=== PATIENT | female | born 1960 | race Caucasian/White ===

== ENCOUNTER 2016-10-24 10:17 | Emergency (ER) | payer MEDICARE, MEDICAID ==
[~2016-10-24] VITALS: Ht 167.6 cm; Wt 115.0 kg
[~2016-10-24 10:17] MED LIST: BAYE2KIT XX; BENA25TA8 PO; BUSP15TA PO; DOK100TA PO; DUONI NEB; GLIP10 PO; GLUCTAB PO; HALO5 PO; LISI-360 PO; MECL25CH PO; OMEG100037 PO; OMEP20TA39 PO; PALI1.75 IM; SERT100 PO; SYMB80AE INH; SYNT137T PO; TRIH2 PO; VENTAER INH; Z.0.OXYGENDME NC; ZOCO40TA PO; diabetic shoes; lancets; nebulizer; needles; test strips
[2016-10-24 10:27] VITALS: BP 175/75; PULSE 69; RESP 26; TEMP 98.2; O2SAT 92
[2016-10-24] MEDS ORDERED: RESP: ALBUTEROL 2.5 MG/IPRATROPIUM 0.5 MG NEB (SCH) INH ONE (10:30)
[2016-10-24] MEDS ORDERED: SODIUM CHLORIDE 0.9% FLUSH 10 ML FLUSH IVF PRN (10:30)
[2016-10-24 10:34] VITALS: RESP 22; O2SAT 95
[2016-10-24] MEDS: RESP: ALBUTEROL 2.5 MG/3 ML NEB (SCH) INH (10:34)
[2016-10-24 10:38] VITALS: O2SAT 93
[2016-10-24 11:11] LABS: AUTOMATED NEUTROPHIL # 3.9 TH/MM3 (1.8-7.7); BASOPHIL % 0.3 % (0.0-2.0); EOSINOPHIL # 0.1 TH/MM3 (0-0.4); EOSINOPHIL % 1.8 % (0.0-4.0); HEMATOCRIT 37.7 % (35.0-46.0); HEMO FLAGS DIFF FINAL; LYMPH % 18.7 % (9.0-44.0); MEAN CELL VOLUME 84.1 FL (80.0-100.0); MEAN CORPUSCULAR HEMOGLOBIN 28.1 PG (27.0-34.0); MEAN CORPUSCULAR HGB CONC 33.4 % (32.0-36.0); MONO % 4.2 % (0.0-8.0); PLATELET COUNT 137 TH/MM3 (150-450); RED BLOOD COUNT 4.49 MIL/MM3 (4.00-5.30); WHITE BLOOD COUNT 5.2 TH/MM3 (4.0-11.0)
[2016-10-24 11:18] LABS: APTT (PATIENT) 27.9 SEC (24.3-30.1); PROTHROMBIN TIME - PATIENT 10.8 SEC (9.8-11.6)
--- NOTE | 2016-10-24 11:18 | RADRPT ---
EXAM DATE/TIME: 10/24/2016 10:42 [facility] COMPARISON: CHEST SINGLE AP, January 04, 2016, 1:12. INDICATIONS : Short of breath. MEDICAL HISTORY : Chronic obstructive pulmonary disease. SURGICAL HISTORY : None. ENCOUNTER: Initial ACUITY: 1 day PAIN SCORE: 0/10 LOCATION: Bilateral chest FINDINGS: A single view of the chest demonstrates the lungs to be symmetrically aerated without evidence of mas s, infiltrate or effusion. The cardiomediastinal contours are unremarkable. Osseous structures are intact. CONCLUSION: 1. No acute cardiopulmonary findings. Marshall Henriquez MD on October 24, 2016 at 11:16 Board Certified Radiologist. This report was verified electronically.
[2016-10-24 11:25] LABS: ANION GAP 6 MEQ/L (5-15); BICARBONATE 34.2 MEQ/L (21.0-32.0); BLOOD UREA NITROGEN 5 MG/DL (7-18); CHLORIDE 101 MEQ/L (98-107); GLOMERULAR FILTRATION RATE 96 ML/MIN (>89); POTASSIUM 3.7 MEQ/L (3.5-5.1); SODIUM (NA) 141 MEQ/L (136-145)
[2016-10-24 11:30] LABS: CREATINE KINASE 34 U/L (26-192)
[2016-10-24 12:18] VITALS: BP 182/82; PULSE 71; RESP 20; O2SAT 95
[2016-10-24] MEDS ORDERED: PRED-503 PO (13:11)
[2016-10-24] MEDS ORDERED: VENTAER INH (13:11)
--- NOTE | 2016-10-24 13:11 | PD ---
HPI Chief Complaint: Respiratory Symptoms Time Seen by Provider: 10:27 Travel History International Travel<30 days: No Contact w/Intl Traveler<30days: No Traveled to known affect area: No History of Present Illness HPI 56yo F with PMH of asthma presents to the ED with c/o sob today. Pt has been sob every day for 3 weeks and usually uses her ventolin pump and gets better. However, she decided not to use any medication today because she was tired of this. Denies any fever, chest pain, n/v, abdominal pain, focal weakness or numbness. +Cig smoker. Pt given duonebsx2 and methylprednisolone 125mg IV by EV[facility]. PFSH Past Medical History Asthma: Yes Bipolar Disorder: Yes Anxiety: Yes Depression: Yes Cancer: No Cardiovascular Problems: Yes High Cholesterol: Yes Chest Pain: Yes Cerebrovascular Accident: Yes Diabetes: Yes Patient Takes Glucophage: Yes Diminished Hearing: No Endocrine: Yes Gastrointestinal Disorders: Yes (TAKES ZANTAC) GERD: Yes Hypertension: Yes Musculoskeletal: Yes (TAkes flexeril) Psychiatric: Yes Respiratory: Yes (COPD) Schizophrenia: Yes Seizures: Yes Sickle Cell Disease: No Sleep Apnea: Yes Thyroid Disease: Yes Menopausal: Yes Dilation and Curettage (D&C): Yes Tubal Ligation: Yes Past Surgical History Gynecologic Surgery: Yes (TUBAL ,D & C,CERVIX ) Tonsillectomy: Yes Social History Alcohol Use: No Tobacco Use: Yes (1 PPD) Substance Use: No Allergies-Medications (Allergen,Severity, Reaction): Coded Allergies: Penicillin (Verified Allergy, Severe, Anaphylaxis, 10/24/16) Sulfa (Verified Allergy, Severe, 10/24/16) Prolixin (Verified Allergy, Intermediate, 10/24/16) pt states she cannot walk Reported Meds & Prescriptions Reported Meds & Active Scripts Active Oxygen (O2) (Oxygendme) Device 2 L NC CONTINUOUS Oxygen Concentrator Portable Gaseous 2 L/min via Nasal Cannula Continuous For 99 months Resp: Albuterol/Ipratropium 2.5 Mg/0.5 Mg (Albuterol/Ipratropium) 1 Amp Nebu 1 Amp NEB Q6H PRN Ventolin Hfa (Albuterol Sulfate) 18 Gm Aero 2 Puff INH Q4 PRN * SHAKE WELL BEFORE USE * Lisinopril 10 mg (Lisinopril) 10 Mg Tab 10 Mg PO DAILY Zocor 40 mg (Simvastatin) 40 Mg Tab 1 Tab PO HS Hm Omeprazole (Omeprazole) 20 Mg Tab 20 Mg PO BID Glucotrol 10 Mg Tab (Glipizide) 10 Mg Tab 10 Mg PO BID Fish Oil 1000 mg ([place]-3 Fatty Acids) 1 Cap Cap 1 Cap PO TID Benadryl 25 mg tab (Diphenhydramine HCl) 25 Mg Tab 25 Mg PO HS [diabetic shoes ] Meclizine Hcl (Meclizine HCl) 25 Mg Chw 25 Mg PO TID Dok 100 mg (Docusate Sodium) 100 Mg Tab 100 Mg PO BID Synthroid 137 mcg (Levothyroxine Sodium) 137 Mcg Tab 137 Mcg PO DAILY [test strips] [lancets] [needles] to go with Jobyourlifetus solostar pen Testing once daily [nebulizer] 1 Symbicort (Budesonide/Formoterol Fumarate) 80 Mcg/4.5 Mcg Aer 2 Puff INH BID * SHAKE WELL BEFORE USE * Metformin (Metformin HCl) 500 Mg Tab 500 Mg PO BID Glucometer Encore Qa+ Sys (Miscellaneous Medication) Kit 1 Unit XX Reported Haldol (Haloperidol) 5 Mg Tab 10 Mg PO HS Haldol (Haloperidol) 5 Mg Tab 5 Mg PO DAILY Invega Trinza (Paliperidone Palmitate) 819 Mg/2.625 Ml Inj 819 Mg IM Q28 DAYS Buspar (Buspirone HCl) 15 Mg Tab 10 Mg PO TID Zoloft (Sertraline HCl) 100 Mg Tab 100 Mg PO DAILY Artane 2 Mg Tab (Trihexyphenidyl HCl) 2 Mg Tab 2 Mg PO BID Review of Systems Except as stated in HPI: all other systems reviewed are Neg Physical Exam Narrative GENERAL: 56yo F not in distress. SKIN: Focused skin assessment warm/dry. HEAD: Atraumatic. Normocephalic. EYES: Pupils equal and round. No scleral icterus. No injection or drainage. ENT: No nasal bleeding or discharge. Mucous membranes pink and moist. NECK: Trachea midline. No JVD. CARDIOVASCULAR: Regular rate and rhythm. No murmur appreciated. RESPIRATORY: No accessory muscle use. Expiratory wheezing bilaterally. GASTROINTESTINAL: Abdomen soft, non-tender, nondistended. MUSCULOSKELETAL: No obvious deformities. No clubbing. No cyanosis. No edema. NEUROLOGICAL: Awake and alert. No obvious cranial nerve deficits. Motor grossly within normal limits. Normal speech. PSYCHIATRIC: Appropriate mood and affect; insight and judgment normal. Data Data Last Documented VS Vital Signs Date Time Temp Pulse Resp B/P Pulse Ox O2 Delivery O2 Flow Rate FiO2 10/24/16 12:18 71 20 182/82 95 Nasal Cannula 3 10/24/16 10:27 98.2 Orders Complete Blood Count With Diff (10/24/16 10:27) Basic Metabolic Panel (Bmp) (10/24/16 10:27) B-Type Natriuretic Peptide (10/24/16 10:27) Act Partial Throm Time (Ptt) (10/24/16 10:27) Prothrombin Time / Inr (Pt) (10/24/16 10:27) Ckmb (Isoenzyme) Profile (10/24/16 10:27) Troponin I (10/24/16 10:27) Influenzae A/B Antigen (10/24/16 10:27) Iv Access Insert/Monitor (10/24/16 10:27) Electrocardiogram (10/24/16 10:27) Ecg Monitoring (10/24/16 10:27) Oximetry (10/24/16 10:27) Oxygen Administration (10/24/16 10:27) Chest, Single Ap (10/24/16 10:27) Sodium Chloride 0.9% Flush (Ns Flush) (10/24/16 10:30) Albuterol-Ipratropium Neb (Duoneb Neb) (10/24/16 10:30) Albuterol Neb (Albuterol Neb) (10/24/16 10:30) Labs Laboratory Tests Test 10/24/16 10:55 White Blood Count 5.2 TH/MM3 Red Blood Count 4.49 MIL/MM3 Hemoglobin 12.6 GM/DL Hematocrit 37.7 % Mean Corpuscular Volume 84.1 FL Mean Corpuscular Hemoglobin 28.1 PG Mean Corpuscular Hemoglobin 33.4 % Concent Red Cell Distribution Width 15.0 % Platelet Count 137 TH/MM3 Mean Platelet Volume 7.1 FL Neutrophils (%) (Auto) 75.0 % Lymphocytes (%) (Auto) 18.7 % Monocytes (%) (Auto) 4.2 % Eosinophils (%) (Auto) 1.8 % Basophils (%) (Auto) 0.3 % Neutrophils # (Auto) 3.9 TH/MM3 Lymphocytes # (Auto) 1.0 TH/MM3 Monocytes # (Auto) 0.2 TH/MM3 Eosinophils # (Auto) 0.1 TH/MM3 Basophils # (Auto) 0.0 TH/MM3 CBC Comment DIFF FINAL Differential Comment Prothrombin Time 10.8 SEC Prothromb Time International 1.0 RATIO Ratio Activated Partial 27.9 SEC Thromboplast Time Sodium Level 141 MEQ/L Potassium Level 3.7 MEQ/L Chloride Level 101 MEQ/L Carbon Dioxide Level 34.2 MEQ/L Anion Gap 6 MEQ/L Blood Urea Nitrogen 5 MG/DL Creatinine 0.64 MG/DL Estimat Glomerular Filtration 96 ML/MIN Rate Random Glucose 133 MG/DL Calcium Level 8.8 MG/DL Total Creatine Kinase 34 U/L Troponin I LESS THAN 0.02 NG/ML B-Type Natriuretic Peptide 38 PG/ML MDM Medical Decision Making Medical Screen Exam Complete: Yes Emergency Medical Condition: Yes Interpretation(s) EKG: NSR 68bpm. Normal axis. T wave flattening. Laboratory Tests Test 10/24/16 10:55 White Blood Count 5.2 TH/MM3 (4.0-11.0) Red Blood Count 4.49 MIL/MM3 (4.00-5.30) Hemoglobin 12.6 GM/DL (11.6-15.3) Hematocrit 37.7 % (35.0-46.0) Mean Corpuscular Volume 84.1 FL (80.0-100.0) Mean Corpuscular Hemoglobin 28.1 PG (27.0-34.0) Mean Corpuscular Hemoglobin 33.4 % Concent (32.0-36.0) Red Cell Distribution Width 15.0 % (11.6-17.2) Platelet Count 137 TH/MM3 (150-450) Mean Platelet Volume 7.1 FL (7.0-11.0) Neutrophils (%) (Auto) 75.0 % (16.0-70.0) Lymphocytes (%) (Auto) 18.7 % (9.0-44.0) Monocytes (%) (Auto) 4.2 % (0.0-8.0) Eosinophils (%) (Auto) 1.8 % (0.0-4.0) Basophils (%) (Auto) 0.3 % (0.0-2.0) Neutrophils # (Auto) 3.9 TH/MM3 (1.8-7.7) Lymphocytes # (Auto) 1.0 TH/MM3 (1.0-4.8) Monocytes # (Auto) 0.2 TH/MM3 (0-0.9) Eosinophils # (Auto) 0.1 TH/MM3 (0-0.4) Basophils # (Auto) 0.0 TH/MM3 (0-0.2) CBC Comment DIFF FINAL Differential Comment Prothrombin Time 10.8 SEC (9.8-11.6) Prothromb Time International 1.0 RATIO Ratio Activated Partial 27.9 SEC Thromboplast Time (24.3-30.1) Sodium Level 141 MEQ/L (136-145) Potassium Level 3.7 MEQ/L (3.5-5.1) Chloride Level 101 MEQ/L (98-107) Carbon Dioxide Level 34.2 MEQ/L (21.0-32.0) Anion Gap 6 MEQ/L (5-15) Blood Urea Nitrogen 5 MG/DL (7-18) Creatinine 0.64 MG/DL (0.50-1.00) Estimat Glomerular Filtration 96 ML/MIN (>89) Rate Random Glucose 133 MG/DL (74-106) Calcium Level 8.8 MG/DL (8.5-10.1) Total Creatine Kinase 34 U/L (26-192) Troponin I LESS THAN 0.02 NG/ML (0.02-0.05) B-Type Natriuretic Peptide 38 PG/ML (0-100) Last Impressions Chest X-Ray 10/24/16 1027 Signed Impressions: Service Date/Time: Monday, October 24, 2016 10:42 - CONCLUSION: 1. No acute cardiopulmonary findings. Marshall Henriquez MD Differential Diagnosis COPD exacerbation vs. Pneumonia vs. ACS Narrative Course 56yo F with sob today. Pt is speaking in complete sentences but has wheezing on exam. Gave another duoneb and albuterol nebx3. Pt uses 2L NC at home and is saturating 95% on 2L NC. Labs reviewed, no leukocytosis. Troponin negative. BNP 38. CXR showed no acute cardiopulmonary findings. Pt reevaluated at bedside and is feeling better. O2sat is 96% on 2L NC. Speaking in complete sentences. Still has mild end expiratory wheezing. Return precautions given. Diagnosis Primary Impression: Asthma exacerbation Patient Instructions: General Instructions Departure Forms: Tests/Procedures Additional Instructions: Please follow up with your PMD in 3-7 days. Return to the ED if symptoms worsen. Med/Other Pt SpecificInfo: Prescription(s) given Scripts Prednisone (Deltasone)20 Mg Tab20 Mg PO BID 5 Days Ref 0 Prov:Brittany Bird DO 10/24/16 Albuterol 18 GM Inh (Ventolin Hfa 18 GM Inh)90 Mcg/Act Aer2 Puff INH Q4H PRN ( SHORTNESS OF BREATH) #1 INHALER Ref 0 Prov:Brittany Bird DO 10/24/16 Disposition: 01 DISCHARGE HOME Condition: Stable Brittany Bird DO Oct 24, 2016 13:11
--- NOTE | 2016-10-25 10:46 | EKG ---
Date Performed: 10/24/2016 Time Performed: 10:28:46 PTAGE: 56 years EKG: Sinus rhythm NONSPECIFIC T-WAVE ABNORMALITY BORDERLINE ECG Compared to prior tracing no significant change PREVIOUS TRACING : 01/04/2016 01.00 DOCTOR: Haylee Felix Interpretating Date/Time 10/25/2016 10:38:59
== END 2016-10-24 13:40 | disposition home or self-care (01) ==
LOC: NEPE 10:17
DX: J45.901 Unspecified asthma with (acute) exacerbation (principal); R94.31 Abnormal electrocardiogram [ECG] [EKG]; E11.9 Type 2 diabetes mellitus without complications; I10 Essential (primary) hypertension; F17.210 Nicotine dependence, cigarettes, uncomplicated
CPT/HCPCS: 71010; 80048; 82550; 83880; 84484; 85025; 85610; 85730; 87804; 93005; 94640; 94664; 99285; J7613

== ENCOUNTER 2016-11-09 07:46 | Inpatient (IN) | payer MEDICARE, MEDICAID ==
[2016-11-09] VITALS (13 sets, daily range): BP systolic 143–161; BP diastolic 64–79; PULSE 73–95; RESP 14–22; TEMP 97.5–99; O2SAT 83–98
[~2016-11-09] VITALS: Ht 167.6 cm; Wt 110.9 kg
[~2016-11-09 07:46] MED LIST changes: -diabetic shoes; -lancets; -nebulizer; -needles; -test strips
[2016-11-09] MEDS ORDERED: RESP: ALBUTEROL 2.5 MG/IPRATROPIUM 0.5 MG NEB (SCH) INH ONE (08:00)
[2016-11-09] MEDS ORDERED: SODIUM CHLORIDE 0.9% FLUSH 10 ML FLUSH IVF PRN (08:00)
--- NOTE | 2016-11-09 08:03 | PD ---
HPI Chief Complaint: Respiratory Symptoms Time Seen by Provider: 07:55 Travel History International Travel<30 days: No Contact w/Intl Traveler<30days: No History of Present Illness HPI 56yo F with PMH of asthma presents to the ED with c/o sob for 1 day. States she was arguing with her children and started feeling sob. Tactile fever. + Productive cough. Denies any chest pain, n/v, abdominal pain, focal weakness or numbness. Pt has been here multiple times for asthma exacerbation and uses 2L NC oxygen at home. Pt denies history of endotracheal intubation. Last ED visit was early this month. Pt was given methylprednisolone 125mg and duonebs x2. PFSH Past Medical History Asthma: Yes Bipolar Disorder: Yes Anxiety: Yes Depression: Yes Cancer: No Cardiovascular Problems: Yes High Cholesterol: Yes Chest Pain: Yes Cerebrovascular Accident: Yes Diabetes: Yes Diminished Hearing: No Endocrine: Yes Gastrointestinal Disorders: Yes (TAKES ZANTAC) GERD: Yes Hypertension: Yes Musculoskeletal: Yes (TAkes flexeril) Psychiatric: Yes Respiratory: Yes (COPD) Schizophrenia: Yes Seizures: Yes Sickle Cell Disease: No Sleep Apnea: Yes Thyroid Disease: Yes Menopausal: Yes Dilation and Curettage (D&C): Yes Tubal Ligation: Yes Past Surgical History Gynecologic Surgery: Yes (TUBAL ,D & C,CERVIX ) Tonsillectomy: Yes Social History Alcohol Use: No Tobacco Use: Yes (1 PPD) Substance Use: No Allergies-Medications (Allergen,Severity, Reaction): Coded Allergies: Penicillin (Verified Allergy, Severe, Anaphylaxis, 11/09/16) Sulfa (Verified Allergy, Severe, 11/09/16) Prolixin (Verified Allergy, Intermediate, 11/09/16) pt states she cannot walk Reported Meds & Prescriptions Reported Meds & Active Scripts Active Reported Ventolin Hfa 18 GM Inh (Albuterol Sulfate) 90 Mcg/Act Aer 2 Puff INH Q6H PRN Zocor (Simvastatin) 40 Mg Tab 40 Mg PO DAILY Glipizide 10 Mg Tab 10 Mg PO BID Take 30 minutes before a meal Omeprazole 20 Mg Tab 20 Mg PO BID Fish Oil 1000 mg ([place]-3 Fatty Acids) 1 Cap Cap 1,000 Mg PO TID Lisinopril 10 Mg Tab 10 Mg PO DAILY Synthroid (Levothyroxine Sodium) 137 Mcg Tab 137 Mcg PO DAILY Metformin (Metformin HCl) 500 Mg Tab 500 Mg PO BID With meals Zoloft (Sertraline HCl) 100 Mg Tab 200 Mg PO DAILY Colace (Docusate Sodium) 100 Mg Cap 100 Mg PO BID Buspirone (Buspirone HCl) 10 Mg Tab 10 Mg PO TID Review of Systems Except as stated in HPI: all other systems reviewed are Neg Physical Exam Narrative GENERAL: 56yo F not in distress. SKIN: Focused skin assessment warm/dry. HEAD: Atraumatic. Normocephalic. EYES: Pupils equal and round. No scleral icterus. No injection or drainage. ENT: No nasal bleeding or discharge. Mucous membranes pink and moist. NECK: Trachea midline. No JVD. CARDIOVASCULAR: Regular rate and rhythm. No murmur appreciated. RESPIRATORY: + accessory muscle use. Wheezing bilaterally. GASTROINTESTINAL: Abdomen soft, non-tender, nondistended. MUSCULOSKELETAL: No obvious deformities. No clubbing. No cyanosis. No edema. NEUROLOGICAL: Awake and alert. No obvious cranial nerve deficits. Motor grossly within normal limits. Normal speech. PSYCHIATRIC: Appropriate mood and affect; insight and judgment normal. Data Data Last Documented VS Vital Signs Date Time Temp Pulse Resp B/P Pulse Ox O2 Delivery O2 Flow Rate FiO2 11/09/16 09:19 97 35 11/09/16 08:00 99.0 95 22 145/67 Nasal Cannula 4 Orders Complete Blood Count With Diff (11/09/16 07:55) Basic Metabolic Panel (Bmp) (11/09/16 07:55) B-Type Natriuretic Peptide (11/09/16 07:55) Act Partial Throm Time (Ptt) (11/09/16 07:55) Prothrombin Time / Inr (Pt) (11/09/16 07:55) Magnesium (Mg) (11/09/16 07:55) Ckmb (Isoenzyme) Profile (11/09/16 07:55) Troponin I (11/09/16 07:55) Arterial Blood Gas (Abg) (11/09/16 07:55) Influenzae A/B Antigen (11/09/16 07:55) Blood Culture (11/09/16 07:55) Iv Access Insert/Monitor (11/09/16 07:55) Electrocardiogram (11/09/16 07:55) Ecg Monitoring (11/09/16 07:55) Oximetry (11/09/16 07:55) Oxygen Administration (11/09/16 07:55) Chest, Single Ap (11/09/16 07:55) Sodium Chloride 0.9% Flush (Ns Flush) (11/09/16 08:00) Albuterol-Ipratropium Neb (Duoneb Neb) (11/09/16 08:00) Albuterol Neb (Albuterol Neb) (11/09/16 08:00) Lactic Acid Sepsis Protocol (11/09/16 07:55) Ct Pulmonary Angiogram (11/09/16 ) Resp Bipap / Cpap Non Invas Vt (11/09/16 08:20) Potassium Chloride (Kcl) (11/09/16 09:00) Levofloxacin 750 Mg Premix Inj (Levaquin (11/09/16 09:30) Sodium Chlor 0.9% 1000 Ml Inj (Ns 1000 M (11/09/16 09:45) Admit Order (Ed Use Only) (11/09/16 09:40) Labs Laboratory Tests Test 11/09/16 11/09/16 11/09/16 11/09/16 08:00 08:05 08:10 09:00 White Blood Count 8.3 TH/MM3 Red Blood Count 4.49 MIL/MM3 Hemoglobin 12.6 GM/DL Hematocrit 37.5 % Mean Corpuscular Volume 83.4 FL Mean Corpuscular Hemoglobin 28.0 PG Mean Corpuscular Hemoglobin 33.5 % Concent Red Cell Distribution Width 15.4 % Platelet Count 125 TH/MM3 Mean Platelet Volume 7.5 FL Neutrophils (%) (Auto) 82.2 % Lymphocytes (%) (Auto) 9.3 % Monocytes (%) (Auto) 8.0 % Eosinophils (%) (Auto) 0.3 % Basophils (%) (Auto) 0.2 % Neutrophils # (Auto) 6.8 TH/MM3 Lymphocytes # (Auto) 0.8 TH/MM3 Monocytes # (Auto) 0.7 TH/MM3 Eosinophils # (Auto) 0.0 TH/MM3 Basophils # (Auto) 0.0 TH/MM3 CBC Comment DIFF FINAL Differential Comment Prothrombin Time 11.3 SEC Prothromb Time International 1.0 RATIO Ratio Activated Partial 28.7 SEC Thromboplast Time B-Type Natriuretic Peptide 29 PG/ML Blood Gas Puncture Site LT RADIAL Blood Gas Patient Temperature 98.6 Blood Gas HCO3 33 mmol/L Blood Gas Base Excess 8.7 mmol/L Blood Gas Oxygen Saturation 83 % Arterial Blood pH 7.46 Arterial Blood Partial 47 mmHg Pressure CO2 Arterial Blood Partial 55 mmHG Pressure O2 Arterial Blood Oxygen Content 14.4 Vol % Arterial Blood 6.5 % Carboxyhemoglobin Arterial Blood Methemoglobin 0.7 % Blood Gas Hemoglobin 12.2 G/DL Oxygen Delivery Device NASAL CANNULA Blood Gas Liter Flow 4 L/M Sodium Level 135 MEQ/L Potassium Level 3.1 MEQ/L Chloride Level 94 MEQ/L Carbon Dioxide Level 34.5 MEQ/L Anion Gap 7 MEQ/L Blood Urea Nitrogen 3 MG/DL Creatinine 0.61 MG/DL Estimat Glomerular Filtration 101 ML/MIN Rate Random Glucose 169 MG/DL Calcium Level 9.1 MG/DL Magnesium Level 2.1 MG/DL Total Creatine Kinase 94 U/L Troponin I LESS THAN 0.02 NG/ML Lactic Acid Level 0.9 mmol/L MDM Medical Decision Making Medical Screen Exam Complete: Yes Emergency Medical Condition: Yes Interpretation(s) Laboratory Tests Test 11/09/16 11/09/16 11/09/16 08:00 08:05 08:10 White Blood Count 8.3 TH/MM3 (4.0-11.0) Red Blood Count 4.49 MIL/MM3 (4.00-5.30) Hemoglobin 12.6 GM/DL (11.6-15.3) Hematocrit 37.5 % (35.0-46.0) Mean Corpuscular Volume 83.4 FL (80.0-100.0) Mean Corpuscular Hemoglobin 28.0 PG (27.0-34.0) Mean Corpuscular Hemoglobin 33.5 % Concent (32.0-36.0) Red Cell Distribution Width 15.4 % (11.6-17.2) Platelet Count 125 TH/MM3 (150-450) Mean Platelet Volume 7.5 FL (7.0-11.0) Neutrophils (%) (Auto) 82.2 % (16.0-70.0) Lymphocytes (%) (Auto) 9.3 % (9.0-44.0) Monocytes (%) (Auto) 8.0 % (0.0-8.0) Eosinophils (%) (Auto) 0.3 % (0.0-4.0) Basophils (%) (Auto) 0.2 % (0.0-2.0) Neutrophils # (Auto) 6.8 TH/MM3 (1.8-7.7) Lymphocytes # (Auto) 0.8 TH/MM3 (1.0-4.8) Monocytes # (Auto) 0.7 TH/MM3 (0-0.9) Eosinophils # (Auto) 0.0 TH/MM3 (0-0.4) Basophils # (Auto) 0.0 TH/MM3 (0-0.2) CBC Comment DIFF FINAL Differential Comment Prothrombin Time 11.3 SEC (9.8-11.6) Prothromb Time International 1.0 RATIO Ratio Activated Partial 28.7 SEC Thromboplast Time (24.3-30.1) B-Type Natriuretic Peptide 29 PG/ML (0-100) Blood Gas Puncture Site LT RADIAL Blood Gas Patient Temperature 98.6 Blood Gas HCO3 33 mmol/L (22-26) Blood Gas Base Excess 8.7 mmol/L (-2-2) Blood Gas Oxygen Saturation 83 % (90-100) Arterial Blood pH 7.46 (7.380-7.420) Arterial Blood Partial 47 mmHg (38-42) Pressure CO2 Arterial Blood Partial 55 mmHG Pressure O2 (61-120) Arterial Blood Oxygen Content 14.4 Vol % (12.0-20.0) Arterial Blood 6.5 % (0-4) Carboxyhemoglobin Arterial Blood Methemoglobin 0.7 % (0-2) Blood Gas Hemoglobin 12.2 G/DL (12.0-16.0) Oxygen Delivery Device NASAL CANNULA Blood Gas Liter Flow 4 L/M Sodium Level 135 MEQ/L (136-145) Potassium Level 3.1 MEQ/L (3.5-5.1) Chloride Level 94 MEQ/L (98-107) Carbon Dioxide Level 34.5 MEQ/L (21.0-32.0) Anion Gap 7 MEQ/L (5-15) Blood Urea Nitrogen 3 MG/DL (7-18) Creatinine 0.61 MG/DL (0.50-1.00) Estimat Glomerular Filtration 101 ML/MIN Rate (>89) Random Glucose 169 MG/DL (74-106) Calcium Level 9.1 MG/DL (8.5-10.1) Magnesium Level 2.1 MG/DL (1.5-2.5) Total Creatine Kinase 94 U/L (26-192) Troponin I LESS THAN 0.02 NG/ML (0.02-0.05) Last Impressions Chest X-Ray 11/09/16 0755 Signed Impressions: Service Date/Time: Wednesday, November 09, 2016 08:35 - CONCLUSION: Bilateral patchy lower lung infiltrates. Gerson Parks MD Differential Diagnosis Asthma exacerbation vs. pneumonia vs. ACS Narrative Course 56yo F with sob, cough and tactile fever. Pt has history of asthma and had mild wheezing on exam. Pt given duonebs x2 and methylprednisolone by EVAC. Pt given another duoneb and albuterol neb x3 in the ED. Feels slightly better. Pt is tachypneic and hypoxic saturating at mid 80s even on 4 liter nasal cannula. Pt placed on BIPAP and saturating at 92% and feels better. RR around 28-30. Labs reviewed, no leukocytosis. Neutrophil 82.2%. K: 3.1, replaced orally with 40mEq KCl. Troponin negative. BNP 29. ABG showed mild respiratory alkalosis with pH 7.46 and pCO2 of 47. Pt is hypoxic with O2 sat 83 % and pO2 of 55. Carboxyhemoglobin is 6.5 but pt is a cig smoker. CXR showed bilateral patchy lower lung infiltrates and pt give levafloxacin 750mg IV. Pt is allergic to penicillin. Denies any hospitalization in last [address]. Lactic acid 0.9. CT angio negative for PE. NS IVF x1 ordered. Pt reevaluated at bedside and is much more comfortable on the BIPAP. Saturating at 92% and RR is now in the mid 20s. Discussed with Dr. Chicas and accepted to his service to the ICU for bilateral pneumonia. Critical Care Narrative Aggregate critical care time was 60 minutes. Time to perform other separately billable procedures was not included in the critical care time. My time did not include minutes spent treating any other patients simultaneously or on activities that did not directly contribute to the patient's treatment. The services I provided to this patient were to treat and/or prevent clinically significant deterioration that could result in: cardiovascular collapse or . I provided critical care services requiring my management, as noted below: Chart data review, documentation time, medication orders and management, vital sign assessments/reviewing monitor data, ordering and reviewing lab tests, ordering and interpreting/reviewing x-rays and diagnostic studies, care of the patient and discussion of the patient with the admitting physicians. Diagnosis Primary Impression: Bilateral pneumonia Qualified Code: J18.9 - Pneumonia of both lower lobes due to infectious organism Admitting Information Admitting Physician Requests: Brittany Santiago DO Nov 09, 2016 08:03 Diagnosis Primary Impression: Bilateral pneumonia Qualified Code: J18.9 - Pneumonia of both lower lobes due to infectious organism Admitting Information Admitting Physician Requests: Brittany Santiago DO Nov 09, 2016 08:03
[2016-11-09 08:14] LABS: BLOOD GAS BASE EXCESS 8.7 mmol/L (-2-2); BLOOD GAS CARBOXYHEMOGLOBIN 6.5 % (0-4); BLOOD GAS HCO3 33 mmol/L (22-26); BLOOD GAS METHEMOGLOBIN 0.7 % (0-2); BLOOD GAS O2 HGB SATURATION 83 % (90-100); BLOOD GAS OXYGEN CONTENT 14.4 Vol % (12.0-20.0); BLOOD GAS PCO2 47 mmHg (38-42); BLOOD GAS PO2 55 mmHG (61-120); BLOOD GAS TOTAL HGB 12.2 G/DL (12.0-16.0); TEMP CORR TO 98.6
[2016-11-09 08:15] LABS: CRITICAL VALUE YES; DRAW SITE LT RADIAL; LITER FLOW 4 L/M; NUMBER OF ARTERIAL PUNCTURES 1; OXYGEN DEVICE NASAL CANNULA; STAT YES
[2016-11-09] MEDS: RESP: ALBUTEROL 2.5 MG/3 ML NEB (SCH) INH ×2 (08:22→08:41)
[2016-11-09 08:31] LABS: APTT (PATIENT) 28.7 SEC (24.3-30.1); PROTHROMBIN TIME - PATIENT 11.3 SEC (9.8-11.6)
[2016-11-09 08:32] LABS: AUTOMATED NEUTROPHIL # 6.8 TH/MM3 (1.8-7.7); BASOPHIL % 0.2 % (0.0-2.0); EOSINOPHIL % 0.3 % (0.0-4.0); HEMATOCRIT 37.5 % (35.0-46.0); HEMO FLAGS DIFF FINAL; LYMPH % 9.3 % (9.0-44.0); LYMPHOCYTE # 0.8 TH/MM3 (1.0-4.8); MEAN CELL VOLUME 83.4 FL (80.0-100.0); MEAN CORPUSCULAR HGB CONC 33.5 % (32.0-36.0); NEUT % 82.2 % (16.0-70.0); PLATELET COUNT 125 TH/MM3 (150-450); RED BLOOD COUNT 4.49 MIL/MM3 (4.00-5.30); RED CELL DISTRIBUTION WIDTH 15.4 % (11.6-17.2); WHITE BLOOD COUNT 8.3 TH/MM3 (4.0-11.0)
[2016-11-09 08:45] LABS: ANION GAP 7 MEQ/L (5-15); BICARBONATE 34.5 MEQ/L (21.0-32.0); BLOOD UREA NITROGEN 3 MG/DL (7-18); CHLORIDE 94 MEQ/L (98-107); GLOMERULAR FILTRATION RATE 101 ML/MIN (>89); MAGNESIUM 2.1 MG/DL (1.5-2.5); POTASSIUM 3.1 MEQ/L (3.5-5.1); SODIUM (NA) 135 MEQ/L (136-145)
[2016-11-09 08:50] LABS: CREATINE KINASE 94 U/L (26-192)
[2016-11-09] MEDS ORDERED: POTASSIUM CHLORIDE 20 MEQ CONTROLLED RELEASE TAB PO ONE (09:00)
--- NOTE | 2016-11-09 09:14 | RADRPT ---
EXAM DATE/TIME: 11/09/2016 08:35 [facility] COMPARISON: CHEST SINGLE AP, October 24, 2016, 10:42. INDICATIONS : Shortness of breath. MEDICAL HISTORY : Chronic obstructive pulmonary disease. SURGICAL HISTORY : None. ENCOUNTER: Initial ACUITY: 3 days PAIN SCORE: 0/10 LOCATION: Bilateral chest FINDINGS: The lungs are symmetrically aerated. There is some patchy infiltrates in the infrahilar region bilat erally with some mild air bronchogram discernible. The heart is normal size. Both hemidiaphragms ar e well delineated. CONCLUSION: Bilateral patchy lower lung infiltrates. Gerson Parks MD on November 09, 2016 at 9:11 Board Certified Radiologist. This report was verified electronically.
[2016-11-09] MEDS ORDERED: LEVOFLOXACIN 750 MG PREMIX INJ 150 ML IV ONE (09:30)
[2016-11-09] MEDS ORDERED: SODIUM CHLOR 0.9% 1000 ML INJ 1,000 ML IV ONE (09:45)
[2016-11-09] MEDS ORDERED: ONDANSETRON HCL 4 MG/2 ML VIAL IVP PRN (09:45)
[2016-11-09] MEDS ORDERED: NALOXONE HCL 0.4 MG/ML AMP IV PRN (09:45)
[2016-11-09] MEDS ORDERED: SODIUM CHLORIDE 0.9% FLUSH 10 ML FLUSH IV FLUSH PRN (09:45)
[2016-11-09] MEDS ORDERED: PALIPERIDONE PALMITATE 819 MG IM SCH (10:00)
[2016-11-09] MEDS ORDERED: IOHEXOL 350 MG/ML 10 ML VIAL (for RAD DIAG) IV ONE (10:15)
--- NOTE | 2016-11-09 10:29 | RADRPT ---
EXAM DATE/TIME: 11/09/2016 10:00 [facility] COMPARISON: No previous studies available for comparison. INDICATIONS : Dyspnea IV CONTRAST: 75 cc Omnipaque 350 (iohexol) IV RADIATION DOSE: 23.24 CTDIvol (mGy) MEDICAL HISTORY : Hypertension. Cerebrovascular disease. Diabetes mellitus type 1. SURGICAL HISTORY : None. ENCOUNTER: Initial ACUITY: 1 day PAIN SCALE: 0/10 LOCATION: chest TECHNIQUE: Volumetric scanning of the chest was performed using a pulmonary embolism protocol MIP images were re constructed. Using automated exposure control and adjustment of the mA and/or kV according to patien t size, radiation dose was kept as low as reasonably achievable to obtain optimal diagnostic quality images. FINDINGS: PULMONARY ARTERIES: Timing of contrast is mixed with similar intensity of contrast in the pulmonary arteries, aorta, and pulmonary veins. No filling defects are seen in the pulmonary arteries through the segmental level. LUNGS: Scattered areas of partially consolidative infiltrate is seen at the periphery of both lungs involvin g the lower lobes. PLEURAE: There is no pleural thickening or pleural effusion. MEDIASTINUM: There is good visualization of the great vessels of the middle mediastinum. No evidence of mediastin al or hilar adenopathy/mass. CONCLUSION: 1. The study is negative for pulmonary embolism. 2. Patchy small areas of infiltrate at the periphery of both lower lobes. No evidence of pleural eff usion. Gerson Parks MD on November 09, 2016 at 10:22 Board Certified Radiologist. This report was verified electronically.
[2016-11-09] MEDS ORDERED: BUSP10TA PO (10:47)
[2016-11-09] MEDS ORDERED: OMEP20TA PO (10:47)
[2016-11-09] MEDS ORDERED: LEVO-86 PO (10:47)
[2016-11-09] MEDS ORDERED: ZOCO40TA PO (10:47)
[2016-11-09] MEDS ORDERED: GLIP10TA6 PO (10:47)
[2016-11-09] MEDS ORDERED: LISI10TA3 PO (10:47)
[2016-11-09] MEDS ORDERED: ZOLO100T PO (10:47)
[2016-11-09] MEDS ORDERED: FISH100020 PO (10:47)
[2016-11-09] MEDS ORDERED: VENTAER INH (10:47)
[2016-11-09] MEDS ORDERED: METF500T PO (10:47)
[2016-11-09] MEDS ORDERED: COLA100C3 PO (10:47)
[2016-11-09] MEDS ORDERED: RESP: ALBUTEROL 2.5 MG/IPRATROPIUM 0.5 MG NEB (PRN) NEB (11:00)
[2016-11-09] MEDS ORDERED: ALBUTEROL SULFATE 90 MCG/ACT HFA 18 GM INHALER INH PRN (11:45)
[2016-11-09] MEDS: DOCUSATE SODIUM 100 MG CAP PO SCH ×2 (12:17→22:13)
[2016-11-09] MEDS: HEPARIN SODIUM - SQ 10,000 UNITS/ML VIAL SQ SCH ×2 (12:18→22:13)
[2016-11-09] MEDS ORDERED: NON-FORMULARY DRUG (Omega-3 Fatty Acids (Fish Oil 1000 mg) 1 CAP) PO SCH (13:00)
[2016-11-09] MEDS: MECLIZINE HCL 25 MG TAB PO SCH ×2 (13:44→17:26)
[2016-11-09] MEDS: busPIRone HCL 10 MG TAB PO SCH ×2 (13:54→17:26)
--- NOTE | 2016-11-09 14:05 | MH ---
cc: VALENTÍN GARDNER MD DATE OF ADMISSION: 11/09/2016 DATE OF : 1960 CHIEF COMPLAINT Respiratory symptoms of cough and shortness of breath with productive sputum. No travel in the last 30 days. HISTORY OF PRESENT ILLNESS This is a morbidly obese 56-year-old white female who notes increased creamy sputum production and shortness of breath x3 days. She uses home O2 at 2 liters and states that she noticed that someone had turned her machine up to 5 liters. She does not know who and denies doing it herself. The patient progressively got worse over the past day and according to the record started arguing with her children and became upset and even more short of breath. According to the record the patient has multiple admissions for COPD, was seen in the emergency room earlier this month. She states that she does continue with shortness of breath and sputum production a good bit of the time including cough a good bit of the time. PAST MEDICAL HISTORY Medical history includes: 1. Asthma. 2. COPD. 3. Bipolar disorder. 4. According to the old records schizophrenia, anxiety, depression. 5. Cardiovascular disease. 6. Hyperlipidemia. 7. Chest pain. 8. CVA. 9. Diabetes mellitus. 10. GERD. 11. Arthritis. 12. Seizures. 13. Obstructive sleep apnea. 14. Thyroid disease. 15. According to the record IV drug user in 2011. 16. Dizzness. 17. Fatigue. 18. Chronic back pain. 19. Skin lesions. 20. Cholelithiasis. 21. Colon polyps. PAST SURGICAL HISTORY 1. Tubal D&C. 2. Tonsillectomy. ALLERGIES PENICILLIN, PROLIXIN, SULFA DRUGS. MEDICATIONS Active medications: 1. Home 02. 2. Ventolin inhalers. 3. Albuterol inhalers. 4. Lisinopril. 5. Zocor. 6. Omeprazole. 7. Glucotrol. 8. Fish oil. 9. Benadryl. 10. Meclizine. 11. Surfak. 12. Synthroid. 13. Simicort. 14. Glucophage. 15. Haldol. 16. Invega. 17. Buspar. 18. Zoloft. 19. Artane. SOCIAL HISTORY The patient denies any alcohol. Does admit to at least a pack a day of smoking for many years. Denies any substance abuse now but as noted in the record she was a previous IV drug user in 2011. She has a roommate who is a male friend who lives with her. REVIEW OF SYSTEMS A 12 point review was obtained, positives are noted in the HPI which include productive sputum, shortness of breath, anxiety, cough. Mild fever. Constipation. The patient states no BM in 3-4 days. Other systems negative or unremarkable. VITAL SIGNS: Temperature 99, pulse 95, respirations 22, blood pressure initially 145/67, now 143/64. O2 sat initially in the ER 83, now 93. The patient has gone from 4 liters nasal cannula to a BiPAP machine at 50%. PHYSICAL EXAMINATION GENERAL: A morbidly obese white female, looks older than her stated age, resting on a stretcher. Her general hygiene is unkempt. SKIN: [place], pink, warm and dry. HEENT: Atraumatic, normocephalic. PERRLA at 2. Mucous membranes are dry. No scleral icterus. NECK: Neck is thick and supple. Trachea appears midline. CARDIOVASCULAR: S1-S2, regular rate and rhythm. Heart sounds are distant but no murmurs, rubs or gallops audible. PULMONARY: Low volumes. Short choppy respirations counted around 28 a minute while on BiPAP. She has expiratory wheezes and rhonchi in her upper quiñones and decreased breath sounds bilateral in her lower quiñones. ABDOMEN: Abdomen is obese, round, soft, nontender, nondistended. MUSCULOSKELETAL: She moves her extremities with purpose. She has no pedal edema. He pulses are intact. Lower extremities are warm. NEUROLOGIC: She is awake, is attempting to answer questions appropriately, but limited communication secondary to BiPAP machine being on. There is no family members present. Neurologically responds, speech appears clear. PSYCHIATRIC: Mood and affect are appropriate, responds appropriately to verbal stimuli and simple questions. She appears to be a good historian. DIAGNOSTIC DATA PT/INR is 1, hemoglobin 12.6, hematocrit 37.5. WBC count 8.3, platelet count 125, neutrophil percentage 82.2, lymphocytes 0.8. All other parameters are within normal range. Chemistry sodium 135, potassium 3.1, chloride 94, carbon dioxide 34.5, amnion gap 7, BUN 3, creatinine 0.61, GFR 101, random glucose 169, lactic acid 0.9, calcium 9.1, magnesium 2.1, total creatinine kinase 94. Troponin less than 0.02. BNP 29. IMAGING STUDIES Shows chest x-ray to have bilateral patchy lower lung infiltrates. CT angiography shows no evidence of PE, patchy small areas of infiltrate in the periphery in both lower lungs, no evidence of pleural effusion. ASSESSMENT AND PLAN 1. Bilateral pneumonia. 2. COPD exacerbation. 3. Hypokalemia. 4. Diabetes mellitus, uncontrolled. 5. Thrombocytopenia, mild. 6. Chronic pain. 7. History of schizophrenia and bipolar disorder. 8. Tobacco abuse. Our plan is to admit to inpatient status, monitor her vital signs q. 4 and more often as needed. Patient is currently requiring BiPAP for her respiratory assistance. We will continue to monitor and transition back to a O2 nasal cannula when the patient's 02 sat stays 92 or greater. The patient can be out of bed with assistance, cardiac monitoring, diabetic diet, Accu-Cheks a.c. and at bedtime with blood sugar checks. Reconcile her medications. Consult pulmonary for their expert opinion. The patient has multiple admissions to the emergency room and may need assistance with her pulmonary medical management. DVT prophylaxis with heparin, PPI with Protonix, DuoNebs. The patient received supplemental potassium and has been placed on IV Levaquin. The patient is full code, full aggressive care. The patient was also educated on her tobacco use. We will follow and monitor. Dictated by: Jennifer Ken, Nurse Practitioner MD IAN Lemus/ELDA /12:21 PM /12:56 PM
[2016-11-09] MEDS: MAGNESIUM HYDROXIDE SUSP 30 ML CUP PO SCH ×2 (17:26→22:14)
--- NOTE | 2016-11-09 18:39 | HP.UPD ---
H&P Update Note This is a 56-year-old female who is an active smoker who was brought into the emergency department at [facility] today with respiratory distress. She was found to have pneumonia. Her potassium was 3. She was started on antibiotics. Her potassium was replaced. She was admitted to intensive care unit as she was found in respiratory failure and needed BiPAP. Her utility sales and service manager is consulted. She is advised to discontinue smoking and to lose weight. She was started on intravenous steroids and DuoNeb both scheduled and as needed. The case was discussed with emergency physician. The patient was seen and examined at the emergency department by the undersigned today Gisele Chicas MD Nov 09, 2016 18:37
[2016-11-09] MEDS ORDERED: DEXTROSE 50% IN WATER 50 ML VIAL(D50) IV PUSH PRN (19:00)
[2016-11-09] MEDS ORDERED: GLUCAGON 1 MG/ML VIAL OTHER PRN (19:00)
[2016-11-09] MEDS ORDERED: CHLORHEXIDINE GLUCONATE 2 % 1 PACK (2 CLOTHS)(extra cloths) TOPICAL PRN (19:15)
[2016-11-09] MEDS: INSULIN ASPART SUPPLEMENTAL SCALE SQ SCH (21:00)
[2016-11-09] MEDS ORDERED: DOCUSATE SODIUM 100 MG PO SCH (21:00)
[2016-11-09] MEDS: RESP: ALBUTEROL 2.5 MG/IPRATROPIUM 0.5 MG NEB (SCH) NEB (21:27)
--- NOTE | 2016-11-09 22:03 | EKG ---
Date Performed: 11/09/2016 Time Performed: 08:13:20 PTAGE: 56 years EKG: Sinus rhythm ST DEVIATION AND MODERATE T-WAVE ABNORMALITY, CONSIDER LATERAL ISCHEMIA ST DEVIATION AND MODERATE T- WAVE ABNORMALITY, CONSIDER INFERIOR ISCHEMIA ABNORMAL ECG PREVIOUS TRACING : 10/24/2016 10.28 Compared to the previous tracing, ST/T wave changes are now more prominent DOCTOR: Ziggy Hood Interpretating Date/Time 11/09/2016 22:03:18
[2016-11-09] MEDS: diphenhydrAMINE HCL 25 MG CAP PO SCH (22:13)
[2016-11-09] MEDS: PRAVASTATIN SOD 80 MG TAB PO SCH (22:13)
[2016-11-09] MEDS: PANTOPRAZOLE SOD 20 MG DELAYED RELEASE TAB PO SCH (22:14)
[2016-11-09] MEDS: SODIUM CHLORIDE 0.9% FLUSH 10 ML FLUSH IV FLUSH SCH (22:14)
[2016-11-09] MEDS: OSELTAMIVIR PHOSPHATE 75 MG CAP PO SCH (23:02)
[2016-11-09] MEDS: TRIHEXYPHENIDYL HCL 2 MG TAB PO SCH (23:02)
[2016-11-09] MEDS: HALOPERIDOL 5 MG TAB PO SCH (23:03)
[2016-11-09] MEDS: BUDESONIDE-FORMOTEROL 80/4.5 MCG INHALER INH SCH (23:03)
[2016-11-10] VITALS (15 sets, daily range): BP systolic 140–155; BP diastolic 63–81; PULSE 70–87; RESP 14–27; TEMP 97.9–98.6; O2SAT 93–98
[2016-11-10] MEDS: CHLORHEXIDINE GLUCONATE 2 % 1 PACK (2 CLOTHS)(taper/protocol) TOPICAL SCH (04:00)
--- NOTE | 2016-11-10 05:25 | MB ---
cc: TUAN OJEDA DATE OF CONSULTATION 11/09/[address] Chicas REASON FOR CONSULTATION COPD. Pulmonary management. HISTORY OF PRESENT ILLNESS Ms. Cochran is a 56-year-old female with a history of bipolar disorder, COPD, nicotine use and she continues to smoke one to two packs of cigarettes a day. The patient came to the hospital with 2-3 days' history of worsening of shortness of breath. She had low-grade fever, has cough and congestion, has wheezing, did not have any chest pain. Because of worsening of her symptoms, she came to the hospital. She had a workup done. Her MRSA screen is negative. Flu antigen A is positive. Her blood gas shows pH 7.46, pCO2 57, pO2 55, bicarb 33. Her WBC count is 8.3, hemoglobin 12.6, hematocrit 37.5, platelet count 125. Sodium 135, potassium 3.1, chloride 94, CO2 34, BUN 3, creatinine 0.6. She has a CTA of the chest done which shows no pulmonary embolism. It shows small patchy areas of infiltrates at the periphery of both lungs. PAST MEDICAL HISTORY 1. History of COPD. 2. Asthma. 3. Schizophrenia. 4. Anxiety depression. 5. CVA. 6. Diabetes mellitus. 7. Seizure disorder. 8. Obstructive sleep apnea. She does not use any C-PAP machine. MEDICATIONS She is currently using - 1. Haldol 5 mg daily. 2. Lisinopril 10 mg per day. 3. Zoloft 200 mg daily. 4. Synthroid 137 mcg a day. 5. Symbicort 80/4.5 two puffs twice a day. 6. Artane 2 mg twice a day. 7. Protonix 40 mg a day. 8. Pravastatin 80 mg a day. 9. Albuterol/Atrovent nebulizer treatment. 10. Heparin 5000 q.12 hours. ALLERGIES PENICILLIN. PROLIXIN. SULFA. SOCIAL HISTORY She has a long history of smoking and continues to smoke. No alcohol or drug use. She has used drugs a long time ago. She lives with a male friend. She has been twice and she says she has 12 to 14 children. REVIEW OF SYSTEMS She walks only short distance, uses oxygen, continuous to smoke. No seizure, stroke or epilepsy. PHYSICAL EXAMINATION GENERAL: A well-built, well-nourished female, mildly short of breath. Not in any acute distress. VITAL SIGNS: Blood pressure 161/70, heart rate 80, respirations 16. Temperature 97.5. HEENT EXAMINATION: Pupils are equal and react to light. Oral mucosa, nasal mucosa normal. NECK: Supple. JVP not raised. CHEST: She has expiratory rhonchi. CV: S1 and S2 normal. ABDOMEN: Benign. EXTREMITIES: No edema. IMPRESSION 1. COPD exacerbation. 2. Flu. 3. Pneumonia. 4. Schizophrenia/bipolar disorder. 5. Hypertension. PLAN I discussed with the patient. 1. Will use CPAP at night, supplemental oxygen. We will keep the saturation greater than 92%. 2. Continue antibiotics. 3. I will also start her on Tamiflu 75 mg twice per day. Further treatment will depend on her course in the hospital. Thank you Dr. Chicas for this consult. MD NICCI Marsh/NINOSKA /7:56 PM /5:05 AM
[2016-11-10] MEDS: LEVOTHYROXINE SODIUM 25 MCG TAB PO SCH (06:02)
[2016-11-10] MEDS: LEVOTHYROXINE SODIUM 112 MCG TAB PO SCH (06:02)
[2016-11-10] MEDS: INSULIN ASPART SUPPLEMENTAL SCALE SQ SCH ×4 (06:02→22:27)
[2016-11-10 06:19] LABS: AUTOMATED NEUTROPHIL # 4.2 TH/MM3 (1.8-7.7); BASOPHIL % 0.1 % (0.0-2.0); EOSINOPHIL % 0.4 % (0.0-4.0); HEMATOCRIT 34.4 % (35.0-46.0); HEMO FLAGS DIFF FINAL; LYMPH % 19.5 % (9.0-44.0); LYMPHOCYTE # 1.1 TH/MM3 (1.0-4.8); MEAN CELL VOLUME 84.5 FL (80.0-100.0); MEAN CORPUSCULAR HEMOGLOBIN 28.2 PG (27.0-34.0); MEAN CORPUSCULAR HGB CONC 33.3 % (32.0-36.0); MONO % 6.4 % (0.0-8.0); NEUT % 73.6 % (16.0-70.0); PLATELET COUNT 130 TH/MM3 (150-450); RED BLOOD COUNT 4.07 MIL/MM3 (4.00-5.30); RED CELL DISTRIBUTION WIDTH 15.5 % (11.6-17.2); WHITE BLOOD COUNT 5.8 TH/MM3 (4.0-11.0)
[2016-11-10 06:24] LABS: BICARBONATE 37.9 MEQ/L (21.0-32.0); POTASSIUM 3.4 MEQ/L (3.5-5.1)
[2016-11-10] MEDS: RESP: ALBUTEROL 2.5 MG/IPRATROPIUM 0.5 MG NEB (SCH) NEB ×4 (08:15→19:57)
--- NOTE | 2016-11-10 08:33 | HHI.PR ---
Subjective Subjective Remarks no cough no cp no sob refusing BIPAP, doesn't like it using oxygen at 3L/NC sats 98% no fever no acute changes overnight Review of Systems Constitutional Constitutional Remarks 12 point ROS completed, negative except as noted above Vitals/Results Intake & Output 11/09/16 11/09/16 11/10/16 15:00 23:00 07:00 Intake Total 480 ml 480 ml Output Total 650 ml 500 ml Balance -170 ml -20 ml Intake Oral 480 ml 480 ml IV Total 0 ml 0 ml Output Urine Total 650 ml 500 ml # Bowel Movements 2 0 Vital Signs Vital Signs Date Time Temp Pulse Resp B/P Pulse Ox O2 Delivery O2 Flow Rate FiO2 11/10/16 08:15 96 Nasal Cannula 3.00 11/10/16 06:00 72 11/10/16 04:00 98.6 72 16 155/81 98 11/10/16 04:00 72 11/10/16 02:00 73 11/10/16 00:00 98.1 73 14 151/72 95 11/10/16 00:00 73 11/09/16 22:33 96 35 11/09/16 22:00 73 11/09/16 20:00 98.6 83 18 159/70 95 11/09/16 20:00 83 11/09/16 18:00 82 11/09/16 17:00 97.5 80 14 161/79 98 11/09/16 15:42 96 35 11/09/16 15:00 89 22 143/69 96 BiPAP 6 35 11/09/16 13:30 94 Nasal Cannula 6.00 11/09/16 12:20 92 11/09/16 10:00 86 20 143/64 93 BiPAP 6 50 11/09/16 09:19 97 35 CBC/BMP: 11/10/16 0541 11/10/16 0541 Lab Results Laboratory Tests Test 11/09/16 11/09/16 11/10/16 09:00 16:00 05:41 Lactic Acid Level 0.9 mmol/L Nasal Screen MRSA (PCR) NEGATIVE White Blood Count 5.8 TH/MM3 Red Blood Count 4.07 MIL/MM3 Hemoglobin 11.5 GM/DL Hematocrit 34.4 % Mean Corpuscular Volume 84.5 FL Mean Corpuscular Hemoglobin 28.2 PG Mean Corpuscular Hemoglobin 33.3 % Concent Red Cell Distribution Width 15.5 % Platelet Count 130 TH/MM3 Mean Platelet Volume 7.2 FL Neutrophils (%) (Auto) 73.6 % Lymphocytes (%) (Auto) 19.5 % Monocytes (%) (Auto) 6.4 % Eosinophils (%) (Auto) 0.4 % Basophils (%) (Auto) 0.1 % Neutrophils # (Auto) 4.2 TH/MM3 Lymphocytes # (Auto) 1.1 TH/MM3 Monocytes # (Auto) 0.4 TH/MM3 Eosinophils # (Auto) 0.0 TH/MM3 Basophils # (Auto) 0.0 TH/MM3 CBC Comment DIFF FINAL Differential Comment Sodium Level 142 MEQ/L Potassium Level 3.4 MEQ/L Chloride Level 101 MEQ/L Carbon Dioxide Level 37.9 MEQ/L Anion Gap 3 MEQ/L Blood Urea Nitrogen 5 MG/DL Creatinine 0.52 MG/DL Estimat Glomerular Filtration 122 ML/MIN Rate Random Glucose 122 MG/DL Calcium Level 8.6 MG/DL Microbiology Microbiology 11/09/16 Aerobic Blood Culture, Received Pending 11/09/16 Anaerobic Blood Culture, Received Pending 11/09/16 Influenza Types A,B Antigen (YOSELYN) - Final, Complete Positive For Flu A Antigen 11/09/16 Aerobic Blood Culture, Received Pending 11/09/16 Anaerobic Blood Culture, Received Pending Physical Exam General General Appearance: Well Developed, Comfortable, Obese Eyes Eye Exam: Pupils Equal, Pupils Reactive Ears & Nose Ears & Nose Exam: Nasal Mucosa [place] Throat Throat Exam: Oral Mucosa [place] & Moist Neck Neck Exam: Neck Supple, Trachea Midline Pulmonary Resp Exam: Rhonchi Resp Remarks exp. wheezing Cardiology CV Exam: Regular, Good Perfusion Gastrointestinal/Abdomen GI Exam: Soft, Non-Tender, Bowel Sounds Present, Non-Distended Musculoskeletal MS Exam: Joints Intact Integumentary Skin Exam: Warm, Dry Neurologic Neuro Exam: Alert, Awake, Oriented, Speech Clear, Moving All Extremities, No Focal Deficits Psychiatric Psych Exam: Appropriate Responses VTE Prophylaxis VTE Prophylaxis Device: SCDs VTE Prophylaxis Meds: Heparin PUD Prophylasis PUD Prophylaxis: Protonix Assessment/Plan Problem List: (1) Bilateral pneumonia (2) Asthma exacerbation (3) Diabetes mellitus (4) Hypothyroidism (5) Hypertension (6) GERD (gastroesophageal reflux disease) (7) Hyperlipidemia (8) Schizophrenia (9) Anxiety and depression Assessment/Plan follow cultures + influenza A continue Tamiflu continue Levaquin start Prednisone 30 mg po daily Duonebs refusing bipap, doing well on NC at 3L/NC continue oxygen to keep sats > 90% appreciate pulmonary input Accuchecks AC/HS with ISS continue psych meds heparin for DVT prophylaxis PPI for GI prophylaxis Replace K Labs in am ok to transfer out of ICU D/W RN D/W Dr. Chicas D/W pt. This patient was seen by myself and Dr. Chicas, this note is written on her behalf. Problem Qualifiers (1) Bilateral pneumonia: Qualified Code: J18.9 - Pneumonia of both lower lobes due to infectious organism (2) Hypertension: Qualified Code: I10 - Essential hypertension (3) GERD (gastroesophageal reflux disease): Qualified Code: K21.9 - Gastroesophageal reflux disease, esophagitis presence not specified (4) Hyperlipidemia: Qualified Code: E78.5 - Hyperlipidemia, unspecified hyperlipidemia type (5) Schizophrenia: Qualified Code: F20.9 - Schizophrenia, unspecified type Fadia Nash Nov 10, 2016 08:33
[2016-11-10] MEDS ORDERED: ICU - POTASSIUM PHOSPHATE 30 MMOL/NS 250 ML IV PRN ×2 (08:45)
[2016-11-10] MEDS ORDERED: ICU - POTASSIUM CHLORIDE/AQUEOUS SOLN 20 MEQ/100 ML IVPB IV PRN (08:45)
[2016-11-10] MEDS ORDERED: ICU - POTASSIUM CHLORIDE/AQUEOUS SOLN 40 MEQ/100 ML IVPB IV PRN (08:45)
[2016-11-10] MEDS ORDERED: ICU - SODIUM PHOSPHATE 30 MMOL/NS 250 ML IV PRN ×2 (08:45)
[2016-11-10] MEDS ORDERED: ICU - MAGNESIUM OXIDE 400 MG TAB PO PRN (08:45)
[2016-11-10] MEDS ORDERED: ICU - MAGNESIUM SULFATE 4 GM/NS 100 ML IV PRN ×2 (08:45)
[2016-11-10] MEDS ORDERED: ICU - D/C ICU ELECTROLYTE ORDERS PRN (08:45)
[2016-11-10] MEDS ORDERED: ICU - POTASSIUM PHOSPHATE MONOBASIC 500 MG TAB PO PRN (08:45)
[2016-11-10] MEDS ORDERED: ICU - CALL ORDERING PHYSICIAN PRN (08:45)
[2016-11-10] MEDS ORDERED: POTASSIUM CHLORIDE 25 MEQ EFFERVESCENT TAB PO PRN (08:45)
[2016-11-10] MEDS ORDERED: POTASSIUM CHLORIDE 25 MEQ EFFERVESCENT TAB PO ONE (08:45)
[2016-11-10] MEDS ORDERED: ICU - MAGNESIUM SULFATE 2 GM/NS 100 ML IV PRN ×2 (08:45)
[2016-11-10] MEDS: BUDESONIDE-FORMOTEROL 80/4.5 MCG INHALER INH SCH ×2 (08:46→22:32)
[2016-11-10] MEDS: OSELTAMIVIR PHOSPHATE 75 MG CAP PO SCH ×2 (08:47→22:29)
[2016-11-10] MEDS: MAGNESIUM HYDROXIDE SUSP 30 ML CUP PO SCH ×2 (08:48→22:26)
[2016-11-10] MEDS: MECLIZINE HCL 25 MG TAB PO SCH ×3 (08:48→17:25)
[2016-11-10] MEDS: SERTRALINE HCL 100 MG TAB PO SCH (08:48)
[2016-11-10] MEDS: PANTOPRAZOLE SOD 20 MG DELAYED RELEASE TAB PO SCH ×2 (08:49→22:25)
[2016-11-10] MEDS: busPIRone HCL 10 MG TAB PO SCH ×3 (08:49→17:25)
[2016-11-10] MEDS: LISINOPRIL 10 MG TAB PO SCH (08:49)
[2016-11-10] MEDS: HALOPERIDOL 5 MG TAB PO SCH ×2 (08:50→22:52)
[2016-11-10] MEDS: TRIHEXYPHENIDYL HCL 2 MG TAB PO SCH ×2 (08:50→22:30)
[2016-11-10] MEDS: SODIUM CHLORIDE 0.9% FLUSH 10 ML FLUSH IV FLUSH SCH ×2 (08:50→21:00)
[2016-11-10] MEDS: DOCUSATE SODIUM 100 MG CAP PO SCH ×2 (08:50→22:25)
[2016-11-10] MEDS: HEPARIN SODIUM - SQ 10,000 UNITS/ML VIAL SQ SCH ×2 (10:44→22:26)
[2016-11-10] MEDS: predniSONE 10 MG TAB PO SCH (10:44)
[2016-11-10] MEDS: LEVOFLOXACIN 500 MG PREMIX INJ 100 ML IV SCH (10:44)
[2016-11-10] MEDS ORDERED: Vancomycin Consult Pharmacy 1 EA OTHER SCH (12:45)
[2016-11-10] MEDS ORDERED: VANCOMYCIN INJ 1,000 MG in SODIUM CHLOR 0.9% 250 ML INJ 250 ML IV SCH (13:00)
[2016-11-10] MEDS: VANCOMYCIN INJ 1,500 MG in SODIUM CHLORID 0.9% 500 ML INJ 500 ML IV SCH (15:53)
--- NOTE | 2016-11-10 20:07 | HHI.PR ---
Subjective Remarks 56 YOWF with COPD,ANTHONY,DM Does't want to use CPAP On NC Breathing better no fever Objective Vital Signs Vital Signs Date Time Temp Pulse Resp B/P Pulse Ox O2 Delivery O2 Flow Rate FiO2 11/10/16 19:58 93 Nasal Cannula 3.00 11/10/16 18:31 83 11/10/16 18:00 97.9 76 18 148/66 95 11/10/16 16:29 96 Nasal Cannula 2.00 11/10/16 16:00 79 11/10/16 16:00 98.0 79 27 142/65 96 11/10/16 14:00 75 11/10/16 12:00 98.0 79 24 150/72 94 11/10/16 12:00 79 11/10/16 10:00 87 11/10/16 08:15 96 Nasal Cannula 3.00 11/10/16 08:00 70 11/10/16 08:00 98.0 70 23 140/70 94 11/10/16 06:00 72 11/10/16 04:00 98.6 72 16 155/81 98 11/10/16 04:00 72 11/10/16 02:00 73 11/10/16 00:00 98.1 73 14 151/72 95 11/10/16 00:00 73 11/09/16 22:33 96 35 11/09/16 22:00 73 I/O 11/09/16 11/09/16 11/09/16 11/10/16 11/10/16 11/10/16 07:00 15:00 23:00 07:00 15:00 23:00 Intake Total 480 ml 480 ml 690 ml Output Total 650 ml 500 ml 250 ml Balance -170 ml -20 ml 440 ml Intake Oral 480 ml 480 ml 600 ml IV Total 0 ml 0 ml 90 ml Output Urine Total 650 ml 500 ml 250 ml # Voids 2 # Bowel Movements 2 0 1 Result Diagram: 11/10/16 0541 11/10/16 0541 Objective Remarks GENERAL: WBWN WF,NAD SKIN: Warm and dry. HEAD: Normocephalic. EYES: No scleral icterus. No injection or drainage. NECK: Supple, trachea midline. No JVD or lymphadenopathy. CARDIOVASCULAR: Regular rate and rhythm without murmurs, gallops, or rubs. RESPIRATORY: Breath sounds equal bilaterally. No accessory muscle use. Exp rhonchi GASTROINTESTINAL: Abdomen soft, non-tender, nondistended. MUSCULOSKELETAL: No cyanosis, or edema. BACK: Nontender without obvious deformity. No CVA tenderness. A/P Assessment and Plan Hypercapnoic RF improved COPD ANTHONY DM Nicotine use Schezophrenia PLAN: PO Steroids aerosol nebs monitor BS Supplement 02 Pt refuses to use CPAP Geremias Tapia MD Nov 10, 2016 20:07
[2016-11-10] MEDS: POTASSIUM CHLORIDE 10 MEQ CONTROLLED RELEASE TAB PO SCH (22:25)
[2016-11-10] MEDS: PRAVASTATIN SOD 80 MG TAB PO SCH (22:25)
[2016-11-10] MEDS: diphenhydrAMINE HCL 25 MG CAP PO SCH (22:26)
[2016-11-11] VITALS (9 sets, daily range): BP systolic 121–163; BP diastolic 57–85; PULSE 67–85; RESP 20–24; TEMP 97.2–98.4; O2SAT 93–98
[2016-11-11] MEDS: CHLORHEXIDINE GLUCONATE 2 % 1 PACK (2 CLOTHS)(taper/protocol) TOPICAL SCH (04:00)
[2016-11-11] MEDS: VANCOMYCIN INJ 1,500 MG in SODIUM CHLORID 0.9% 500 ML INJ 500 ML IV SCH ×2 (04:12→14:10)
[2016-11-11] MEDS: RESP: ALBUTEROL 2.5 MG/IPRATROPIUM 0.5 MG NEB (PRN) NEB (04:47)
[2016-11-11] MEDS: INSULIN ASPART SUPPLEMENTAL SCALE SQ SCH ×4 (05:24→21:00)
[2016-11-11] MEDS: LEVOTHYROXINE SODIUM 112 MCG TAB PO SCH (05:24)
[2016-11-11] MEDS: LEVOTHYROXINE SODIUM 25 MCG TAB PO SCH (05:24)
[2016-11-11 07:48] LABS: BICARBONATE 37.2 MEQ/L (21.0-32.0); MAGNESIUM 2.8 MG/DL (1.5-2.5); POTASSIUM 4.3 MEQ/L (3.5-5.1)
[2016-11-11] MEDS: RESP: ALBUTEROL 2.5 MG/IPRATROPIUM 0.5 MG NEB (SCH) NEB ×4 (09:28→19:44)
[2016-11-11] MEDS: MECLIZINE HCL 25 MG TAB PO SCH ×3 (09:58→18:19)
[2016-11-11] MEDS: predniSONE 10 MG TAB PO SCH (09:58)
[2016-11-11] MEDS: OSELTAMIVIR PHOSPHATE 75 MG CAP PO SCH ×2 (09:58→21:00)
[2016-11-11] MEDS: SERTRALINE HCL 100 MG TAB PO SCH (09:59)
[2016-11-11] MEDS: busPIRone HCL 10 MG TAB PO SCH ×3 (09:59→18:19)
[2016-11-11] MEDS: DOCUSATE SODIUM 100 MG CAP PO SCH ×2 (09:59→21:00)
[2016-11-11] MEDS: LISINOPRIL 10 MG TAB PO SCH (09:59)
[2016-11-11] MEDS: LEVOFLOXACIN 500 MG PREMIX INJ 100 ML IV SCH (10:00)
[2016-11-11] MEDS: HALOPERIDOL 5 MG TAB PO SCH ×2 (10:00→21:00)
[2016-11-11] MEDS: PANTOPRAZOLE SOD 20 MG DELAYED RELEASE TAB PO SCH ×2 (10:00→21:00)
[2016-11-11] MEDS: MAGNESIUM HYDROXIDE SUSP 30 ML CUP PO SCH ×2 (10:00→20:59)
[2016-11-11] MEDS: TRIHEXYPHENIDYL HCL 2 MG TAB PO SCH ×2 (10:00→20:59)
[2016-11-11] MEDS: BUDESONIDE-FORMOTEROL 80/4.5 MCG INHALER INH SCH ×2 (10:01→21:00)
[2016-11-11] MEDS: POTASSIUM CHLORIDE 10 MEQ CONTROLLED RELEASE TAB PO SCH ×2 (10:01→20:59)
[2016-11-11] MEDS: HEPARIN SODIUM - SQ 10,000 UNITS/ML VIAL SQ SCH ×2 (11:00→22:53)
--- NOTE | 2016-11-11 11:18 | HHI.PR ---
Subjective Subjective Remarks sob with activity, inc. wheezing no cp no fever no abd. pain loose stools sats 94% on 2L/NC Review of Systems Constitutional Constitutional Remarks 12 point ROS completed, negative except as noted above, unreliable Vitals/Results Intake & Output 11/10/16 11/10/16 11/11/16 15:00 23:00 07:00 Intake Total 690 ml 360 ml 894 ml Output Total 250 ml Balance 440 ml 360 ml 894 ml Intake Oral 600 ml 360 ml 720 ml IV Total 90 ml 174 ml Output Urine Total 250 ml # Voids 2 2 2 # Bowel Movements 1 1 Vital Signs Vital Signs Date Time Temp Pulse Resp B/P Pulse Ox O2 Delivery O2 Flow Rate FiO2 11/11/16 09:31 94 Nasal Cannula 3.00 11/11/16 08:00 97.4 83 22 163/85 94 11/11/16 04:00 98.2 70 20 121/57 97 11/11/16 00:00 98.2 67 24 134/61 98 11/10/16 20:00 97.9 74 24 140/63 95 11/10/16 20:00 82 11/10/16 19:58 93 Nasal Cannula 3.00 11/10/16 18:31 83 11/10/16 18:00 97.9 76 18 148/66 95 11/10/16 16:29 96 Nasal Cannula 2.00 11/10/16 16:00 79 11/10/16 16:00 98.0 79 27 142/65 96 11/10/16 14:00 75 11/10/16 12:00 98.0 79 24 150/72 94 11/10/16 12:00 79 CBC/BMP: 11/10/16 0541 11/11/16 0630 Lab Results Laboratory Tests Test 11/11/16 06:30 Sodium Level 141 MEQ/L Potassium Level 4.3 MEQ/L Chloride Level 103 MEQ/L Carbon Dioxide Level 37.2 MEQ/L Anion Gap 1 MEQ/L Blood Urea Nitrogen 8 MG/DL Creatinine 0.49 MG/DL Estimat Glomerular Filtration 130 ML/MIN Rate Random Glucose 117 MG/DL Calcium Level 8.5 MG/DL Phosphorus Level 2.2 MG/DL Magnesium Level 2.8 MG/DL Physical Exam General General Appearance: Well Developed, Comfortable, Obese Eyes Eye Exam: Pupils Equal, Pupils Reactive Ears & Nose Ears & Nose Exam: Nasal Mucosa [place] Throat Throat Exam: Oral Mucosa [place] & Moist Neck Neck Exam: Neck Supple, Trachea Midline Pulmonary Resp Exam: Crackles, Rhonchi Resp Remarks exp. wheezing Cardiology CV Exam: Regular, Good Perfusion Gastrointestinal/Abdomen GI Exam: Soft, Non-Tender, Bowel Sounds Present, Non-Distended Musculoskeletal MS Exam: Joints Intact Integumentary Skin Exam: Warm, Dry Neurologic Neuro Exam: Alert, Awake, Oriented, Speech Clear, Moving All Extremities, No Focal Deficits Psychiatric Psych Exam: Appropriate Responses VTE Prophylaxis VTE Prophylaxis Device: SCDs VTE Prophylaxis Meds: Heparin PUD Prophylasis PUD Prophylaxis: Protonix Assessment/Plan Problem List: (1) Bilateral pneumonia (2) Asthma exacerbation (3) Diabetes mellitus (4) Hypothyroidism (5) Hypertension (6) GERD (gastroesophageal reflux disease) (7) Hyperlipidemia (8) Schizophrenia (9) Anxiety and depression Assessment/Plan follow cultures-staph coag. ? contaminant + influenza A continue Tamiflu continue Levaquin continue Prednisone 30 mg po daily Duonebs refusing bipap, doing well on NC at 3L/NC continue oxygen to keep sats > 90% appreciate pulmonary input Accuchecks AC/HS with ISS continue psych meds heparin for DVT prophylaxis PPI for GI prophylaxis not ready for dc, remains with wheezing and SOB with minimal activity. D/W RN D/W Dr. Chicas D/W pt. This patient was seen by myself and Dr. Chicas, this note is written on her behalf. Problem Qualifiers (1) Bilateral pneumonia: Qualified Code: J18.9 - Pneumonia of both lower lobes due to infectious organism (2) Hypertension: Qualified Code: I10 - Essential hypertension (3) GERD (gastroesophageal reflux disease): Qualified Code: K21.9 - Gastroesophageal reflux disease, esophagitis presence not specified (4) Hyperlipidemia: Qualified Code: E78.5 - Hyperlipidemia, unspecified hyperlipidemia type (5) Schizophrenia: Qualified Code: F20.9 - Schizophrenia, unspecified type Fadia Nash Nov 11, 2016 11:18
--- NOTE | 2016-11-11 18:57 | HHI.PR ---
Subjective Remarks 56 YOWF with COPD,ANTHONY,DM Does't want to use CPAP On NC Breathing better no fever no new complaint Objective Vital Signs Vital Signs Date Time Temp Pulse Resp B/P Pulse Ox O2 Delivery O2 Flow Rate FiO2 11/11/16 12:00 97.2 80 24 144/70 94 11/11/16 09:31 94 Nasal Cannula 3.00 11/11/16 08:00 85 11/11/16 08:00 97.4 83 22 163/85 94 11/11/16 04:00 98.2 70 20 121/57 97 11/11/16 00:00 98.2 67 24 134/61 98 11/10/16 20:00 97.9 74 24 140/63 95 11/10/16 20:00 82 11/10/16 19:58 93 Nasal Cannula 3.00 I/O 11/10/16 11/10/16 11/10/16 11/11/16 11/11/16 11/11/16 07:00 15:00 23:00 07:00 15:00 23:00 Intake Total 480 ml 690 ml 360 ml 894 ml Output Total 500 ml 250 ml Balance -20 ml 440 ml 360 ml 894 ml Intake Oral 480 ml 600 ml 360 ml 720 ml IV Total 0 ml 90 ml 174 ml Output Urine Total 500 ml 250 ml # Voids 2 2 2 # Bowel Movements 0 1 1 Result Diagram: 11/10/16 0541 11/11/16 0630 Objective Remarks GENERAL: WBWN WF,NAD SKIN: Warm and dry. HEAD: Normocephalic. EYES: No scleral icterus. No injection or drainage. NECK: Supple, trachea midline. No JVD or lymphadenopathy. CARDIOVASCULAR: Regular rate and rhythm without murmurs, gallops, or rubs. RESPIRATORY: Breath sounds equal bilaterally. No accessory muscle use. Exp rhonchi GASTROINTESTINAL: Abdomen soft, non-tender, nondistended. MUSCULOSKELETAL: No cyanosis, or edema. BACK: Nontender without obvious deformity. No CVA tenderness. A/P Assessment and Plan Hypercapnoic RF improved COPD ANTHONY DM Nicotine use Schezophrenia PLAN: PO Steroids aerosol nebs monitor BS Supplement 02 Pt refuses to use CPAP Stable from pulm standpoint Available prn Geremias Tapia MD Nov 11, 2016 18:57
[2016-11-11] MEDS: PRAVASTATIN SOD 80 MG TAB PO SCH (20:59)
[2016-11-11] MEDS: diphenhydrAMINE HCL 25 MG CAP PO SCH (20:59)
[2016-11-11] MEDS: SODIUM CHLORIDE 0.9% FLUSH 10 ML FLUSH IV FLUSH SCH (20:59)
[2016-11-12] VITALS (10 sets, daily range): BP systolic 137–186; BP diastolic 72–93; PULSE 65–83; RESP 18–22; TEMP 97.2–98.1; O2SAT 93–97
[2016-11-12] MEDS ORDERED: PHARMACY ORDERED LAB ONE (02:45)
[2016-11-12] MEDS: VANCOMYCIN INJ 1,500 MG in SODIUM CHLORID 0.9% 500 ML INJ 500 ML IV SCH (03:24)
[2016-11-12] MEDS: CHLORHEXIDINE GLUCONATE 2 % 1 PACK (2 CLOTHS)(taper/protocol) TOPICAL SCH (04:00)
[2016-11-12] MEDS: INSULIN ASPART SUPPLEMENTAL SCALE SQ SCH ×4 (06:13→20:34)
[2016-11-12] MEDS: LEVOTHYROXINE SODIUM 25 MCG TAB PO SCH (06:15)
[2016-11-12] MEDS: LEVOTHYROXINE SODIUM 112 MCG TAB PO SCH (06:15)
[2016-11-12] MEDS: RESP: ALBUTEROL 2.5 MG/IPRATROPIUM 0.5 MG NEB (SCH) NEB ×4 (07:55→20:53)
[2016-11-12] MEDS: SODIUM CHLORIDE 0.9% FLUSH 10 ML FLUSH IV FLUSH SCH ×2 (08:34→20:37)
[2016-11-12] MEDS: HALOPERIDOL 5 MG TAB PO SCH ×2 (08:37→20:33)
[2016-11-12] MEDS: SERTRALINE HCL 100 MG TAB PO SCH (08:37)
[2016-11-12] MEDS: predniSONE 10 MG TAB PO SCH (08:37)
[2016-11-12] MEDS: POTASSIUM CHLORIDE 10 MEQ CONTROLLED RELEASE TAB PO SCH ×2 (08:38→20:32)
[2016-11-12] MEDS: PANTOPRAZOLE SOD 20 MG DELAYED RELEASE TAB PO SCH ×2 (08:38→20:33)
[2016-11-12] MEDS: LISINOPRIL 10 MG TAB PO SCH (08:38)
[2016-11-12] MEDS: DOCUSATE SODIUM 100 MG CAP PO SCH ×2 (08:39→20:33)
[2016-11-12] MEDS: OSELTAMIVIR PHOSPHATE 75 MG CAP PO SCH ×2 (08:39→20:33)
[2016-11-12] MEDS: TRIHEXYPHENIDYL HCL 2 MG TAB PO SCH ×2 (08:39→20:33)
[2016-11-12] MEDS: MECLIZINE HCL 25 MG TAB PO SCH ×3 (08:40→17:26)
[2016-11-12] MEDS: MAGNESIUM HYDROXIDE SUSP 30 ML CUP PO SCH ×2 (08:40→20:33)
[2016-11-12] MEDS: busPIRone HCL 10 MG TAB PO SCH ×3 (08:47→17:26)
[2016-11-12] MEDS: BUDESONIDE-FORMOTEROL 80/4.5 MCG INHALER INH SCH ×2 (08:52→20:32)
[2016-11-12] MEDS ORDERED: ENALAPRILAT 1.25 MG/ML VIAL IV PUSH PRN (09:00)
[2016-11-12] MEDS: LEVOFLOXACIN 500 MG PREMIX INJ 100 ML IV SCH (09:25)
--- NOTE | 2016-11-12 09:25 | HHI.PR ---
Subjective Subjective Remarks Resting in bed Low volumes and dyspnea at rest Grunting respirations when awake Aydin complexion Awake answers questions appropriately (Jennifer Ken) Review of Systems Constitutional Constitutional: Fatigue, Weakness (generalized) Constitutional Remarks 10 point ROS done positives noted are grunting respirations with dyspnea especially when awake, low volumes, BP 186/88 last a.m. normal trends today. Other systems unremarkable (Jennifer Ken) Pulmonary Respiratory: Coughing, Shortness of Breath, Wheezing (expiratory) (Jennifer Ken) Musculoskeletal MS: Weakness (generalized), Swelling (lower extremity improved trace to none now) (Jennifer Ken) Psychiatric Psychiatric: Normal Mood, Anxiety (at times) (Jennifer Ken) Vitals/Results Intake & Output 11/11/16 11/11/16 11/12/16 15:00 23:00 07:00 Intake Total 240 ml 120 ml Balance 240 ml 120 ml Intake Oral 240 ml 120 ml # Voids 3 2 3 # Bowel Movements 1 Vital Signs Vital Signs Date Time Temp Pulse Resp B/P Pulse Ox O2 Delivery O2 Flow Rate FiO2 11/12/16 08:00 97.7 78 20 169/78 95 11/12/16 07:56 94 Nasal Cannula 3.00 11/12/16 05:45 97.6 83 22 137/93 94 11/12/16 04:00 98.0 79 20 179/77 93 11/12/16 00:00 97.6 70 20 186/88 97 11/11/16 20:20 78 11/11/16 20:00 98.1 71 20 161/74 98 11/11/16 19:47 95 Nasal Cannula 3.00 11/11/16 16:00 98.4 78 22 157/75 93 11/11/16 12:00 97.2 80 24 144/70 94 11/11/16 09:31 94 Nasal Cannula 3.00 (Jennifer Ken) CBC/BMP: 11/10/16 0541 11/12/16 0614 Lab Results Laboratory Tests Test 11/12/16 11/12/16 03:10 06:14 Vancomycin Level Trough 9.7 MCG/ML Creatinine 0.50 MG/DL Estimat Glomerular Filtration 127 ML/MIN Rate Imaging Remarks Last Impressions Chest X-Ray 11/09/16 0755 Signed Impressions: Service Date/Time: Wednesday, November 09, 2016 08:35 - CONCLUSION: Bilateral patchy lower lung infiltrates. Gerson Parks MD CT Angiography 11/09/16 0000 Signed Impressions: Service Date/Time: Wednesday, November 09, 2016 10:00 - CONCLUSION: 1. The study is negative for pulmonary embolism. 2. Patchy small areas of infiltrate at the periphery of both lower lobes. No evidence of pleural effusion. Gerson Parks MD Current Medications Current Medications Sodium Chloride (NS Flush) 2 ml UNSCH PRN IVF FLUSH AFTER USING IV ACCESS; Start 11/09/16 at 08:00; Stop 11/09/16 at 14:14; Status DC Albuterol/ Ipratropium (Duoneb Neb) 1 ampule ONCE ONCE INH Last administered on 11/09/16 08:18; Start 11/09/16 at 08:00; Stop 11/09/16 at 08:01; Status DC Albuterol Sulfate (Albuterol Neb) 2.5 mg Q15M INH Last administered on 08:41; Start 11/09/16 at 08:00; Stop 11/09/16 at 08:31; Status DC Potassium Chloride 40 meq 40 meq ONCE ONCE PO Last administered on 11/09/16 10:40; Start 11/09/16 at 09:00; Stop 11/09/16 at 09:01; Status DC Levofloxacin/ Dextrose 150 ml @ 100 mls/hr ONCE ONCE IV Last administered on 11/09/16 10:41; Start 11/09/16 at 09:30; Stop 11/09/16 at 10:59; Status DC Sodium Chloride (NS 1000 ml Inj) 1,000 ml @ 999 mls/hr BOLUS ONCE IV Last administered on 11/09/16 10:41; Start 11/09/16 at 09:45; Stop 11/09/16 at 10:45 ; Status DC Sodium Chloride (NS Flush) 2 ml UNSCH PRN IV FLUSH FLUSH AFTER USING IV ACCESS ; Start 11/09/16 at 09:45 Sodium Chloride (NS Flush) 2 ml BID IV FLUSH Last administered on 11/12/16 08: 34; Start 11/09/16 at 21:00 Ondansetron HCl (Zofran Inj) 4 mg Q6H PRN IVP NAUSEA OR VOMITING; Start at 09:45 Docusate Sodium (Colace) 100 mg Q12HR PO Last administered on 11/12/16 08:39; Start 11/09/16 at 11:00 Heparin Sodium (Porcine) (Heparin Inj) 5,000 units Q12H SQ Last administered on 11/11/16 22:53; Start 11/09/16 at 11:00 Naloxone HCl (Narcan Inj) 0.4 mg UNSCH PRN IV SEE LABEL COMMENTS; Start at 09:45 Albuterol/ Ipratropium (Duoneb Neb) 1 ampule Q6HR NEB PRN NEB WHEEZING; Start 11/09/16 at 11:00 Budesonide/ Formoterol Fumarate (Symbicort 80-4.5 Mcg Inh) 2 puff BID INH Last administered on 11/12/16 08:52; Start 11/09/16 at 21:00 Diphenhydramine HCl (Benadryl) 25 mg HS PO Last administered on 11/11/16 20:59 ; Start 11/09/16 at 21:00 Haloperidol (Haldol) 5 mg DAILY PO Last administered on 11/12/16 08:37; Start 11/10/16 at 09:00 Haloperidol (Haldol) 10 mg HS PO Last administered on 11/11/16 21:00; Start at 21:00 Lisinopril (Prinivil) 10 mg DAILY PO Last administered on 11/12/16 08:38; Start 11/10/16 at 09:00 Sertraline HCl (Zoloft) 100 mg DAILY PO Last administered on 11/12/16 08:37; Start 11/10/16 at 09:00 Trihexyphenidyl HCl (Artane) 2 mg BID PO Last administered on 11/12/16 08:39; Start 11/09/16 at 21:00 Albuterol Sulfate (Ventolin Hfa Inh) 2 puff Q4H PRN INH SOB/WHEEZING; Start at 11:45 Buspirone HCl (Buspar) 10 mg TID PO Last administered on 11/12/16 08:47; Start 11/09/16 at 13:00 Non-Formulary Medication 100 mg BID PO ; Start 11/09/16 at 21:00; Status UNV Meclizine HCl (Antivert) 25 mg TID PO Last administered on 11/12/16 08:40; Start 11/09/16 at 13:00 Non-Formulary Medication 1 cap TID PO ; Start 11/09/16 at 13:00; Status UNV Pantoprazole Sodium (Protonix) 20 mg BID PO Last administered on 11/12/16 08: 38; Start 11/09/16 at 21:00 Non-Formulary Medication 819 mg Q28 days IM ; Start 11/09/16 at 10:00; Status UNV Pravastatin Sodium (Pravachol) 80 mg HS PO Last administered on 11/11/16 20:59 ; Start 11/09/16 at 21:00 Levothyroxine Sodium (Synthroid) 112 mcg DAILY@0600 PO Last administered on 06:15; Start 11/10/16 at 06:00 Iohexol (Omnipaque 350 Inj) 75 ml STK-MED ONCE IV Last administered on 10:15; Start 11/09/16 at 10:15; Stop 11/09/16 at 10:16; Status DC Levothyroxine Sodium (Synthroid) 25 mcg DAILY@0600 PO Last administered on 11/12 06:15; Start 11/10/16 at 06:00 Magnesium Hydroxide (Milk Of Magnesia Liq) 30 ml BID PO Last administered on 08:40; Start 11/09/16 at 16:00 Dextrose (D50w (Vial) Inj) 25 ml UNSCH PRN IV PUSH HYPOGLYCEMIA-SEE COMMENTS; Start 11/09/16 at 19:00 Glucagon (Glucagon Inj) 1 mg UNSCH PRN OTHER HYPOGLYCEMIA-SEE COMMENTS; Start 11/09/16 at 19:00 Insulin Aspart (NovoLOG SUPPLEMENTAL SCALE) 1 ACHS SLIDING SCALE SQ Last administered on 11/10/16 22:27; Start 11/09/16 at 21:00 Albuterol/ Ipratropium (Duoneb Neb) 1 ampule QID NEB NEB Last administered on 11/12/16 07:55; Start 11/09/16 at 20:00 Albuterol/ Ipratropium (Duoneb Neb) 1 ampule Q4HR NEB PRN NEB dyspnea Last administered on 11/11/16 04:47; Start 11/09/16 at 19:00 Miscellaneous Information Patient in critical care unit? Ass... Q361D .XX ; Start 11/09/16 at 19:00 Chlorhexidine Gluconate (Chlorhexidine 2% Cloth) 3 pack DAILY@04 TOPICAL Last administered on 11/12/16 04:00; Start 11/10/16 at 04:00; Stop 11/14/16 at 04:01 Chlorhexidine Gluconate (Chlorhexidine 2% Cloth) 3 pack UNSCH PRN TOPICAL HYGIENIC CARE; Start 11/09/16 at 19:15; Stop 11/14/16 at 19:00 Oseltamivir Phosphate (Tamiflu) 75 mg BID PO Last administered on 11/12/16 08: 39; Start 11/09/16 at 21:00 Miscellaneous Information D/C ICU ELECTROLYTE ORDERS... UNSCH PRN .XX SEE DOSE INSTRUCTIONS; Start 11/10/16 at 08:45; Stop 11/10/16 at 15:59; Status DC Miscellaneous Information ICU - CALL ORDERING PHYSIC... UNSCH PRN .XX SEE DOSE INSTRUCTIONS; Start 11/10/16 at 08:45; Stop 11/10/16 at 15:59; Status DC Potassium Chloride (KCl 40 Meq Premix Inj) 100 ml @ 25 mls/hr UNSCH PRN IV ELECTROLYTE REPLACEMENT; Start 11/10/16 at 08:45; Stop 11/10/16 at 15:59; Status DC Potassium Bicarb/ Potassium Chloride 50 meq 50 meq UNSCH PRN PO ELECTROLYTE REPLACEMENT Last administered on 11/10/16 08:51; Start 11/10/16 at 08:45; Stop 11/10/16 at 15:59; Status DC Potassium Chloride 100 ml @ 50 mls/hr UNSCH PRN IV ELECTROLYTE REPLACEMENT; Start 11/10/16 at 08:45; Stop 11/10/16 at 15:59; Status DC Magnesium Sulfate 4 gm/Sodium Chloride 108 ml @ 54 mls/hr UNSCH PRN IV ELECTROLYTE REPLACEMENT; Start 11/10/16 at 08:45; Stop 11/10/16 at 15:59; Status DC Magnesium Sulfate/ Sodium Chloride (Magnesium Sulfate Inj/NS Inj) 104 ml @ 52 mls/hr UNSCH PRN IV ELECTROLYTE REPLACEMENT; Start 11/10/16 at 08:45; Stop at 15:59; Status DC Magnesium Oxide 800 mg 800 mg UNSCH PRN PO ELECTROLYTE REPLACEMENT; Start 11/10 at 08:45; Stop 11/10/16 at 15:59; Status DC Sodium Phosphate/ Sodium Chloride (Sodium Phosphate Inj/NS 250 ml Inj) 260 ml @ 43.333 mls/ hr UNSCH PRN IV ELECTROLYTE REPLACEMENT; Start 11/10/16 at 08:45 ; Stop 11/10/16 at 15:59; Status DC Potassium Phosphate 2000 mg 2,000 mg UNSCH PRN PO ELECTROLYTE REPLACEMENT; Start 11/10/16 at 08:45; Stop 11/10/16 at 15:59; Status DC Potassium Phosphate/Sodium Chloride (Potassium Phosphate Inj/NS 250 ml Inj) 260 ml @ 43.333 mls/ hr UNSCH PRN IV ELECTROLYTE REPLACEMENT; Start 11/10/16 at 08 :45; Stop 11/10/16 at 15:59; Status DC Potassium Bicarb/ Potassium Chloride 25 meq 25 meq ONCE ONCE PO ; Start at 08:45; Stop 11/10/16 at 08:46; Status DC Levofloxacin/ Dextrose (Levaquin 500 Mg Premix Inj) 100 ml @ 100 mls/hr Q24H IV Last administered on 11/11/16 10:00; Start 11/10/16 at 10:00 Prednisone (Deltasone) 30 mg DAILY PO Last administered on 11/12/16 08:37; Start 11/10/16 at 09:30 Potassium Chloride 30 meq 30 meq Q12HR PO Last administered on 11/12/16 08:38 ; Start 11/10/16 at 21:00 Vancomycin HCl 1000 mg/Sodium Chloride 250 ml @ 250 mls/hr Q24H IV ; Start at 13:00; Status Cancel Pharmacy Profile Note 0 ml @ 0 mls/hr UNSCH OTHER ; Start 11/10/16 at 12:45 Vancomycin HCl/ Sodium Chloride (Vancomycin Inj/ NS 500 ml Inj) 515 ml @ 250 mls/hr Q12H IV Last administered on 11/12/16t 03:24; Start 11/10/16 at 15:00; Stop 11/12/16 at 08:47; Status DC Miscellaneous Information SPECIFIC LAB TO BE DRAWN:VANCOMYCIN TROUGH DATE TO... ONCE ONCE .XX ; Start 11/12/16 at 02:45; Stop 11/12/16 at 02:46; Status DC Enalaprilat 1.25 mg 1.25 mg Q8H PRN IV PUSH SBP> OR = 180, DBP> OR = 100; Start 11/12/16 at 09:00 Vancomycin HCl/ Sodium Chloride (Vancomycin Inj/ NS 500 ml Inj) 517.5 ml @ 250 mls/hr Q12H IV ; Start 11/12/16 at 15:00 Miscellaneous Information SPECIFIC LAB TO BE ETMO... ONCE ONCE .XX ; Start 11/14 at 02:45; Stop 11/14/16 at 02:46 (Jennifer Ken) Physical Exam General General Appearance: Well Developed, Comfortable (at rest, grunting respirations ), Obese (Jennifer KenP) Eyes Eye Exam: Pupils Equal, Pupils Reactive (Jennifer KenP) Ears & Nose Ears & Nose Exam: Nasal Mucosa [place] (Jennifer Ken CERTIFIED WELLNESS PROGRAM COORDINATOR) Throat Throat Exam: Oral Mucosa [place] & Moist (Jennifer Ken CERTIFIED WELLNESS PROGRAM COORDINATOR) Neck Neck Exam: Neck Supple, Trachea Midline (Jennifer KenP) Pulmonary Resp Exam: Crackles, Rhonchi, Decreased Bases, Diminished Breath Sounds, Poor Inspiratory Effort (Jennifer KenP) Cardiology CV Exam: Regular, Good Perfusion (Jennifer KenP) Gastrointestinal/Abdomen GI Exam: Soft, Non-Tender, Bowel Sounds Present, Non-Distended (Jennifer KenP) Musculoskeletal MS Exam: Joints Intact (Jennifer KenP) Integumentary Skin Exam: Warm, Dry (Jennifer KenP) Neurologic Neuro Exam: Alert, Awake, Oriented, Speech Clear, Moving All Extremities, No Focal Deficits (Jennifer KenP) Psychiatric Psych Exam: Appropriate Responses (Jennifer Ken) VTE Prophylaxis VTE Prophylaxis Device: SCDs VTE Prophylaxis Meds: Heparin (Jennifer Ken) PUD Prophylasis PUD Prophylaxis: Protonix (Jennifer Ken) Assessment/Plan Problem List: (1) Bilateral pneumonia (2) Asthma exacerbation (3) Diabetes mellitus (4) Hypothyroidism (5) Hypertension (6) GERD (gastroesophageal reflux disease) (7) Hyperlipidemia (8) Schizophrenia (9) Anxiety and depression Assessment/Plan follow cultures-jose c coag. + influenza A continue Tamiflu continue Levaquin continue Prednisone 30 mg po daily Duonebs refusing bipap, doing well on NC at 3L/NC continue oxygen to keep sats > 90% appreciate pulmonary input, on 421, stable from his standpoint Accuchecks AC/HS with ISS heparin for DVT prophylaxis PPI for GI prophylaxis not ready for dc, remains with wheezing and SOB with minimal activity., Noted grunting respirations this morning, low volumes Repeated chest x-ray today Hypertension, BP appears labile 186/88 last a.m., this a.m. 137/93. Vasotec IV ordered when necessary with parameters if needed Vital signs reviewed Labs reviewed D/W RN D/W Dr. Chicas, seen on his behalf D/W pt. (Jennifer Ken) Assessment/Plan seen, examined by myself, Dr Chicas, today Discussed with patient Breathing is better at rest Very severe difficulty breathing on minimal exertion Bilateral mild wheezes Rate for further plans from pulmonology Discussed with nurse Discussed with mid level provider The exam, history, and the medical decision-making described in the above note were completed with the assistance of the mid-level provider. I reviewed the findings presented. I attest that I had a [id number] encounter with the patient on the same day, and personally performed and documented my assessment and findings in the medical record. (Gisele Chicas MD) Problem Qualifiers (1) Bilateral pneumonia: Qualified Code: J18.9 - Pneumonia of both lower lobes due to infectious organism (2) Hypertension: Qualified Code: I10 - Essential hypertension (3) GERD (gastroesophageal reflux disease): Qualified Code: K21.9 - Gastroesophageal reflux disease, esophagitis presence not specified (4) Hyperlipidemia: Qualified Code: E78.5 - Hyperlipidemia, unspecified hyperlipidemia type (5) Schizophrenia: Qualified Code: F20.9 - Schizophrenia, unspecified type Jennifer Ken Nov 12, 2016 09:25 Gisele Chicas MD Nov 12, 2016 17:12
[2016-11-12] MEDS: HEPARIN SODIUM - SQ 10,000 UNITS/ML VIAL SQ SCH ×2 (11:31→22:38)
--- NOTE | 2016-11-12 12:07 | RADRPT ---
EXAM DATE/TIME: 11/12/2016 10:46 [facility] COMPARISON: CT PULMONARY ANGIOGRAM, November 09, 2016, 10:00. INDICATIONS : Cough, shortness of breath for 1 week MEDICAL HISTORY : Chronic obstructive pulmonary disease. SURGICAL HISTORY : ENCOUNTER: Initial ACUITY: 1 week PAIN SCORE: 0/10 LOCATION: Bilateral chest FINDINGS: The heart size is normal. There is mild increased density at the right medial base. There is some d iffuse prominence of the interstitial markings. There is some focal density in the upper chest regio ns bilaterally. These could be related to the 1st ribs. A significant effusion is not seen. CONCLUSION: 1. Right medial base increased density likely related to some right middle lobe atelectasis or conso lidation. 2. Prominence of the interstitial diffusely likely representing diffuse underlying interstitial proc ess. Rubin Ortiz MD on November 12, 2016 at 11:53 Board Certified Radiologist. This report was verified electronically.
[2016-11-12] MEDS: VANCOMYCIN INJ 1,750 MG in SODIUM CHLORID 0.9% 500 ML INJ 500 ML IV SCH (14:57)
[2016-11-12] MEDS: PRAVASTATIN SOD 80 MG TAB PO SCH (20:33)
[2016-11-12] MEDS: diphenhydrAMINE HCL 25 MG CAP PO SCH (20:33)
[2016-11-13] VITALS (9 sets, daily range): BP systolic 119–172; BP diastolic 68–83; PULSE 66–110; RESP 18–20; TEMP 97.2–98.1; O2SAT 92–100
[2016-11-13] MEDS: VANCOMYCIN INJ 1,750 MG in SODIUM CHLORID 0.9% 500 ML INJ 500 ML IV SCH (03:44)
[2016-11-13] MEDS: CHLORHEXIDINE GLUCONATE 2 % 1 PACK (2 CLOTHS)(taper/protocol) TOPICAL SCH (03:45)
[2016-11-13] MEDS: LEVOTHYROXINE SODIUM 25 MCG TAB PO SCH (05:28)
[2016-11-13] MEDS: LEVOTHYROXINE SODIUM 112 MCG TAB PO SCH (05:28)
[2016-11-13] MEDS: INSULIN ASPART SUPPLEMENTAL SCALE SQ SCH ×4 (06:01→20:22)
[2016-11-13] MEDS: RESP: ALBUTEROL 2.5 MG/IPRATROPIUM 0.5 MG NEB (SCH) NEB ×3 (07:29→15:38)
[2016-11-13] MEDS: MAGNESIUM HYDROXIDE SUSP 30 ML CUP PO SCH ×2 (09:00→20:21)
[2016-11-13] MEDS: DOCUSATE SODIUM 100 MG CAP PO SCH ×2 (09:00→20:22)
[2016-11-13] MEDS: BUDESONIDE-FORMOTEROL 80/4.5 MCG INHALER INH SCH ×2 (09:12→20:24)
[2016-11-13] MEDS: PANTOPRAZOLE SOD 20 MG DELAYED RELEASE TAB PO SCH ×2 (09:13→20:22)
[2016-11-13] MEDS: predniSONE 10 MG TAB PO SCH (09:13)
[2016-11-13] MEDS: TRIHEXYPHENIDYL HCL 2 MG TAB PO SCH ×2 (09:13→20:21)
[2016-11-13] MEDS: LEVOFLOXACIN 500 MG PREMIX INJ 100 ML IV SCH (09:13)
[2016-11-13] MEDS: busPIRone HCL 10 MG TAB PO SCH ×3 (09:13→17:20)
[2016-11-13] MEDS: OSELTAMIVIR PHOSPHATE 75 MG CAP PO SCH ×2 (09:14→20:22)
[2016-11-13] MEDS: SERTRALINE HCL 100 MG TAB PO SCH (09:14)
[2016-11-13] MEDS: LISINOPRIL 10 MG TAB PO SCH (09:14)
[2016-11-13] MEDS: SODIUM CHLORIDE 0.9% FLUSH 10 ML FLUSH IV FLUSH SCH ×3 (09:14→20:28)
[2016-11-13] MEDS: HALOPERIDOL 5 MG TAB PO SCH ×2 (09:14→20:22)
[2016-11-13] MEDS: POTASSIUM CHLORIDE 10 MEQ CONTROLLED RELEASE TAB PO SCH ×2 (09:14→20:22)
[2016-11-13] MEDS: MECLIZINE HCL 25 MG TAB PO SCH ×3 (09:14→17:20)
--- NOTE | 2016-11-13 09:44 | HHI.PR ---
Subjective Subjective Remarks Resting in bed No SOB at rest up in rm and bathrm, and chair Aydin complexion Awake answers questions appropriately Review of Systems Constitutional Constitutional: Fatigue, Weakness (generalized) Constitutional Remarks 10 point ROS done positives noted , low volumes, BP normal trends today. Other systems unremarkable Pulmonary Respiratory: Coughing, Shortness of Breath, Wheezing (expiratory) Musculoskeletal MS: Weakness (generalized), Swelling (lower extremity improved trace to none now) Psychiatric Psychiatric: Normal Mood, Anxiety (at times) Vitals/Results Intake & Output 11/12/16 11/12/16 11/13/16 15:00 23:00 07:00 Intake Total 240 ml 728 ml Balance 240 ml 728 ml Intake Oral 240 ml 320 ml IV Total 408 ml # Voids 2 Vital Signs Vital Signs Date Time Temp Pulse Resp B/P Pulse Ox O2 Delivery O2 Flow Rate FiO2 11/13/16 08:00 98.1 73 20 162/76 100 11/13/16 07:29 95 Nasal Cannula 2.00 11/13/16 04:00 97.6 73 20 142/76 95 11/13/16 00:00 97.8 68 20 162/72 94 11/12/16 20:56 93 Nasal Cannula 3.00 11/12/16 20:08 65 11/12/16 20:00 97.7 76 20 146/72 94 11/12/16 16:00 98.1 69 18 157/79 93 11/12/16 12:00 97.2 83 19 166/74 94 CBC/BMP: 11/10/16 0541 11/12/16 0614 Imaging Remarks Last Impressions Chest X-Ray 11/12/16 0000 Signed Impressions: Service Date/Time: Saturday, November 12, 2016 10:46 - CONCLUSION: 1. Right medial base increased density likely related to some right middle lobe atelectasis or consolidation. 2. Prominence of the interstitial diffusely likely representing diffuse underlying interstitial process. Rubin Ortiz MD CT Angiography 11/09/16 0000 Signed Impressions: Service Date/Time: Wednesday, November 09, 2016 10:00 - CONCLUSION: 1. The study is negative for pulmonary embolism. 2. Patchy small areas of infiltrate at the periphery of both lower lobes. No evidence of pleural effusion. Gerson Parks MD Current Medications Administered Medications Medications (Trade) Dose Ordered Sig/Agustin Route PRN Reason Start Time Stop Time Status Last Admin Dose Admin Sodium Chloride (NS Flush) 2 ml BID IV FLUSH 11/09/16 21:00 11/13/16 09:14 Docusate Sodium (Colace) 100 mg Q12HR PO 11/09/16 11:00 11/12/16 20:33 Heparin Sodium (Porcine) (Heparin Inj) 5,000 units Q12H SQ 11/09/16 11:00 11/12/16 22:38 Budesonide/ Formoterol Fumarate (Symbicort 80-4.5 Mcg Inh) 2 puff BID INH 11/09/16 21:00 11/13/16 09:12 Diphenhydramine HCl (Benadryl) 25 mg HS PO 11/09/16 21:00 11/12/16 20:33 Haloperidol (Haldol) 5 mg DAILY PO 11/10/16 09:00 11/13/16 09:14 Haloperidol (Haldol) 10 mg HS PO 11/09/16 21:00 11/12/16 20:33 Lisinopril (Prinivil) 10 mg DAILY PO 11/10/16 09:00 11/13/16 09:14 Sertraline HCl (Zoloft) 100 mg DAILY PO 11/10/16 09:00 11/13/16 09:14 Trihexyphenidyl HCl (Artane) 2 mg BID PO 11/09/16 21:00 11/13/16 09:13 Buspirone HCl (Buspar) 10 mg TID PO 11/09/16 13:00 11/13/16 09:13 Meclizine HCl (Antivert) 25 mg TID PO 11/09/16 13:00 11/13/16 09:14 Pantoprazole Sodium (Protonix) 20 mg BID PO 11/09/16 21:00 11/13/16 09:13 Pravastatin Sodium (Pravachol) 80 mg HS PO 11/09/16 21:00 11/12/16 20:33 Levothyroxine Sodium (Synthroid) 112 mcg DAILY@0600 PO 11/10/16 06:00 11/13/16 05:28 Levothyroxine Sodium (Synthroid) 25 mcg DAILY@0600 PO 11/10/16 06:00 11/13/16 05:28 Magnesium Hydroxide (Milk Of Yojana Young) 30 ml BID PO 11/09/16 16:00 11/12/16 20:33 Chlorhexidine Gluconate (Chlorhexidine 2% Cloth) 3 pack DAILY@04 TOPICAL 11/10/16 04:00 11/14/16 04:01 11/13/16 03:45 Oseltamivir Phosphate 75 mg 75 mg BID PO 11/09/16 21:00 11/13/16 09:14 Levofloxacin/ Dextrose (Levaquin 500 Mg Premix Inj) 100 ml @ 100 mls/hr Q24H IV 11/10/16 10:00 11/13/16 09:13 Prednisone (Deltasone) 30 mg DAILY PO 11/10/16 09:30 11/13/16 09:13 Potassium Chloride 30 meq 30 meq Q12HR PO 11/10/16 21:00 11/13/16 09:14 Vancomycin HCl/ Sodium Chloride (Vancomycin Inj/ NS 500 ml Inj) 517.5 ml @ 250 mls/hr Q12H IV 11/12/16 15:00 11/13/16 03:44 Physical Exam General General Appearance: Well Developed, Comfortable (at rest, grunting respirations ), Obese Eyes Eye Exam: Pupils Equal, Pupils Reactive Ears & Nose Ears & Nose Exam: Nasal Mucosa [place] Throat Throat Exam: Oral Mucosa [place] & Moist Neck Neck Exam: Neck Supple, Trachea Midline Pulmonary Resp Exam: Crackles, Rhonchi, Decreased Bases, Diminished Breath Sounds, Poor Inspiratory Effort Cardiology CV Exam: Regular, Good Perfusion Gastrointestinal/Abdomen GI Exam: Soft, Non-Tender, Bowel Sounds Present, Non-Distended Musculoskeletal MS Exam: Joints Intact Integumentary Skin Exam: Warm, Dry Neurologic Neuro Exam: Alert, Awake, Oriented, Speech Clear, Moving All Extremities, No Focal Deficits Psychiatric Psych Exam: Appropriate Responses VTE Prophylaxis VTE Prophylaxis Device: SCDs VTE Prophylaxis Meds: Heparin PUD Prophylasis PUD Prophylaxis: Protonix Assessment/Plan Problem List: (1) Bilateral pneumonia (2) Asthma exacerbation (3) Diabetes mellitus (4) Hypothyroidism (5) Hypertension (6) GERD (gastroesophageal reflux disease) (7) Hyperlipidemia (8) Schizophrenia (9) Anxiety and depression Plan: follow cultures-staph coag. + influenza A Duonebs O2 NC and prn, no SOB noted at rest, better today while awake CXR , bibasilar quiñones improved, RML + appreciate pulmonary input, on 421, stable from his standpoint increased activity, up in chair and ambulates around in rm. Accuchecks AC/HS with ISS heparin for DVT prophylaxis PPI for GI prophylaxis Hypertension, BP appears labile 186/88 last a.m., this a.m. 137/93. Vasotec IV ordered when necessary with parameters if needed Vital signs reviewed Labs reviewed DC planning, poss today or am. probable home with HH D/W RN D/W Dr. Chicas, seen on his behalf D/W pt. Problem Qualifiers (1) Bilateral pneumonia: Qualified Code: J18.9 - Pneumonia of both lower lobes due to infectious organism (2) Hypertension: Qualified Code: I10 - Essential hypertension (3) GERD (gastroesophageal reflux disease): Qualified Code: K21.9 - Gastroesophageal reflux disease, esophagitis presence not specified (4) Hyperlipidemia: Qualified Code: E78.5 - Hyperlipidemia, unspecified hyperlipidemia type (5) Schizophrenia: Qualified Code: F20.9 - Schizophrenia, unspecified type Jennifer Ken Nov 13, 2016 09:44
--- NOTE | 2016-11-13 09:49 | HHI.FF ---
Face to Face Verification Diagnosis: (1) Bronchitis (2) Asthma (3) Peptic ulcer disease Physical Therapy Order: Evaluate and Treat, Strength and gait training Occupational Therapy Order: Improve ADL Home Health Nursing Order: Nursing assessment with vital signs Demographic Analyst Order: To Evaluate: Living conditions/environment I have seen patient Lisa Cochran on 11/13/16. My clinical findings support the need for the requested home health care services because: Patient has SOB Deconditioned w/ increased weakness I certify that my clinical findings support that this patient is homebound because: Need for psychosocial assistance Jennifer Ken Nov 13, 2016 09:49
[2016-11-13] MEDS: HEPARIN SODIUM - SQ 10,000 UNITS/ML VIAL SQ SCH ×2 (11:18→23:12)
[2016-11-13] MEDS: RESP: ALBUTEROL 2.5 MG/IPRATROPIUM 0.5 MG NEB (PRN) NEB (20:10)
[2016-11-13] MEDS: diphenhydrAMINE HCL 25 MG CAP PO SCH (20:22)
[2016-11-13] MEDS: PRAVASTATIN SOD 80 MG TAB PO SCH (20:22)
[2016-11-14] VITALS: BP 113/56; PULSE 72; RESP 18; TEMP 97.4; O2SAT 97
[2016-11-14] MEDS ORDERED: PHARMACY ORDERED LAB ONE (02:45)
[2016-11-14 04:00] VITALS: BP 119/59; PULSE 74; RESP 18; TEMP 97.8; O2SAT 94
[2016-11-14] MEDS: CHLORHEXIDINE GLUCONATE 2 % 1 PACK (2 CLOTHS)(taper/protocol) TOPICAL SCH (04:00)
[2016-11-14] MEDS: LEVOTHYROXINE SODIUM 25 MCG TAB PO SCH (06:19)
[2016-11-14] MEDS: LEVOTHYROXINE SODIUM 112 MCG TAB PO SCH (06:19)
[2016-11-14] MEDS: INSULIN ASPART SUPPLEMENTAL SCALE SQ SCH (06:20)
[2016-11-14] MEDS: MAGNESIUM HYDROXIDE SUSP 30 ML CUP PO SCH (09:00)
[2016-11-14] MEDS: SODIUM CHLORIDE 0.9% FLUSH 10 ML FLUSH IV FLUSH SCH (09:00)
[2016-11-14] MEDS ORDERED: LEVOFLOXACIN 500 MG TAB PO SCH (09:00)
[2016-11-14] MEDS ORDERED: OSEL75 PO (09:32)
[2016-11-14] MEDS ORDERED: PRED10 PO (09:32)
[2016-11-14] MEDS ORDERED: LEVA500T PO (09:32)
[2016-11-14] MEDS: MECLIZINE HCL 25 MG TAB PO SCH (09:38)
--- NOTE | 2016-11-14 09:38 | HHI.PR ---
Subjective Subjective Remarks up walking around in rm. family in. No SOB up in rm and bathrm, and chair Awake answers questions appropriately (Tiffanie Ken) Review of Systems Constitutional Constitutional: Fatigue, Weakness (generalized) Constitutional Remarks 10 point ROS done positives noted , low volumes, BP normal trends today. Other systems unremarkable (Tiffanie Ken) Pulmonary Respiratory: Coughing, Shortness of Breath, Wheezing (expiratory) (Tiffanie Ken) Musculoskeletal MS: Weakness (generalized), Swelling (lower extremity improved trace to none now) (Tiffanie Ken) Psychiatric Psychiatric: Normal Mood, Anxiety (at times) (Tiffanie Ken) Vitals/Results Intake & Output 11/13/16 11/13/16 11/14/16 15:00 23:00 07:00 Intake Total 1298 ml 480 ml 460 ml Balance 1298 ml 480 ml 460 ml Intake Oral 1200 ml 480 ml 460 ml IV Total 98 ml # Voids 3 3 0 # Bowel Movements 2 0 0 Vital Signs Vital Signs Date Time Temp Pulse Resp B/P Pulse Ox O2 Delivery O2 Flow Rate FiO2 11/14/16 04:00 97.8 74 18 119/59 94 11/14/16 00:00 97.4 72 18 113/56 97 11/13/16 20:24 Nasal Cannula 3.00 11/13/16 20:11 92 Nasal Cannula 2.00 11/13/16 20:00 73 11/13/16 20:00 97.2 66 18 119/73 95 11/13/16 16:00 97.7 85 20 172/83 93 11/13/16 12:00 97.6 82 20 139/68 93 (Tiffanie Ken) CBC/BMP: 11/10/16 0541 11/14/16 0756 Lab Results Laboratory Tests Test 11/14/16 07:56 Creatinine 0.67 MG/DL Estimat Glomerular Filtration 91 ML/MIN Rate Current Medications Administered Medications Medications (Trade) Dose Ordered Sig/Agustin Route PRN Reason Start Time Stop Time Status Last Admin Dose Admin Sodium Chloride (NS Flush) 2 ml BID IV FLUSH 11/09/16 21:00 11/13/16 09:14 Docusate Sodium (Colace) 100 mg Q12HR PO 11/09/16 11:00 11/13/16 20:22 Heparin Sodium (Porcine) (Heparin Inj) 5,000 units Q12H SQ 11/09/16 11:00 11/13/16 23:12 Budesonide/ Formoterol Fumarate (Symbicort 80-4.5 Mcg Inh) 2 puff BID INH 11/09/16 21:00 11/13/16 20:24 Diphenhydramine HCl (Benadryl) 25 mg HS PO 11/09/16 21:00 11/13/16 20:22 Haloperidol (Haldol) 5 mg DAILY PO 11/10/16 09:00 11/13/16 09:14 Haloperidol (Haldol) 10 mg HS PO 11/09/16 21:00 11/13/16 20:22 Lisinopril (Prinivil) 10 mg DAILY PO 11/10/16 09:00 11/13/16 09:14 Sertraline HCl (Zoloft) 100 mg DAILY PO 11/10/16 09:00 11/13/16 09:14 Trihexyphenidyl HCl (Artane) 2 mg BID PO 11/09/16 21:00 11/13/16 20:21 Buspirone HCl (Buspar) 10 mg TID PO 11/09/16 13:00 11/13/16 17:20 Meclizine HCl (Antivert) 25 mg TID PO 11/09/16 13:00 11/13/16 17:20 Pantoprazole Sodium (Protonix) 20 mg BID PO 11/09/16 21:00 11/13/16 20:22 Pravastatin Sodium (Pravachol) 80 mg HS PO 11/09/16 21:00 11/13/16 20:22 Levothyroxine Sodium (Synthroid) 112 mcg DAILY@0600 PO 11/10/16 06:00 11/14/16 06:19 Levothyroxine Sodium (Synthroid) 25 mcg DAILY@0600 PO 11/10/16 06:00 11/14/16 06:19 Magnesium Hydroxide (Milk Of Magnesia Liq) 30 ml BID PO 11/09/16 16:00 11/13/16 20:21 Oseltamivir Phosphate (Tamiflu) 75 mg BID PO 11/09/16 21:00 11/13/16 20:22 Prednisone (Deltasone) 30 mg DAILY PO 11/10/16 09:30 11/13/16 09:13 Potassium Chloride (KCl) 30 meq Q12HR PO 11/10/16 21:00 11/13/16 20:22 (Tiffanie KenP) Physical Exam General General Appearance: Well Developed, Comfortable (at rest, grunting respirations ), Obese (Tiffanie Ken GERIATRIC NURSING ASSISTANT) Eyes Eye Exam: Pupils Equal, Pupils Reactive (Tiffanie Ken GERIATRIC NURSING ASSISTANT) Ears & Nose Ears & Nose Exam: Nasal Mucosa [place] (Tiffanie Ken GERIATRIC NURSING ASSISTANT) Throat Throat Exam: Oral Mucosa [place] & Moist (Tiffanie Ken GERIATRIC NURSING ASSISTANT) Neck Neck Exam: Neck Supple, Trachea Midline (Tiffanie Ken GERIATRIC NURSING ASSISTANT) Pulmonary Resp Exam: Crackles, Rhonchi, Decreased Bases, Diminished Breath Sounds, Poor Inspiratory Effort (Tiffanie Ken GERIATRIC NURSING ASSISTANT) Cardiology CV Exam: Regular, Good Perfusion (Tiffanie KenP) Gastrointestinal/Abdomen GI Exam: Soft, Non-Tender, Bowel Sounds Present, Non-Distended (Tiffanie KenP) Musculoskeletal MS Exam: Joints Intact (Tiffanie KenP) Integumentary Skin Exam: Warm, Dry (Tiffanie Ken. GERIATRIC NURSING ASSISTANT) Neurologic Neuro Exam: Alert, Awake, Oriented, Speech Clear, Moving All Extremities, No Focal Deficits (Tiffanie Ken GERIATRIC NURSING ASSISTANT) Psychiatric Psych Exam: Appropriate Responses (Tiffanie KenP) VTE Prophylaxis VTE Prophylaxis Device: SCDs VTE Prophylaxis Meds: Heparin (Tiffanie KenP) PUD Prophylasis PUD Prophylaxis: Protonix (SuellenTiffanie. GERIATRIC NURSING ASSISTANT) Assessment/Plan Problem List: (1) Bilateral pneumonia (2) Asthma exacerbation (3) Diabetes mellitus (4) Hypothyroidism (5) Hypertension (6) GERD (gastroesophageal reflux disease) (7) Hyperlipidemia (8) Schizophrenia (9) Anxiety and depression Assessment/Plan Plan: follow cultures-staph coag. + influenza A Duonebs O2 NC and prn, no SOB noted at rest, better today while awake CXR , bibasilar quiñones improved, RML + appreciate pulmonary input, on 421, stable from his standpoint increased activity, up in chair and ambulates around in rm. No SOB facial color pink, feels better Accuchecks AC/HS with ISS heparin for DVT prophylaxis PPI for GI prophylaxis Medical comobidities stable with medical management Hypertension, Vasotec IV ordered when necessary with parameters if needed Vital signs reviewed Labs reviewed DC planning, probable today (Tiffanie Ken) Assessment/Plan pt is seen & examined chart reviewed d/w PT & sig other at bedside d/w tiffanie clinically stable eager to go home po abx tapering dose steroids Home O2 aerosol tx counselled pt against smoking d/c home see MRS see Orders f/u pcp f/u CXR in 4 to 6 wks by pcp to document resolution . (Bethanie Toth MD) Problem Qualifiers (1) Bilateral pneumonia: Qualified Code: J18.9 - Pneumonia of both lower lobes due to infectious organism (2) Hypertension: Qualified Code: I10 - Essential hypertension (3) GERD (gastroesophageal reflux disease): Qualified Code: K21.9 - Gastroesophageal reflux disease, esophagitis presence not specified (4) Hyperlipidemia: Qualified Code: E78.5 - Hyperlipidemia, unspecified hyperlipidemia type (5) Schizophrenia: Qualified Code: F20.9 - Schizophrenia, unspecified type Tiffanie Ken Nov 14, 2016 09:38 Bethanie Toth MD Nov 14, 2016 09:54
[2016-11-14] MEDS: HALOPERIDOL 5 MG TAB PO SCH (09:39)
[2016-11-14] MEDS: predniSONE 10 MG TAB PO SCH (09:39)
[2016-11-14] MEDS: busPIRone HCL 10 MG TAB PO SCH (09:39)
[2016-11-14] MEDS: DOCUSATE SODIUM 100 MG CAP PO SCH (09:39)
[2016-11-14] MEDS: TRIHEXYPHENIDYL HCL 2 MG TAB PO SCH (09:39)
[2016-11-14] MEDS: OSELTAMIVIR PHOSPHATE 75 MG CAP PO SCH (09:40)
[2016-11-14] MEDS: PANTOPRAZOLE SOD 20 MG DELAYED RELEASE TAB PO SCH (09:40)
[2016-11-14] MEDS: HEPARIN SODIUM - SQ 10,000 UNITS/ML VIAL SQ SCH (09:40)
[2016-11-14] MEDS: SERTRALINE HCL 100 MG TAB PO SCH (09:40)
[2016-11-14] MEDS: LISINOPRIL 10 MG TAB PO SCH (09:40)
[2016-11-14] MEDS: POTASSIUM CHLORIDE 10 MEQ CONTROLLED RELEASE TAB PO SCH (09:40)
[2016-11-14] MEDS: BUDESONIDE-FORMOTEROL 80/4.5 MCG INHALER INH SCH (09:44)
--- NOTE | 2016-12-04 14:51 | HHI.DS ---
Discharge Summary Admission Date Nov 09, 2016 at 09:42 Discharge Date: Nov 14, 2016 Admitting Diagnosis Bilateral pneumonia on BIPAP (1) COPD exacerbation (2) Tobacco dependence, continuous (3) Bilateral pneumonia (4) Asthma (5) Diabetes mellitus (6) Hypothyroidism (7) Schizophrenia (8) Anxiety and depression Imaging Last Impressions Chest X-Ray 11/12/16 0000 Signed Impressions: Service Date/Time: Saturday, November 12, 2016 10:46 - CONCLUSION: 1. Right medial base increased density likely related to some right middle lobe atelectasis or consolidation. 2. Prominence of the interstitial diffusely likely representing diffuse underlying interstitial process. Rubin Ortiz MD CT Angiography 11/09/16 0000 Signed Impressions: Service Date/Time: Wednesday, November 09, 2016 10:00 - CONCLUSION: 1. The study is negative for pulmonary embolism. 2. Patchy small areas of infiltrate at the periphery of both lower lobes. No evidence of pleural effusion. Gerson Parks MD Hospital Course This is a 56-year-old female who is an active smoker who was brought into the emergency department at [facility] today with respiratory distress. She was found to have pneumonia. Her potassium was 3. She was started on antibiotics. Her potassium was replaced. She was admitted to intensive care unit as she was found in respiratory failure and needed BiPAP. Her wash house worker is consulted. She was advised to discontinue smoking and to lose weight. She was started on intravenous steroids and DuoNeb both scheduled and as needed. The case was discussed with emergency physician. The patient was seen and examined in the emergency department and admitted for: (1) Bilateral pneumonia (2) Asthma exacerbation (3) Diabetes mellitus (4) Hypothyroidism (5) Hypertension (6) GERD (gastroesophageal reflux disease) (7) Hyperlipidemia (8) Schizophrenia (9) Anxiety and depression During the course of the hospitalization, the following took place: Patient continued antibiotics, cultures positive for staph coagulase, possibly contaminant Tested positive for influenza A Started on Tamiflu Duonebs and oral steroids initiated O2 NC and prn, no SOB noted at rest, improved CXR , bibasilar quiñones improved, RML + appreciated pulmonary input Slowly increased activity, up in chair and ambulated around in rm. No SOB facial color pink, felte better Accuchecks AC/HS with ISS ordered and monitored heparin for DVT prophylaxis PPI for GI prophylaxis Medical comorbidities stable with medical management Hypertension, Vasotec IV ordered when necessary with parameters if needed Walk test done, determined to need oxygen CM consulted for HHC and to arrange oxygen Patient taper off steroids, put on by mouth antibiotics Cleared for discharge by wash house worker counselled pt against smoking Discharge home in stable condition Instructed to: f/u pcp f/u CXR in 4 to 6 wks by pcp to document resolution Pt Condition on Discharge: Stable Discharge Disposition: Discharge Home Discharge Instructions DIET: Follow Instructions for: Heart Healthy Diet, Diabetic Diet Additional Diet Instructions: no smoking Fluid Restrictions: none Activities you can perform: Regular-No Restrictions Follow up Referrals: PCP Follow-up - 1 Week New Medications: Levofloxacin (Levaquin) 500 Mg Tab 500 MG PO DAILY pneumonia #5 TAB Oseltamivir (Tamiflu) 75 Mg Cap 75 MG PO BID flu #4 CAP Prednisone (Prednisone) 10 Mg Tab 30 MG PO DAILY copd Days 7 TAB Continued Medications: Albuterol 18 GM Inh (Ventolin Hfa 18 GM Inh) 90 Mcg/Act Aer 2 PUFF INH Q6H PRN SHORTNESS OF BREATH #1 Ref 0 INHALER Buspirone (Buspirone) 10 Mg Tab 10 MG PO TID Anxiety Ref 0 TAB Docusate Sodium (Colace) 100 Mg Cap 100 MG PO BID Constipation #60 Ref 0 CAP Glipizide (Glipizide) 10 Mg Tab 10 MG PO BID Take 30 minutes before a meal Blood Sugar Management #60 Ref 0 TAB Levothyroxine (Synthroid) 137 Mcg Tab 137 MCG PO DAILY Thyroid #30 Ref 0 TAB Lisinopril (Lisinopril) 10 Mg Tab 10 MG PO DAILY #30 Ref 0 TAB Metformin (Metformin) 500 Mg Tab 500 MG PO BID With meals Blood Sugar Management #60 Ref 0 TAB [place]-3 Fatty Acids (Fish Oil 1000 mg) 1 Cap Cap 1000 MG PO TID Omeprazole (Omeprazole) 20 Mg Tab 20 MG PO BID #30 Ref 0 TAB Sertraline (Zoloft) 100 Mg Tab 200 MG PO DAILY #30 Ref 0 TAB Simvastatin (Zocor) 40 Mg Tab 40 MG PO DAILY Cholesterol Management #30 Ref 0 TAB Fadia Nash December 04, 2016 14:51 Metformin (Metformin) 500 Mg Tab 500 MG PO BID With meals Blood Sugar Management #60 Ref 0 TAB [place]-3 Fatty Acids (Fish Oil 1000 mg) 1 Cap Cap 1000 MG PO TID Omeprazole (Omeprazole) 20 Mg Tab 20 MG PO BID #30 Ref 0 TAB Sertraline (Zoloft) 100 Mg Tab 200 MG PO DAILY #30 Ref 0 TAB Simvastatin (Zocor) 40 Mg Tab 40 MG PO DAILY Cholesterol Management #30 Ref 0 TAB Fadia Nash December 04, 2016 14:51
== END 2016-11-14 12:50 | disposition home or self-care (01) | DRG 194 ==
LOC: NEPE 07:46 → NEDA 09:42 → HIMN 16:00 → N04A 11-10 17:40
PROVIDERS: ADMIT Specialist; ATTEND Specialist
PROC: 5A09357 Assistance with Respiratory Ventilation, Less than 24 Consecutive Hours, Continuous Positive Airway Pressure (ICD-10-PCS; principal; 2016-11-09)
DX: J10.00 Influenza due to other identified influenza virus with unspecified type of pneumonia (principal); J44.1 Chronic obstructive pulmonary disease with (acute) exacerbation; J44.0 Chronic obstructive pulmonary disease with (acute) lower respiratory infection; J45.901 Unspecified asthma with (acute) exacerbation; E11.65 Type 2 diabetes mellitus with hyperglycemia; Z99.81 Dependence on supplemental oxygen; Z68.41 Body mass index [BMI] 40.0-44.9, adult; E66.01 Morbid (severe) obesity due to excess calories; I10 Essential (primary) hypertension; F31.9 Bipolar disorder, unspecified; F17.200 Nicotine dependence, unspecified, uncomplicated; E03.9 Hypothyroidism, unspecified; E78.5 Hyperlipidemia, unspecified; F20.9 Schizophrenia, unspecified; F41.9 Anxiety disorder, unspecified; J10.1 Influenza due to other identified influenza virus with other respiratory manifestations; E87.6 Hypokalemia; E78.00 Pure hypercholesterolemia, unspecified; Z86.73 Personal history of transient ischemic attack (TIA), and cerebral infarction without residual deficits; K21.0 Gastro-esophageal reflux disease with esophagitis
CPT/HCPCS: 36600; 71010; 71020; 71275; 76937; 80048; 80202; 82550; 82565; 82805; 82948; 83605; 83735; 83880; 84100; 84484; 85025; 85610; 85730; 86403; 87040; 87077; 87186; 87205; 87641; 87804; 93005; 94002; 94640; 94664; J1644; J1815; J1956; J3370; J7030; J7040; J7512; J7613; Q9967

== ENCOUNTER 2018-02-19 17:11 | Inpatient (IN) ==
[2018-02-19 20:47] LABS: Baso % (Auto) 0.3 % (0.0-2.0); Eos # (Auto) 0.1 th/mm3 (0.0-0.4); Eos % (Auto) 0.8 % (0.0-4.0); Hematocrit 42.3 % (35.0-46.0); Hemoglobin 14.5 gm/dL (11.6-15.3); Lymph # (Auto) 1.7 th/mm3 (1.0-4.8); Lymph % (Auto) 17.4 % (9.0-44.0); Mean Corpuscular HGB Conc 34.2 % (32.0-36.0); Mean Platelet Volume 8.2 fL (7.0-11.0); Mono # (Auto) 0.5 th/mm3 (0.0-0.9); Mono % (Auto) 5.1 % (0.0-8.0); Neut # (Auto) 7.3 th/mm3 (1.8-7.7); Neut % (Auto) 76.4 % (16.0-70.0); Platelet Count 203 th/mm3 (150-450); Red Blood Count 5.16 mil/mm3 (4.00-5.30); Red Cell Distribution Width 15.9 % (11.6-17.2); White Blood Count 9.5 th/mm3 (4.0-11.0)
--- NOTE | 2018-02-19 21:33 | ED ---
HPI General Chief Complaint: Psychiatric Symptoms Stated Complaint: Psych eval / VCSO Time Seen by Provider: 02/20/18 15:15 Source: patient Mode of arrival: ambulatory Limitations: no limitations History of Present Illness HPI Narrative: 57-year-old white female presents emergency department under a ex partake [place] act. Patient has a history of paranoid schizophrenia. According to the ex partake she is followed by the FACT team. They feel that she has been noncompliant her medications and have been increasingly paranoid and delusional. They felt it was in her best interest to be seen under her ex partake by the psychiatrist to get back on her medicine. Patient here states that she does not believe that the medicines she is being given is working for her. She states that she feels she needs Klonopin. She does take her BuSpar. The patient does admit to having visual hallucinations. She denies any auditory hallucinations. She denies any suicidal homicidal ideation. She denies any acute medical complaints. She denies any fever chills. No chest pain or shortness of breath. No nausea vomiting. No abdominal pain or diarrhea. No dysuria frequency. She does note having a couple sores on her right buttocks now for the last several days to weeks. Related Data Home Medications Medication Instructions Recorded Confirmed buspirone 10 mg PO BID 02/20/18 02/20/18 fluticasone-vilanterol [Breo 1 inh INHALATION DAILY 02/20/18 02/20/18 Ellipta] glipizide 5 mg PO QDRHS 02/20/18 02/20/18 levothyroxine 137 mcg PO DAILY 02/20/18 02/20/18 lisinopril 10 mg PO DAILY 02/20/18 02/20/18 loxapine succinate 5 mg PO QDRHS 02/20/18 02/20/18 loxapine succinate PO HS 02/20/18 metformin 500 mg PO BID 02/20/18 02/20/18 omeprazole 20 mg PO BID 02/20/18 02/20/18 paliperidone palmitate [Invega 234 mg IM QMONTH 02/20/18 02/20/18 Sustenna] sennosides-docusate sodium [Senna 1 tab PO BID 02/20/18 02/20/18 Plus] sertraline 200 mg PO DAILY 02/20/18 02/20/18 simvastatin 40 mg PO QPM 02/20/18 02/20/18 Allergies Allergy/AdvReac Type Severity Reaction Status Date / Time penicillin G Allergy Severe Anaphylaxis Unverified 03/07/17 19:57 Sulfa (Sulfonamide Allergy Severe Unverified 03/07/17 19:57 Antibiotics) fluphenazine Allergy Intermediate Unverified 03/07/17 19:57 Review of Systems ROS Unobtainable All other systems reviewed negative except as stated in [facility] Medical History Medical History Hx of hysterectomy (Acute) Medical history unknown (Acute) Social History Social History Second Hand Smoke Exposure: No Smoking Status: Refused to answer Tobacco Type: Cigarettes How Often Do You Have a Drink Containing Alcohol: Unable to Obtain Recent Travel in [facility] within the Last 8 Weeks: No Recent Out of Country Travel within the Last 8 Weeks: No Immunization History Tetanus Immunization: Unable to Assess Hx Influenza Vaccine This Season: No Exam Narrative Exam Narrative: GENERAL: Well-nourished, well-developed patient. SKIN: Warm and dry. HEAD: Normocephalic and atraumatic. EYES: No scleral icterus. No injection or drainage. ENT: No nasal drainage noted. Mucous membranes pink. Airway patent. NECK: Supple, trachea midline. Moves head freely without obvious discomfort. CARDIOVASCULAR: Regular rate and rhythm without murmurs, gallops, or rubs. RESPIRATORY: Breath sounds equal bilaterally. No accessory muscle use. GASTROINTESTINAL: Abdomen soft, non-tender, nondistended. EXTREMITIES: No cyanosis or edema. BACK: Nontender without obvious deformity. No CVA tenderness. NEURO: Patient is alert and oriented. no sensorimotor deficits. Nonfocal. Normal speech. PSYCH: Patient is having some mild delusions as well as visual hallucinations of people watching her. No auditory hallucinations. Skin: Patient has open healing superficial follicular superficial abscesses to the right buttocks. The patient is seen in the presence of the psych nurse. Course Initial Documented Vital Signs Temperature 99.6 F 02/19/18 17:48 Pulse Rate 86 02/19/18 17:48 Blood Pressure 150/84 H 02/19/18 17:48 Pulse Oximetry 94 L 02/19/18 17:48 Last Documented Vital Signs Temperature 97.3 F L 02/20/18 17:35 Pulse Rate 67 02/20/18 17:35 Respiratory Rate 20 02/20/18 17:35 Blood Pressure 180/82 H 02/20/18 17:35 Pulse Oximetry 95 02/20/18 17:35 Medical Decision Making MDM Narrative Medical decision making narrative: We will obtain laboratory testing for medical clearance. Patient is not acutely suicidal homicidal. She will be given Ativan 2 mg p.o. Differential Diagnosis Differential Diagnosis: MDM: High Differential diagnoses: Schizophrenia, schizoaffective disorder, bipolar, anxiety, depression, adjustment reaction, mood disorder NOS, ODD, depressive disorder NOS, dementia, dementia with agitation, psychosis NOS, substance induced mood disorder, DMDD, Asperger syndrome, infection,electrolyte abnormality, malingering. Mental health screening discussed with the patient. Psychiatric screen ordered. Lab Data Result diagrams: 02/19/18 18:07 02/20/18 10:06 Lab Results 02/19/18 02/19/18 02/19/18 Range/Units 18:07 18:07 18:07 WBC 9.5 (4.0-11.0) th/mm3 RBC 5.16 (4.00-5.30) mil/mm3 Hgb 14.5 (11.6-15.3) gm/dL Hct 42.3 (35.0-46.0) % MCV 82.0 (80.0-100.0) fL MCH 28.0 (27.0-34.0) pg MCHC 34.2 (32.0-36.0) % RDW 15.9 (11.6-17.2) % Plt Count 203 (150-450) th/mm3 MPV 8.2 (7.0-11.0) fL Neut % (Auto) 76.4 H (16.0-70.0) % Lymph % (Auto) 17.4 (9.0-44.0) % [place] % (Auto) 5.1 (0.0-8.0) % Eos % (Auto) 0.8 (0.0-4.0) % Baso % (Auto) 0.3 (0.0-2.0) % Neut # (Auto) 7.3 (1.8-7.7) th/mm3 Lymph # (Auto) 1.7 (1.0-4.8) th/mm3 [place] # (Auto) 0.5 (0.0-0.9) th/mm3 Eos # (Auto) 0.1 (0.0-0.4) th/mm3 Baso # (Auto) 0.0 (0.0-0.2) th/mm3 WBC Differential . Differential Comment Auto diff final Sodium 136 (136-145) meq/L Potassium 2.7 L* (3.5-5.1) meq/L Chloride 100 (98-107) meq/L Carbon Dioxide 28.3 (21.0-32.0) meq/L Anion Gap 8 (5-15) meq/L BUN 5 L (7-18) mg/dL Creatinine 0.73 (0.50-1.00) mg/dL Estimated GFR 82 L (>89) mL/min POC Glucose (68-110) mg/dl Random Glucose 123 H (74-106) mg/dL Calcium 9.2 (8.5-10.1) mg/dL Magnesium 2.2 (1.5-2.5) mg/dL Total Bilirubin 0.4 (0.2-1.0) mg/dL AST 29 (15-37) U/L ALT 41 (10-53) U/L Alkaline Phosphatase 89 (45-117) U/L Total Protein 7.8 (6.4-8.2) g/dL Albumin 4.2 (3.4-5.0) g/dL TSH 2.610 (0.358-3.740) uIU/mL Urine Color (Yellw/Straw) Urine Clarity (Clear) Urine pH (5.0-8.5) Ur Specific [place] (1.002-1.035) Urine Protein (Neg-Trace) mg/dL Urine Glucose (UA) (Negative) mg/dL Urine Ketones (Negative) mg/dL Urine Occult Blood (Negative) Urine Nitrate (Negative) Urine Bilirubin (Negative) Urine Urobilinogen (Less than 2) mg/dL Ur Leukocyte Esterase (Negative) Micro UA Comment Urine Culture Comments Urine Opiates Screen (Neg) Ur Barbiturates Screen (Neg) Ur Amphetamines Screen (Neg) U Benzodiazepines Scrn (Neg) Urine Cocaine Screen (Neg) U Cannabinoids Screen (Neg) Serum Alcohol Less than 3 (0-5) mg/dL 02/19/18 02/19/18 02/20/18 Range/Units 20:20 20:20 08:44 WBC (4.0-11.0) th/mm3 RBC (4.00-5.30) mil/mm3 Hgb (11.6-15.3) gm/dL Hct (35.0-46.0) % MCV (80.0-100.0) fL MCH (27.0-34.0) pg MCHC (32.0-36.0) % RDW (11.6-17.2) % Plt Count (150-450) th/mm3 MPV (7.0-11.0) fL Neut % (Auto) (16.0-70.0) % Lymph % (Auto) (9.0-44.0) % [place] % (Auto) (0.0-8.0) % Eos % (Auto) (0.0-4.0) % Baso % (Auto) (0.0-2.0) % Neut # (Auto) (1.8-7.7) th/mm3 Lymph # (Auto) (1.0-4.8) th/mm3 [place] # (Auto) (0.0-0.9) th/mm3 Eos # (Auto) (0.0-0.4) th/mm3 Baso # (Auto) (0.0-0.2) th/mm3 WBC Differential Differential Comment Sodium (136-145) meq/L Potassium (3.5-5.1) meq/L Chloride (98-107) meq/L Carbon Dioxide (21.0-32.0) meq/L Anion Gap (5-15) meq/L BUN (7-18) mg/dL Creatinine (0.50-1.00) mg/dL Estimated GFR (>89) mL/min POC Glucose 130 H (68-110) mg/dl Random Glucose (74-106) mg/dL Calcium (8.5-10.1) mg/dL Magnesium (1.5-2.5) mg/dL Total Bilirubin (0.2-1.0) mg/dL AST (15-37) U/L ALT (10-53) U/L Alkaline Phosphatase (45-117) U/L Total Protein (6.4-8.2) g/dL Albumin (3.4-5.0) g/dL TSH (0.358-3.740) uIU/mL Urine Color Straw (Yellw/Straw) Urine Clarity Clear (Clear) Urine pH 6.0 (5.0-8.5) Ur Specific [place] 1.001 L (1.002-1.035) Urine Protein Negative (Neg-Trace) mg/dL Urine Glucose (UA) Negative (Negative) mg/dL Urine Ketones Negative (Negative) mg/dL Urine Occult Blood Negative (Negative) Urine Nitrate Negative (Negative) Urine Bilirubin Negative (Negative) Urine Urobilinogen Less than 2 (Less than 2) mg/dL Ur Leukocyte Esterase Trace H (Negative) Micro UA Comment Culture not ind Urine Culture Comments Culture not ind Urine Opiates Screen Neg (Neg) Ur Barbiturates Screen Neg (Neg) Ur Amphetamines Screen Neg (Neg) U Benzodiazepines Scrn Neg (Neg) Urine Cocaine Screen Neg (Neg) U Cannabinoids Screen Neg (Neg) Serum Alcohol (0-5) mg/dL 02/20/18 Range/Units 10:06 WBC (4.0-11.0) th/mm3 RBC (4.00-5.30) mil/mm3 Hgb (11.6-15.3) gm/dL Hct (35.0-46.0) % MCV (80.0-100.0) fL MCH (27.0-34.0) pg MCHC (32.0-36.0) % RDW (11.6-17.2) % Plt Count (150-450) th/mm3 MPV (7.0-11.0) fL Neut % (Auto) (16.0-70.0) % Lymph % (Auto) (9.0-44.0) % [place] % (Auto) (0.0-8.0) % Eos % (Auto) (0.0-4.0) % Baso % (Auto) (0.0-2.0) % Neut # (Auto) (1.8-7.7) th/mm3 Lymph # (Auto) (1.0-4.8) th/mm3 [place] # (Auto) (0.0-0.9) th/mm3 Eos # (Auto) (0.0-0.4) th/mm3 Baso # (Auto) (0.0-0.2) th/mm3 WBC Differential Differential Comment Sodium (136-145) meq/L Potassium 3.7 D (3.5-5.1) meq/L Chloride (98-107) meq/L Carbon Dioxide (21.0-32.0) meq/L Anion Gap (5-15) meq/L BUN (7-18) mg/dL Creatinine (0.50-1.00) mg/dL Estimated GFR (>89) mL/min POC Glucose (68-110) mg/dl Random Glucose (74-106) mg/dL Calcium (8.5-10.1) mg/dL Magnesium (1.5-2.5) mg/dL Total Bilirubin (0.2-1.0) mg/dL AST (15-37) U/L ALT (10-53) U/L Alkaline Phosphatase (45-117) U/L Total Protein (6.4-8.2) g/dL Albumin (3.4-5.0) g/dL TSH (0.358-3.740) uIU/mL Urine Color (Yellw/Straw) Urine Clarity (Clear) Urine pH (5.0-8.5) Ur Specific [place] (1.002-1.035) Urine Protein (Neg-Trace) mg/dL Urine Glucose (UA) (Negative) mg/dL Urine Ketones (Negative) mg/dL Urine Occult Blood (Negative) Urine Nitrate (Negative) Urine Bilirubin (Negative) Urine Urobilinogen (Less than 2) mg/dL Ur Leukocyte Esterase (Negative) Micro UA Comment Urine Culture Comments Urine Opiates Screen (Neg) Ur Barbiturates Screen (Neg) Ur Amphetamines Screen (Neg) U Benzodiazepines Scrn (Neg) Urine Cocaine Screen (Neg) U Cannabinoids Screen (Neg) Serum Alcohol (0-5) mg/dL Discharge Plan Discharge Disposition Patient Disposition: 01 Discharge Home Discharge Condition Condition: Stable Discharge Order Discharge Orders: Discharge Order (Routine); Ordered 02/20/18 Ordered By: Raymundo Mancini Discharge Details Anticipated Discharge Date: 02/20/18 Diagnosis: Bipolar affective disorder Physicians Team ED Provider: Wicho Moreno ED Midlevel Provider: Raymundo Mancini Primary Care Provider: William Silverman Attending Provider: Torrey Nova Discharge Interventions Interventions: ED Discharge Assessment Last Done: 02/20/18 17:27 Vital Signs Last Done: 02/20/18 06:42 Status ED Status: Left Department Discharge Information Discharge Date/Time: 02/20/18 17:29
[2018-02-19 21:39] LABS: Alanine Aminotransferase 41 U/L (10-53); Albumin 4.2 g/dL (3.4-5.0); Alkaline Phosphatase 89 U/L (45-117); Anion Gap 8 meq/L (5-15); Aspartate Aminotransferase 29 U/L (15-37); Blood Urea Nitrogen 5 mg/dL (7-18); Calcium 9.2 mg/dL (8.5-10.1); Carbon Dioxide 28.3 meq/L (21.0-32.0); Chloride 100 meq/L (98-107); Glomerular Filtration Rate 82 mL/min (>89); Glucose,Random 123 mg/dL (74-106); Sodium 136 meq/L (136-145); Total Protein 7.8 g/dL (6.4-8.2)
[2018-02-19 21:51] LABS: Potassium 2.7 meq/L (3.5-5.1)
[2018-02-19 22:13] LABS: Bilirubin,Urine Negative (Negative); Clarity,Urine Clear (Clear); Color,Urine Straw (Yellw/Straw); Glucose,Urine (UA) Negative (Negative); Leukocyte Esterase,Urine Trace (Negative); Nitrite,Urine Negative (Negative); Specific Gravity,Urine 1.001 (1.002-1.035)
[2018-02-19 22:16] LABS: Amphetamine Screen,Urine Neg (Neg); Barbiturate Screen,Urine Neg (Neg); Cannabinoid Screen,Urine Neg (Neg); Cocaine Screen,Urine Neg (Neg); Opiate Screen,Urine Neg (Neg)
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
[2018-02-20] MEDS ORDERED: LORazepam 1 MG Tablet PO PRN (16:26)
[2018-02-20] MEDS ORDERED: Aluminum/Magnesium/Simethacone Susp 30 ML UDC PO PRN (16:26)
[2018-02-20] MEDS ORDERED: GLIPIZIDE 5 MG PO SCH (16:45)
[2018-02-20] MEDS: Lisinopril 10 MG Tablet PO SCH (18:53)
[2018-02-20] MEDS: Pantoprazole Sodium 20 MG DR Tablet PO SCH (21:32)
[2018-02-21] MEDS: Levothyroxine 112 MCG Tablet PO SCH (05:58)
[2018-02-21 08:29] LABS: Anion Gap 4 meq/L (5-15); Blood Urea Nitrogen 7 mg/dL (7-18); Calcium 8.9 mg/dL (8.5-10.1); Carbon Dioxide 33.8 meq/L (21.0-32.0); Chloride 102 meq/L (98-107); Cholesterol 179 mg/dL (120-200); Glomerular Filtration Rate Greater Than 89 mL/min (>89); Glucose,Random 144 mg/dL (74-106); Sodium 140 meq/L (136-145)
[2018-02-21 08:31] LABS: Chol/HDL Ratio 4.48 Ratio; HDL Cholesterol 39.9 mg/dL (40.0-60.0); LDL Cholesterol,Calculated 98 mg/dL (0-99); Triglycerides 208 mg/dL (42-150)
[2018-02-21] MEDS: Pantoprazole Sodium 20 MG DR Tablet PO SCH ×2 (09:16→20:42)
[2018-02-21] MEDS: Lisinopril 10 MG Tablet PO SCH (09:16)
[2018-02-21] MEDS: glipiZIDE 5 MG Tablet PO SCH ×2 (09:18→17:06)
--- NOTE | 2018-02-21 10:12 | P.CON ---
History of Present Illness Service: Hospitalist Consult date: 02/21/18 Requesting Physician: Rubin Kilgore Reason for Consult: Medical Managment Primary Care Provider: William Silverman DO Family Provider: William Silverman DO Chief Complaint: I need my inhailer History of Present Illness: Patient is a 57-year-old female who admits to the emergency department 02/20 under an expert marvin Dubon act. She has a mental health history of paranoid schizophrenia -she is followed by the FACT team who noted that she has been noncompliant with medications and has become increasingly paranoid and delusional. Prior medical history includes asthma, COPD, hyperlipidemia, CVA, DM, GERD, seizures, ANTHONY, hypothyroidism and chronic pain. She denies smoking but tells me that she has smoked for many years. Denies substance abuse but does have a record of previous IV drug use in 2012 per hospital record. Hospitalist service has been consulted for medical management. She is complaining today that she is short of breath and needs her rescue inhaler with her. Review of hospital records indicates several emergency room visits and did admissions for asthma exacerbation as well as pneumonia 11/07. She is also concerned about an itchy rash on the left knee. Her ability to provide a accurate history is questionable as she tells me the rash was caused by "sitting on a leather chair that was made out of her nephews". Review of Systems All other systems reviewed negative except as stated in HPI PMFSH - History History Provided By: Patient, Medical Record - Medical History Medical History: Medical History (Last Reviewed 02/21/18 @ 11:14 by STUART Meyers) Hx of hysterectomy (Acute) Asthma COPD (chronic obstructive pulmonary disease) GERD (gastroesophageal reflux disease) HLD (hyperlipidemia) HTN (hypertension) Hypothyroid Medical history unknown Obstructive sleep apnea Paranoid schizophrenia - Surgical History Surgical History: Surgical History (Last Reviewed 02/21/18 @ 11:14 by STUART Meyers) Hx of tonsillectomy - Family History Family History: Family History (Last Reviewed 02/21/18 @ 11:14 by STUART Meyers) Other Family history unobtainable due to patient's condition - Tobacco History Second Hand Smoke Exposure: No Tobacco Use In Past 30 Days: No Smoking Status: Refused to answer Tobacco Type: Cigarettes - Alcohol History How Often Do You Have a Drink Containing Alcohol: Unable to Obtain - Travel History Recent Travel in the [place] Within the Last 8 Weeks: No Recent Travel Out of the Country Within the Last 8 Weeks: No - Immunization History Tetanus Immunization: Unable to Assess Hx Influenza Vaccine This Season: No Medications and Allergies Active Medications: Active Medications Al Hydrox/Mg Hydrox/Simethicone (Mag-Al Plus Susp Liq) 30 ml PO Q6H PRN PRN Reason: DYSPEPSIA Fluticasone/Vilanterol (Breo Ellipta 100/25 Mcg Inh) 1 puff INH DAILY [facility] Last Admin: 02/21/18 09:16 Dose: 1 puff Glipizide (Glucotrol) 2.5 mg PO BIDAC [facility] Last Admin: 02/21/18 09:18 Dose: 2.5 mg Levothyroxine Sodium (Synthroid) 25 mcg PO DAILY@0600 [facility] Last Admin: 02/21/18 05:57 Dose: 25 mcg Levothyroxine Sodium (Synthroid) 112 mcg PO DAILY@0600 [facility] Last Admin: 02/21/18 05:58 Dose: 112 mcg Lisinopril (Prinivil) 10 mg PO DAILY [facility] Last Admin: 02/21/18 09:16 Dose: 10 mg Lorazepam (Ativan) 1 mg PO Q6H PRN PRN Reason: MODERATE TO SEVERE ANXIETY Metformin HCl (Glucophage) 500 mg PO BID [facility] Last Admin: 02/21/18 09:15 Dose: 500 mg Pantoprazole Sodium (Protonix) 20 mg PO BID [facility] Last Admin: 02/21/18 09:16 Dose: 20 mg Potassium Chloride (K-Dur) 20 meq PO BID [facility] Last Admin: 02/21/18 09:21 Dose: Not Given Pravastatin Sodium (Pravachol) 80 mg PO QPM [facility] Last Admin: 02/20/18 18:54 Dose: 80 mg Ziprasidone (Geodon Inj) 10 mg IM Q12H PRN PRN Reason: SEVERE AGITATION Allergies Allergy/AdvReac Type Severity Reaction Status Date / Time penicillin G Allergy Severe Anaphylaxis Unverified 03/07/17 19:57 Sulfa (Sulfonamide Allergy Severe Unverified 03/07/17 19:57 Antibiotics) fluphenazine Allergy Intermediate Unverified 03/07/17 19:57 Home Medications Medication Instructions Recorded Confirmed Type buspirone 10 mg PO BID 02/20/18 02/20/18 History fluticasone-vilanterol [Breo 1 inh INHALATION DAILY 02/20/18 02/20/18 History Ellipta] glipizide 5 mg PO QDRHS 02/20/18 02/20/18 History levothyroxine 137 mcg PO DAILY 02/20/18 02/20/18 History lisinopril 10 mg PO DAILY 02/20/18 02/20/18 History loxapine succinate 5 mg PO QDRHS 02/20/18 02/20/18 History loxapine succinate PO HS 02/20/18 History metformin 500 mg PO BID 02/20/18 02/20/18 History omeprazole 20 mg PO BID 02/20/18 02/20/18 History paliperidone palmitate [Invega 234 mg IM QMONTH 02/20/18 02/20/18 History Sustenna] sennosides-docusate sodium [Senna 1 tab PO BID 02/20/18 02/20/18 History Plus] sertraline 200 mg PO DAILY 02/20/18 02/20/18 History simvastatin 40 mg PO QPM 02/20/18 02/20/18 History Physical Exam Vital signs: Vital Signs 02/20/18 17:35 02/21/18 05:33 02/21/18 06:00 Temperature 97.3 F L 97.5 F L Pulse Rate 67 100 H 79 Respiratory Rate 20 18 Blood Pressure 180/82 H 218/91 H 176/87 H Pulse Oximetry 95 94 L Intake & Output 02/20/18 02/21/18 02/21/18 18:59 06:59 18:59 Weight 106.9 kg Other: Weight On Admission 106.9 kg Narrative: GENERAL: Obese, well-developed adult female in no obvious distress. SKIN: Warm and dry. Left lateral knee has area of scattered shallow lesions with erythemic borders. No significant swelling or drainage. Evidence of mechanical trauma. HEAD: Atraumatic. Normocephalic. CARDIOVASCULAR: Regular rate and rhythm. Murmur. RESPIRATORY: No accessory muscle use. Clear to auscultation. Breath sounds equal bilaterally. GASTROINTESTINAL: Abdomen soft, non-tender, non-distended. Positive bowel sounds. MUSCULOSKELETAL: Extremities without clubbing, cyanosis, or edema. No obvious deformities. NEUROLOGICAL: Awake and alert. No obvious cranial nerve deficits. Motor grossly within normal limits. Normal speech. Assessment and Plan - Plan Patient is a 57-year-old female who admits to the emergency department 02/20 under an expert marvin Dubon act. She has a mental health history of paranoid schizophrenia -she is followed by the FACT team who noted that she has been noncompliant with medications and has become increasingly paranoid and delusional. Prior medical history per records includes asthma, COPD, hypertension, hyperlipidemia, CVA, DM, GERD, seizures, ANTHONY, hypothyroidism and chronic pain. Hospitalist service has been consulted for medical management. Paranoid schizophrenia Asthma/COPD -Add Ventolin inhaler and nebs as needed. Rash/lesions left knee -Bacitracin ointment daily; keep clean and dry. No dressing indicated; however may wrap lightly with gauze if patient is picking. Hypertension -Chronic. Continue lisinopril-review of hospital records indicates previously well controlled on 10 mg. Diabetes mellitus -Continue home glipizide and metformin. If blood glucose is not well controlled change to sliding scale while inpatient. GERD -Continue omeprazole Hypothyroid -Continue levothyroxine
[2018-02-21] MEDS ORDERED: Aluminum/Magnesium/Simethacone Susp 30 ML UDC PO PRN (10:43)
[2018-02-21] MEDS ORDERED: Bisacodyl 10 MG Supp RECTAL PRN ×2 (10:43→11:17)
[2018-02-21] MEDS ORDERED: Paliperidone Inj 234 MG/1.5 ML Syringe IM SCH (11:00)
--- NOTE | 2018-02-21 11:09 | P.HPPSY ---
Provisional Diagnosis Admission Date: February 20, 2018 16:24 [place].: Schizophrenia chronic paranoid type F 20.0 Competence Certification of Person's Competence To Provide Express and Informed Consent I have personally examined Lisa Cochran, a person being served at [facility] on, February 21, 2018 1105. Express and informed consent means consent voluntarily given in writing, by a competent person, after sufficient explanation and disclosure of the subject matter involved to enable the person to make a knowing and willful decision without any element of force, fraud, deceit, duress, or other form of constraint or coercion. This person is 18 years of age or older, is not now known to be incompetent to consent to treatment with a guardian advocate, and does not have a health care surrogate or proxy currently making medical treatment decisions. I have found this person to be one of the following: [] Competent to provide express and informed consent, as defined above, for voluntary admission to this facility and is competent to provide express and informed consent for treatment. He/she has the consistent capacity to make well reasoned, willful, and knowing decisions concerning his or her medical or mental health treatment. The person fully and consistently understands the purpose of the admission for examination/placement and is fully capable of personally exercising all rights assured under [place] Incompetent to provide express and informed consent to voluntary admission, and this is incompetent to provide express and informed consent to treatment. The person must be transferred to involuntary status and a petition for a guardian advocate filed with the Circuit Court. [] Refusing to provide express and informed consent to voluntary admission but is competent to provide express and informed consent for treatment. The person must be discharged or transferred to involuntary status. Form shall be completed within 24 hours of a person's arrival at the receiving facility and filed in the clinical record of each person: 1. Admitted on a voluntary basis 2. Permitted to provide express and informed consent to his/her own treatment 3. Allowed to transfer from involuntary to voluntary status 4. Prior to permitting a person to consent to his or her own treatment after having been previously found incompetent to consent to treatment. History of Present Illness Capacity: Lacks capacity History of Present Illness: Patient is a 57-year-old white female comes here under an ex parte signed by a skilled nursing case manager through [facility] act fact team. He gives a history of patient showing increased noncompliance with medications the past 1-2 months. That the fact team psychiatrist and has attempted various other medications all of which have been refused by the patient. This includes a follow-up with her in [place] sustain a injection. Patient is shown increasingly poor hygiene and decreased with her ADLs. She become increasingly delusional with a paranoid nature and somewhat sexual overtones nature. Patient seen screen in the ED urine toxicology negative blood alcohol level negative. Patient seen in her room with Counselor Deja. Patient is alert fairly well oriented stockily built white female disheveled in appearance sitting calmly on her bed. She is in no acute distress. She acknowledges increased auditory hallucinations of a command demanding threatening nature. She denies suicidality. She denies any alcohol or drug use with this. She lives with a male roommate she admits to sexual overtones towards his behavior. She is quite vague minimizes any past psychiatric history. Though there is a long history of mental illness with this lady. I also talked with patient's skilled nursing case manager Cecilia Joaquin's at [phone]. She confirms the noncompliance medication with increased delusions paranoia and auditory hallucinations with the sexual overtones. In that the fact psychiatrist is tried various alternatives for treatment and she has refused all of them. Less at the stomach feel patient does meet criteria for involuntary inpatient psychiatric treatment under the [place] act I also feel she does not have capacity to make decisions concerning her care thus I will ask for second opinion healthcare surrogate and guardian advocate. It appears there is no family member person that can assume the responsibility of healthcare surrogate. Thus we will offer medication on a ETO basis only at this time. She is on various medical medications that we will the hospitalist for assessment treat it appears to may need to delay mental health treatment until we can get a healthcare surrogate and guardian advocate appointed by the court - Inpatient Certification I certify that the inpatient services were ordered in accordance with Medicare regulations governing the order. This includes certification that hospital inpatient services are reasonable and necessary and in the case of services not specified as inpatient-only under 42 CFR 419.22(n), that they are appropriately provided as inpatient services in accordance to with the 2-midnight benchmark under 43 CFR 412.3(e) I certify that inpatient psychiatric hospital services are medically necessary. Evaluation and treatment and/or diagnostic testing are expected to improve the patient's condition. The patient needs on a daily basis, active treatment furnished directly by or requiring the supervision of inpatient psychiatric facility personnel. Estimated Total Length of Stay (Days): 8 Plans for Post Hospital Care: Home Review of Systems unobtainable due to mental condition PMFSH - History History Provided By: Patient - Medical History Medical History: Medical History (Last Reviewed 02/19/18 @ 21:34 by JULISSA Carlos) Hx of hysterectomy (Acute) Medical history unknown (Acute) - Tobacco History Second Hand Smoke Exposure: No Tobacco Use In Past 30 Days: No Smoking Status: Refused to answer Tobacco Type: Cigarettes - Alcohol History How Often Do You Have a Drink Containing Alcohol: Unable to Obtain - Travel History Recent Travel in the [place] Within the Last 8 Weeks: No Recent Travel Out of the Country Within the Last 8 Weeks: No - Immunization History Tetanus Immunization: Unable to Assess Hx Influenza Vaccine This Season: No Quality Measures - Psychiatric History Psychological trauma history: Unknown at this time due to patient's psychosis Violence risk to others in the last 6 months: Difficult to ascertain due to patient's psychosis Violence risk to self in the last 6 months: Patient denies - Substance Abuse History Drug or alcohol use in the past 12 months: Patient denies - Patient Strengths Patient's strengths (minimum of 2): Patient verbal has support group and the fact team Medications and Allergies Active Medications: Active Medications Acetaminophen (Tylenol) 650 mg PO Q4H PRN PRN Reason: Pain 1-5 or Temp >101F Al Hydrox/Mg Hydrox/Simethicone (Mag-Al Plus Susp Liq) 30 ml PO Q6H PRN PRN Reason: DYSPEPSIA Al Hydroxide/Mg Hydroxide (Milk Of Magnesia Liq) 30 ml PO Q12H PRN PRN Reason: Mild Constipation Bisacodyl (Dulcolax Supp) 10 mg RECTAL DAILY PRN PRN Reason: SEVERE CONSITIPATION Buspirone HCl (Buspar) 10 mg PO BID NABIL Diphenhydramine HCl (Benadryl) 50 mg PO HS PRN PRN Reason: INSOMNIA Fluticasone/Vilanterol (Breo Ellipta 100/25 Mcg Inh) 1 puff INH DAILY [facility] Last Admin: 02/21/18 09:16 Dose: 1 puff Glipizide (Glucotrol) 2.5 mg PO BIDAC [facility] Last Admin: 02/21/18 09:18 Dose: 2.5 mg Hydroxyzine HCl (Atarax) 50 mg PO Q6H PRN PRN Reason: ANXIETY Lactulose (Lactulose Liq) 30 ml PO DAILY PRN PRN Reason: SEVERE CONSITIPATION Levothyroxine Sodium (Synthroid) 25 mcg PO DAILY@0600 [facility] Last Admin: 02/21/18 05:57 Dose: 25 mcg Levothyroxine Sodium (Synthroid) 112 mcg PO DAILY@0600 [facility] Last Admin: 02/21/18 05:58 Dose: 112 mcg Lisinopril (Prinivil) 10 mg PO DAILY [facility] Last Admin: 02/21/18 09:16 Dose: 10 mg Metformin HCl (Glucophage) 500 mg PO BID [facility] Last Admin: 02/21/18 09:15 Dose: 500 mg Paliperidone Palmitate (Invega Sustenna Inj) 234 mg IM .MONTHLY [facility] Pantoprazole Sodium (Protonix) 20 mg PO BID [facility] Last Admin: 02/21/18 09:16 Dose: 20 mg Potassium Chloride (K-Dur) 20 meq PO BID [facility] Last Admin: 02/21/18 09:21 Dose: Not Given Pravastatin Sodium (Pravachol) 80 mg PO QPM [facility] Last Admin: 02/20/18 18:54 Dose: 80 mg Senna/Docusate Sodium (Kate-Colace) 1 tab PO BID [facility] Sennosides (Senokot) 17.2 mg PO Q12H PRN PRN Reason: Moderate Constipation Sertraline HCl (Zoloft) 200 mg PO DAILY [facility] Allergies Allergy/AdvReac Type Severity Reaction Status Date / Time penicillin G Allergy Severe Anaphylaxis Unverified 03/07/17 19:57 Sulfa (Sulfonamide Allergy Severe Unverified 03/07/17 19:57 Antibiotics) fluphenazine Allergy Intermediate Unverified 03/07/17 19:57 Home Medications Medication Instructions Recorded Confirmed Type buspirone 10 mg PO BID 02/20/18 02/20/18 History fluticasone-vilanterol [Breo 1 inh INHALATION DAILY 02/20/18 02/20/18 History Ellipta] glipizide 5 mg PO QDRHS 02/20/18 02/20/18 History levothyroxine 137 mcg PO DAILY 02/20/18 02/20/18 History lisinopril 10 mg PO DAILY 02/20/18 02/20/18 History loxapine succinate 5 mg PO QDRHS 02/20/18 02/20/18 History loxapine succinate PO HS 02/20/18 History metformin 500 mg PO BID 02/20/18 02/20/18 History omeprazole 20 mg PO BID 02/20/18 02/20/18 History paliperidone palmitate [Invega 234 mg IM QMONTH 02/20/18 02/20/18 History Sustenna] sennosides-docusate sodium [Senna 1 tab PO BID 02/20/18 02/20/18 History Plus] sertraline 200 mg PO DAILY 02/20/18 02/20/18 History simvastatin 40 mg PO QPM 02/20/18 02/20/18 History Results - Labs CBC & Chem 7: 02/19/18 18:07 02/21/18 07:49 Labs: Laboratory Results - last 24 hr 02/21/18 07:49 Sodium 140 Potassium 4.0 Chloride 102 Carbon Dioxide 33.8 H Anion Gap 4 L BUN 7 Creatinine 0.63 Estimated GFR Greater than 89 Random Glucose 144 H Calcium 8.9 Triglycerides 208 H Cholesterol 179 LDL Cholesterol, Calc 98 HDL Cholesterol 39.9 L Cholesterol/HDL Ratio 4.48 Exam Vital signs: Vital Signs 02/20/18 17:35 02/21/18 05:33 02/21/18 06:00 Temperature 97.3 F L 97.5 F L Pulse Rate 67 100 H 79 Respiratory Rate 20 18 Blood Pressure 180/82 H 218/91 H 176/87 H Pulse Oximetry 95 94 L 02/21/18 09:00 02/21/18 10:21 Temperature 97.6 F Pulse Rate 76 64 Respiratory Rate 17 17 Blood Pressure 170/78 H 148/70 H Pulse Oximetry 96 96 Intake & Output 02/20/18 02/21/18 02/21/18 18:59 06:59 18:59 Weight 106.9 kg Other: Weight On Admission 106.9 kg Mental Status Examination Appearance: Disheveled Consciousness: Alert Orientation: Person, Place, Situation Motor Activity: Normal gait Speech: Rapid (at times) Language: Adequate Fund of Knowledge: Adequate Attention and Concentration: Inadequate Memory: Unremarkable (not formally tested) Mood: Angry Affect: Blunt Thought Process & Associations: Disorganized Thought Content: Delusional Hallucination Type: Auditory Delusion Type: Paranoid Suicidal Ideation: No Suicidal Plan: No Suicidal Intention: No Homicidal Ideation: No Homicidal Plan: No Assessment and Plan - Assessment (1) Schizophrenia Code(s): F20.9 - Schizophrenia, unspecified Status: Acute - Plan Plan: Estimated LOS: [] 7-8 days At this time patient meets criteria for involuntary hospitalization under the [place] act I will do first opinion request second opinion, I feel she does not have capacity we will ask for health care surrogate and guardian advocate. We will also have hospitalist consult will us in the patient's medical issues. If no healthcare surrogate can be found we will need to treat the patient on the ETO basis until a healthcare surrogate/guardian advocate can be appointed Justification for Continued Inpatient Stay: At this time patient would decompensate a place to a lower level of care Discharge Planning: To be determined
[2018-02-21 16:57] LABS: Hemoglobin A1c 5.6 % (4.3-6.0)
[2018-02-21] MEDS: Acetaminophen 325 MG Tablet PO PRN (17:05)
[2018-02-21] MEDS: Senna/Docusate Sodium 8.6/50 MG Tablet PO SCH (20:45)
[2018-02-21] MEDS ORDERED: Senna/Docusate Sodium 8.6/50 MG Tablet PO SCH (21:00)
[2018-02-22] MEDS: Levothyroxine 112 MCG Tablet PO SCH (06:44)
[2018-02-22] MEDS: Lisinopril 10 MG Tablet PO SCH ×2 (06:44→09:22)
[2018-02-22] MEDS ORDERED: Sertraline 100 MG Tablet PO SCH (09:00)
[2018-02-22] MEDS: glipiZIDE 5 MG Tablet PO SCH ×2 (09:20→16:54)
[2018-02-22] MEDS: Pantoprazole Sodium 20 MG DR Tablet PO SCH ×2 (09:21→20:54)
[2018-02-22] MEDS: Senna/Docusate Sodium 8.6/50 MG Tablet PO SCH ×2 (09:22→20:53)
[2018-02-22 09:56] LABS: Anion Gap 6 meq/L (5-15); Blood Urea Nitrogen 8 mg/dL (7-18); Calcium 9.5 mg/dL (8.5-10.1); Carbon Dioxide 30.8 meq/L (21.0-32.0); Chloride 102 meq/L (98-107); Glomerular Filtration Rate Greater Than 89 mL/min (>89); Glucose,Random 128 mg/dL (74-106); Potassium 4.4 meq/L (3.5-5.1); Sodium 139 meq/L (136-145)
[2018-02-22 09:58] LABS: Cholesterol 172 mg/dL (120-200); Triglycerides 210 mg/dL (42-150)
[2018-02-22 10:02] LABS: Chol/HDL Ratio 4.83 Ratio; HDL Cholesterol 35.6 mg/dL (40.0-60.0); LDL Cholesterol,Calculated 94 mg/dL (0-99)
--- NOTE | 2018-02-22 11:17 | P.PN ---
Subjective Interval history: Patient is seen lying quietly in bed. She is extremely confused and told me she just had a baby 2 weeks ago. Denies any pain or concerns. Nurse reports no adverse events overnight. Physical Exam Vital signs: Vital Signs 02/21/18 17:46 02/22/18 06:08 02/22/18 06:10 Temperature 97.5 F L 97.9 F 97.9 F Pulse Rate 69 61 61 Respiratory Rate 18 16 16 Blood Pressure 171/77 H 174/79 H 174/79 H Pulse Oximetry 97 95 95 02/22/18 06:11 02/22/18 09:00 02/22/18 10:53 Temperature 97.9 F Pulse Rate 61 77 66 Respiratory Rate 16 Blood Pressure 174/79 H 178/79 H 166/76 H Pulse Oximetry 95 Intake & Output 02/21/18 02/22/18 02/22/18 18:59 06:59 18:59 Intake Total 480 / 480 Balance 480 / 480 Weight 81.9 kg Intake: Oral 480 / 480 Narrative: GENERAL: Obese, well-developed adult female in no obvious distress. SKIN: Warm and dry. Left lateral knee has area of scattered shallow lesions with erythemic borders. No significant swelling or drainage. Evidence of mechanical trauma. HEAD: Atraumatic. Normocephalic. CARDIOVASCULAR: Regular rate and rhythm. Murmur. RESPIRATORY: No accessory muscle use. Clear to auscultation. Breath sounds equal bilaterally. GASTROINTESTINAL: Abdomen soft, non-tender, non-distended. Positive bowel sounds. MUSCULOSKELETAL: Extremities without clubbing, cyanosis, or edema. No obvious deformities. NEUROLOGICAL: Resting but wakes easily. No obvious cranial nerve deficits. Motor grossly within normal limits. Normal speech. Results - Labs CBC & Chem 7: 02/19/18 18:07 02/22/18 08:51 Laboratory Results - last 24 hr 02/21/18 02/22/18 07:49 08:51 Sodium 139 Potassium 4.4 Chloride 102 Carbon Dioxide 30.8 Anion Gap 6 BUN 8 Creatinine 0.65 Estimated GFR Greater than 89 Random Glucose 128 H Hemoglobin A1c 5.6 Calcium 9.5 Triglycerides 210 H Cholesterol 172 LDL Cholesterol, Calc 94 HDL Cholesterol 35.6 L Cholesterol/HDL Ratio 4.83 Assessment and Plan - Plan Patient is a 57-year-old female who admits to the emergency department 7/31 under an expert marvin [place] act. She has a mental health history of paranoid schizophrenia -she is followed by the FACT team who noted that she has been noncompliant with medications and has become increasingly paranoid and delusional. Prior medical history per records includes asthma, COPD, hypertension, hyperlipidemia, CVA, DM, GERD, seizures, ANTHONY, hypothyroidism and chronic pain. Hospitalist service has been consulted for medical management. Paranoid schizophrenia Asthma/COPD -Add Ventolin inhaler and nebs as needed. Rash/lesions left knee -Bacitracin ointment daily; keep clean and dry. No dressing indicated; however may wrap lightly with gauze if patient is picking. Hypertension -Chronic. Started lisinopril 10mg 02/21 based on prior med list (pt can not confirm dose). BP poorly controlled. Increase lisinopril to 20 mg and add Norvasc 5 mg on 02/22. Continue to monitor BP. Diabetes mellitus -Continue home glipizide and metformin. If blood glucose is not well controlled change to sliding scale while inpatient. GERD -Continue omeprazole Hypothyroid -Continue levothyroxine DVT prophylaxis: Patient is ambulatory Discussed with: Patient and nurse.
[2018-02-22] MEDS: amLODIPine 5 MG Tablet PO SCH (14:26)
--- NOTE | 2018-02-22 16:24 | P.PNPSY ---
Subjective Remarks: Patient seen in her room with nurse Joana, patient laying in bed on her side glaring at me with a marked angry look. Patient stated she was going to gagan me. Chart reviewed. Patient compliant medication. Patient is mad at me for not giving her a genesis counter so that she can get the radiation out of her leg that various people put in there she also is manic be because she states she had a baby 2 weeks ago and she said "it is yours close "and that she had a friend who took pictures of us proving it. For now we will add invega 9 mg p.o. to regimen Review of Systems All other systems reviewed negative except as stated in HPI Mental Status Examination Appearance: Disheveled Consciousness: Alert Orientation: Person, Place, Situation Motor Activity: Normal gait Speech: Pressured, Rapid (at times) Language: Adequate Fund of Knowledge: Adequate Attention and Concentration: Inadequate Memory: Unremarkable (not formally tested) Mood: Angry Affect: Other (Decreased range and increased intensity) Thought Process & Associations: Disorganized Thought Content: Delusional Hallucination Type: Auditory Delusion Type: Bizarre, Paranoid Suicidal Ideation: No Suicidal Plan: No Suicidal Intention: No Homicidal Ideation: No Homicidal Plan: No Insight: Poor Judgment: Poor Assessment and Plan - Assessment (1) Schizophrenia Code(s): F20.9 - Schizophrenia, unspecified Status: Acute - Plan Plan: Patient continues quite psychotic paranoid and delusional. With no insight. She medication adjustment above Justification for Continued Inpatient Stay: At this time patient would decompensate if placed in a lower level of care Discharge Planning: To be determined (1) Schizophrenia Qualifiers: Schizophrenia type: paranoid schizophrenia Qualified Code(s): F20.0 - Paranoid schizophrenia
[2018-02-22 16:59] LABS: Hemoglobin A1c 5.6 % (4.3-6.0)
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
[2018-02-23] MEDS: Levothyroxine 112 MCG Tablet PO SCH (06:19)
[2018-02-23] MEDS ORDERED: Lisinopril 20 MG Tablet PO SCH (09:00)
[2018-02-23] MEDS: glipiZIDE 5 MG Tablet PO SCH ×2 (09:07→17:08)
[2018-02-23] MEDS: Senna/Docusate Sodium 8.6/50 MG Tablet PO SCH ×2 (09:07→21:37)
[2018-02-23] MEDS: amLODIPine 5 MG Tablet PO SCH (09:08)
[2018-02-23] MEDS: Pantoprazole Sodium 20 MG DR Tablet PO SCH ×2 (09:08→21:40)
--- NOTE | 2018-02-23 11:15 | P.PN ---
Subjective Interval history: Patient is seen lying in bed. Today she tells me that she is worried about the bone grafts in her back growing too big. Denies any pain. Denies any shortness of breath. Denies nausea or vomiting or diarrhea. She tells me she is eating well. Nurse reports no adverse events overnight Physical Exam Vital signs: Vital Signs 02/22/18 17:56 02/22/18 18:18 02/23/18 06:13 Temperature 97.2 F L 98.7 F Pulse Rate 62 62 60 Respiratory Rate 18 16 Blood Pressure 180/80 H 141/65 H Pulse Oximetry 99 91 L Intake & Output 02/22/18 02/23/18 02/23/18 18:59 06:59 18:59 Intake Total 240 / 240 Balance 240 / 240 Intake: Oral 240 / 240 Narrative: GENERAL: Obese, well-developed adult female in no obvious distress. SKIN: Warm and dry. Left lateral knee has area of scattered shallow lesions with erythemic borders. No significant swelling or drainage. Evidence of mechanical trauma. HEAD: Atraumatic. Normocephalic. CARDIOVASCULAR: Regular rate and rhythm. Murmur. RESPIRATORY: No accessory muscle use. Clear to auscultation. Breath sounds equal bilaterally. GASTROINTESTINAL: Abdomen soft, non-tender, non-distended. Positive bowel sounds. MUSCULOSKELETAL: Extremities without clubbing, cyanosis, or edema. No obvious deformities. NEUROLOGICAL: Resting but wakes easily. No obvious cranial nerve deficits. Motor grossly within normal limits. Normal speech. Results - Labs CBC & Chem 7: 02/19/18 18:07 02/22/18 08:51 Laboratory Results - last 24 hr 02/22/18 08:51 Hemoglobin A1c 5.6 Assessment and Plan - Plan Patient is a 57-year-old female who admits to the emergency department 02/[address] [employer] act. She has a mental health history of paranoid schizophrenia -she is followed by the FACT team who noted that she has been noncompliant with medications and has become increasingly paranoid and delusional. Prior medical history per records includes asthma, COPD, hypertension, hyperlipidemia, CVA, DM, GERD, seizures, ANTHONY, hypothyroidism and chronic pain. Hospitalist service has been consulted for medical management. Paranoid schizophrenia Asthma/COPD -Add Ventolin inhaler and nebs as needed. Rash/lesions left knee -Bacitracin ointment daily; keep clean and dry. No dressing indicated; however may wrap lightly with gauze if patient is picking. Hypertension -Chronic. Started lisinopril 10mg 02/21 based on prior med list (pt can not confirm dose). BP poorly controlled. Increase lisinopril to 20 mg and add Norvasc 5 mg on 02/22. BP improved with increase 02/23; continue to monitor BP. Diabetes mellitus -Continue home glipizide and metformin. If blood glucose is not well controlled change to sliding scale while inpatient. GERD -Continue omeprazole Hypothyroid -Continue levothyroxine DVT prophylaxis: Patient is ambulatory Discussed with: Patient and nurse.
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
[2018-02-24] MEDS: Levothyroxine 112 MCG Tablet PO SCH (06:35)
[2018-02-24] MEDS ORDERED: Lisinopril 20 MG Tablet PO ONE (07:25)
[2018-02-24] MEDS: Senna/Docusate Sodium 8.6/50 MG Tablet PO SCH ×2 (08:49→21:12)
[2018-02-24] MEDS: Pantoprazole Sodium 20 MG DR Tablet PO SCH ×2 (08:49→21:12)
[2018-02-24] MEDS: amLODIPine 5 MG Tablet PO SCH (08:49)
[2018-02-24] MEDS: glipiZIDE 5 MG Tablet PO SCH ×2 (08:49→17:24)
--- NOTE | 2018-02-24 15:59 | P.PN ---
Subjective Interval history: Patient is seen in room. She continues to be a poor historian and today she tells me that "she was rolling around in the grass and got covered with agent orange". Nursing reports no adverse events or concern. Physical Exam Vital signs: Vital Signs 02/23/18 17:24 02/24/18 06:30 Temperature 98.5 F 97.9 F Pulse Rate 67 92 H Respiratory Rate 16 16 Blood Pressure 141/60 H 149/72 H Pulse Oximetry 95 92 L Intake & Output 02/23/18 02/24/18 02/24/18 18:59 06:59 18:59 Intake Total 720 / 720 Balance 720 / 720 Intake: Oral 720 / 720 Narrative: GENERAL: Obese, well-developed adult female in no obvious distress. SKIN: Warm and dry. Left lateral knee has area of scattered shallow lesions with erythemic borders. No significant swelling or drainage. Evidence of mechanical trauma. HEAD: Atraumatic. Normocephalic. CARDIOVASCULAR: Regular rate and rhythm. Murmur. RESPIRATORY: No accessory muscle use. Clear to auscultation. Breath sounds equal bilaterally. GASTROINTESTINAL: Abdomen soft, non-tender, non-distended. Positive bowel sounds. MUSCULOSKELETAL: Extremities without clubbing, cyanosis, or edema. No obvious deformities. NEUROLOGICAL: Resting but wakes easily. No obvious cranial nerve deficits. Motor grossly within normal limits. Normal speech. Results - Labs CBC & Chem 7: 02/19/18 18:07 02/22/18 08:51 Laboratory Results - last 24 hr 02/23/18 02/24/18 23:37 06:55 POC Glucose 112 H 126 H Assessment and Plan - Plan Patient is a 57-year-old female who admits to the emergency department 02/20 under an expert [employer] act. She has a mental health history of paranoid schizophrenia -she is followed by the FACT team who noted that she has been noncompliant with medications and has become increasingly paranoid and delusional. Prior medical history per records includes asthma, COPD, hypertension, hyperlipidemia, CVA, DM, GERD, seizures, ANTHONY, hypothyroidism and chronic pain. Hospitalist service has been consulted for medical management. Paranoid schizophrenia Asthma/COPD -Add Ventolin inhaler and nebs as needed. Rash/lesions left knee -Bacitracin ointment daily; keep clean and dry. No dressing indicated; however may wrap lightly with gauze if patient is picking. Hypertension -Chronic. Started lisinopril 10mg 02/21 based on prior med list (pt can not confirm dose). BP poorly controlled. Increase lisinopril to 20 mg and add Norvasc 5 mg on 02/22. BP improved but still high with increase 02/23; increase lisinopril to 40mg on 02/24, continue to monitor BP. Diabetes mellitus -Continue home glipizide and metformin. If blood glucose is not well controlled change to sliding scale while inpatient. GERD -Continue omeprazole Hypothyroid -Continue levothyroxine DVT prophylaxis: Patient is ambulatory Discussed with: Patient and nurse.
--- NOTE | 2018-02-24 19:47 | P.PNPSY ---
Subjective Remarks: Reviewed electronic medical records and discussed case with staff. Follow-up was conducted in patient's room with nurse present. Patient found lying in the bed awake and alert. She reports that she has been having difficulty falling asleep but that her appetite's been good. Her nurse reports that she has been med compliant. She is been very pleasant. However, they also reported that she believes she is a spider and she has a Bluetooth installed in her neck and a nuclear weapon in her leg. Patient exhibits delusional material during our conversation about Dr. Kilgore. She reports she does not know why she is here. Mental Status Examination Appearance: Disheveled Consciousness: Alert Orientation: Person, Place, Situation Motor Activity: Normal gait Speech: Pressured, Rapid (at times) Language: Adequate Fund of Knowledge: Adequate Attention and Concentration: Inadequate Memory: Unremarkable (not formally tested) Mood: Other ("Better") Affect: Blunt Thought Process & Associations: Loose associations, Disorganized Thought Content: Delusional Hallucination Type: Auditory Delusion Type: Bizarre, Paranoid Suicidal Ideation: No Suicidal Plan: No Suicidal Intention: No Homicidal Ideation: No Homicidal Plan: No Insight: Poor Judgment: Poor Assessment and Plan - Assessment (1) Schizophrenia Code(s): F20.9 - Schizophrenia, unspecified Status: Acute - Plan Plan: Patient will be reevaluated Monday by the attending psychiatrist. Continue with current treatment plan. Justification for Continued Inpatient Stay: Moving this patient to a less restrictive environment would likely result in decompensation. (1) Schizophrenia Qualifiers: Schizophrenia type: paranoid schizophrenia Qualified Code(s): F20.0 - Paranoid schizophrenia
[2018-02-25] MEDS: Levothyroxine 112 MCG Tablet PO SCH (06:24)
[2018-02-25] MEDS: amLODIPine 5 MG Tablet PO SCH (09:32)
[2018-02-25] MEDS: Senna/Docusate Sodium 8.6/50 MG Tablet PO SCH ×2 (09:32→21:28)
[2018-02-25] MEDS: Lisinopril 20 MG Tablet PO SCH ×2 (09:32→09:40)
[2018-02-25] MEDS: Pantoprazole Sodium 20 MG DR Tablet PO SCH ×2 (09:33→21:28)
[2018-02-25] MEDS: glipiZIDE 5 MG Tablet PO SCH ×2 (09:34→18:04)
--- NOTE | 2018-02-25 13:40 | P.PNPSY ---
Subjective Remarks: Reviewed electronic medical records and discussed case with staff. Follow-up was conducted in the milieu. Patient reports that she does not sleep well when asked if she had trouble falling asleep or staying asleep she replied "the spirits kept me awake". She reports that she has a good appetite. She asks this provider if I have ever "soul traveled". She remains quite delusional and bizarre. Mental Status Examination Appearance: Disheveled Consciousness: Alert Orientation: Person, Place, Situation Motor Activity: Normal gait Speech: Pressured, Rapid (at times) Language: Adequate Fund of Knowledge: Adequate Attention and Concentration: Inadequate Memory: Unremarkable (not formally tested) Mood: Other ("Better") Affect: Blunt Thought Process & Associations: Loose associations, Disorganized Thought Content: Delusional Hallucination Type: Auditory Delusion Type: Bizarre, Paranoid Suicidal Ideation: No Suicidal Plan: No Suicidal Intention: No Homicidal Ideation: No Homicidal Plan: No Insight: Poor Judgment: Poor Assessment and Plan - Assessment (1) Schizophrenia Code(s): F20.9 - Schizophrenia, unspecified Status: Acute - Plan Plan: Patient will be reevaluated tomorrow by the attending psychiatrist. Continue with current treatment plan. Justification for Continued Inpatient Stay: Moving this patient to a less restrictive environment would likely result in decompensation. (1) Schizophrenia Qualifiers: Schizophrenia type: paranoid schizophrenia Qualified Code(s): F20.0 - Paranoid schizophrenia
--- NOTE | 2018-02-25 14:03 | P.PN ---
Subjective Interval history: Patient is seen sitting in day room. She seems slightly more aware of her surroundings and somewhat more oriented however she continues to give nonsensical answers to questions. Denies any pain or discomfort. Nursing reports no adverse events. Physical Exam Vital signs: Vital Signs 02/24/18 17:47 02/25/18 05:20 Temperature 98.5 F 98.1 F Pulse Rate 63 70 Respiratory Rate 16 16 Blood Pressure 121/55 L 140/68 Pulse Oximetry 94 L 98 Intake & Output 02/24/18 02/25/18 02/25/18 18:59 06:59 18:59 Intake Total 360 / 360 Balance 360 / 360 Intake: Oral 360 / 360 Narrative: GENERAL: Obese, well-developed adult female in no obvious distress. SKIN: Warm and dry. Left lateral knee has area of scattered shallow lesions with erythemic borders. No significant swelling or drainage. Evidence of mechanical trauma. CARDIOVASCULAR: Regular rate and rhythm. Murmur. RESPIRATORY: No accessory muscle use. Clear to auscultation. Breath sounds equal bilaterally. GASTROINTESTINAL: Abdomen soft, non-tender, non-distended. Positive bowel sounds. MUSCULOSKELETAL: Extremities without clubbing, cyanosis, or edema. No obvious deformities. NEUROLOGICAL: Resting but wakes easily. No obvious cranial nerve deficits. Motor grossly within normal limits. Normal speech. Results - Labs CBC & Chem 7: 02/19/18 18:07 02/22/18 08:51 Assessment and Plan - Plan Patient is a 57-year-old female who admits to the emergency department 02/20 under an expert [employer] act. She has a mental health history of paranoid schizophrenia -she is followed by the FACT team who noted that she has been noncompliant with medications and has become increasingly paranoid and delusional. Prior medical history per records includes asthma, COPD, hypertension, hyperlipidemia, CVA, DM, GERD, seizures, ANTHONY, hypothyroidism and chronic pain. Hospitalist service has been consulted for medical management. Paranoid schizophrenia Asthma/COPD -Add Ventolin inhaler and nebs as needed. Rash/lesions left knee -Bacitracin ointment daily; keep clean and dry. No dressing indicated; however may wrap lightly with gauze if patient is picking. Hypertension -Chronic. Started lisinopril 10mg 02/21 based on prior med list (pt can not confirm dose). BP poorly controlled. Increase lisinopril to 20 mg and add Norvasc 5 mg on 02/22. BP improved but still high with increase 02/23; increase lisinopril to 40mg on 02/24, continue to monitor BP. Diabetes mellitus -Continue home glipizide and metformin. If blood glucose is not well controlled change to sliding scale while inpatient. GERD -Continue omeprazole Hypothyroid -Continue levothyroxine DVT prophylaxis: Patient is ambulatory Discussed with: Patient and nurse. Patient appears to be medically stable. Hospitalist service will sign off at this time. Please reconsult if needed.
[2018-02-26] MEDS: Levothyroxine 112 MCG Tablet PO SCH (06:36)
[2018-02-26] MEDS: glipiZIDE 5 MG Tablet PO SCH ×2 (07:18→17:59)
[2018-02-26] MEDS: Pantoprazole Sodium 20 MG DR Tablet PO SCH ×2 (08:53→21:32)
[2018-02-26] MEDS: Senna/Docusate Sodium 8.6/50 MG Tablet PO SCH ×2 (08:53→21:32)
[2018-02-26] MEDS: Lisinopril 20 MG Tablet PO SCH (08:53)
[2018-02-26] MEDS: amLODIPine 5 MG Tablet PO SCH (08:53)
--- NOTE | 2018-02-26 16:05 | P.PNPSY ---
Subjective Remarks: Reviewed electronic medical records and discussed case with staff. Follow-up was conducted in patient's room. She is found lying in her bed. When I advised her that per Dr. Kilgore he will start her on psychotropics tomorrow if she is amenable she states "I want to go to court". She complains that she is not sleeping well and does not like the food. She complains that Dr. Kilgore is going to be her doctor stating, "he is Syriac I hate Indonesians ". When asked why she hates Indonesians she responds, "my first was Syriac and I hated him; I bought the [place]2 billion and told all the Indonesians I hate them". Mental Status Examination Appearance: Disheveled Consciousness: Alert Orientation: Person, Place, Situation Motor Activity: Normal gait Speech: Pressured, Rapid (at times) Language: Adequate Fund of Knowledge: Adequate Attention and Concentration: Inadequate Memory: Unremarkable (not formally tested) Mood: Other ("Better") Affect: Blunt Thought Process & Associations: Loose associations, Disorganized Thought Content: Delusional Hallucination Type: Auditory Delusion Type: Bizarre, Paranoid Suicidal Ideation: No Suicidal Plan: No Suicidal Intention: No Homicidal Ideation: No Homicidal Plan: No Insight: Poor Judgment: Poor Assessment and Plan - Assessment (1) Schizophrenia Code(s): F20.9 - Schizophrenia, unspecified Status: Acute - Plan Plan: Patient will be reevaluated tomorrow by the attending psychiatrist. Continue with current treatment plan. Patient continues with her delusions. She remains unmedicated due to the need for healthcare surrogate. She had reported to the nurse that she would like to begin taking psychotropics. Dr. Kilgore will reassess tomorrow to see if that is feasible. Justification for Continued Inpatient Stay: Moving this patient to a less restrictive environment would likely result in decompensation. (1) Schizophrenia Qualifiers: Schizophrenia type: paranoid schizophrenia Qualified Code(s): F20.0 - Paranoid schizophrenia
[2018-02-27] MEDS: Levothyroxine 112 MCG Tablet PO SCH (06:25)
[2018-02-27] MEDS: glipiZIDE 5 MG Tablet PO SCH ×2 (08:38→17:52)
[2018-02-27] MEDS: Senna/Docusate Sodium 8.6/50 MG Tablet PO SCH ×2 (08:39→20:32)
[2018-02-27] MEDS: Lisinopril 20 MG Tablet PO SCH (08:39)
[2018-02-27] MEDS: amLODIPine 5 MG Tablet PO SCH (08:39)
[2018-02-27] MEDS: Pantoprazole Sodium 20 MG DR Tablet PO SCH ×2 (08:39→20:32)
--- NOTE | 2018-02-27 14:16 | P.PNPSY ---
Subjective Remarks: Patient seen today in her room with nurse Vickers, chart reviewed, patient complaint medications. Patient continues with little socialization. Continues to isolate the no significant behavioral problems. Today she denies voices or visions denies suicidality. States she just hears "information" out of the TV. We will now schedule the in Roverto sustain a injection at 234 mg Review of Systems All other systems reviewed negative except as stated in HPI Mental Status Examination Appearance: Disheveled Consciousness: Alert Orientation: Person, Place, Situation Motor Activity: Normal gait Speech: Pressured, Rapid (at times) Language: Adequate Fund of Knowledge: Adequate Attention and Concentration: Inadequate Memory: Unremarkable (not formally tested) Mood: Other ("Better") Affect: Blunt Thought Process & Associations: Loose associations, Disorganized Thought Content: Delusional Hallucination Type: Auditory Delusion Type: Bizarre, Paranoid Suicidal Ideation: No Suicidal Plan: No Suicidal Intention: No Homicidal Ideation: No Homicidal Plan: No Insight: Poor Judgment: Poor Assessment and Plan - Assessment (1) Schizophrenia Code(s): F20.9 - Schizophrenia, unspecified Status: Acute - Plan Plan: Patient remained psychotic and delusional with some paranoia. She medication adjustment above Justification for Continued Inpatient Stay: At this time patient would decompensate a place to a lower level of care Discharge Planning: Return home (1) Schizophrenia Qualifiers: Schizophrenia type: paranoid schizophrenia Qualified Code(s): F20.0 - Paranoid schizophrenia
[2018-02-28] MEDS: Levothyroxine 112 MCG Tablet PO SCH (05:15)
[2018-02-28] MEDS: Lisinopril 20 MG Tablet PO SCH (09:11)
[2018-02-28] MEDS: glipiZIDE 5 MG Tablet PO SCH ×2 (09:12→18:11)
[2018-02-28] MEDS: Pantoprazole Sodium 20 MG DR Tablet PO SCH ×2 (09:12→21:00)
[2018-02-28] MEDS: Senna/Docusate Sodium 8.6/50 MG Tablet PO SCH ×2 (09:13→21:00)
[2018-02-28] MEDS: amLODIPine 5 MG Tablet PO SCH (09:13)
--- NOTE | 2018-02-28 12:08 | P.PNPSY ---
Subjective Remarks: Patient seen in her room with RN. Chart reviewed. Patient showing mixed compliance with medication. Patient continues markedly paranoid and delusional now stating she is awaiting for a court order so she can get a documents to return to [facility]. Patient is scheduled for [employer] tomorrow. Patient became more angry with me during the interview and then just and walked out of her room Review of Systems All other systems reviewed negative except as stated in HPI Mental Status Examination Appearance: Disheveled Consciousness: Alert Orientation: Person, Place, Situation Motor Activity: Normal gait Speech: Pressured, Rapid (at times) Language: Adequate Fund of Knowledge: Adequate Attention and Concentration: Inadequate Memory: Unremarkable (not formally tested) Mood: Angry, Irritable Affect: Other (Somewhat increased range and intensity) Thought Process & Associations: Loose associations, Disorganized Thought Content: Bizarre thinking, Delusional Hallucination Type: Auditory Delusion Type: Bizarre, Paranoid Suicidal Ideation: No Suicidal Plan: No Suicidal Intention: No Homicidal Ideation: No Homicidal Plan: No Insight: Poor Judgment: Poor Assessment and Plan - Assessment (1) Schizophrenia Code(s): F20.9 - Schizophrenia, unspecified Status: Acute - Plan Plan: Patient remains quite psychotic delusional paranoid. Patient scheduled for [employer] tomorrow Justification for Continued Inpatient Stay: At this time patient would decompensate a place to a lower level of care Discharge Planning: To be determined (1) Schizophrenia Qualifiers: Schizophrenia type: paranoid schizophrenia Qualified Code(s): F20.0 - Paranoid schizophrenia
[2018-03-01] MEDS: glipiZIDE 5 MG Tablet PO SCH ×2 (09:46→17:28)
[2018-03-01] MEDS: Lisinopril 20 MG Tablet PO SCH (09:46)
[2018-03-01] MEDS: Senna/Docusate Sodium 8.6/50 MG Tablet PO SCH ×2 (09:47→21:27)
[2018-03-01] MEDS: amLODIPine 5 MG Tablet PO SCH (09:47)
[2018-03-01] MEDS: Pantoprazole Sodium 20 MG DR Tablet PO SCH ×2 (09:52→21:27)
--- NOTE | 2018-03-01 13:30 | P.PNPSY ---
Subjective Remarks: Patient seen in [place] with her fact team shelter case manager. Patient was retained by [facility] aquatics instructor with [facility] [place] guardian advocate. Patient records showed marked paranoia anger or irritability lability along with delusional ideation continued to claim that she had a behavior that I was the father. At this time I will reorder the in Layne oral and 9 mg daily with permission of the guardian advocate in anticipation of perhaps the use of in Layne sustain a in a few days patient's shelter case manager agrees with the above Review of Systems All other systems reviewed negative except as stated in HPI Mental Status Examination Appearance: Disheveled Consciousness: Alert Orientation: Person, Place, Situation Motor Activity: Normal gait Speech: Pressured, Rapid (at times) Language: Adequate Fund of Knowledge: Adequate Attention and Concentration: Inadequate Memory: Unremarkable (not formally tested) Mood: Angry, Irritable Affect: Other (Somewhat increased range and intensity) Thought Process & Associations: Loose associations, Disorganized Thought Content: Bizarre thinking, Delusional Hallucination Type: Auditory Delusion Type: Bizarre, Paranoid Suicidal Ideation: No Suicidal Plan: No Suicidal Intention: No Homicidal Ideation: No Homicidal Plan: No Insight: Poor Judgment: Poor Assessment and Plan - Assessment (1) Schizophrenia Code(s): F20.9 - Schizophrenia, unspecified Status: Acute - Plan Plan: Patient remained psychotic and delusional, has been retained by [facility] to be guardian advocate will be awaiting permission by guardian advocate to start in Layne orally Justification for Continued Inpatient Stay: At this time patient would decompensate a place to a lower level of care Discharge Planning: Possible return to her own home with follow-up through the fact seen Request Healthcare Surrogate/Guardian Advocate?: Yes (1) Schizophrenia Qualifiers: Schizophrenia type: paranoid schizophrenia Qualified Code(s): F20.0 - Paranoid schizophrenia
[2018-03-02] MEDS: Levothyroxine 112 MCG Tablet PO SCH ×2 (06:00→06:02)
[2018-03-02] MEDS: glipiZIDE 5 MG Tablet PO SCH ×3 (06:02→17:42)
[2018-03-02] MEDS: Pantoprazole Sodium 20 MG DR Tablet PO SCH ×2 (08:41→21:07)
[2018-03-02] MEDS: amLODIPine 5 MG Tablet PO SCH (08:41)
[2018-03-02] MEDS: Senna/Docusate Sodium 8.6/50 MG Tablet PO SCH ×2 (08:41→20:58)
[2018-03-02] MEDS: Lisinopril 20 MG Tablet PO SCH (08:41)
--- NOTE | 2018-03-02 13:41 | P.PNPSY ---
Subjective Remarks: Patient seen and activities room with nurse Kristi, chart reviewed, patient compliant medications. Though we have not yet received consent for the in Layne sustain. Patient did not respond to my questioning stared at me with an angry look and walked away with her arms folded over her chest and attempted a second time to speak with her with the same response. For now I will continue treatment Review of Systems All other systems reviewed negative except as stated in HPI Mental Status Examination Appearance: Disheveled Consciousness: Alert Orientation: Person, Place, Situation Motor Activity: Normal gait Speech: Pressured, Rapid (at times) Language: Adequate Fund of Knowledge: Adequate Attention and Concentration: Inadequate Memory: Unremarkable (not formally tested) Mood: Angry, Irritable Affect: Other (Somewhat increased range and intensity) Thought Process & Associations: Loose associations, Disorganized Thought Content: Bizarre thinking, Delusional Hallucination Type: Auditory Delusion Type: Bizarre, Paranoid Suicidal Ideation: No Suicidal Plan: No Suicidal Intention: No Homicidal Ideation: No Homicidal Plan: No Insight: Poor Judgment: Poor Assessment and Plan - Assessment (1) Schizophrenia Code(s): F20.9 - Schizophrenia, unspecified Status: Acute - Plan Plan: Patient continues psychotic delusional and paranoid today refuse to speak with me Justification for Continued Inpatient Stay: At this time patient would decompensate a place to the lower level of care Discharge Planning: To be determined Request Healthcare Surrogate/Guardian Advocate?: Yes (1) Schizophrenia Qualifiers: Schizophrenia type: paranoid schizophrenia Qualified Code(s): F20.0 - Paranoid schizophrenia
[2018-03-03] MEDS: Levothyroxine 112 MCG Tablet PO SCH (05:16)
[2018-03-03] MEDS: Lisinopril 20 MG Tablet PO SCH (09:30)
[2018-03-03] MEDS: amLODIPine 5 MG Tablet PO SCH (09:31)
[2018-03-03] MEDS: Senna/Docusate Sodium 8.6/50 MG Tablet PO SCH ×2 (09:31→20:51)
[2018-03-03] MEDS: Pantoprazole Sodium 20 MG DR Tablet PO SCH ×2 (09:31→20:51)
[2018-03-03] MEDS: glipiZIDE 5 MG Tablet PO SCH ×2 (09:31→16:53)
--- NOTE | 2018-03-03 13:54 | P.PNPSY ---
Subjective Remarks: Patient was seen and case discussed with nursing. Patient remains floridly psychotic. She makes all sorts of accusations about her treating psychiatrist from last week. She later has grandiose delusions that she was the teacher are various psychiatrists and they all failed because they failed last year medical school. Responding to internal stimuli throughout the day, no outbursts. Mental Status Examination Appearance: Disheveled Consciousness: Alert Orientation: Person, Place, Situation Motor Activity: Normal gait Speech: Pressured, Rapid (at times) Language: Adequate Fund of Knowledge: Adequate Attention and Concentration: Inadequate Memory: Unremarkable (not formally tested) Mood: Angry, Irritable Affect: Other (Somewhat increased range and intensity) Thought Process & Associations: Loose associations, Disorganized Thought Content: Bizarre thinking, Delusional Hallucination Type: Auditory Delusion Type: Bizarre, Paranoid Suicidal Ideation: No Suicidal Plan: No Suicidal Intention: No Homicidal Ideation: No Homicidal Plan: No Insight: Poor Judgment: Poor Assessment and Plan - Assessment (1) Schizophrenia Code(s): F20.9 - Schizophrenia, unspecified Status: Acute - Plan Plan: Continue current treatment plan Justification for Continued Inpatient Stay: Patient would decompensate in a less restrictive setting Request Healthcare Surrogate/Guardian Advocate?: Yes (1) Schizophrenia Qualifiers: Schizophrenia type: paranoid schizophrenia Qualified Code(s): F20.0 - Paranoid schizophrenia
[2018-03-04] MEDS: Levothyroxine 112 MCG Tablet PO SCH (05:27)
[2018-03-04] MEDS: Pantoprazole Sodium 20 MG DR Tablet PO SCH ×2 (08:50→20:08)
[2018-03-04] MEDS: Senna/Docusate Sodium 8.6/50 MG Tablet PO SCH ×2 (08:50→20:08)
[2018-03-04] MEDS: amLODIPine 5 MG Tablet PO SCH (08:51)
[2018-03-04] MEDS: Lisinopril 20 MG Tablet PO SCH (08:51)
[2018-03-04] MEDS: glipiZIDE 5 MG Tablet PO SCH ×2 (08:51→16:46)
--- NOTE | 2018-03-04 13:32 | P.PNPSY ---
Subjective Remarks: Patient was seen and case discussed with nursing. Patient remains floridly psychotic. She is disorganized and irritable. She is angry at all the staff here. She has poor insight into her admission and her health. Continues not to be on psychotropic medications given the lack of authorization Mental Status Examination Appearance: Disheveled Consciousness: Alert Orientation: Person, Place, Situation Motor Activity: Normal gait Speech: Pressured, Rapid (at times) Language: Adequate Fund of Knowledge: Adequate Attention and Concentration: Inadequate Memory: Unremarkable (not formally tested) Mood: Angry, Irritable Affect: Other (Somewhat increased range and intensity) Thought Process & Associations: Loose associations, Disorganized Thought Content: Bizarre thinking, Delusional Hallucination Type: Auditory Delusion Type: Bizarre, Paranoid Suicidal Ideation: No Suicidal Plan: No Suicidal Intention: No Homicidal Ideation: No Homicidal Plan: No Insight: Poor Judgment: Poor Assessment and Plan - Assessment (1) Schizophrenia Code(s): F20.9 - Schizophrenia, unspecified Status: Acute - Plan Plan: Continue current treatment plan Justification for Continued Inpatient Stay: Patient would decompensate in a less restrictive setting Request Healthcare Surrogate/Guardian Advocate?: Yes (1) Schizophrenia Qualifiers: Schizophrenia type: paranoid schizophrenia Qualified Code(s): F20.0 - Paranoid schizophrenia
[2018-03-05] MEDS: Levothyroxine 112 MCG Tablet PO SCH (05:35)
[2018-03-05] MEDS: glipiZIDE 5 MG Tablet PO SCH ×2 (09:08→17:27)
[2018-03-05] MEDS: Senna/Docusate Sodium 8.6/50 MG Tablet PO SCH ×2 (09:08→21:28)
[2018-03-05] MEDS: Lisinopril 20 MG Tablet PO SCH (09:09)
[2018-03-05] MEDS: Pantoprazole Sodium 20 MG DR Tablet PO SCH ×2 (09:09→21:25)
[2018-03-05] MEDS: amLODIPine 5 MG Tablet PO SCH (09:09)
--- NOTE | 2018-03-05 20:28 | P.PNPSY ---
Subjective Remarks: Patient seen for follow, chart reviewed. Discussion nursing staff reported the patient continues to be selectively compliant with certain medications. Patient was found lying hospital bed noted B guarded. Patient states that she had a way for her medications, reports having attended groups of the weekend reports having difficulty with sleep and that her mood has been "shitty". Patient denies any perceptional service but reports feeling upset and not wanting to talk about anything other than her plan of discharge. Review of Systems All other systems reviewed negative except as stated in HPI Mental Status Examination Appearance: Appropriate Consciousness: Alert Orientation: Person, Place, Situation Motor Activity: Normal gait Speech: Pressured Language: Adequate Fund of Knowledge: Adequate Attention and Concentration: Inadequate Memory: Unremarkable (Not formally tested) Mood: Irritable, Other ("shitty") Affect: Blunt Thought Process & Associations: Loose associations, Disorganized Thought Content: Bizarre thinking, Delusional Hallucination Type: Auditory Delusion Type: Bizarre, Paranoid Suicidal Ideation: No Suicidal Plan: No Suicidal Intention: No Homicidal Ideation: No Homicidal Plan: No Insight: Poor Judgment: Poor Assessment and Plan - Assessment (1) Schizophrenia Code(s): F20.9 - Schizophrenia, unspecified Status: Acute - Plan Plan: Patient continues with irritability, internal preoccupation, and disorganization. Patient's healthcare surrogate and guardian advocate to be established to commence patient on antipsychotic treatment. We will continue to seek to establish consent for treatment. We will continue to monitor mood and behavior. Discharge planning a progress. Justification for Continued Inpatient Stay: At risk for further decompensation if at lower level of care. Request Healthcare Surrogate/Guardian Advocate?: Yes (1) Schizophrenia Qualifiers: Schizophrenia type: paranoid schizophrenia Qualified Code(s): F20.0 - Paranoid schizophrenia
[2018-03-06] MEDS: Levothyroxine 112 MCG Tablet PO SCH (06:09)
[2018-03-06] MEDS: Lisinopril 20 MG Tablet PO SCH (08:30)
[2018-03-06] MEDS: Senna/Docusate Sodium 8.6/50 MG Tablet PO SCH ×2 (08:30→21:17)
[2018-03-06] MEDS: glipiZIDE 5 MG Tablet PO SCH ×2 (08:30→17:40)
[2018-03-06] MEDS: Pantoprazole Sodium 20 MG DR Tablet PO SCH ×2 (08:31→21:37)
[2018-03-06] MEDS: amLODIPine 5 MG Tablet PO SCH (08:31)
--- NOTE | 2018-03-06 12:28 | P.PNPSY ---
Subjective Remarks: Patient seen in her room with nurse Shae, chart reviewed, patient continues angry irritable and labile. Today stating that she wants to be on a muscle relaxer mixed with they have vein. And that she told the fact psychiatrist but he did not do that. We have not yet been able to contact patient's guardian advocate was appointed by the [place]. He still me permission to start psychotropic medication however I did talk with a logistics service representative from the fact team today which verifies patient's long history of noncompliance medication and also her history of long[facility]. We will start the [facility] referral on this patient today Review of Systems All other systems reviewed negative except as stated in HPI Mental Status Examination Appearance: Appropriate Consciousness: Alert Orientation: Person, Place, Situation Motor Activity: Normal gait Speech: Pressured, Rapid Language: Adequate Fund of Knowledge: Adequate Attention and Concentration: Inadequate Memory: Unremarkable (Not formally tested) Mood: Angry, Irritable, Other ("shitty") Affect: Other (Decreased range and intensity) Thought Process & Associations: Loose associations, Disorganized Thought Content: Bizarre thinking, Delusional Hallucination Type: Auditory Delusion Type: Bizarre, Paranoid Suicidal Ideation: No Suicidal Plan: No Suicidal Intention: No Homicidal Ideation: No Homicidal Plan: No Insight: Poor Judgment: Poor Assessment and Plan - Assessment (1) Schizophrenia Code(s): F20.9 - Schizophrenia, unspecified Status: Acute - Plan Plan: Patient remains delusional psychotic and paranoid, continue to await communication with court appointed guardian advocate to start medication Justification for Continued Inpatient Stay: At this time patient would decompensate a place to a lower level of care Request Healthcare Surrogate/Guardian Advocate?: Yes (1) Schizophrenia Qualifiers: Schizophrenia type: paranoid schizophrenia Qualified Code(s): F20.0 - Paranoid schizophrenia
[2018-03-07] MEDS: Levothyroxine 112 MCG Tablet PO SCH (06:34)
[2018-03-07] MEDS: glipiZIDE 5 MG Tablet PO SCH ×2 (07:04→16:29)
[2018-03-07] MEDS: Lisinopril 20 MG Tablet PO SCH ×2 (08:36→08:44)
[2018-03-07] MEDS: Senna/Docusate Sodium 8.6/50 MG Tablet PO SCH ×3 (08:36→21:27)
[2018-03-07] MEDS: Pantoprazole Sodium 20 MG DR Tablet PO SCH ×3 (08:36→21:29)
[2018-03-07] MEDS: amLODIPine 5 MG Tablet PO SCH ×2 (08:37→08:43)
--- NOTE | 2018-03-07 13:34 | P.PNPSY ---
Subjective Remarks: Patient seen in day room with RN, patient came up threatening angry loud irritable demanding to go to [place] tomorrow because she signed that he views corpus. I explained that she was not the court document, that the endodontist had probably denied her he abuse corpus. But that we did he have a guardian advocate appointed name is Jessica Villanueva at [phone] I have attempted to call her to get permission to start her on in Layne ER with anticipation of in Layne sustain a in 2-3 days. Also to continue with her Zoloft, BuSpar, Atarax and Benadryl as necessary along with Ativan as necessary. We will also ask permission to Geodon if the patient starts to refuse the oral and Layne patient is showing no insight into her disease remains quite psychotic paranoid delusional and angry Review of Systems All other systems reviewed negative except as stated in HPI Mental Status Examination Appearance: Appropriate Consciousness: Alert Orientation: Person, Place, Situation Motor Activity: Normal gait Speech: Pressured, Rapid Language: Adequate Fund of Knowledge: Adequate Attention and Concentration: Inadequate Memory: Unremarkable (Not formally tested) Mood: Angry, Oppositional, Irritable, Other ('shitty') Affect: Other (Decreased range and intensity) Thought Process & Associations: Loose associations, Disorganized Thought Content: Bizarre thinking, Delusional Hallucination Type: Auditory Delusion Type: Bizarre, Paranoid Suicidal Ideation: No Suicidal Plan: No Suicidal Intention: No Homicidal Ideation: No Homicidal Plan: No Insight: Poor Judgment: Poor Assessment and Plan - Assessment (1) Schizophrenia Code(s): F20.9 - Schizophrenia, unspecified Status: Acute - Plan Plan: Patient remains quite psychotic delusional and paranoid angry and irritable. We are calling the court appointed guardian advocate to get permission to initiate Layne orally in anticipation of in Layne sustain up. And if she refuses that we will get the permission to initiate Geodon to be offered orally and perhaps IM if refusing oral Justification for Continued Inpatient Stay: At this time patient would decompensate a place to the lower level of care Discharge Planning: To be determined Request Healthcare Surrogate/Guardian Advocate?: Yes (1) Schizophrenia Qualifiers: Schizophrenia type: paranoid schizophrenia Qualified Code(s): F20.0 - Paranoid schizophrenia
[2018-03-07] MEDS: Sertraline 100 MG Tablet PO SCH (16:29)
[2018-03-08] MEDS: Levothyroxine 112 MCG Tablet PO SCH (05:20)
[2018-03-08] MEDS: glipiZIDE 5 MG Tablet PO SCH ×2 (08:40→17:52)
[2018-03-08] MEDS: Lisinopril 20 MG Tablet PO SCH (08:44)
[2018-03-08] MEDS: Sertraline 100 MG Tablet PO SCH (08:44)
[2018-03-08] MEDS: Senna/Docusate Sodium 8.6/50 MG Tablet PO SCH ×2 (08:44→21:21)
[2018-03-08] MEDS: amLODIPine 5 MG Tablet PO SCH (08:45)
[2018-03-08] MEDS: Pantoprazole Sodium 20 MG DR Tablet PO SCH ×3 (08:47→21:21)
--- NOTE | 2018-03-08 10:48 | P.PNPSY ---
Subjective Remarks: Patient is seen today in day room with nurse Katherine, chart reviewed, patient compliant medications. Patient remains angry irritable vigilance and somewhat paranoid. Continues to question all our interventions with her, her medications , and her treatment. She is quite negative and manipulative in her responses. There is a denial of mental illness. However she is taking medication. She is only had 2 doses of the and Layne. If she continues with that tomorrow without any side effects will offer the Invega sustained at tomorrow Review of Systems All other systems reviewed negative except as stated in HPI Mental Status Examination Appearance: Appropriate Consciousness: Alert Orientation: Person, Place, Situation Motor Activity: Normal gait Speech: Pressured, Rapid Language: Adequate Fund of Knowledge: Adequate Attention and Concentration: Inadequate Memory: Unremarkable (Not formally tested) Mood: Angry, Oppositional, Irritable, Other ('shitty') Affect: Other (Decreased range and intensity) Thought Process & Associations: Loose associations, Disorganized Thought Content: Bizarre thinking, Delusional Hallucination Type: Auditory Delusion Type: Bizarre, Paranoid Suicidal Ideation: No Suicidal Plan: No Suicidal Intention: No Homicidal Ideation: No Homicidal Plan: No Insight: Poor Judgment: Poor Assessment and Plan - Assessment (1) Schizophrenia Code(s): F20.9 - Schizophrenia, unspecified Status: Acute - Plan Plan: Patient remains quite psychotic delusional paranoid intrusive loud and demanding however is short and compliance with medication Justification for Continued Inpatient Stay: At this time patient would decompensate a place to a lower level of care Discharge Planning: To be determined Request Healthcare Surrogate/Guardian Advocate?: Yes (1) Schizophrenia Qualifiers: Schizophrenia type: paranoid schizophrenia Qualified Code(s): F20.0 - Paranoid schizophrenia
[2018-03-09] MEDS: Levothyroxine 112 MCG Tablet PO SCH (05:23)
[2018-03-09] MEDS: Sertraline 100 MG Tablet PO SCH (08:39)
[2018-03-09] MEDS: Lisinopril 20 MG Tablet PO SCH (08:39)
[2018-03-09] MEDS: amLODIPine 5 MG Tablet PO SCH (08:40)
[2018-03-09] MEDS: glipiZIDE 5 MG Tablet PO SCH ×2 (08:40→16:21)
[2018-03-09] MEDS: Senna/Docusate Sodium 8.6/50 MG Tablet PO SCH ×2 (08:42→21:55)
[2018-03-09] MEDS: Pantoprazole Sodium 20 MG DR Tablet PO SCH ×2 (08:42→21:55)
--- NOTE | 2018-03-09 14:55 | P.PNPSY ---
Subjective Remarks: Patient seen today in the nails with nurse Bobbi and counselor Cecy, patient continues angry irritable paranoid and vigilant. I shared with her my thanks for being compliant with the oral and Layne. And also that we have been given permission by the guardian advocate to offer her the in Layne sustain up. Patient became angry with that. However feel that his imperative in her recovery receive the long-acting injection. Thus she will be receiving the in Layne sustain a to 34 mg IM today Review of Systems All other systems reviewed negative except as stated in HPI Mental Status Examination Appearance: Appropriate Consciousness: Alert Orientation: Person, Place, Situation Motor Activity: Normal gait Speech: Pressured, Rapid Language: Adequate Fund of Knowledge: Adequate Attention and Concentration: Inadequate Memory: Unremarkable (Not formally tested) Mood: Angry, Oppositional, Irritable, Other ('shitty') Affect: Other (Decreased range and intensity) Thought Process & Associations: Loose associations, Disorganized Thought Content: Bizarre thinking, Delusional Hallucination Type: Auditory Delusion Type: Bizarre, Paranoid Suicidal Ideation: No Suicidal Plan: No Suicidal Intention: No Homicidal Ideation: No Homicidal Plan: No Insight: Poor Judgment: Poor Assessment and Plan - Assessment (1) Schizophrenia Code(s): F20.9 - Schizophrenia, unspecified Status: Acute - Plan Plan: Patient continues psychotic delusional paranoid see medication adjustment above Justification for Continued Inpatient Stay: At this time patient would decompensate a place to the lower level of care Discharge Planning: To be determined Request Healthcare Surrogate/Guardian Advocate?: Yes (1) Schizophrenia Qualifiers: Schizophrenia type: paranoid schizophrenia Qualified Code(s): F20.0 - Paranoid schizophrenia
[2018-03-09] MEDS: Acetaminophen 325 MG Tablet PO PRN (16:20)
[2018-03-10] MEDS: Levothyroxine 112 MCG Tablet PO SCH (06:01)
[2018-03-10] MEDS: Acetaminophen 325 MG Tablet PO PRN ×2 (08:43→16:24)
[2018-03-10] MEDS: Sertraline 100 MG Tablet PO SCH (08:49)
[2018-03-10] MEDS: glipiZIDE 5 MG Tablet PO SCH ×2 (08:51→16:27)
[2018-03-10] MEDS: Senna/Docusate Sodium 8.6/50 MG Tablet PO SCH ×2 (08:52→20:07)
[2018-03-10] MEDS: Pantoprazole Sodium 20 MG DR Tablet PO SCH ×2 (08:52→20:07)
[2018-03-10] MEDS: amLODIPine 5 MG Tablet PO SCH (08:52)
[2018-03-10] MEDS: Lisinopril 20 MG Tablet PO SCH (08:53)
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
[2018-03-10] MEDS: Aluminum/Magnesium/Simethacone Susp 30 ML UDC PO PRN (16:24)
[2018-03-10] MEDS ORDERED: Ibuprofen 600 MG Tablet PO PRN (16:28)
[2018-03-10] MEDS: Ibuprofen 600 MG Tablet PO PRN (20:06)
[2018-03-11] MEDS: Levothyroxine 112 MCG Tablet PO SCH (05:49)
[2018-03-11] MEDS: Ibuprofen 600 MG Tablet PO PRN ×2 (06:59→20:14)
[2018-03-11] MEDS: Lisinopril 20 MG Tablet PO SCH (08:33)
[2018-03-11] MEDS: amLODIPine 5 MG Tablet PO SCH (08:34)
[2018-03-11] MEDS: Senna/Docusate Sodium 8.6/50 MG Tablet PO SCH ×2 (08:34→20:15)
[2018-03-11] MEDS: glipiZIDE 5 MG Tablet PO SCH ×2 (08:34→17:51)
[2018-03-11] MEDS: Sertraline 100 MG Tablet PO SCH (08:35)
[2018-03-11] MEDS: Pantoprazole Sodium 20 MG DR Tablet PO SCH ×2 (08:38→20:15)
--- NOTE | 2018-03-11 13:45 | P.PNPSY ---
Subjective Remarks: Pt seen and discussed with staff. She remains paranoid and suspicious about medications. She is easily agitated and irritable. No aggression today. No SI/HI Mental Status Examination Appearance: Appropriate Consciousness: Alert Orientation: Person, Place, Situation Motor Activity: Normal gait Speech: Pressured, Rapid Language: Adequate Fund of Knowledge: Adequate Attention and Concentration: Inadequate Memory: Unremarkable (Not formally tested) Mood: Irritable Affect: Irritable Thought Process & Associations: Loose associations, Disorganized Thought Content: Bizarre thinking, Delusional Hallucination Type: Auditory Delusion Type: Bizarre, Paranoid Suicidal Ideation: No Suicidal Plan: No Suicidal Intention: No Homicidal Ideation: No Homicidal Plan: No Insight: Poor Judgment: Poor Assessment and Plan - Assessment (1) Schizophrenia Code(s): F20.9 - Schizophrenia, unspecified Status: Acute - Plan Plan: Continue current tx plan Justification for Continued Inpatient Stay: impairments in reality testing Request Healthcare Surrogate/Guardian Advocate?: Yes (1) Schizophrenia Qualifiers: Schizophrenia type: paranoid schizophrenia Qualified Code(s): F20.0 - Paranoid schizophrenia
[2018-03-12] MEDS: Levothyroxine 112 MCG Tablet PO SCH (05:32)
--- NOTE | 2018-03-12 10:02 | P.PNPSY ---
Subjective Remarks: Patient seen and nails with floor staff, chart reviewed, patient showing mixed compliance with medication. Patient remains quite paranoid vigilant irritable and intrusive. Showing no insight into her disease R issues. She does deny voices or visions. But she appears to be responding to internal stimuli. For now continue treatment Review of Systems All other systems reviewed negative except as stated in HPI Mental Status Examination Appearance: Appropriate Consciousness: Alert Orientation: Person, Place, Situation Motor Activity: Normal gait Speech: Pressured, Rapid Language: Adequate Fund of Knowledge: Adequate Attention and Concentration: Inadequate Memory: Unremarkable (Not formally tested) Mood: Angry, Oppositional, Irritable Affect: Other (Increased range and intensity) Thought Process & Associations: Loose associations, Disorganized Thought Content: Bizarre thinking, Delusional Hallucination Type: Auditory Delusion Type: Bizarre, Paranoid Suicidal Ideation: No Suicidal Plan: No Suicidal Intention: No Homicidal Ideation: No Homicidal Plan: No Insight: Poor Judgment: Poor Assessment and Plan - Assessment (1) Schizophrenia Code(s): F20.9 - Schizophrenia, unspecified Status: Acute - Plan Plan: Patient remained psychotic paranoid and delusional. Justification for Continued Inpatient Stay: At this time patient would decompensate a place to a lower level of care Discharge Planning: To be determined Request Healthcare Surrogate/Guardian Advocate?: Yes (1) Schizophrenia Qualifiers: Schizophrenia type: paranoid schizophrenia Qualified Code(s): F20.0 - Paranoid schizophrenia
[2018-03-12] MEDS: Pantoprazole Sodium 20 MG DR Tablet PO SCH ×2 (10:16→23:45)
[2018-03-12] MEDS: Sertraline 100 MG Tablet PO SCH (10:16)
[2018-03-12] MEDS: amLODIPine 5 MG Tablet PO SCH (10:16)
[2018-03-12] MEDS: Senna/Docusate Sodium 8.6/50 MG Tablet PO SCH ×2 (10:16→23:45)
[2018-03-12] MEDS: glipiZIDE 5 MG Tablet PO SCH ×2 (10:16→17:18)
[2018-03-12] MEDS: Lisinopril 20 MG Tablet PO SCH (10:16)
[2018-03-13] MEDS: Levothyroxine 112 MCG Tablet PO SCH (05:33)
[2018-03-13] MEDS: glipiZIDE 5 MG Tablet PO SCH ×2 (07:25→17:19)
[2018-03-13] MEDS: Paliperidone Inj 234 MG/1.5 ML Syringe IM SCH (08:59)
--- NOTE | 2018-03-13 09:24 | P.PNPSY ---
Subjective Remarks: Patient seen and nails with nurse Joana, chart reviewed, patient trying mixed compliance with medication. Patient angry showing no insight into the fact of her needing to receive the invega sustena booster injection. She continues grandiose angry and quite hostile with me. However she did accept the injection today though she is showing resistance to the oral medications Review of Systems All other systems reviewed negative except as stated in HPI Mental Status Examination Appearance: Appropriate Consciousness: Alert Orientation: Person, Place, Situation Motor Activity: Normal gait Speech: Pressured, Rapid Language: Adequate Fund of Knowledge: Adequate Attention and Concentration: Inadequate Memory: Unremarkable (Not formally tested) Mood: Angry, Oppositional, Irritable Affect: Other (Increased range and intensity) Thought Process & Associations: Loose associations, Disorganized Thought Content: Bizarre thinking, Delusional Hallucination Type: Auditory Delusion Type: Bizarre, Paranoid Suicidal Ideation: No Suicidal Plan: No Suicidal Intention: No Homicidal Ideation: No Homicidal Plan: No Insight: Poor Judgment: Poor Assessment and Plan - Assessment (1) Schizophrenia Code(s): F20.9 - Schizophrenia, unspecified Status: Acute - Plan Plan: Patient remains quite psychotic delusional paranoid, showing mixed compliance with medication which she did receive the invega sustena 156 mg today Justification for Continued Inpatient Stay: At this time patient would decompensate a place to the lower level of care Discharge Planning: To be determined Request Healthcare Surrogate/Guardian Advocate?: Yes (1) Schizophrenia Qualifiers: Schizophrenia type: paranoid schizophrenia Qualified Code(s): F20.0 - Paranoid schizophrenia
[2018-03-13] MEDS: Sertraline 100 MG Tablet PO SCH (10:26)
[2018-03-13] MEDS: amLODIPine 5 MG Tablet PO SCH (10:26)
[2018-03-13] MEDS: Acetaminophen 325 MG Tablet PO PRN (10:26)
[2018-03-13] MEDS: Pantoprazole Sodium 20 MG DR Tablet PO SCH ×2 (10:27→22:27)
[2018-03-13] MEDS: Senna/Docusate Sodium 8.6/50 MG Tablet PO SCH ×2 (10:27→22:26)
[2018-03-13] MEDS: Lisinopril 20 MG Tablet PO SCH (10:28)
[2018-03-14] MEDS: Levothyroxine 112 MCG Tablet PO SCH (06:37)
[2018-03-14] MEDS: Senna/Docusate Sodium 8.6/50 MG Tablet PO SCH ×2 (08:48→20:19)
[2018-03-14] MEDS: glipiZIDE 5 MG Tablet PO SCH ×2 (08:48→17:07)
[2018-03-14] MEDS: Sertraline 100 MG Tablet PO SCH (08:48)
[2018-03-14] MEDS: amLODIPine 5 MG Tablet PO SCH (08:49)
[2018-03-14] MEDS: Lisinopril 20 MG Tablet PO SCH (08:49)
[2018-03-14] MEDS: Pantoprazole Sodium 20 MG DR Tablet PO SCH ×2 (08:52→20:18)
[2018-03-14] MEDS: Ibuprofen 600 MG Tablet PO PRN (09:23)
--- NOTE | 2018-03-14 12:12 | P.PNPSY ---
Subjective Remarks: Patient seen pacing the nails with floor staff, chart reviewed, patient continues mixed compliance with medication. She did take the in [place]ne sustain a injection yesterday. Today she said that a male whose name I did not understand this picking her up at 4:00 today. She remains quite angry and hostile towards me. Otherwise is low aggressive behavior problems noted at this time Review of Systems All other systems reviewed negative except as stated in HPI Mental Status Examination Appearance: Appropriate Consciousness: Alert Orientation: Person, Place, Situation Motor Activity: Normal gait Speech: Pressured, Rapid Language: Adequate Fund of Knowledge: Adequate Attention and Concentration: Inadequate Memory: Unremarkable (Not formally tested) Mood: Angry, Oppositional, Irritable Affect: Other (Increased range and intensity) Thought Process & Associations: Loose associations, Disorganized Thought Content: Bizarre thinking, Delusional Hallucination Type: Auditory Delusion Type: Bizarre, Paranoid Suicidal Ideation: No Suicidal Plan: No Suicidal Intention: No Homicidal Ideation: No Homicidal Plan: No Insight: Poor Judgment: Poor Assessment and Plan - Assessment (1) Schizophrenia Code(s): F20.9 - Schizophrenia, unspecified Status: Acute - Plan Plan: Patient remains quite psychotic and delusional Justification for Continued Inpatient Stay: At this time patient would decompensate a place to a lower level of care Discharge Planning: To be determined Request Healthcare Surrogate/Guardian Advocate?: Yes (1) Schizophrenia Qualifiers: Schizophrenia type: paranoid schizophrenia Qualified Code(s): F20.0 - Paranoid schizophrenia
[2018-03-15] MEDS: Levothyroxine 112 MCG Tablet PO SCH (05:06)
[2018-03-15] MEDS: Ibuprofen 600 MG Tablet PO PRN (08:18)
[2018-03-15] MEDS: glipiZIDE 5 MG Tablet PO SCH ×3 (08:19→17:09)
[2018-03-15] MEDS: Senna/Docusate Sodium 8.6/50 MG Tablet PO SCH ×2 (08:19→21:35)
[2018-03-15] MEDS: Sertraline 100 MG Tablet PO SCH (08:19)
[2018-03-15] MEDS: Lisinopril 20 MG Tablet PO SCH (08:20)
[2018-03-15] MEDS: amLODIPine 5 MG Tablet PO SCH (08:20)
[2018-03-15] MEDS: Pantoprazole Sodium 20 MG DR Tablet PO SCH ×2 (08:23→21:35)
--- NOTE | 2018-03-15 15:03 | P.PNPSY ---
Subjective Remarks: Patient seen today in the nails with floor staff. She continues quite angry paranoid and intrusive towards me continues stating that someone will come and pick her up tonight. Patient continues to show no insight into her disease. Remains paranoid delusional and hostile. Patient's fact team psychiatrist Dr. Guzman did visit today also he reinforced the fact that this patient is quite drug resistant. He was tried on multiple antipsychotics in the past with little significant long-term success she was successful appropriate of time until she decided to stop her medications and since then has been a downward spiral. He agrees that we should start referral to the [facility] packet Review of Systems All other systems reviewed negative except as stated in HPI Mental Status Examination Appearance: Appropriate Consciousness: Alert Orientation: Person, Place, Situation Motor Activity: Normal gait Speech: Pressured, Rapid Language: Adequate Fund of Knowledge: Adequate Attention and Concentration: Inadequate Memory: Unremarkable (Not formally tested) Mood: Angry, Oppositional, Irritable Affect: Other (Increased range and intensity) Thought Process & Associations: Loose associations, Disorganized Thought Content: Bizarre thinking, Delusional Hallucination Type: Auditory Delusion Type: Bizarre, Paranoid Suicidal Ideation: No Suicidal Plan: No Suicidal Intention: No Homicidal Ideation: No Homicidal Plan: No Insight: Poor Judgment: Poor Assessment and Plan - Assessment (1) Schizophrenia Code(s): F20.9 - Schizophrenia, unspecified Status: Acute - Plan Plan: Patient remains quite psychotic delusional paranoid we will be doing this state referral packet Justification for Continued Inpatient Stay: Patient will decompensate if placed in a lower level of care Discharge Planning: Refer to [facility] Request Healthcare Surrogate/Guardian Advocate?: Yes (1) Schizophrenia Qualifiers: Schizophrenia type: paranoid schizophrenia Qualified Code(s): F20.0 - Paranoid schizophrenia
[2018-03-16] MEDS: Levothyroxine 112 MCG Tablet PO SCH (05:11)
[2018-03-16] MEDS: glipiZIDE 5 MG Tablet PO SCH ×2 (09:17→18:25)
[2018-03-16] MEDS: Sertraline 100 MG Tablet PO SCH (09:17)
[2018-03-16] MEDS: Ibuprofen 600 MG Tablet PO PRN (09:18)
[2018-03-16] MEDS: Senna/Docusate Sodium 8.6/50 MG Tablet PO SCH ×2 (09:19→21:18)
[2018-03-16] MEDS: Pantoprazole Sodium 20 MG DR Tablet PO SCH ×2 (09:19→21:20)
[2018-03-16] MEDS: amLODIPine 5 MG Tablet PO SCH (09:22)
[2018-03-16] MEDS: Lisinopril 20 MG Tablet PO SCH (09:22)
--- NOTE | 2018-03-16 13:08 | P.PNPSY ---
Subjective Remarks: Patient seen in day room with floor staff, patient continues angry with me denying mental illness denying need for medication stating all she wants to lose be discharged to go home with her boyfriend. Patient remains quite paranoid vigilant and intrusive. For now continue treatment Review of Systems All other systems reviewed negative except as stated in HPI Mental Status Examination Appearance: Appropriate Consciousness: Alert Orientation: Person, Place, Situation Motor Activity: Normal gait Speech: Pressured, Rapid Language: Adequate Fund of Knowledge: Adequate Attention and Concentration: Inadequate Memory: Unremarkable (Not formally tested) Mood: Angry, Oppositional, Irritable Affect: Other (Increased range and intensity) Thought Process & Associations: Loose associations, Disorganized Thought Content: Bizarre thinking, Delusional Hallucination Type: Auditory Delusion Type: Bizarre, Paranoid Suicidal Ideation: No Suicidal Plan: No Suicidal Intention: No Homicidal Ideation: No Homicidal Plan: No Insight: Poor Judgment: Poor Assessment and Plan - Assessment (1) Schizophrenia Code(s): F20.9 - Schizophrenia, unspecified Status: Acute - Plan Plan: Patient remains quite psychotic paranoid and delusional, still with no insight into her issues. Somewhat reluctantly compliant with medication Justification for Continued Inpatient Stay: At this time patient would decompensate a place to a lower level of care Discharge Planning: To be determined perhaps state referral Request Healthcare Surrogate/Guardian Advocate?: Yes (1) Schizophrenia Qualifiers: Schizophrenia type: paranoid schizophrenia Qualified Code(s): F20.0 - Paranoid schizophrenia
[2018-03-17] MEDS: Levothyroxine 112 MCG Tablet PO SCH (06:15)
[2018-03-17] MEDS: glipiZIDE 5 MG Tablet PO SCH ×3 (09:03→17:53)
[2018-03-17] MEDS: Senna/Docusate Sodium 8.6/50 MG Tablet PO SCH ×2 (09:04→21:16)
[2018-03-17] MEDS: Lisinopril 20 MG Tablet PO SCH ×2 (09:04→13:41)
[2018-03-17] MEDS: Sertraline 100 MG Tablet PO SCH ×2 (09:04→13:41)
[2018-03-17] MEDS: amLODIPine 5 MG Tablet PO SCH ×2 (09:04→13:40)
[2018-03-17] MEDS: Pantoprazole Sodium 20 MG DR Tablet PO SCH ×2 (09:04→21:15)
--- NOTE | 2018-03-17 13:11 | P.PNPSY ---
Subjective Remarks: Patient was seen and case discussed with nursing. Patient remains delusional, irritable, and oppositional. She refused her morning medications believing that the nurse was a hit man. For me, she agreed to take her medications and 20 minutes as long as we "did not lie to her." Nursing notes of bradycardia and patient refused an EKG this morning. Patient is agreeable to an EKG if we do an x-ray first Mental Status Examination Appearance: Appropriate Consciousness: Alert Orientation: Person, Place, Situation Motor Activity: Normal gait Speech: Pressured, Rapid Language: Adequate Fund of Knowledge: Adequate Attention and Concentration: Inadequate Memory: Unremarkable (Not formally tested) Mood: Angry, Oppositional, Irritable Affect: Blunt Thought Process & Associations: Loose associations, Disorganized Thought Content: Bizarre thinking, Delusional Hallucination Type: Auditory Delusion Type: Bizarre, Paranoid Suicidal Ideation: No Suicidal Plan: No Suicidal Intention: No Homicidal Ideation: No Homicidal Plan: No Insight: Poor Judgment: Poor Assessment and Plan - Assessment (1) Schizophrenia Code(s): F20.9 - Schizophrenia, unspecified Status: Acute - Plan Plan: Chest x-ray, EKG, encouraged to take medication Justification for Continued Inpatient Stay: Patient would decompensate in a less restrictive setting Request Healthcare Surrogate/Guardian Advocate?: Yes (1) Schizophrenia Qualifiers: Schizophrenia type: paranoid schizophrenia Qualified Code(s): F20.0 - Paranoid schizophrenia
[2018-03-18] MEDS: Levothyroxine 112 MCG Tablet PO SCH (05:15)
[2018-03-18] MEDS: Sertraline 100 MG Tablet PO SCH (08:48)
[2018-03-18] MEDS: Pantoprazole Sodium 20 MG DR Tablet PO SCH ×2 (08:50→20:36)
[2018-03-18] MEDS: Senna/Docusate Sodium 8.6/50 MG Tablet PO SCH ×2 (08:50→20:36)
[2018-03-18] MEDS: glipiZIDE 5 MG Tablet PO SCH ×2 (08:51→18:30)
[2018-03-18] MEDS: amLODIPine 5 MG Tablet PO SCH (08:55)
[2018-03-18] MEDS: Lisinopril 20 MG Tablet PO SCH (09:02)
[2018-03-18] MEDS: Ibuprofen 600 MG Tablet PO PRN (09:26)
--- NOTE | 2018-03-18 14:53 | P.PNPSY ---
Subjective Remarks: Patient was seen and case discussed with nursing. Patient remains floridly psychotic. 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 She says she wanted an x-ray of her universe. Remains irritable and oppositional with her care Mental Status Examination Appearance: Appropriate Consciousness: Alert Orientation: Person, Place, Situation Motor Activity: Normal gait Speech: Pressured, Rapid Language: Adequate Fund of Knowledge: Adequate Attention and Concentration: Inadequate Memory: Unremarkable (Not formally tested) Mood: Angry, Oppositional, Irritable Affect: Blunt Thought Process & Associations: Loose associations, Disorganized Thought Content: Bizarre thinking, Delusional Hallucination Type: Auditory Delusion Type: Bizarre, Paranoid Suicidal Ideation: No Suicidal Plan: No Suicidal Intention: No Homicidal Ideation: No Homicidal Plan: No Insight: Poor Judgment: Poor Assessment and Plan - Assessment (1) Schizophrenia Code(s): F20.9 - Schizophrenia, unspecified Status: Acute - Plan Plan: Chest x-ray, EKG, encouraged to take medication Justification for Continued Inpatient Stay: Patient would decompensate in a less restrictive setting Request Healthcare Surrogate/Guardian Advocate?: Yes (1) Schizophrenia Qualifiers: Schizophrenia type: paranoid schizophrenia Qualified Code(s): F20.0 - Paranoid schizophrenia
[2018-03-19] MEDS: Levothyroxine 112 MCG Tablet PO SCH (06:35)
[2018-03-19] MEDS: Sertraline 100 MG Tablet PO SCH (08:48)
[2018-03-19] MEDS: Senna/Docusate Sodium 8.6/50 MG Tablet PO SCH ×2 (08:48→22:37)
--- NOTE | 2018-03-19 09:32 | P.TTN ---
- Patient Problems Problems: 1. Discharge planning 2. Medication compliance 3. Knowledge deficit 4. Lack of coping skills - Progress Toward Goals Provider Present: Dr. Pily Kilgore, Dr. Darion Reveles Provider Input: needs further stabilization, still psychotic, FACT team hopes she can return home- if not state referral is suggested/ order is placed but packet not sent yet Psychiatric Counselors Present: Cecy Jenkins LCSW (remains psychotic and very pre-occupied, delusional but in behavioral control) Group Spec/RT/OT/WRIGHT Present: ADRIANA Lora (attends most groups and engages limited ) - Documentation Teaching Recipient: Patient
[2018-03-19] MEDS: glipiZIDE 5 MG Tablet PO SCH ×2 (10:43→18:38)
[2018-03-19] MEDS: amLODIPine 5 MG Tablet PO SCH (10:44)
[2018-03-19] MEDS: Lisinopril 20 MG Tablet PO SCH (10:44)
[2018-03-19] MEDS: Pantoprazole Sodium 20 MG DR Tablet PO SCH ×2 (10:45→22:37)
[2018-03-19] MEDS: Ibuprofen 600 MG Tablet PO PRN (10:45)
--- NOTE | 2018-03-19 16:50 | P.PNPSY ---
Subjective Remarks: Patient seen for follow-up, chart reviewed. Discussion with nursing staff reported that the patient continues with bizarre delusions. Patient was found lying on hospital bed, calm and cooperative, noted to be irritable toward end of interview. Patient states that she has been feeling "ok", reports attending some groups but that she was asked to leave psychotherapy group but did not elaborate. She became irritable when addressing the therapist in the room stating, "I don't need no Dionetics therapy". Review of Systems All other systems reviewed negative except as stated in HPI Mental Status Examination Appearance: Appropriate Consciousness: Alert Orientation: Person, Place, Situation Motor Activity: Normal gait Speech: Pressured, Rapid Language: Adequate Fund of Knowledge: Adequate Attention and Concentration: Inadequate Memory: Unremarkable (Not formally tested) Mood: Oppositional, Irritable Affect: Blunt Thought Process & Associations: Loose associations, Disorganized Thought Content: Bizarre thinking, Delusional Hallucination Type: Auditory Delusion Type: Bizarre, Paranoid Suicidal Ideation: No Suicidal Plan: No Suicidal Intention: No Homicidal Ideation: No Homicidal Plan: No Insight: Poor Judgment: Poor Assessment and Plan - Assessment (1) Schizophrenia Code(s): F20.9 - Schizophrenia, unspecified Status: Acute - Plan Plan: Patient continues with bizarre delusions, irritable, selective with medications. Continue current treatment, continue to encourage to adhere to medication regimen. Monitor mood and behavior. Discharge planning in progress. Justification for Continued Inpatient Stay: At risk for further decompensation at lower level of care. Request Healthcare Surrogate/Guardian Advocate?: Yes (1) Schizophrenia Qualifiers: Schizophrenia type: paranoid schizophrenia Qualified Code(s): F20.0 - Paranoid schizophrenia
[2018-03-20] MEDS: Aluminum/Magnesium/Simethacone Susp 30 ML UDC PO PRN (00:48)
[2018-03-20] MEDS: Levothyroxine 112 MCG Tablet PO SCH (06:12)
[2018-03-20] MEDS: Lisinopril 20 MG Tablet PO SCH (09:01)
[2018-03-20] MEDS: amLODIPine 5 MG Tablet PO SCH (09:01)
[2018-03-20] MEDS: Sertraline 100 MG Tablet PO SCH (09:01)
[2018-03-20] MEDS: Senna/Docusate Sodium 8.6/50 MG Tablet PO SCH ×2 (09:02→20:43)
[2018-03-20] MEDS: Pantoprazole Sodium 20 MG DR Tablet PO SCH ×2 (09:05→20:42)
[2018-03-20] MEDS: glipiZIDE 5 MG Tablet PO SCH ×2 (09:05→17:22)
--- NOTE | 2018-03-20 11:57 | P.PNPSY ---
Subjective Remarks: Patient seen in her [place] with nurse Terri, chart reviewed, patient with mixed compliance over today patient is calm and talking to me in a more appropriate goal oriented manner. Her paranoia and mild delusions seem to be persisting. She is talking about having a discussion in the past with doctors related to hormone therapy. She feels she is having some postmenopausal symptoms. Though she is vague as to the details. We will have [facility] consult with us. Review of Systems All other systems reviewed negative except as stated in HPI Mental Status Examination Appearance: Appropriate Consciousness: Alert Orientation: Person, Place, Situation Motor Activity: Normal gait Speech: Pressured (Diminishing), Rapid (Slower) Language: Adequate Fund of Knowledge: Adequate Attention and Concentration: Inadequate Memory: Unremarkable (Not formally tested) Mood: Oppositional (Improving), Irritable (Improving) Affect: Other (Decreased range and intensity) Thought Process & Associations: Loose associations (Somewhat more focused), Disorganized Thought Content: Bizarre thinking, Delusional Hallucination Type: Auditory (Vaguely denies today) Delusion Type: Bizarre (Somewhat improved), Paranoid Suicidal Ideation: No Suicidal Plan: No Suicidal Intention: No Homicidal Ideation: No Homicidal Plan: No Insight: Poor Judgment: Poor Assessment and Plan - Assessment (1) Schizophrenia Code(s): F20.9 - Schizophrenia, unspecified Status: Acute - Plan Plan: Patient remained psychotic though her affect shows improvement in the range and intensity she is calmer somewhat more goal oriented with me. She is complaining of issues that may be postmenopausal related without [employer] [employer] consult will us Justification for Continued Inpatient Stay: At this time patient would decompensate a place to a lower level of care Discharge Planning: To be determined Request Healthcare Surrogate/Guardian Advocate?: Yes (1) Schizophrenia Qualifiers: Schizophrenia type: paranoid schizophrenia Qualified Code(s): F20.0 - Paranoid schizophrenia
--- NOTE | 2018-03-20 15:22 | P.CONOB ---
Review of Systems Constitutional: Denies body ache(s), Denies chills Eyes: Denies blurry vision, Denies change in vision Ears, Nose, Mouth, and Throat: Denies abnormal hearing, Denies dry mouth Cardiovascular: Denies chest pain, Denies fast heart rate Respiratory: Denies change in phlegm color, Denies cough Gastrointestinal: Reports change in bowel habits, Reports constipation, Reports loose stools, Denies vomiting Genitourinary: Reports absent period, Reports hot flashes, Reports vaginal dryness, Denies abnormal vaginal bleeding, Denies blood in urine, Denies difficulty starting urination, Denies difficulty urinating, Denies dribbling after urination, Denies frequent nighttime urination, Denies heavy periods, Denies vaginal discharge Musculoskeletal: Denies back pain, Denies body aches, Denies stiffness, Denies tingling Skin/Breast: Denies nail changes, Denies new lesions Neurologic: Denies abnormal hearing, Denies abnormal speech, Denies frequent falls Psychiatric: Reports anxiety, Reports difficulty concentrating Endocrine: Reports excessive sweating, Reports flushing, Reports heat intolerance Hematologic/Lymphatic: Denies easy bleeding, Denies easy bruising PMFSH - History History Provided By: Patient - Medical History Medical History: Medical History (Last Reviewed 02/21/18 @ 11:14 by STUART Meyers) Hx of hysterectomy (Acute) Asthma COPD (chronic obstructive pulmonary disease) GERD (gastroesophageal reflux disease) HLD (hyperlipidemia) HTN (hypertension) Hypothyroid Medical history unknown Obstructive sleep apnea Paranoid schizophrenia - Surgical History Surgical History: Surgical History (Last Reviewed 02/21/18 @ 11:14 by STUART Meyers) Hx of tonsillectomy - Family History Family History: Family History (Last Reviewed 02/21/18 @ 11:14 by STUART Meyers) Other Family history unobtainable due to patient's condition - Tobacco History Second Hand Smoke Exposure: No Tobacco Use In Past 30 Days: No Smoking Status: Refused to answer Tobacco Type: Cigarettes - Alcohol History How Often Do You Have a Drink Containing Alcohol: Unable to Obtain - Substance Use History Substance History: No History of Abuse - Travel History Recent Travel in the [place] Within the Last 8 Weeks: No Recent Travel Out of the Country Within the Last 8 Weeks: No - Immunization History Tetanus Immunization: Unable to Assess Hx Influenza Vaccine This Season: No Medications and Allergies Allergies Allergy/AdvReac Type Severity Reaction Status Date / Time penicillin G Allergy Severe Anaphylaxis Verified 02/26/18 17:34 Sulfa (Sulfonamide Allergy Severe Anaphylaxis Verified 02/26/18 17:34 Antibiotics) fluphenazine Allergy Intermediate Anaphylaxis Verified 02/26/18 17:34 Home Medications Medication Instructions Recorded Confirmed Type buspirone 10 mg PO BID 02/20/18 02/20/18 History fluticasone-vilanterol [Breo 1 inh INHALATION DAILY 02/20/18 02/20/18 History Ellipta] glipizide 5 mg PO QDRHS 02/20/18 02/20/18 History levothyroxine 137 mcg PO DAILY 02/20/18 02/20/18 History lisinopril 10 mg PO DAILY 02/20/18 02/20/18 History loxapine succinate 5 mg PO QDRHS 02/20/18 02/20/18 History metformin 500 mg PO BID 02/20/18 02/20/18 History omeprazole 20 mg PO BID 02/20/18 02/20/18 History paliperidone palmitate [Invega 234 mg IM QMONTH 02/20/18 02/20/18 History Sustenna] sennosides-docusate sodium [Senna 1 tab PO BID 02/20/18 02/20/18 History Plus] sertraline 200 mg PO DAILY 02/20/18 02/20/18 History simvastatin 40 mg PO QPM 02/20/18 02/20/18 History Active Medications: Active Medications Acetaminophen (Tylenol) 650 mg PO Q4H PRN PRN Reason: Temp >101F Last Admin: 03/13/18 10:26 Dose: 650 mg Al Hydrox/Mg Hydrox/Simethicone (Mag-Al Plus Susp Liq) 30 ml PO Q6H PRN PRN Reason: DYSPEPSIA Last Admin: 03/20/18 00:48 Dose: 30 ml Al Hydroxide/Mg Hydroxide (Milk Of Magnesia Liq) 30 ml PO Q12H PRN PRN Reason: Mild Constipation Albuterol (Ventolin Hfa Inh) 2 puff INH Q4H PRN PRN Reason: BRONCOSPASM Last Admin: 03/18/18 20:37 Dose: 2 puff Albuterol (Duoneb Neb (Prn)) 1 ampul NEB Q8HR NEB PRN PRN Reason: SHORTNESS OF BREATH/WHEEZING Amlodipine Besylate (Norvasc) 5 mg PO DAILY [facility] Last Admin: 03/20/18 09:01 Dose: 5 mg Bacitracin (Baciguent Oint) 1 applicatio TOPICAL BID [facility] Last Admin: 03/20/18 09:05 Dose: Not Given Bisacodyl (Dulcolax Supp) 10 mg RECTAL DAILY PRN PRN Reason: SEVERE CONSITIPATION Buspirone HCl (Buspar) 10 mg PO BID [facility] Last Admin: 03/20/18 09:01 Dose: 10 mg Clonidine HCl (Catapres) 0.1 mg PO Q6H PRN PRN Reason: SBP> OR = 180, DBP> OR = 100 Last Admin: 02/22/18 17:00 Dose: 0.1 mg Diphenhydramine HCl (Benadryl) 50 mg PO HS PRN PRN Reason: INSOMNIA Last Admin: 03/15/18 21:35 Dose: 50 mg Fluticasone/Vilanterol (Breo Ellipta 100/25 Mcg Inh) 1 puff INH DAILY [facility] Last Admin: 03/20/18 09:04 Dose: Not Given Glipizide (Glucotrol) 2.5 mg PO BIDAC [facility] Last Admin: 03/20/18 09:05 Dose: Not Given Hydroxyzine HCl (Atarax) 50 mg PO Q6H PRN PRN Reason: ANXIETY Last Admin: 03/14/18 04:07 Dose: 50 mg Ibuprofen (Motrin) 600 mg PO Q6H PRN PRN Reason: PAIN 1-10 Last Admin: 03/19/18 10:45 Dose: 600 mg Lactulose (Lactulose Liq) 30 ml PO DAILY PRN PRN Reason: SEVERE CONSITIPATION Last Admin: 03/01/18 09:52 Dose: 30 ml Levothyroxine Sodium (Synthroid) 25 mcg PO DAILY@0600 [facility] Last Admin: 03/20/18 06:12 Dose: 25 mcg Levothyroxine Sodium (Synthroid) 112 mcg PO DAILY@0600 [facility] Last Admin: 03/20/18 06:12 Dose: 112 mcg Lisinopril (Prinivil) 40 mg PO DAILY [facility] Last Admin: 03/20/18 09:01 Dose: 40 mg Metformin HCl (Glucophage) 500 mg PO BID [facility] Last Admin: 03/20/18 09:02 Dose: 500 mg Paliperidone Palmitate (Invega Er) 9 mg PO DAILY [facility] Last Admin: 03/20/18 09:04 Dose: Not Given Paliperidone Palmitate (Invega Sustenna Inj) 234 mg IM Q30D [facility] Last Admin: 03/13/18 08:59 Dose: 234 mg Pantoprazole Sodium (Protonix) 20 mg PO BID [facility] Last Admin: 03/20/18 09:05 Dose: Not Given Pravastatin Sodium (Pravachol) 80 mg PO QPM [facility] Last Admin: 03/18/18 18:30 Dose: 80 mg Senna/Docusate Sodium (Kate-Colace) 1 tab PO BID [facility] Last Admin: 03/20/18 09:02 Dose: 1 tab Sennosides (Senokot) 17.2 mg PO Q12H PRN PRN Reason: Moderate Constipation Sertraline HCl (Zoloft) 200 mg PO DAILY [facility] Last Admin: 03/20/18 09:01 Dose: 200 mg Exam Vital signs: Vital Signs 03/19/18 16:58 03/20/18 05:43 Temperature 98.0 F 98.6 F Pulse Rate 60 83 Respiratory Rate 20 18 Blood Pressure 144/63 H 118/58 L Pulse Oximetry 100 Intake & Output 03/19/18 03/20/18 03/20/18 18:59 06:59 18:59 Intake Total 840 / 840 Balance 840 / 840 Intake: Oral 840 / 840 Other: Date of Last Bowel Movement 03/19/18 03/19/18 Narrative: Speculum examination performed by Dr. Arambula with nurse in room GENERAL: Well-nourished, well-developed patient. SKIN: Warm and dry. HEAD: Normocephalic and atraumatic. EYES: No scleral icterus. No injection or drainage. ENT: No nasal drainage noted. Mucous membranes pink. Airway patent. NECK: Supple, trachea midline. No JVD. CARDIOVASCULAR: Regular rate and rhythm without murmurs, gallops, or rubs. RESPIRATORY: Breath sounds equal bilaterally. No accessory muscle use. BREASTS: Bilateral exam showed no masses , no retractions, no nipple discharge. ABDOMEN/GI: Abdomen soft, non-tender, bowel sounds present, no rebound, no guarding GENITOURINARY: External Genitalia: intact and normal in appearance Speculum examination demonstrates atrophic vaginal mucosa Rectal exam: declined BACK: Nontender without obvious deformity. No CVA tenderness. NEUROLOGICAL: Awake and alert. Motor and sensory grossly within normal limits. Five out of 5 muscle strength in all muscle groups. Normal speech. Results - Labs CBC & Chem 7: 02/19/18 18:07 02/22/18 08:51 Assessment and Plan - Diagnosis (1) Menopausal state Code(s): N95.1 - Menopausal and female climacteric states Status: Acute - Plan Patient with menopausal symptoms for 10 years. Amenorrhea for 20 years after reported ovary removal. Currently being managed in the inpatient psychiatric unit. -Will not start hormone replacement at this time for long-term and menopausal symptoms. Will need follow-up after starting any type of hormone replacement therapy, which would be most safely done outpatient. -Follow-up outpatient DIRECTOR OF SOCIAL WORK for further evaluation and possible hormone replacement SDW Dr. Arambula - Attending Attestation The patient was seen and examined by me and I participated in all morales decision making. I performed the pelvic examination with the nurse present. No acute issue at this time, recommend follow up with outpatient assistant finance manager for management of menopausal symptoms. SMS
[2018-03-21] MEDS: Levothyroxine 112 MCG Tablet PO SCH (06:20)
[2018-03-21] MEDS: amLODIPine 5 MG Tablet PO SCH ×2 (08:54→08:57)
[2018-03-21] MEDS: Senna/Docusate Sodium 8.6/50 MG Tablet PO SCH (08:54)
[2018-03-21] MEDS: Sertraline 100 MG Tablet PO SCH (08:55)
[2018-03-21] MEDS: Lisinopril 20 MG Tablet PO SCH (08:55)
[2018-03-21] MEDS: Pantoprazole Sodium 20 MG DR Tablet PO SCH ×2 (08:55→21:13)
[2018-03-21] MEDS: glipiZIDE 5 MG Tablet PO SCH ×2 (08:56→17:10)
--- NOTE | 2018-03-21 13:33 | P.PNPSY ---
Subjective Remarks: APPEALS REVIEWER VETERAN consult note reviewed and agreed with and appreciated. Patient seen in day room with nurse Ap, chart reviewed, patient continues to be selected with medications. However with her excepting the booster dose of sustain a I will discontinue the oral and Layne. I have also discontinued some various as needed bowel medications that if gone not necessary now to simplify her regimen. While patient continues irritable she appears able to show some mild improvement and processing. For now continue treatment Review of Systems All other systems reviewed negative except as stated in HPI Mental Status Examination Appearance: Appropriate Consciousness: Alert Orientation: Person, Place, Situation Motor Activity: Normal gait Speech: Pressured (Diminishing), Rapid (Slower) Language: Adequate Fund of Knowledge: Adequate Attention and Concentration: Inadequate Memory: Unremarkable (Not formally tested) Mood: Oppositional (Improving), Irritable (Improving) Affect: Other (Decreased range and intensity) Thought Process & Associations: Loose associations (Somewhat more focused), Disorganized Thought Content: Bizarre thinking, Delusional Hallucination Type: Auditory (Vaguely denies today) Delusion Type: Bizarre (Somewhat improved), Paranoid Suicidal Ideation: No Suicidal Plan: No Suicidal Intention: No Homicidal Ideation: No Homicidal Plan: No Insight: Poor Judgment: Poor Assessment and Plan - Assessment (1) Schizophrenia Code(s): F20.9 - Schizophrenia, unspecified Status: Acute - Plan Plan: Patient continues angry irritable and psychotic though the psychosis is softening she medication adjustments above Justification for Continued Inpatient Stay: At this time patient would decompensate a place to a lower level of care Discharge Planning: To be determined probable return home to her apartment if not referred to the [facility] Request Healthcare Surrogate/Guardian Advocate?: Yes (1) Schizophrenia Qualifiers: Schizophrenia type: paranoid schizophrenia Qualified Code(s): F20.0 - Paranoid schizophrenia
[2018-03-22] MEDS: Levothyroxine 112 MCG Tablet PO SCH (06:29)
[2018-03-22] MEDS: glipiZIDE 5 MG Tablet PO SCH ×2 (08:49→17:47)
[2018-03-22] MEDS: Lisinopril 20 MG Tablet PO SCH (08:50)
[2018-03-22] MEDS: amLODIPine 5 MG Tablet PO SCH (08:50)
[2018-03-22] MEDS: Pantoprazole Sodium 20 MG DR Tablet PO SCH ×2 (08:50→21:33)
[2018-03-22] MEDS: Sertraline 100 MG Tablet PO SCH (13:11)
--- NOTE | 2018-03-22 15:50 | P.PNPSY ---
Subjective Remarks: Patient seen in her room with floor staff, chart reviewed, patient continues mixed compliance medication. Patient today glared at me stating "I do not want dianetics, you are all calling me criminal crazy insane" when I attempted to discuss the mental health issues with this she yelled at me" get out of my room " Review of Systems All other systems reviewed negative except as stated in HPI Mental Status Examination Appearance: Appropriate Consciousness: Alert Orientation: Person, Place, Situation Motor Activity: Normal gait Speech: Pressured (Diminishing), Rapid (Slower) Language: Adequate Fund of Knowledge: Adequate Attention and Concentration: Inadequate Memory: Unremarkable (Not formally tested) Mood: Oppositional (Improving), Irritable (Improving) Affect: Other (Decreased range and intensity) Thought Process & Associations: Loose associations (Somewhat more focused), Disorganized Thought Content: Bizarre thinking, Delusional Hallucination Type: Auditory (Vaguely denies today) Delusion Type: Bizarre (Somewhat improved), Paranoid Suicidal Ideation: No Suicidal Plan: No Suicidal Intention: No Homicidal Ideation: No Homicidal Plan: No Insight: Poor Judgment: Poor Assessment and Plan - Assessment (1) Schizophrenia Code(s): F20.9 - Schizophrenia, unspecified Status: Acute - Plan Plan: Patient remains quite psychotic paranoid and delusional increase anger and lability today Justification for Continued Inpatient Stay: At this time patient would decompensate a place to the lower level of care Discharge Planning: To be determined Request Healthcare Surrogate/Guardian Advocate?: Yes (1) Schizophrenia Qualifiers: Schizophrenia type: paranoid schizophrenia Qualified Code(s): F20.0 - Paranoid schizophrenia
[2018-03-23] MEDS: Levothyroxine 112 MCG Tablet PO SCH (06:15)
[2018-03-23] MEDS: glipiZIDE 5 MG Tablet PO SCH ×2 (09:31→17:19)
[2018-03-23] MEDS: Lisinopril 20 MG Tablet PO SCH (09:32)
[2018-03-23] MEDS: amLODIPine 5 MG Tablet PO SCH (09:32)
[2018-03-23] MEDS: Sertraline 100 MG Tablet PO SCH (09:35)
[2018-03-23] MEDS: Pantoprazole Sodium 20 MG DR Tablet PO SCH ×2 (09:36→21:37)
[2018-03-23] MEDS: Ibuprofen 600 MG Tablet PO PRN (13:15)
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
[2018-03-24] MEDS: Levothyroxine 112 MCG Tablet PO SCH (06:00)
[2018-03-24] MEDS: glipiZIDE 5 MG Tablet PO SCH ×2 (08:56→17:00)
[2018-03-24] MEDS: amLODIPine 5 MG Tablet PO SCH (09:00)
[2018-03-24] MEDS: Lisinopril 20 MG Tablet PO SCH (09:00)
[2018-03-24] MEDS: Pantoprazole Sodium 20 MG DR Tablet PO SCH ×2 (09:01→21:58)
[2018-03-24] MEDS: Sertraline 100 MG Tablet PO SCH (09:02)
[2018-03-24] MEDS: Ibuprofen 600 MG Tablet PO PRN ×2 (13:11→22:15)
--- NOTE | 2018-03-24 15:06 | P.PNPSY ---
Subjective Remarks: Patient was seen and case discussed with nursing. Patient did reluctantly take her medications today. She had a nice visit with her family. She remains paranoid and angry. She has not had any outbursts today. Internally preoccupied Mental Status Examination Appearance: Appropriate Consciousness: Alert Orientation: Person, Place, Situation Motor Activity: Normal gait Speech: Pressured (Diminishing), Rapid (Slower) Language: Adequate Fund of Knowledge: Adequate Attention and Concentration: Inadequate Memory: Unremarkable (Not formally tested) Mood: Angry, Oppositional (Improving), Irritable (Improving) Affect: Other (Decreased range and intensity) Thought Process & Associations: Loose associations (Somewhat more focused), Disorganized Thought Content: Bizarre thinking, Delusional Hallucination Type: Auditory (Vaguely denies today) Delusion Type: Bizarre (Somewhat improved), Paranoid Suicidal Ideation: No Suicidal Plan: No Suicidal Intention: No Homicidal Ideation: No Homicidal Plan: No Insight: Poor Judgment: Poor Assessment and Plan - Assessment (1) Schizophrenia Code(s): F20.9 - Schizophrenia, unspecified Status: Acute - Plan Plan: Continue current treatment plan Justification for Continued Inpatient Stay: Patient would decompensate in a less restrictive setting Request Healthcare Surrogate/Guardian Advocate?: Yes (1) Schizophrenia Qualifiers: Schizophrenia type: paranoid schizophrenia Qualified Code(s): F20.0 - Paranoid schizophrenia
[2018-03-25] MEDS: Levothyroxine 112 MCG Tablet PO SCH (06:41)
[2018-03-25] MEDS: glipiZIDE 5 MG Tablet PO SCH ×2 (08:00→17:00)
[2018-03-25] MEDS: Sertraline 100 MG Tablet PO SCH (09:00)
[2018-03-25] MEDS: Lisinopril 20 MG Tablet PO SCH (09:00)
[2018-03-25] MEDS: Pantoprazole Sodium 20 MG DR Tablet PO SCH ×2 (09:17→21:39)
--- NOTE | 2018-03-25 11:29 | P.PNPSY ---
Subjective Remarks: Patient was seen and case discussed with nursing. Patient remains oppositional and delusional. She begins the interview with a tirade that she is missing her ovaries in her prostate and that she is demanding hormone therapy. After some psychoeducation she becomes angry and walks away refusing the rest of the interview. She refused sertraline this morning because she is convinced that has the word "silvestre" and she does not want saline because she has "a lot of fluids.". Mental Status Examination Appearance: Appropriate Consciousness: Alert Orientation: Person, Place, Situation Motor Activity: Normal gait Speech: Pressured (Diminishing), Rapid (Slower) Language: Adequate Fund of Knowledge: Adequate Attention and Concentration: Inadequate Memory: Unremarkable (Not formally tested) Mood: Angry, Oppositional (Improving), Irritable (Improving) Affect: Other (Decreased range and intensity) Thought Process & Associations: Loose associations (Somewhat more focused), Disorganized Thought Content: Bizarre thinking, Delusional Hallucination Type: Auditory (Vaguely denies today) Delusion Type: Bizarre (Somewhat improved), Paranoid Suicidal Ideation: No Suicidal Plan: No Suicidal Intention: No Homicidal Ideation: No Homicidal Plan: No Insight: Poor Judgment: Poor Assessment and Plan - Assessment (1) Schizophrenia Code(s): F20.9 - Schizophrenia, unspecified Status: Acute - Plan Plan: Continue current treatment plan Justification for Continued Inpatient Stay: Patient would decompensate in a less restrictive setting Request Healthcare Surrogate/Guardian Advocate?: Yes (1) Schizophrenia Qualifiers: Schizophrenia type: paranoid schizophrenia Qualified Code(s): F20.0 - Paranoid schizophrenia
[2018-03-25] MEDS: amLODIPine 5 MG Tablet PO SCH (13:55)
[2018-03-25] MEDS: Ibuprofen 600 MG Tablet PO PRN (18:38)
[2018-03-26] MEDS: Levothyroxine 112 MCG Tablet PO SCH (06:14)
[2018-03-26] MEDS: glipiZIDE 5 MG Tablet PO SCH ×2 (10:51→18:30)
[2018-03-26] MEDS: amLODIPine 5 MG Tablet PO SCH (10:52)
[2018-03-26] MEDS: Sertraline 100 MG Tablet PO SCH (10:53)
[2018-03-26] MEDS: Pantoprazole Sodium 20 MG DR Tablet PO SCH ×2 (10:53→20:29)
[2018-03-26] MEDS: Lisinopril 20 MG Tablet PO SCH (10:53)
--- NOTE | 2018-03-26 14:48 | P.PNPSY ---
Subjective Remarks: Patient seen walking the halls. Continues angry irritable with me, chart reviewed, patient discussed with nurse. Patient continues states she wishes to go home to the med she has lived with for the past 18 years. However she wants to make sure that this female does not go near him because patient feels this female wants to have sex with her boyfriend. Patient continues angry with me denying oral medications. Review of Systems All other systems reviewed negative except as stated in HPI Mental Status Examination Appearance: Appropriate Consciousness: Alert Orientation: Person, Place, Situation Motor Activity: Normal gait Speech: Pressured (Diminishing), Rapid (Slower) Language: Adequate Fund of Knowledge: Adequate Attention and Concentration: Inadequate Memory: Unremarkable (Not formally tested) Mood: Angry, Oppositional (Improving), Irritable (Improving) Affect: Other (Decreased range and intensity) Thought Process & Associations: Loose associations (Somewhat more focused), Disorganized Thought Content: Bizarre thinking, Delusional Hallucination Type: Auditory (Vaguely denies today) Delusion Type: Bizarre (Somewhat improved), Paranoid Suicidal Ideation: No Suicidal Plan: No Suicidal Intention: No Homicidal Ideation: No Homicidal Plan: No Insight: Poor Judgment: Poor Assessment and Plan - Assessment (1) Schizophrenia Code(s): F20.9 - Schizophrenia, unspecified Status: Acute - Plan Plan: Patient remains quite psychotic delusional paranoid angry irritable and demanding Justification for Continued Inpatient Stay: At this time patient would decompensate a place a lower level of care Discharge Planning: Continue to await word [facility] referral Request Healthcare Surrogate/Guardian Advocate?: Yes (1) Schizophrenia Qualifiers: Schizophrenia type: paranoid schizophrenia Qualified Code(s): F20.0 - Paranoid schizophrenia
[2018-03-26] MEDS: Ibuprofen 600 MG Tablet PO PRN ×2 (19:28→20:30)
[2018-03-27] MEDS: Levothyroxine 112 MCG Tablet PO SCH (05:27)
[2018-03-27] MEDS: glipiZIDE 5 MG Tablet PO SCH ×2 (09:22→17:45)
[2018-03-27] MEDS: amLODIPine 5 MG Tablet PO SCH (09:23)
[2018-03-27] MEDS: Pantoprazole Sodium 20 MG DR Tablet PO SCH ×2 (09:23→21:38)
[2018-03-27] MEDS: Lisinopril 20 MG Tablet PO SCH (09:23)
[2018-03-27] MEDS: Sertraline 100 MG Tablet PO SCH (09:24)
[2018-03-27] MEDS: Ibuprofen 600 MG Tablet PO PRN (10:48)
--- NOTE | 2018-03-27 14:11 | P.PNPSY ---
Subjective Remarks: Patient seen in her room with nurse Rancho patient laying on her bed patient continues irritable and angry demanding entitled and paranoid. Showing no insight into her disease. Though she is somewhat compliant medication. For now continue treatment. Awaiting word [facility] Review of Systems All other systems reviewed negative except as stated in HPI Mental Status Examination Appearance: Appropriate Consciousness: Alert Orientation: Person, Place, Situation Motor Activity: Normal gait Speech: Pressured (Diminishing), Rapid (Slower) Language: Adequate Fund of Knowledge: Adequate Attention and Concentration: Inadequate Memory: Unremarkable (Not formally tested) Mood: Angry, Oppositional (Improving), Irritable (Improving) Affect: Other (Decreased range and intensity) Thought Process & Associations: Loose associations (Somewhat more focused), Disorganized Thought Content: Bizarre thinking, Delusional Hallucination Type: Auditory (Vaguely denies today) Delusion Type: Bizarre (Somewhat improved), Paranoid Suicidal Ideation: No Suicidal Plan: No Suicidal Intention: No Homicidal Ideation: No Homicidal Plan: No Insight: Poor Judgment: Poor Assessment and Plan - Assessment (1) Schizophrenia Code(s): F20.9 - Schizophrenia, unspecified Status: Acute - Plan Plan: Patient remains paranoid delusional psychotic irritable demanding and entitled for now continue treatment we are awaiting word from state placement Justification for Continued Inpatient Stay: Continue to await word from state placement Discharge Planning: Continue to await word from state placement Request Healthcare Surrogate/Guardian Advocate?: Yes (1) Schizophrenia Qualifiers: Schizophrenia type: paranoid schizophrenia Qualified Code(s): F20.0 - Paranoid schizophrenia
--- NOTE | 2018-03-27 14:53 | P.TTN ---
- Patient Problems Problems: 1. Discharge planning 2. Medication compliance 3. Knowledge deficit 4. Lack of coping skills - Progress Toward Goals Provider Present: Dr. Pily Kilgore, Dr. Darion Reveles Provider Input: needs further stabilization, still psychotic, FACT team hopes she can return home- if not state referral is suggested/ order is placed but packet not sent yet. March 27, 2018, no changes with patient, patient does not appear to be making progress toward treatment goals, patient requires further stabilization. Psychiatric Counselors Present: Cecy Jenkins LCSW (remains psychotic and very pre-occupied, delusional but in behavioral control), Marky Taylor Jr., RCSWI ( Patient presents with disorganized thoughts, irritable mood, and remains on the [facility] wait list at this time.) Group Spec/RT/OT/WRIGHT Present: ADRIANA Lora (attends most groups and engages limited ), ADRIANA Damon (Patient attends select groups.) - Documentation Teaching Recipient: Patient
[2018-03-27] MEDS: Aluminum/Magnesium/Simethacone Susp 30 ML UDC PO PRN (19:31)
[2018-03-28] MEDS: Levothyroxine 112 MCG Tablet PO SCH (05:27)
[2018-03-28] MEDS: Ibuprofen 600 MG Tablet PO PRN (07:22)
[2018-03-28] MEDS: glipiZIDE 5 MG Tablet PO SCH ×2 (08:32→16:17)
[2018-03-28] MEDS: Lisinopril 20 MG Tablet PO SCH (08:33)
[2018-03-28] MEDS: Pantoprazole Sodium 20 MG DR Tablet PO SCH ×2 (08:33→22:28)
[2018-03-28] MEDS: Sertraline 100 MG Tablet PO SCH (08:33)
[2018-03-28] MEDS: amLODIPine 5 MG Tablet PO SCH (08:33)
--- NOTE | 2018-03-28 15:01 | P.PNPSY ---
Subjective Remarks: Patient seen in her room with floor staff, chart reviewed, patient continues mixed compliance with medication, she is to isolate is angry paranoid with me showing no insight into her disease. Continue to await word from community health hospital referral Review of Systems All other systems reviewed negative except as stated in HPI Mental Status Examination Appearance: Appropriate Consciousness: Alert Orientation: Person, Place, Situation Motor Activity: Normal gait Speech: Pressured (Diminishing), Rapid (Slower) Language: Adequate Fund of Knowledge: Adequate Attention and Concentration: Inadequate Memory: Unremarkable (Not formally tested) Mood: Angry, Oppositional (Improving), Irritable (Improving) Affect: Other (Decreased range and intensity) Thought Process & Associations: Loose associations (Somewhat more focused), Disorganized Thought Content: Bizarre thinking, Delusional Hallucination Type: Auditory (Vaguely denies today) Delusion Type: Bizarre (Somewhat improved), Paranoid Suicidal Ideation: No Suicidal Plan: No Suicidal Intention: No Homicidal Ideation: No Homicidal Plan: No Insight: Poor Judgment: Poor Assessment and Plan - Assessment (1) Schizophrenia Code(s): F20.9 - Schizophrenia, unspecified Status: Acute - Plan Plan: Patient continues quite psychotic paranoid and delusional continue to await word from community health hospital Justification for Continued Inpatient Stay: At this point patient would decompensate a place to the lower level of care Discharge Planning: Await word from community health hospital referral Request Healthcare Surrogate/Guardian Advocate?: Yes (1) Schizophrenia Qualifiers: Schizophrenia type: paranoid schizophrenia Qualified Code(s): F20.0 - Paranoid schizophrenia
[2018-03-29] MEDS: Levothyroxine 112 MCG Tablet PO SCH (05:12)
[2018-03-29] MEDS: glipiZIDE 5 MG Tablet PO SCH ×2 (08:37→16:35)
[2018-03-29] MEDS: Lisinopril 20 MG Tablet PO SCH (08:38)
[2018-03-29] MEDS: Sertraline 100 MG Tablet PO SCH (08:38)
[2018-03-29] MEDS: Pantoprazole Sodium 20 MG DR Tablet PO SCH (08:38)
[2018-03-29] MEDS: amLODIPine 5 MG Tablet PO SCH (08:38)
[2018-03-29] MEDS: Ibuprofen 600 MG Tablet PO PRN ×2 (10:39→21:46)
--- NOTE | 2018-03-29 13:51 | P.PNPSY ---
Subjective Remarks: Patient seen in day room with floor staff, chart reviewed, patient trying mixed compliance medication. Patient's delusions process remains paranoid hospital angry with me saying she does not prolong her Suboxone with her boyfriend Review of Systems All other systems reviewed negative except as stated in HPI Mental Status Examination Appearance: Appropriate Consciousness: Alert Orientation: Person, Place, Situation Motor Activity: Normal gait Speech: Pressured (Diminishing), Rapid (Slower) Language: Adequate Fund of Knowledge: Adequate Attention and Concentration: Inadequate Memory: Unremarkable (Not formally tested) Mood: Angry, Oppositional (Improving), Irritable (Improving) Affect: Other (Decreased range and intensity) Thought Process & Associations: Loose associations (Somewhat more focused), Disorganized Thought Content: Bizarre thinking, Delusional Hallucination Type: Auditory (Vaguely denies today) Delusion Type: Bizarre (Somewhat improved), Paranoid Suicidal Ideation: No Suicidal Plan: No Suicidal Intention: No Homicidal Ideation: No Homicidal Plan: No Insight: Poor Judgment: Poor Assessment and Plan - Assessment (1) Schizophrenia Code(s): F20.9 - Schizophrenia, unspecified Status: Acute - Plan Plan: Patient remained psychotic irritable and paranoid. Patient mixed compliance medication. Continue to await word from state hospital placement Justification for Continued Inpatient Stay: At this time patient would decompensate if placed in a lower level of care Discharge Planning: Continue to await word from state hospital referral Request Healthcare Surrogate/Guardian Advocate?: Yes (1) Schizophrenia Qualifiers: Schizophrenia type: paranoid schizophrenia Qualified Code(s): F20.0 - Paranoid schizophrenia
[2018-03-30] MEDS: Pantoprazole Sodium 20 MG DR Tablet PO SCH ×3 (02:26→20:38)
[2018-03-30] MEDS: Levothyroxine 112 MCG Tablet PO SCH (06:26)
[2018-03-30] MEDS: Ibuprofen 600 MG Tablet PO PRN ×2 (06:58→17:16)
[2018-03-30] MEDS: glipiZIDE 5 MG Tablet PO SCH ×2 (09:21→17:16)
[2018-03-30] MEDS: amLODIPine 5 MG Tablet PO SCH (09:23)
[2018-03-30] MEDS: Lisinopril 20 MG Tablet PO SCH (09:23)
[2018-03-30] MEDS: Sertraline 100 MG Tablet PO SCH (09:24)
--- NOTE | 2018-03-30 14:13 | P.PNPSY ---
Subjective Remarks: Patient seen and nails with floor staff, patient continues to pace the halls with an angry expression on her face. Talking to her brings out more anger and irritation towards me saying she is wants to be discharge she does not know why she is here. She is compliant with some of her medications though it is selective. We continue to await word from state hospital placement Review of Systems All other systems reviewed negative except as stated in HPI Mental Status Examination Appearance: Appropriate Consciousness: Alert Orientation: Person, Place, Situation Motor Activity: Normal gait Speech: Pressured (Diminishing), Rapid (Slower) Language: Adequate Fund of Knowledge: Adequate Attention and Concentration: Inadequate Memory: Unremarkable (Not formally tested) Mood: Angry, Oppositional (Improving), Irritable (Improving) Affect: Other (Decreased range and intensity) Thought Process & Associations: Loose associations (Somewhat more focused), Disorganized Thought Content: Bizarre thinking, Delusional Hallucination Type: Auditory (Vaguely denies today) Delusion Type: Bizarre (Somewhat improved), Paranoid Suicidal Ideation: No Suicidal Plan: No Suicidal Intention: No Homicidal Ideation: No Homicidal Plan: No Insight: Poor Judgment: Poor Assessment and Plan - Assessment (1) Schizophrenia Code(s): F20.9 - Schizophrenia, unspecified Status: Acute - Plan Plan: Patient remained psychotic and delusional and paranoid. Mixed compliant medications. Justification for Continued Inpatient Stay: At this time patient would decompensate a place a lower level of care continue to await word from state hospital placement Discharge Planning: [facility] hospital referral Request Healthcare Surrogate/Guardian Advocate?: Yes (1) Schizophrenia Qualifiers: Schizophrenia type: paranoid schizophrenia Qualified Code(s): F20.0 - Paranoid schizophrenia
[2018-03-31] MEDS: Levothyroxine 112 MCG Tablet PO SCH (06:14)
[2018-03-31] MEDS: Lisinopril 20 MG Tablet PO SCH (09:38)
[2018-03-31] MEDS: Pantoprazole Sodium 20 MG DR Tablet PO SCH ×2 (09:38→22:49)
[2018-03-31] MEDS: amLODIPine 5 MG Tablet PO SCH (09:39)
[2018-03-31] MEDS: Sertraline 100 MG Tablet PO SCH (09:40)
[2018-03-31] MEDS: glipiZIDE 5 MG Tablet PO SCH ×2 (11:31→17:28)
--- NOTE | 2018-03-31 17:12 | P.PNPSY ---
Subjective Remarks: Reviewed electronic medical records and discussed case with staff. Follow-up was conducted in the activity room with JESS Vazquez present. Staff advises that the patient has been refusing most of her medications. She continues to be paranoid, easily agitated, and seclusive". She states that she is "upset because he has not seen me in 3 days because he has been drinking". When asked to elaborate on whom she speaking of she states "Magui". She reports that she has been sleeping and eating well. Feels that her rights are being violated. States that she hopes Dr. Kilgore will show up sober to talk to her on Monday. Mental Status Examination Appearance: Appropriate Consciousness: Alert Orientation: Person, Place, Situation Motor Activity: Normal gait Speech: Pressured (Diminishing), Rapid (Slower) Language: Adequate Fund of Knowledge: Adequate Attention and Concentration: Inadequate Memory: Unremarkable (Not formally tested) Mood: Angry, Oppositional (Improving), Irritable (Improving) Affect: Other (Decreased range and intensity) Thought Process & Associations: Loose associations (Somewhat more focused), Disorganized Thought Content: Bizarre thinking, Delusional Hallucination Type: Auditory (Vaguely denies today) Delusion Type: Bizarre (Somewhat improved), Paranoid Suicidal Ideation: No Suicidal Plan: No Suicidal Intention: No Homicidal Ideation: No Homicidal Plan: No Insight: Poor Judgment: Poor Assessment and Plan - Assessment (1) Schizophrenia Code(s): F20.9 - Schizophrenia, unspecified Status: Acute - Plan Plan: Patient will be reevaluated Monday by the attending psychiatrist. Continue with current treatment plan. Awaiting state placement. Justification for Continued Inpatient Stay: Moving this patient to a less restrictive environment would likely result in decompensation. Request Healthcare Surrogate/Guardian Advocate?: Yes (1) Schizophrenia Qualifiers: Schizophrenia type: paranoid schizophrenia Qualified Code(s): F20.0 - Paranoid schizophrenia
[2018-03-31] MEDS: Ibuprofen 600 MG Tablet PO PRN (17:59)
[2018-04-01] MEDS: Levothyroxine 112 MCG Tablet PO SCH (06:08)
[2018-04-01] MEDS: glipiZIDE 5 MG Tablet PO SCH ×2 (08:08→17:40)
[2018-04-01] MEDS: Pantoprazole Sodium 20 MG DR Tablet PO SCH ×2 (08:09→22:08)
[2018-04-01] MEDS: amLODIPine 5 MG Tablet PO SCH (08:09)
[2018-04-01] MEDS: Lisinopril 20 MG Tablet PO SCH (08:09)
[2018-04-01] MEDS: Sertraline 100 MG Tablet PO SCH (08:09)
--- NOTE | 2018-04-01 15:37 | P.PNPSY ---
Subjective Chief Complaint: Schizophrenia Remarks: Reviewed electronic medical records and discussed case with staff. Follow-up was conducted in the activity room with Elle MERCADO present. Per staff patient is refusing all of her medications. She is paranoid, irritable and seclusive. When we entered the room she started screaming , " get out of here, I want to be alone." Internally stimulated and delusional. Per staff she will come out of her room for meals. Patient was last administered Invega Sustenna 234 mg on . Review of Systems All other systems reviewed negative except as stated in HPI Mental Status Examination Appearance: Appropriate Consciousness: Alert Orientation: Person, Place, Situation Motor Activity: Normal gait Speech: Pressured (Diminishing), Rapid (Slower) Language: Adequate Fund of Knowledge: Adequate Attention and Concentration: Inadequate Memory: Unremarkable (Not formally tested) Mood: Angry, Oppositional (Improving), Irritable (Improving) Affect: Other (Decreased range and intensity) Thought Process & Associations: Loose associations (Somewhat more focused), Disorganized Thought Content: Bizarre thinking, Delusional Hallucination Type: Auditory (Vaguely denies today) Delusion Type: Bizarre (Somewhat improved), Paranoid Suicidal Ideation: No Suicidal Plan: No Suicidal Intention: No Homicidal Ideation: No Homicidal Plan: No Insight: Poor Judgment: Poor Assessment and Plan - Assessment (1) Schizophrenia Code(s): F20.9 - Schizophrenia, unspecified Status: Acute - Plan Plan: Patient will be reevaluated Monday by the attending psychiatrist. Continue with current treatment plan. Awaiting state placement. Justification for Continued Inpatient Stay: Moving patient to a less restrictive environment may result in her decompensation. Request Healthcare Surrogate/Guardian Advocate?: Yes
[2018-04-02] MEDS: Levothyroxine 112 MCG Tablet PO SCH (06:22)
[2018-04-02] MEDS: amLODIPine 5 MG Tablet PO SCH (08:40)
[2018-04-02] MEDS: glipiZIDE 5 MG Tablet PO SCH ×2 (08:40→16:54)
[2018-04-02] MEDS: Sertraline 100 MG Tablet PO SCH (08:41)
[2018-04-02] MEDS: Pantoprazole Sodium 20 MG DR Tablet PO SCH ×2 (08:41→20:41)
[2018-04-02] MEDS: Lisinopril 20 MG Tablet PO SCH (08:41)
--- NOTE | 2018-04-02 16:14 | P.PNPSY ---
Subjective Chief Complaint: Schizophrenia Remarks: Patient seen and nails with floor staff, patient continues angry pacing up and down the halls glaring at me today when I introduced myself and attempt to speak with her she said "getaway I do not want to talk to you" Review of Systems All other systems reviewed negative except as stated in HPI Mental Status Examination Appearance: Appropriate Consciousness: Alert Orientation: Person, Place, Situation Motor Activity: Normal gait Speech: Pressured (Diminishing), Rapid (Slower) Language: Adequate Fund of Knowledge: Adequate Attention and Concentration: Inadequate Memory: Unremarkable (Not formally tested) Mood: Angry, Oppositional (Improving), Irritable (Improving) Affect: Other (Decreased range and intensity) Thought Process & Associations: Loose associations (Somewhat more focused), Disorganized Thought Content: Bizarre thinking, Delusional Hallucination Type: Auditory (Vaguely denies today) Delusion Type: Bizarre (Somewhat improved), Paranoid Suicidal Ideation: No Suicidal Plan: No Suicidal Intention: No Homicidal Ideation: No Homicidal Plan: No Insight: Poor Judgment: Poor Assessment and Plan - Assessment (1) Schizophrenia Code(s): F20.9 - Schizophrenia, unspecified Status: Acute - Plan Plan: Patient continues psychotic paranoid and vigilant showing very poor compliance medication review with interval to give her her next long-acting injection Justification for Continued Inpatient Stay: At this time patient would decompensate a place to a lower level of care Discharge Planning: Continue to await word from [facility] hospital placement Request Healthcare Surrogate/Guardian Advocate?: Yes (1) Schizophrenia Qualifiers: Schizophrenia type: paranoid schizophrenia Qualified Code(s): F20.0 - Paranoid schizophrenia
[2018-04-03] MEDS: Levothyroxine 112 MCG Tablet PO SCH (05:44)
[2018-04-03] MEDS: Ibuprofen 600 MG Tablet PO PRN ×2 (05:46→19:18)
[2018-04-03] MEDS: glipiZIDE 5 MG Tablet PO SCH ×2 (07:23→16:57)
[2018-04-03] MEDS: Lisinopril 20 MG Tablet PO SCH (08:39)
[2018-04-03] MEDS: Pantoprazole Sodium 20 MG DR Tablet PO SCH ×2 (08:39→21:03)
[2018-04-03] MEDS: amLODIPine 5 MG Tablet PO SCH (08:39)
[2018-04-03] MEDS: Sertraline 100 MG Tablet PO SCH (08:40)
--- NOTE | 2018-04-03 14:34 | P.PNPSY ---
Subjective Chief Complaint: Schizophrenia Remarks: Patient seen and nails with nurse Teresa, chart reviewed, patient showing mixed compliance medication. Patient initially continues angry irritable with me asking me why I am talking with her. She then walked away from me. However prior to my dictating this note she came to the staff and said that she now wanted to take her medication that I would prescribe for her I will order invega orally 9 mg daily. Since she is on day 21 of the in Layne sustain a injection Review of Systems All other systems reviewed negative except as stated in HPI Mental Status Examination Appearance: Appropriate Consciousness: Alert Orientation: Person, Place, Situation Motor Activity: Normal gait Speech: Pressured (Diminishing), Rapid (Slower) Language: Adequate Fund of Knowledge: Adequate Attention and Concentration: Inadequate Memory: Unremarkable (Not formally tested) Mood: Angry, Oppositional (Improving), Irritable (Improving) Affect: Other (Decreased range and intensity) Thought Process & Associations: Loose associations (Somewhat more focused), Disorganized Thought Content: Bizarre thinking, Delusional Hallucination Type: Auditory (Vaguely denies today) Delusion Type: Bizarre (Somewhat improved), Paranoid Suicidal Ideation: No Suicidal Plan: No Suicidal Intention: No Homicidal Ideation: No Homicidal Plan: No Insight: Poor Judgment: Poor Assessment and Plan - Assessment (1) Schizophrenia Code(s): F20.9 - Schizophrenia, unspecified Status: Acute - Plan Plan: Patient continues paranoid delusional angry and irritable though for some reason she showed some delayed agreement and willingness to take oral medications thus I will offer her in Layne orally and 9 mg daily Justification for Continued Inpatient Stay: At this time patient would decompensate a place to a lower level of care Discharge Planning: To be determined Request Healthcare Surrogate/Guardian Advocate?: Yes (1) Schizophrenia Qualifiers: Schizophrenia type: paranoid schizophrenia Qualified Code(s): F20.0 - Paranoid schizophrenia
[2018-04-04] MEDS: Levothyroxine 112 MCG Tablet PO SCH (06:48)
[2018-04-04] MEDS: glipiZIDE 5 MG Tablet PO SCH ×2 (09:41→18:33)
[2018-04-04] MEDS: amLODIPine 5 MG Tablet PO SCH (09:43)
[2018-04-04] MEDS: Sertraline 100 MG Tablet PO SCH (09:44)
[2018-04-04] MEDS: Lisinopril 20 MG Tablet PO SCH (09:44)
[2018-04-04] MEDS: Pantoprazole Sodium 20 MG DR Tablet PO SCH ×2 (09:44→21:13)
[2018-04-04] MEDS: Ibuprofen 600 MG Tablet PO PRN (11:51)
--- NOTE | 2018-04-04 15:41 | P.PNPSY ---
Subjective Chief Complaint: Schizophrenia Remarks: Patient seen in day room with nurse Kristi, chart reviewed, patient continues to refuse all oral medications though she made the agreement yesterday. Continues quite paranoid angry irritable and intrusive. Continue to await word from [facility] referral Review of Systems All other systems reviewed negative except as stated in HPI Mental Status Examination Appearance: Appropriate Consciousness: Alert Orientation: Person, Place, Situation Motor Activity: Normal gait Speech: Pressured (Diminishing), Rapid (Slower) Language: Adequate Fund of Knowledge: Adequate Attention and Concentration: Inadequate Memory: Unremarkable (Not formally tested) Mood: Angry, Oppositional (Improving), Irritable (Improving) Affect: Other (Decreased range and intensity) Thought Process & Associations: Loose associations (Somewhat more focused), Disorganized Thought Content: Bizarre thinking, Delusional Hallucination Type: Auditory (Vaguely denies today) Delusion Type: Bizarre (Somewhat improved), Paranoid Suicidal Ideation: No Suicidal Plan: No Suicidal Intention: No Homicidal Ideation: No Homicidal Plan: No Insight: Poor Judgment: Poor Assessment and Plan - Assessment (1) Schizophrenia Code(s): F20.9 - Schizophrenia, unspecified Status: Acute - Plan Plan: Patient remained psychotic delusional paranoid, still refusing oral medication. For now continue treatment consider booster of in Layne sustain her within the next few days Justification for Continued Inpatient Stay: At this time patient would decompensate a place to a lower level of care Discharge Planning: Continue to await word from [facility] referral Request Healthcare Surrogate/Guardian Advocate?: Yes (1) Schizophrenia Qualifiers: Schizophrenia type: paranoid schizophrenia Qualified Code(s): F20.0 - Paranoid schizophrenia
[2018-04-05] MEDS: Levothyroxine 112 MCG Tablet PO SCH (05:27)
[2018-04-05] MEDS: glipiZIDE 5 MG Tablet PO SCH (10:12)
[2018-04-05] MEDS: amLODIPine 5 MG Tablet PO SCH (10:14)
[2018-04-05] MEDS: Lisinopril 20 MG Tablet PO SCH (10:14)
[2018-04-05] MEDS: Sertraline 100 MG Tablet PO SCH (10:15)
[2018-04-05] MEDS: Pantoprazole Sodium 20 MG DR Tablet PO SCH ×2 (10:15→21:02)
--- NOTE | 2018-04-05 12:39 | P.PNPSY ---
Subjective Chief Complaint: Schizophrenia Remarks: Patient seen laying on her bed in her room with nurse Rancho, chart reviewed, patient continues selective in her medications has been compliant with the in Layne orally and the BuSpar. Refusing other medications. She continues to remain angry irritable intrusive and paranoid but slightly softer than yesterday Review of Systems All other systems reviewed negative except as stated in HPI Mental Status Examination Appearance: Appropriate Consciousness: Alert Orientation: Person, Place, Situation Motor Activity: Normal gait Speech: Pressured (Diminishing), Rapid (Slower) Language: Adequate Fund of Knowledge: Adequate Attention and Concentration: Inadequate Memory: Unremarkable (Not formally tested) Mood: Angry, Oppositional (Improving), Irritable (Improving) Affect: Other (Decreased range and intensity) Thought Process & Associations: Loose associations (Somewhat more focused), Disorganized Thought Content: Bizarre thinking, Delusional Hallucination Type: Auditory (Vaguely denies today) Delusion Type: Bizarre (Somewhat improved), Paranoid Suicidal Ideation: No Suicidal Plan: No Suicidal Intention: No Homicidal Ideation: No Homicidal Plan: No Insight: Poor Judgment: Poor Assessment and Plan - Assessment (1) Schizophrenia Code(s): F20.9 - Schizophrenia, unspecified Status: Acute - Plan Plan: Patient continues psychotic paranoid with mixed compliance medication Justification for Continued Inpatient Stay: At this time patient would decompensate if placed in a lower level of care Discharge Planning: To be determined Request Healthcare Surrogate/Guardian Advocate?: Yes (1) Schizophrenia Qualifiers: Schizophrenia type: paranoid schizophrenia Qualified Code(s): F20.0 - Paranoid schizophrenia
[2018-04-06] MEDS: Levothyroxine 112 MCG Tablet PO SCH (06:04)
[2018-04-06] MEDS: Ibuprofen 600 MG Tablet PO PRN (09:48)
[2018-04-06] MEDS: glipiZIDE 5 MG Tablet PO SCH ×2 (10:04→16:53)
[2018-04-06] MEDS: amLODIPine 5 MG Tablet PO SCH (10:05)
[2018-04-06] MEDS: Sertraline 100 MG Tablet PO SCH (10:06)
[2018-04-06] MEDS: Lisinopril 20 MG Tablet PO SCH (10:06)
[2018-04-06] MEDS: Pantoprazole Sodium 20 MG DR Tablet PO SCH ×2 (10:06→21:26)
--- NOTE | 2018-04-06 16:01 | P.PNPSY ---
Subjective Chief Complaint: Schizophrenia Remarks: Patient seen in day room with nurse Rochelle, attempted to discuss with patient her behaviors last night when she was threatening towards the staff who requested that they allow her to check her blood sugar level. Patient threatened to scratch their eyes out if they came near her. Patient denied this today becoming markedly angry standing up vivid yelling and wanting to fire me and get a new doctor. Review of Systems All other systems reviewed negative except as stated in HPI Mental Status Examination Appearance: Appropriate Consciousness: Alert Orientation: Person, Place, Situation Motor Activity: Normal gait Speech: Pressured (Diminishing), Rapid (Slower) Language: Adequate Fund of Knowledge: Adequate Attention and Concentration: Inadequate Memory: Unremarkable (Not formally tested) Mood: Angry, Oppositional (Improving), Irritable (Improving) Affect: Other (Decreased range and intensity) Thought Process & Associations: Loose associations (Somewhat more focused), Disorganized Thought Content: Bizarre thinking, Delusional Hallucination Type: Auditory (Vaguely denies today) Delusion Type: Bizarre (Somewhat improved), Paranoid Suicidal Ideation: No Suicidal Plan: No Suicidal Intention: No Homicidal Ideation: No Homicidal Plan: No Insight: Poor Judgment: Poor Assessment and Plan - Assessment (1) Schizophrenia Code(s): F20.9 - Schizophrenia, unspecified Status: Acute - Plan Plan: Patient remains quite psychotic delusional paranoid intrusive and hostile. Though she does reluctantly selectively compliant meds continue to await word from [facility] Justification for Continued Inpatient Stay: At this time patient would decompensate a place to a lower level of care Discharge Planning: To be determined Request Healthcare Surrogate/Guardian Advocate?: Yes (1) Schizophrenia Qualifiers: Schizophrenia type: paranoid schizophrenia Qualified Code(s): F20.0 - Paranoid schizophrenia
[2018-04-07] MEDS: Levothyroxine 112 MCG Tablet PO SCH (09:07)
[2018-04-07] MEDS: glipiZIDE 5 MG Tablet PO SCH ×2 (09:07→16:24)
[2018-04-07] MEDS: Pantoprazole Sodium 20 MG DR Tablet PO SCH ×2 (09:08→21:42)
[2018-04-07] MEDS: Sertraline 100 MG Tablet PO SCH (09:08)
[2018-04-07] MEDS: Ibuprofen 600 MG Tablet PO PRN (09:08)
[2018-04-07] MEDS: Lisinopril 20 MG Tablet PO SCH (09:08)
[2018-04-07] MEDS: amLODIPine 5 MG Tablet PO SCH (09:08)
--- NOTE | 2018-04-07 16:01 | P.PNPSY ---
Subjective Chief Complaint: Schizophrenia Remarks: Reviewed electronic medical records and discussed case with staff. Patient refusing to talk to this provider. Nurse reports that she took her in Layne this morning however, she refused all of her other medications. Mental Status Examination Appearance: Appropriate Consciousness: Alert Orientation: Person, Place, Situation Motor Activity: Normal gait Speech: Pressured (Diminishing), Rapid (Slower) Language: Adequate Fund of Knowledge: Adequate Attention and Concentration: Inadequate Memory: Unremarkable (Not formally tested) Mood: Angry, Oppositional (Improving), Irritable (Improving) Affect: Other (Decreased range and intensity) Thought Process & Associations: Loose associations (Somewhat more focused), Disorganized Thought Content: Bizarre thinking, Delusional Hallucination Type: Auditory (Vaguely denies today) Delusion Type: Bizarre (Somewhat improved), Paranoid Suicidal Ideation: No Suicidal Plan: No Suicidal Intention: No Homicidal Ideation: No Homicidal Plan: No Insight: Poor Judgment: Poor Assessment and Plan - Assessment (1) Schizophrenia Code(s): F20.9 - Schizophrenia, unspecified Status: Acute - Plan Plan: Patient will be reevaluated Monday by the attending psychiatrist. Continue with current treatment plan. Justification for Continued Inpatient Stay: Moving this patient to a less restrictive environment would likely result in decompensation. Request Healthcare Surrogate/Guardian Advocate?: Yes (1) Schizophrenia Qualifiers: Schizophrenia type: paranoid schizophrenia Qualified Code(s): F20.0 - Paranoid schizophrenia
[2018-04-08] MEDS: Levothyroxine 112 MCG Tablet PO SCH (05:17)
[2018-04-08] MEDS: Ibuprofen 600 MG Tablet PO PRN (11:00)
[2018-04-08] MEDS: glipiZIDE 5 MG Tablet PO SCH ×2 (14:35→17:23)
[2018-04-08] MEDS: Sertraline 100 MG Tablet PO SCH (14:46)
[2018-04-08] MEDS: amLODIPine 5 MG Tablet PO SCH (14:46)
[2018-04-08] MEDS: Lisinopril 20 MG Tablet PO SCH (14:46)
[2018-04-08] MEDS: Pantoprazole Sodium 20 MG DR Tablet PO SCH ×2 (14:46→22:32)
--- NOTE | 2018-04-08 15:00 | P.PNPSY ---
Subjective Chief Complaint: Schizophrenia Remarks: Reviewed electronic medical records and discussed case with staff. Follow-up was conducted in patient's room JESS Yepez. Patient lying on her bed. She states, " I don't have any ovaries, vagina, uterus or fallopian tubes, I need hormone therapy , because everything is in my prostate." She is irritable and easily distracted. Patient is paranoid, delusional and unable to focus. She escalates easily and gets angry. She will not answer questions so it is difficult to determine the extent of her internal stimulation. She is eating and sleeping. Review of Systems All other systems reviewed negative except as stated in HPI Mental Status Examination Appearance: Appropriate Consciousness: Alert Orientation: Person, Place, Situation Motor Activity: Normal gait Speech: Pressured (Diminishing), Rapid (Slower) Language: Adequate Fund of Knowledge: Adequate Attention and Concentration: Inadequate Memory: Unremarkable (Not formally tested) Mood: Angry, Oppositional (Improving), Irritable (Improving) Affect: Other (Decreased range and intensity) Thought Process & Associations: Loose associations (Somewhat more focused), Disorganized Thought Content: Bizarre thinking, Delusional Hallucination Type: Auditory (Vaguely denies today) Delusion Type: Bizarre (Somewhat improved), Paranoid Suicidal Ideation: No Suicidal Plan: No Suicidal Intention: No Homicidal Ideation: No Homicidal Plan: No Insight: Poor Judgment: Poor Assessment and Plan - Assessment (1) Schizophrenia Code(s): F20.9 - Schizophrenia, unspecified Status: Acute - Plan Plan: Patient will be reevaluated Monday by the attending psychiatrist. Continue with current treatment plan. Justification for Continued Inpatient Stay: Moving patient to a less restrictive environment may result in her decompensation. Request Healthcare Surrogate/Guardian Advocate?: Yes
[2018-04-09] MEDS: Levothyroxine 112 MCG Tablet PO SCH (07:34)
[2018-04-09] MEDS: glipiZIDE 5 MG Tablet PO SCH ×2 (09:02→17:48)
[2018-04-09] MEDS: amLODIPine 5 MG Tablet PO SCH (09:03)
[2018-04-09] MEDS: Lisinopril 20 MG Tablet PO SCH (09:03)
[2018-04-09] MEDS: Pantoprazole Sodium 20 MG DR Tablet PO SCH ×2 (09:04→20:42)
[2018-04-09] MEDS: Sertraline 100 MG Tablet PO SCH (09:05)
--- NOTE | 2018-04-09 14:25 | P.PNPSY ---
Subjective Chief Complaint: Schizophrenia Remarks: Patient seen and nails with floor staff, chart reviewed, patient continues mixed compliance with medication. Patient continues delusional angry paranoid irritable and at times with attempting to be intimidating. For now continue treatment Review of Systems All other systems reviewed negative except as stated in HPI Mental Status Examination Appearance: Appropriate Consciousness: Alert Orientation: Person, Place, Situation Motor Activity: Normal gait Speech: Pressured (Diminishing), Rapid (Slower) Language: Adequate Fund of Knowledge: Adequate Attention and Concentration: Inadequate Memory: Unremarkable (Not formally tested) Mood: Angry, Oppositional (Improving), Irritable (Improving) Affect: Other (Decreased range and intensity) Thought Process & Associations: Loose associations (Somewhat more focused), Disorganized Thought Content: Bizarre thinking, Delusional Hallucination Type: Auditory (Vaguely denies today) Delusion Type: Bizarre (Somewhat improved), Paranoid Suicidal Ideation: No Suicidal Plan: No Suicidal Intention: No Homicidal Ideation: No Homicidal Plan: No Insight: Poor Judgment: Poor Assessment and Plan - Assessment (1) Schizophrenia Code(s): F20.9 - Schizophrenia, unspecified Status: Acute - Plan Plan: Patient remains quite psychotic delusional paranoid Justification for Continued Inpatient Stay: At this time patient would decompensate a place to a lower level of care Discharge Planning: Continue to await word from [facility] referral Request Healthcare Surrogate/Guardian Advocate?: Yes (1) Schizophrenia Qualifiers: Schizophrenia type: paranoid schizophrenia Qualified Code(s): F20.0 - Paranoid schizophrenia
--- NOTE | 2018-04-09 15:52 | P.TTN ---
- Patient Problems Problems: 1. Discharge planning 2. Medication compliance 3. Knowledge deficit 4. Lack of coping skills - Progress Toward Goals Provider Present: Dr. Pily Kilgore, Dr. Darion Reveles Provider Input: needs further stabilization, still psychotic, FACT team hopes she can return home- if not critical access hospital referral is suggested/ order is placed but packet not sent yet. March 27, 2018, no changes with patient, patient does not appear to be making progress toward treatment goals, patient requires further stabilization. Apr 06, 2018: Refusing medications: referred to the [facility]. Paranoid and suspicious. Psychiatric Counselors Present: Cecy Jenkins LCSW (remains psychotic and very pre-occupied, delusional but in behavioral control), Marky Taylor Jr., RCSWI ( Patient presents with disorganized thoughts, irritable mood, and remains on the [facility] wait list at this time.), Brandy Baker, [facility] Psychiatric Therapist Input: Flat, psychotic, unstable, anticipated [facility]. Doesn't like Counselors, very suspicious, Group Spec/RT/OT/WRIGHT Present: CRISTINE Moon, ADRIANA Lora ( attends most groups and engages limited ), ADRIANA Damon (Patient attends select groups.) Group Spec/RT/OT/WRIGHT Input: kwabena: Patient attends the group activities on a regular basis. Pt is anti-social with peers but pleasant to select staff.. Pt is easily overwhelmed. - Documentation Teaching Recipient: Patient
[2018-04-10] MEDS: Levothyroxine 112 MCG Tablet PO SCH (06:00)
[2018-04-10] MEDS: glipiZIDE 5 MG Tablet PO SCH ×2 (09:35→18:25)
[2018-04-10] MEDS: Lisinopril 20 MG Tablet PO SCH (09:37)
[2018-04-10] MEDS: Sertraline 100 MG Tablet PO SCH (09:37)
[2018-04-10] MEDS: Pantoprazole Sodium 20 MG DR Tablet PO SCH ×2 (09:37→21:40)
[2018-04-10] MEDS: amLODIPine 5 MG Tablet PO SCH (09:37)
--- NOTE | 2018-04-10 16:03 | P.PNPSY ---
Subjective Chief Complaint: Schizophrenia Remarks: Patient seen and nails with floor staff, chart reviewed, patient still selectively compliant medication. Patient continues to be angry paranoid vigilant with me continues quite delusional also related to her diagnosis or treatment her medications. We continue to await word from [facility] referral Review of Systems All other systems reviewed negative except as stated in HPI Mental Status Examination Appearance: Appropriate Consciousness: Alert Orientation: Person, Place, Situation Motor Activity: Normal gait Speech: Pressured (Diminishing), Rapid (Slower) Language: Adequate Fund of Knowledge: Adequate Attention and Concentration: Inadequate Memory: Unremarkable (Not formally tested) Mood: Angry, Oppositional (Improving), Irritable (Improving) Affect: Other (Decreased range and intensity) Thought Process & Associations: Loose associations (Somewhat more focused), Disorganized Thought Content: Bizarre thinking, Delusional Hallucination Type: Auditory (Vaguely denies today) Delusion Type: Bizarre (Somewhat improved), Paranoid Suicidal Ideation: No Suicidal Plan: No Suicidal Intention: No Homicidal Ideation: No Homicidal Plan: No Insight: Poor Judgment: Poor Assessment and Plan - Assessment (1) Schizophrenia Code(s): F20.9 - Schizophrenia, unspecified Status: Acute - Plan Plan: Patient remains paranoid delusional angry and vigilant. Selectively compliant with medication Justification for Continued Inpatient Stay: At this time patient would decompensate a place to a lower level of care Discharge Planning: Continue to await word from [facility] placement Request Healthcare Surrogate/Guardian Advocate?: Yes (1) Schizophrenia Qualifiers: Schizophrenia type: paranoid schizophrenia Qualified Code(s): F20.0 - Paranoid schizophrenia
[2018-04-10] MEDS: Ibuprofen 600 MG Tablet PO PRN (18:26)
[2018-04-11] MEDS: Levothyroxine 112 MCG Tablet PO SCH (05:35)
[2018-04-11] MEDS: Ibuprofen 600 MG Tablet PO PRN (08:41)
[2018-04-11] MEDS: glipiZIDE 5 MG Tablet PO SCH ×2 (08:48→16:42)
[2018-04-11] MEDS: Pantoprazole Sodium 20 MG DR Tablet PO SCH ×2 (08:48→21:04)
[2018-04-11] MEDS: Lisinopril 20 MG Tablet PO SCH (08:48)
[2018-04-11] MEDS: amLODIPine 5 MG Tablet PO SCH (08:48)
[2018-04-11] MEDS: Sertraline 100 MG Tablet PO SCH (08:48)
--- NOTE | 2018-04-11 10:26 | P.PNPSY ---
Subjective Chief Complaint: Schizophrenia Remarks: Reviewed electronic medical records and discussed case with staff. Follow-up was conducted in patient's room with JESS Cabezas present. Patient was found in her bed awake, alert, and oriented to self and place at least. Her nurse reports that she did take her in [place] this morning but as per her usual refused all other meds. Patient reports that she slept well last night but did not than 2 nights before. States she has not had much of an appetite. When asked was wrong with her appetite she replies "I have been eating the same ship for the past 2 months". When asked about her mood she responds "not good, I am sarcastic vindictive and you are making me more so ". She then reports that she no longer wants to talk to me. Mental Status Examination Appearance: Appropriate Consciousness: Alert Orientation: Person, Place, Situation Motor Activity: Normal gait Speech: Pressured (Diminishing), Rapid (Slower) Language: Adequate Fund of Knowledge: Adequate Attention and Concentration: Inadequate Memory: Unremarkable (Not formally tested) Mood: Angry, Oppositional (Improving), Irritable (Improving) Affect: Other (Decreased range and intensity) Thought Process & Associations: Loose associations (Somewhat more focused), Disorganized Thought Content: Bizarre thinking, Delusional Hallucination Type: Auditory (Vaguely denies today) Delusion Type: Bizarre (Somewhat improved), Paranoid Suicidal Ideation: No Suicidal Plan: No Suicidal Intention: No Homicidal Ideation: No Homicidal Plan: No Insight: Poor Judgment: Poor Assessment and Plan - Assessment (1) Schizophrenia Code(s): F20.9 - Schizophrenia, unspecified Status: Acute - Plan Plan: Patient will be reevaluated Monday by the attending psychiatrist. Continue with current treatment plan. Justification for Continued Inpatient Stay: Moving this patient to a less restrictive environment would likely result in decompensation. Request Healthcare Surrogate/Guardian Advocate?: Yes (1) Schizophrenia Qualifiers: Schizophrenia type: paranoid schizophrenia Qualified Code(s): F20.0 - Paranoid schizophrenia
[2018-04-12] MEDS: Levothyroxine 112 MCG Tablet PO SCH (06:40)
[2018-04-12] MEDS: Ibuprofen 600 MG Tablet PO PRN ×2 (08:30→17:13)
[2018-04-12] MEDS: glipiZIDE 5 MG Tablet PO SCH ×2 (08:31→17:08)
[2018-04-12] MEDS: Paliperidone Inj 234 MG/1.5 ML Syringe IM SCH (08:36)
[2018-04-12] MEDS: amLODIPine 5 MG Tablet PO SCH (08:37)
[2018-04-12] MEDS: Lisinopril 20 MG Tablet PO SCH (08:37)
[2018-04-12] MEDS: Pantoprazole Sodium 20 MG DR Tablet PO SCH ×2 (08:37→21:24)
[2018-04-12] MEDS: Sertraline 100 MG Tablet PO SCH (08:37)
--- NOTE | 2018-04-12 17:11 | P.PNPSY ---
Subjective Chief Complaint: Schizophrenia Remarks: Reviewed electronic medical records and discussed case with staff. Follow-up was conducted in the patient's room with JESS Cabezas present. Patient initially states that she does not want to speak with anyone because she is irritated. When asked why she is irritated she responds "nobody will tell me how court went today". Explained to her that she has not been on the doctor today. She is on reports that she has not been sleeping well but her appetite's been good. She actually presented fairly well today until Dr. Kilgore's name is brought up. She then became delusional and vulgar. Mental Status Examination Appearance: Appropriate Consciousness: Alert Orientation: Person, Place, Situation Motor Activity: Normal gait Speech: Pressured (Diminishing), Rapid (Slower) Language: Adequate Fund of Knowledge: Adequate Attention and Concentration: Inadequate Memory: Unremarkable (Not formally tested) Mood: Angry, Oppositional (Improving), Irritable (Improving) Affect: Other (Decreased range and intensity) Thought Process & Associations: Loose associations (Somewhat more focused), Disorganized Thought Content: Bizarre thinking, Delusional Hallucination Type: Auditory (Vaguely denies today) Delusion Type: Bizarre (Somewhat improved), Paranoid Suicidal Ideation: No Suicidal Plan: No Suicidal Intention: No Homicidal Ideation: No Homicidal Plan: No Insight: Poor Judgment: Poor Assessment and Plan - Assessment (1) Schizophrenia Code(s): F20.9 - Schizophrenia, unspecified Status: Acute - Plan Plan: Continue with current treatment plan. Patient awaiting placement at state facility. Justification for Continued Inpatient Stay: Moving this patient to a less restrictive environment would likely result in decompensation. Request Healthcare Surrogate/Guardian Advocate?: Yes (1) Schizophrenia Qualifiers: Schizophrenia type: paranoid schizophrenia Qualified Code(s): F20.0 - Paranoid schizophrenia
[2018-04-13] MEDS: Levothyroxine 112 MCG Tablet PO SCH (05:12)
[2018-04-13] MEDS: Ibuprofen 600 MG Tablet PO PRN (10:02)
[2018-04-13] MEDS: glipiZIDE 5 MG Tablet PO SCH ×2 (11:18→18:25)
[2018-04-13] MEDS: amLODIPine 5 MG Tablet PO SCH (11:19)
[2018-04-13] MEDS: Sertraline 100 MG Tablet PO SCH (11:19)
[2018-04-13] MEDS: Pantoprazole Sodium 20 MG DR Tablet PO SCH ×2 (11:19→21:32)
[2018-04-13] MEDS: Lisinopril 20 MG Tablet PO SCH (11:19)
--- NOTE | 2018-04-13 17:16 | P.PNPSY ---
Subjective Chief Complaint: Schizophrenia Remarks: The patient was seen today for psychiatric reevaluation. Patient was found the recreational area of the unit. Initially irritable, refusing to cooperate, is stating that I have not her doctor. But redirectable. She reports good mood, she says that she did not want to talk to me because she did not know who I was. She says that she does want to go home. She is unable to tell me the reason she is here. She is fully oriented. Denies suicidal and homicidal ideation, denies visual and auditory hallucinations. The patient is compliant on her medications, no significant side effects. No agitation, no aggressive behavior reported. Mental Status Examination Appearance: Appropriate Consciousness: Alert Orientation: Person, Place, Situation Motor Activity: Normal gait Speech: Pressured (Diminishing), Rapid (Slower) Language: Adequate Fund of Knowledge: Adequate Attention and Concentration: Inadequate Memory: Unremarkable (Not formally tested) Mood: Angry, Oppositional (Improving), Irritable (Improving) Affect: Other (Decreased range and intensity) Thought Process & Associations: Loose associations (Somewhat more focused), Disorganized Thought Content: Bizarre thinking, Delusional Hallucination Type: Auditory (Vaguely denies today) Delusion Type: Bizarre (Somewhat improved), Paranoid Suicidal Ideation: No Suicidal Plan: No Suicidal Intention: No Homicidal Ideation: No Homicidal Plan: No Insight: Poor Judgment: Poor Assessment and Plan - Assessment (1) Schizophrenia Code(s): F20.9 - Schizophrenia, unspecified Status: Acute - Plan Plan: Continue current psychotropic regimen. Patient seems to be close to baseline. Justification for Continued Inpatient Stay: Patient has an elevated risk to decompensate at a lower level of care Request Healthcare Surrogate/Guardian Advocate?: Yes (1) Schizophrenia Qualifiers: Schizophrenia type: paranoid schizophrenia Qualified Code(s): F20.0 - Paranoid schizophrenia
[2018-04-14] MEDS: Levothyroxine 112 MCG Tablet PO SCH (06:09)
[2018-04-14] MEDS: Ibuprofen 600 MG Tablet PO PRN (09:12)
[2018-04-14] MEDS: glipiZIDE 5 MG Tablet PO SCH ×2 (09:15→19:43)
[2018-04-14] MEDS: amLODIPine 5 MG Tablet PO SCH (09:15)
[2018-04-14] MEDS: Pantoprazole Sodium 20 MG DR Tablet PO SCH ×2 (09:16→20:51)
[2018-04-14] MEDS: Sertraline 100 MG Tablet PO SCH (09:16)
[2018-04-14] MEDS: Lisinopril 20 MG Tablet PO SCH (09:16)
--- NOTE | 2018-04-14 13:50 | P.PNPSY ---
Subjective Chief Complaint: Schizophrenia Remarks: Pt seen and discussed with staff. Staff report that she has been compliant with invega but refuses other medications stating that she doesn't need them. She has been isolative to her room, but on occasion has participated in group activities. Today, RN reports that pt has been less irritable today and has been cooperative on unit. Hygiene is poor. She gets angry during interview and accuses Dr. Kilgore of conspiring against her by having MD see her today. Mental Status Examination Appearance: Appropriate Consciousness: Alert Orientation: Person, Place, Situation Motor Activity: Normal gait Speech: Pressured (Diminishing), Rapid (Slower) Language: Adequate Fund of Knowledge: Adequate Attention and Concentration: Inadequate Memory: Unremarkable (Not formally tested) Mood: Angry, Oppositional (Improving), Irritable (Improving) Affect: Other (Angry) Thought Process & Associations: Loose associations (Somewhat more focused), Disorganized Thought Content: Bizarre thinking, Delusional Hallucination Type: Auditory (Vaguely denies today) Delusion Type: Bizarre (Somewhat improved), Paranoid Suicidal Ideation: No Suicidal Plan: No Suicidal Intention: No Homicidal Ideation: No Homicidal Plan: No Insight: Poor Judgment: Poor Assessment and Plan - Assessment (1) Schizophrenia Code(s): F20.9 - Schizophrenia, unspecified Status: Acute - Plan Plan: Continue current tx plan Justification for Continued Inpatient Stay: agitation and psychosis Request Healthcare Surrogate/Guardian Advocate?: Yes (1) Schizophrenia Qualifiers: Schizophrenia type: paranoid schizophrenia Qualified Code(s): F20.0 - Paranoid schizophrenia
[2018-04-15] MEDS: Levothyroxine 112 MCG Tablet PO SCH (06:24)
[2018-04-15] MEDS: Ibuprofen 600 MG Tablet PO PRN (09:02)
[2018-04-15] MEDS: glipiZIDE 5 MG Tablet PO SCH ×2 (09:03→17:29)
[2018-04-15] MEDS: amLODIPine 5 MG Tablet PO SCH (09:04)
[2018-04-15] MEDS: Lisinopril 20 MG Tablet PO SCH (09:04)
[2018-04-15] MEDS: Sertraline 100 MG Tablet PO SCH (09:05)
[2018-04-15] MEDS: Pantoprazole Sodium 20 MG DR Tablet PO SCH ×2 (09:05→21:55)
--- NOTE | 2018-04-15 11:36 | P.PNPSY ---
Subjective Chief Complaint: Schizophrenia Remarks: Medical record reviewed and discussed with nursing staff. JESS Callejas and I met with patient in her room. She states that she did not sleep last night and she is tired. Nurse reports that she is medication compliant with her Invega and will request Motrin. Hygiene is poor and she is very seclusive to her room. Patient will be encouraged to complete her ADLs and participate in activities on the unit. She does come out of her room for meals. Review of Systems All other systems reviewed negative except as stated in HPI Mental Status Examination Appearance: Appropriate Consciousness: Alert Orientation: Person, Place, Situation Motor Activity: Normal gait Speech: Pressured (Diminishing), Rapid (Slower) Language: Adequate Fund of Knowledge: Adequate Attention and Concentration: Inadequate Memory: Unremarkable (Not formally tested) Mood: Angry, Oppositional (Improving), Irritable (Improving) Affect: Other (Angry) Thought Process & Associations: Loose associations (Somewhat more focused), Disorganized Thought Content: Bizarre thinking, Delusional Hallucination Type: Auditory (Vaguely denies today) Delusion Type: Bizarre (Somewhat improved), Paranoid Suicidal Ideation: No Suicidal Plan: No Suicidal Intention: No Homicidal Ideation: No Homicidal Plan: No Insight: Poor Judgment: Poor Assessment and Plan - Assessment (1) Schizophrenia Code(s): F20.9 - Schizophrenia, unspecified Status: Acute - Plan Plan: Continue current tx plan Justification for Continued Inpatient Stay: Moving patient to a less restrictive environment may result in her decompensation. Request Healthcare Surrogate/Guardian Advocate?: Yes
[2018-04-16] MEDS: Levothyroxine 112 MCG Tablet PO SCH (06:20)
[2018-04-16] MEDS: Ibuprofen 600 MG Tablet PO PRN (08:01)
[2018-04-16] MEDS: glipiZIDE 5 MG Tablet PO SCH ×2 (08:02→17:50)
[2018-04-16] MEDS: Lisinopril 20 MG Tablet PO SCH (08:02)
[2018-04-16] MEDS: Pantoprazole Sodium 20 MG DR Tablet PO SCH ×2 (08:02→21:10)
[2018-04-16] MEDS: amLODIPine 5 MG Tablet PO SCH (08:02)
[2018-04-16] MEDS: Sertraline 100 MG Tablet PO SCH (08:02)
--- NOTE | 2018-04-16 14:57 | P.PNPSY ---
Subjective Chief Complaint: Schizophrenia Remarks: Reviewed electronic medical records and discussed case with staff. Follow-up was conducted in the patient's room with JESS Cabezas present. Patient found lying on bed. She states that she slept well and her appetite's been good. She tries to convince this provider that Dr. Wong said she could leave on Monday. When I informed her that he would not I said that she responded, "you are a lying bitch and I don't want talk to you". She continues to be irritable and seclusive to her room. Mental Status Examination Appearance: Appropriate Consciousness: Alert Orientation: Person, Place, Situation Motor Activity: Normal gait Speech: Pressured (Diminishing), Rapid (Slower) Language: Adequate Fund of Knowledge: Adequate Attention and Concentration: Inadequate Memory: Unremarkable (Not formally tested) Mood: Angry, Oppositional (Improving), Irritable (Improving) Affect: Other (Angry) Thought Process & Associations: Loose associations (Somewhat more focused), Disorganized Thought Content: Bizarre thinking, Delusional Hallucination Type: Auditory (Vaguely denies today) Delusion Type: Bizarre (Somewhat improved), Paranoid Suicidal Ideation: No Suicidal Plan: No Suicidal Intention: No Homicidal Ideation: No Homicidal Plan: No Insight: Poor Judgment: Poor Assessment and Plan - Assessment (1) Schizophrenia Code(s): F20.9 - Schizophrenia, unspecified Status: Acute - Plan Plan: Patient will be reevaluated Monday by the attending psychiatrist. Continue with current treatment plan. Justification for Continued Inpatient Stay: Moving this patient to a less restrictive environment would likely result in decompensation. Discharge Planning: State placement in progress Request Healthcare Surrogate/Guardian Advocate?: Yes (1) Schizophrenia Qualifiers: Schizophrenia type: paranoid schizophrenia Qualified Code(s): F20.0 - Paranoid schizophrenia
[2018-04-17] MEDS: glipiZIDE 5 MG Tablet PO SCH ×2 (08:48→17:59)
[2018-04-17] MEDS: Levothyroxine 112 MCG Tablet PO SCH ×2 (08:48→09:21)
[2018-04-17] MEDS: amLODIPine 5 MG Tablet PO SCH (08:49)
[2018-04-17] MEDS: Ibuprofen 600 MG Tablet PO PRN (08:50)
[2018-04-17] MEDS: Pantoprazole Sodium 20 MG DR Tablet PO SCH ×2 (08:50→21:07)
[2018-04-17] MEDS: Lisinopril 20 MG Tablet PO SCH (08:50)
[2018-04-17] MEDS: Sertraline 100 MG Tablet PO SCH (08:50)
--- NOTE | 2018-04-17 11:44 | P.PNPSY ---
Subjective Chief Complaint: Schizophrenia Remarks: Patient seen and examined with nurse in coverage for Dr. Kilgore. Chart reviewed. Case discussed with nursing staff. On my examination today, the patient is somewhat irritable and discharged focused. When I inquire whether she is experiencing side effects from medications, she replies tartly "does it matter?" She does ultimately denies side effects from medications. Denies audiovisual hallucinations. Denies SI or HI. No physical complaints. Vital Signs Temp Pulse BP Pulse Ox 04/16/18 17:43 97.2 F L 75 136/69 94 L Intake and Output 04/16/18 04/17/18 04/17/18 22:59 06:59 14:59 Other: Date of Last Bowel Movement 04/16/18 Labs reviewed. Review of Systems All other systems reviewed negative except as stated in HPI (Limitation: Poor historian) Mental Status Examination Appearance: Appropriate Consciousness: Alert Orientation: Person, Place (At least) Motor Activity: Normal gait Speech: Unremarkable Language: Adequate Fund of Knowledge: Adequate Attention and Concentration: Adequate (Fair) Memory: Unremarkable (Grossly intact on clinical examination) Mood: Oppositional (Mild), Irritable (Mild) Affect: Irritable Thought Process & Associations: Intact Thought Content: Appropriate Hallucination Type: None Delusion Type: None Suicidal Ideation: No Suicidal Plan: No Suicidal Intention: No Homicidal Ideation: No Homicidal Plan: No Homicidal Intention: No Insight: Poor Judgment: Poor Assessment and Plan - Assessment (1) Schizophrenia Code(s): F20.9 - Schizophrenia, unspecified Status: Acute - Plan Plan: I note patient has fairly consistently been refusing her Zoloft; to consider discontinuing or modifying this agent. Continue other psychotropics as ordered. Continue to monitor on the inpatient unit. Continue other care as ordered. Justification for Continued Inpatient Stay: Risk for decompensation in less restrictive environment. Discharge Planning: Per Dr. Kilgore Request Healthcare Surrogate/Guardian Advocate?: Yes (1) Schizophrenia Qualifiers: Schizophrenia type: paranoid schizophrenia Qualified Code(s): F20.0 - Paranoid schizophrenia
[2018-04-18] MEDS: Levothyroxine 112 MCG Tablet PO SCH (06:01)
[2018-04-18] MEDS: glipiZIDE 5 MG Tablet PO SCH ×2 (09:12→18:01)
[2018-04-18] MEDS: amLODIPine 5 MG Tablet PO SCH (09:13)
[2018-04-18] MEDS: Pantoprazole Sodium 20 MG DR Tablet PO SCH (09:14)
[2018-04-18] MEDS: Sertraline 100 MG Tablet PO SCH (09:14)
[2018-04-18] MEDS: Lisinopril 20 MG Tablet PO SCH (09:14)
--- NOTE | 2018-04-18 16:43 | P.PNPSY ---
Subjective Chief Complaint: Schizophrenia Remarks: Patient seen in day room with nurse Agustin, chart reviewed, patient compliant medications though selective with her choice of meds. She remains intrusive demanding psychotic with no insight into her disease. Patient continues to yell at me today she fired me again says she is going to get a integrated logistics programs director would have me committed. Review of Systems All other systems reviewed negative except as stated in HPI Mental Status Examination Appearance: Appropriate Consciousness: Alert Orientation: Person, Place (At least) Motor Activity: Normal gait Speech: Unremarkable Language: Adequate Fund of Knowledge: Adequate Attention and Concentration: Adequate (Fair) Memory: Unremarkable (Grossly intact on clinical examination) Mood: Oppositional (Mild), Irritable (Mild) Affect: Irritable Thought Process & Associations: Intact Thought Content: Appropriate Hallucination Type: None Delusion Type: None Suicidal Ideation: No Suicidal Plan: No Suicidal Intention: No Homicidal Ideation: No Homicidal Plan: No Homicidal Intention: No Insight: Poor Judgment: Poor Assessment and Plan - Assessment (1) Schizophrenia Code(s): F20.9 - Schizophrenia, unspecified Status: Acute - Plan Plan: Patient remains quite psychotic paranoid and delusional, with no insight, continue to await word from [facility] will consider transfer to [facility] to continue the waiting. Justification for Continued Inpatient Stay: At this time patient would decompensate a place to a lower level of care Discharge Planning: Continue to await word from state hospital placement Request Healthcare Surrogate/Guardian Advocate?: Yes (1) Schizophrenia Qualifiers: Schizophrenia type: paranoid schizophrenia Qualified Code(s): F20.0 - Paranoid schizophrenia
[2018-04-19] MEDS: Pantoprazole Sodium 20 MG DR Tablet PO SCH ×3 (00:18→22:23)
[2018-04-19] MEDS: Levothyroxine 112 MCG Tablet PO SCH (06:13)
[2018-04-19] MEDS: Ibuprofen 600 MG Tablet PO PRN ×2 (10:06→22:07)
[2018-04-19] MEDS: amLODIPine 5 MG Tablet PO SCH (10:09)
[2018-04-19] MEDS: glipiZIDE 5 MG Tablet PO SCH ×2 (10:09→17:46)
[2018-04-19] MEDS: Lisinopril 20 MG Tablet PO SCH (10:10)
[2018-04-19] MEDS: Sertraline 100 MG Tablet PO SCH (10:10)
--- NOTE | 2018-04-19 13:25 | P.PNPSY ---
Subjective Chief Complaint: Schizophrenia Remarks: Patient seen and nails with nurse Mavis and medical student Alena, chart reviewed , patient continues quite angry irritable paranoid demanding and intrusive. Saying that she can stay under my service because the nurses and I RN collusion to keep her here while we are practicing "[employer]". Then patient fired me. We continue to await word from state hospital placement. Patient continues selectively compliant with medication Review of Systems All other systems reviewed negative except as stated in HPI Mental Status Examination Appearance: Appropriate Consciousness: Alert Orientation: Person, Place (At least) Motor Activity: Normal gait Speech: Unremarkable Language: Adequate Fund of Knowledge: Adequate Attention and Concentration: Adequate (Fair) Memory: Unremarkable (Grossly intact on clinical examination) Mood: Oppositional (Mild), Irritable (Mild) Affect: Irritable Thought Process & Associations: Intact Thought Content: Appropriate Hallucination Type: None Delusion Type: None Suicidal Ideation: No Suicidal Plan: No Suicidal Intention: No Homicidal Ideation: No Homicidal Plan: No Homicidal Intention: No Insight: Poor Judgment: Poor Assessment and Plan - Assessment (1) Schizophrenia Code(s): F20.9 - Schizophrenia, unspecified Status: Acute - Plan Plan: Patient continues quite psychotic delusional and intrusive and paranoid. Again today she fired me because I am practicing "[employer]" Justification for Continued Inpatient Stay: At this time patient would decompensate a place to a lower level of care Discharge Planning: Continue to await word from state hospital placement Request Healthcare Surrogate/Guardian Advocate?: Yes (1) Schizophrenia Qualifiers: Schizophrenia type: paranoid schizophrenia Qualified Code(s): F20.0 - Paranoid schizophrenia
[2018-04-20] MEDS: Levothyroxine 112 MCG Tablet PO SCH (06:04)
[2018-04-20] MEDS: glipiZIDE 5 MG Tablet PO SCH ×2 (08:30→16:36)
[2018-04-20] MEDS: Lisinopril 20 MG Tablet PO SCH (09:58)
[2018-04-20] MEDS: Pantoprazole Sodium 20 MG DR Tablet PO SCH ×2 (09:58→20:40)
[2018-04-20] MEDS: amLODIPine 5 MG Tablet PO SCH (09:58)
[2018-04-20] MEDS: Sertraline 100 MG Tablet PO SCH (09:59)
[2018-04-20] MEDS: Ibuprofen 600 MG Tablet PO PRN (10:59)
--- NOTE | 2018-04-20 14:26 | P.PNPSY ---
Subjective Chief Complaint: Schizophrenia Remarks: Patient seen in her room with floor staff, chart reviewed, patient selectively compliant medications. Patient continues angry irritable not wanting to talk to me she has put her next placement may be and I shared with her the possibility of a transfer to [facility] she seemed pleased with that. For now continue treatment Review of Systems All other systems reviewed negative except as stated in HPI Mental Status Examination Appearance: Appropriate Consciousness: Alert Orientation: Person, Place (At least) Motor Activity: Normal gait Speech: Unremarkable Language: Adequate Fund of Knowledge: Adequate Attention and Concentration: Adequate (Fair) Memory: Unremarkable (Grossly intact on clinical examination) Mood: Oppositional (Mild), Irritable (Mild) Affect: Irritable Thought Process & Associations: Intact Thought Content: Appropriate Hallucination Type: None Delusion Type: None Suicidal Ideation: No Suicidal Plan: No Suicidal Intention: No Homicidal Ideation: No Homicidal Plan: No Homicidal Intention: No Insight: Poor Judgment: Poor Assessment and Plan - Assessment (1) Schizophrenia Code(s): F20.9 - Schizophrenia, unspecified Status: Acute - Plan Plan: Patient remained psychotic paranoid delusional irritable and angry, continues selectively compliant with meds. [facility] to [facility] Justification for Continued Inpatient Stay: At this time patient would decompensate a place to a lower level of care Discharge Planning: Continue to await word [facility] Request Healthcare Surrogate/Guardian Advocate?: Yes (1) Schizophrenia Qualifiers: Schizophrenia type: paranoid schizophrenia Qualified Code(s): F20.0 - Paranoid schizophrenia
[2018-04-21] MEDS: Levothyroxine 112 MCG Tablet PO SCH (05:55)
[2018-04-21] MEDS: Ibuprofen 600 MG Tablet PO PRN ×2 (09:01→17:55)
[2018-04-21] MEDS: Lisinopril 20 MG Tablet PO SCH (09:03)
[2018-04-21] MEDS: Sertraline 100 MG Tablet PO SCH (09:03)
[2018-04-21] MEDS: amLODIPine 5 MG Tablet PO SCH (09:03)
[2018-04-21] MEDS: Pantoprazole Sodium 20 MG DR Tablet PO SCH ×2 (09:03→20:19)
[2018-04-21] MEDS: glipiZIDE 5 MG Tablet PO SCH ×2 (09:03→16:38)
--- NOTE | 2018-04-21 19:49 | P.PNPSY ---
Subjective Chief Complaint: Schizophrenia Remarks: Reviewed electronic medical records and discussed case with staff. Follow-up was conducted in the hallway. Patient had been stalking this provider. She reports that she is not sleeping well but states that her appetite's been good. She again endorses being "pissed off". She is requesting to be taking off her medications and placed on Paxil. She states "Dr. Kilgore knows nothing about psychopharmacology". When I explained that I am not willing to change her medications but that I would mention it to Dr. Kilgore she states, "the new asked him why 2 weeks after I gave he locked me up". Mental Status Examination Appearance: Appropriate Consciousness: Alert Orientation: Person, Place (At least) Motor Activity: Normal gait Speech: Unremarkable Language: Adequate Fund of Knowledge: Adequate Attention and Concentration: Adequate (Fair) Memory: Unremarkable (Grossly intact on clinical examination) Mood: Oppositional (Mild), Irritable (Mild) Affect: Irritable Thought Process & Associations: Intact Thought Content: Appropriate Hallucination Type: None Delusion Type: None Suicidal Ideation: No Suicidal Plan: No Suicidal Intention: No Homicidal Ideation: No Homicidal Plan: No Homicidal Intention: No Insight: Poor Judgment: Poor Assessment and Plan - Assessment (1) Schizophrenia Code(s): F20.9 - Schizophrenia, unspecified Status: Acute - Plan Plan: Patient will be reevaluated Monday by the attending psychiatrist. Continue with current treatment plan. Justification for Continued Inpatient Stay: Moving this patient to a less restrictive environment would likely result in decompensation. Request Healthcare Surrogate/Guardian Advocate?: Yes (1) Schizophrenia Qualifiers: Schizophrenia type: paranoid schizophrenia Qualified Code(s): F20.0 - Paranoid schizophrenia
[2018-04-22] MEDS: Levothyroxine 112 MCG Tablet PO SCH (06:29)
[2018-04-22] MEDS: Ibuprofen 600 MG Tablet PO PRN ×2 (08:29→16:55)
[2018-04-22] MEDS: Lisinopril 20 MG Tablet PO SCH (08:30)
[2018-04-22] MEDS: glipiZIDE 5 MG Tablet PO SCH ×2 (08:30→16:34)
[2018-04-22] MEDS: Sertraline 100 MG Tablet PO SCH (08:30)
[2018-04-22] MEDS: Pantoprazole Sodium 20 MG DR Tablet PO SCH ×2 (08:30→20:24)
[2018-04-22] MEDS: amLODIPine 5 MG Tablet PO SCH (08:30)
--- NOTE | 2018-04-22 10:48 | P.PNPSY ---
Subjective Chief Complaint: Schizophrenia Remarks: Reviewed electronic medical records and discussed case with staff. Follow-up was conducted in the patient's room . She just returned from outside and was getting some fresh air. Patient states that the Zoloft is no longer working, she is requesting that the psychiatrist consider changing her Paxil. In discussion with JESS Murray she states patient does not take her Zoloft. Patient denies any AVH. She is calm and pleasant today which is unusal behavior. . Review of Systems All other systems reviewed negative except as stated in HPI Mental Status Examination Appearance: Appropriate Consciousness: Alert Orientation: Person, Place (At least) Motor Activity: Normal gait Speech: Unremarkable Language: Adequate Fund of Knowledge: Adequate Attention and Concentration: Adequate (Fair) Memory: Unremarkable (Grossly intact on clinical examination) Mood: Appropriate Affect: Appropriate Thought Process & Associations: Intact Thought Content: Appropriate Hallucination Type: None Delusion Type: None Suicidal Ideation: No Suicidal Plan: No Suicidal Intention: No Homicidal Ideation: No Homicidal Plan: No Homicidal Intention: No Insight: Poor Judgment: Poor Assessment and Plan - Assessment (1) Schizophrenia Code(s): F20.9 - Schizophrenia, unspecified Status: Acute - Plan Plan: Patient will be reevaluated Monday by the attending psychiatrist. Continue with current treatment plan. Justification for Continued Inpatient Stay: Moving patient to a less restrictive environment may result in her decompensation. Request Healthcare Surrogate/Guardian Advocate?: Yes
[2018-04-23] MEDS: Levothyroxine 112 MCG Tablet PO SCH (05:18)
[2018-04-23] MEDS: amLODIPine 5 MG Tablet PO SCH (09:39)
[2018-04-23] MEDS: glipiZIDE 5 MG Tablet PO SCH ×2 (09:39→16:54)
[2018-04-23] MEDS: Pantoprazole Sodium 20 MG DR Tablet PO SCH ×2 (09:40→21:36)
[2018-04-23] MEDS: Sertraline 100 MG Tablet PO SCH (09:40)
[2018-04-23] MEDS: Lisinopril 20 MG Tablet PO SCH (09:40)
--- NOTE | 2018-04-23 14:41 | P.PNPSY ---
Subjective Chief Complaint: Schizophrenia Remarks: Patient seen in day room with medical student Alena, chart reviewed, patient continues markedly selective with her compliance of medication. Today she is somewhat upset and tearful because she did not get her Ventolin inhaler when she wanted. She still remains noncompliant with her other medical medications or even the allowing of us to check her sugar levels. For now continue treatment. We continue to [facility] Review of Systems All other systems reviewed negative except as stated in HPI Mental Status Examination Appearance: Appropriate Consciousness: Alert Orientation: Person, Place (At least) Motor Activity: Normal gait Speech: Unremarkable Language: Adequate Fund of Knowledge: Adequate Attention and Concentration: Adequate (Fair) Memory: Unremarkable (Grossly intact on clinical examination) Mood: Appropriate Affect: Appropriate Thought Process & Associations: Intact Thought Content: Appropriate Hallucination Type: None Delusion Type: None Suicidal Ideation: No Suicidal Plan: No Suicidal Intention: No Homicidal Ideation: No Homicidal Plan: No Homicidal Intention: No Insight: Poor Judgment: Poor Assessment and Plan - Assessment (1) Schizophrenia Code(s): F20.9 - Schizophrenia, unspecified Status: Acute - Plan Plan: Patient remained psychotic delusional paranoid angry and irritable. For now continue treatment. Continue to [facility] Justification for Continued Inpatient Stay: At this time patient would decompensate a place to a lower level of care Discharge Planning: Continue to await word from [facility] Request Healthcare Surrogate/Guardian Advocate?: Yes (1) Schizophrenia Qualifiers: Schizophrenia type: paranoid schizophrenia Qualified Code(s): F20.0 - Paranoid schizophrenia
[2018-04-24] MEDS: Levothyroxine 112 MCG Tablet PO SCH (05:53)
[2018-04-24 07:25] LABS: Baso % (Auto) 0.2 % (0.0-2.0); Eos # (Auto) 0.1 th/mm3 (0.0-0.4); Eos % (Auto) 1.6 % (0.0-4.0); Hematocrit 34.6 % (35.0-46.0); Lymph # (Auto) 1.1 th/mm3 (1.0-4.8); Lymph % (Auto) 27.5 % (9.0-44.0); Mean Corpuscular HGB Conc 34.6 % (32.0-36.0); Mean Corpuscular Hemoglobin 28.4 pg (27.0-34.0); Mean Corpuscular Volume 82.1 fL (80.0-100.0); Mean Platelet Volume 7.5 fL (7.0-11.0); Mono # (Auto) 0.3 th/mm3 (0.0-0.9); Neut # (Auto) 2.7 th/mm3 (1.8-7.7); Neut % (Auto) 64.7 % (16.0-70.0); Platelet Count 136 th/mm3 (150-450); Red Blood Count 4.21 mil/mm3 (4.00-5.30); Red Cell Distribution Width 16.4 % (11.6-17.2); White Blood Count 4.2 th/mm3 (4.0-11.0)
[2018-04-24 07:45] LABS: Albumin 3.7 g/dL (3.4-5.0); Anion Gap 10 meq/L (5-15); Aspartate Aminotransferase 25 U/L (15-37); Blood Urea Nitrogen 14 mg/dL (7-18); Calcium 9.2 mg/dL (8.5-10.1); Carbon Dioxide 28.1 meq/L (21.0-32.0); Chloride 102 meq/L (98-107); Glomerular Filtration Rate Greater Than 89 mL/min (>89); Glucose,Random 130 mg/dL (74-106); Potassium 4.3 meq/L (3.5-5.1); Sodium 140 meq/L (136-145)
[2018-04-24 07:46] LABS: Alanine Aminotransferase 42 U/L (10-53)
[2018-04-24 07:51] LABS: Alkaline Phosphatase 76 U/L (45-117); Total Protein 7.1 g/dL (6.4-8.2)
[2018-04-24] MEDS: Lisinopril 20 MG Tablet PO SCH (09:13)
[2018-04-24] MEDS: Pantoprazole Sodium 20 MG DR Tablet PO SCH ×2 (09:13→20:43)
[2018-04-24] MEDS: glipiZIDE 5 MG Tablet PO SCH ×2 (09:13→17:43)
[2018-04-24] MEDS: Sertraline 100 MG Tablet PO SCH (09:13)
[2018-04-24] MEDS: amLODIPine 5 MG Tablet PO SCH (09:13)
[2018-04-24] MEDS: Ibuprofen 600 MG Tablet PO PRN ×2 (10:14→20:41)
--- NOTE | 2018-04-24 13:21 | P.PNPSY ---
Subjective Chief Complaint: Schizophrenia Remarks: Patient seen in her room with floor staff, chart reviewed, patient remains with mixed compliance medication. Though she did allow her labs are drawn this morning. Received be seeking back is normal, her blood pressures remain stable within normal limits, her random blood sugar drawn this morning is 130. We are still awaiting hemoglobin A1c though her A1c level on 8.2 was 5.6 for now continue treatment Review of Systems All other systems reviewed negative except as stated in HPI Mental Status Examination Appearance: Appropriate Consciousness: Alert Orientation: Person, Place (At least) Motor Activity: Normal gait Speech: Unremarkable Language: Adequate Fund of Knowledge: Adequate Attention and Concentration: Adequate (Fair) Memory: Unremarkable (Grossly intact on clinical examination) Mood: Appropriate Affect: Appropriate Thought Process & Associations: Intact Thought Content: Appropriate Hallucination Type: None Delusion Type: None Suicidal Ideation: No Suicidal Plan: No Suicidal Intention: No Homicidal Ideation: No Homicidal Plan: No Homicidal Intention: No Insight: Poor Judgment: Poor Assessment and Plan - Assessment (1) Schizophrenia Code(s): F20.9 - Schizophrenia, unspecified Status: Acute - Plan Plan: Patient remains psychotic delusional paranoid though somewhat calmer today. Did well labs were drawn this morning. See results as mentioned above. For now continue treatment Justification for Continued Inpatient Stay: At this time patient would decompensate a place to a lower level of care Discharge Planning: Continue to await word from [facility] placement Request Healthcare Surrogate/Guardian Advocate?: Yes (1) Schizophrenia Qualifiers: Schizophrenia type: paranoid schizophrenia Qualified Code(s): F20.0 - Paranoid schizophrenia
[2018-04-24 16:42] LABS: Hemoglobin A1c 6.3 % (4.3-6.0)
[2018-04-25] MEDS: Levothyroxine 112 MCG Tablet PO SCH (06:11)
[2018-04-25] MEDS: glipiZIDE 5 MG Tablet PO SCH (08:59)
[2018-04-25] MEDS: Lisinopril 20 MG Tablet PO SCH (09:00)
[2018-04-25] MEDS: Sertraline 100 MG Tablet PO SCH (09:00)
[2018-04-25] MEDS: amLODIPine 5 MG Tablet PO SCH (09:00)
[2018-04-25] MEDS: Pantoprazole Sodium 20 MG DR Tablet PO SCH ×2 (09:00→20:05)
[2018-04-25] MEDS: Ibuprofen 600 MG Tablet PO PRN ×2 (09:17→19:52)
--- NOTE | 2018-04-25 11:10 | P.PNPSY ---
Subjective Chief Complaint: Schizophrenia Remarks: Patient seen today and nails patient somewhat calmer with me though still distant and vigilant. Though not as angry. She is showing some increased cooperation with her treatment. Chart is been reviewed. The labs have been reviewed. Her blood sugar level was approximately 130 in a fasting dose, her hemoglobin A1c drawn yesterday is 6.3. Review of Systems All other systems reviewed negative except as stated in HPI Mental Status Examination Appearance: Appropriate Consciousness: Alert Orientation: Person, Place (At least) Motor Activity: Normal gait Speech: Unremarkable Language: Adequate Fund of Knowledge: Adequate Attention and Concentration: Adequate (Fair) Memory: Unremarkable (Grossly intact on clinical examination) Mood: Appropriate Affect: Appropriate Thought Process & Associations: Intact Thought Content: Appropriate Hallucination Type: None Delusion Type: None Suicidal Ideation: No Suicidal Plan: No Suicidal Intention: No Homicidal Ideation: No Homicidal Plan: No Homicidal Intention: No Insight: Poor Judgment: Poor Assessment and Plan - Assessment (1) Schizophrenia Code(s): F20.9 - Schizophrenia, unspecified Status: Acute - Plan Plan: Patient remains paranoid delusional and intrusive is somewhat angry with me Justification for Continued Inpatient Stay: At this time patient would decompensate a place to a lower level of care Discharge Planning: To be determined patient is on the state weight list Request Healthcare Surrogate/Guardian Advocate?: Yes (1) Schizophrenia Qualifiers: Schizophrenia type: paranoid schizophrenia Qualified Code(s): F20.0 - Paranoid schizophrenia
--- NOTE | 2018-04-25 11:13 | P.PNPSY ---
Subjective Chief Complaint: Schizophrenia Remarks: Patient seen and nails with floor staff, patient somewhat calmer focused me though still only having brief contact. She denies voices with me today though she is calmer with this I was able to discuss with her lab findings and she seemed to appreciate that. I encouraged her to continue with cooperation if she hopes to get transferred to [facility]. Review of labs shows glucose level yesterday of 130 with hemoglobin A1c of 6.3. This is while patient has been off her hypertensive and diabetic medications. We will placed on hypertensives and diabetic medications on hold and further observe. Review of Systems All other systems reviewed negative except as stated in HPI Mental Status Examination Appearance: Appropriate, Disheveled (Mildly) Consciousness: Alert Orientation: Person, Place (At least) Motor Activity: Normal gait Speech: Unremarkable, Pressured (At times slightly when angry) Language: Adequate Fund of Knowledge: Inadequate Attention and Concentration: Adequate (Fair) Memory: Unremarkable (Grossly intact on clinical examination) Mood: Oppositional, Irritable, Other (At times somewhat restricted) Affect: Other (Today decreased range and intensity) Thought Process & Associations: Linear Thought Content: Bizarre thinking Hallucination Type: None Delusion Type: Paranoid Suicidal Ideation: No Suicidal Plan: No Suicidal Intention: No Homicidal Ideation: No Homicidal Plan: No Homicidal Intention: No Insight: Poor Judgment: Poor Assessment and Plan - Assessment (1) Schizophrenia Code(s): F20.9 - Schizophrenia, unspecified Status: Acute - Plan Plan: Patient continues paranoid and psychotic though her affect is softened. Labs have been reviewed we will place hypertensive and diabetic medications on hold Justification for Continued Inpatient Stay: At this time patient would decompensate if placed in a lower level of care Discharge Planning: To do to await word from [facility] referral Request Healthcare Surrogate/Guardian Advocate?: Yes (1) Schizophrenia Qualifiers: Schizophrenia type: paranoid schizophrenia Qualified Code(s): F20.0 - Paranoid schizophrenia
--- NOTE | 2018-04-25 12:04 | P.TTN ---
- Patient Problems Problems: 1. Discharge planning 2. Medication compliance 3. Knowledge deficit 4. Lack of coping skills - Progress Toward Goals Provider Present: Dr. Pily Kilgore, Dr. Darion Reveles Provider Input: Calista 04/25 - contiues to present paranoia, delusional, slightly more cooperative, still meets criteria. State referral. needs further stabilization, still psychotic, FACT team hopes she can return home- if not state referral is suggested/ order is placed but packet not sent yet. March 27, 2018, no changes with patient, patient does not appear to be making progress toward treatment goals, patient requires further stabilization. Apr 06, 2018: Refusing medications: referred to the [facility]. Paranoid and suspicious. Nurse Input: Karol-Non complaint with medication, will only take buspar and invega, has been seclusive, no behavioral issues, seemed incresingly depressed Psychiatric Counselors Present: Marky Taylor Jr., [facility] (Patient presents with disorganized thoughts, irritable mood, and remains on the [facility] wait list at this time.), Other Psychiatric Therapist Input: Raheel04/25 Seclusive, poor insight, placement issue, referral for [facility] started. Flat, psychotic, unstable, [facility]. Doesn't like Counselors, very suspicious, Group Spec/RT/OT/WRIGHT Present: CRISTINE Moon, ADRIANA Lora ( attends most groups and engages limited ), ADRIANA Damon (Patient attends select groups.) Group Spec/RT/OT/WRIGHT Input: Gio Biggs Does attend groups, will follow rules and engage in projects, is anti -social and easily overwhelmed. kwabena: Patient attends the group activities on a regular basis. Pt is anti-social with peers but pleasant to select staff.. Pt is easily overwhelmed. - Documentation Teaching Recipient: Patient
[2018-04-26] MEDS: Levothyroxine 112 MCG Tablet PO SCH (05:58)
[2018-04-26] MEDS: Ibuprofen 600 MG Tablet PO PRN ×2 (08:52→20:03)
[2018-04-26] MEDS: Sertraline 100 MG Tablet PO SCH (08:55)
[2018-04-26] MEDS: Pantoprazole Sodium 20 MG DR Tablet PO SCH ×2 (08:55→20:08)
--- NOTE | 2018-04-26 16:02 | P.PNPSY ---
Subjective Chief Complaint: Schizophrenia Remarks: Patient seen and nails with medical student Allison. Patient showing improved compliance medication. Patient discussed with nurse. Patient is calmer friendly with me was a marked decrease in her paranoia irritability and anger towards me. However she states she does not like her Zoloft feels is not helping her and wishes to have the medication discontinued and try different antidepressant. Considering patient's calm this focus improved affect and cooperation I will allow that. I will discontinue the Zoloft and start her on Remeron 15 mg at at bedtime. Otherwise for now continue treatment no change Review of Systems All other systems reviewed negative except as stated in HPI Mental Status Examination Appearance: Appropriate, Disheveled (Mildly) Consciousness: Alert Orientation: Person, Place (At least) Motor Activity: Normal gait Speech: Unremarkable, Pressured (At times slightly when angry) Language: Adequate Fund of Knowledge: Inadequate Attention and Concentration: Adequate (Fair) Memory: Unremarkable (Grossly intact on clinical examination) Mood: Oppositional, Irritable, Other (At times somewhat restricted) Affect: Other (Today decreased range and intensity) Thought Process & Associations: Linear Thought Content: Bizarre thinking Hallucination Type: None Delusion Type: Paranoid Suicidal Ideation: No Suicidal Plan: No Suicidal Intention: No Homicidal Ideation: No Homicidal Plan: No Homicidal Intention: No Insight: Poor Judgment: Poor Assessment and Plan - Assessment (1) Schizophrenia Code(s): F20.9 - Schizophrenia, unspecified Status: Acute - Plan Plan: Patient calmer more focused with us today showing some reason ability with her medications. She medication adjustment above. For now continue treatment Justification for Continued Inpatient Stay: At this time patient would decompensate a place to a lower level of care Discharge Planning: To be determined Request Healthcare Surrogate/Guardian Advocate?: Yes (1) Schizophrenia Qualifiers: Schizophrenia type: paranoid schizophrenia Qualified Code(s): F20.0 - Paranoid schizophrenia
[2018-04-26] MEDS: Aluminum/Magnesium/Simethacone Susp 30 ML UDC PO PRN (20:03)
[2018-04-26] MEDS: Mirtazapine 15 MG Tablet PO SCH (20:08)
[2018-04-27] MEDS: Levothyroxine 112 MCG Tablet PO SCH (06:20)
[2018-04-27] MEDS: Ibuprofen 600 MG Tablet PO PRN (09:14)
--- NOTE | 2018-04-27 10:18 | P.PNPSY ---
Subjective Chief Complaint: Schizophrenia Remarks: Patient seen with medical student Alena in her room. Chart reviewed. Patient compliant medications. Patient, her paranoia has markedly decreased though there is still some irritability with me. However she is showing no other behavioral problems. She has been compliant with the medication. Her vital signs remained good. Patient complains of having a "boil" in her right ear we will have hospitalist evaluate Mental Status Examination Appearance: Appropriate, Disheveled (Improved) Consciousness: Alert Orientation: Person, Place (At least) Motor Activity: Normal gait Speech: Unremarkable Language: Adequate Fund of Knowledge: Inadequate Attention and Concentration: Adequate (Fair) Memory: Unremarkable (Grossly intact on clinical examination) Mood: Oppositional (Improved), Irritable (Improved), Other (At times somewhat restricted) Affect: Other (Today decreased range and intensity) Thought Process & Associations: Linear Thought Content: Bizarre thinking Hallucination Type: None Delusion Type: Paranoid Suicidal Ideation: No Suicidal Plan: No Suicidal Intention: No Homicidal Ideation: No Homicidal Plan: No Homicidal Intention: No Insight: Poor Judgment: Poor Assessment and Plan - Assessment (1) Schizophrenia Code(s): F20.9 - Schizophrenia, unspecified Status: Acute - Plan Plan: Patient remained psychotic delusional paranoid though the affect is softened Justification for Continued Inpatient Stay: At this time patient would decompensate a place to a lower level of care Discharge Planning: Continue to await word from [facility] Request Healthcare Surrogate/Guardian Advocate?: Yes (1) Schizophrenia Qualifiers: Schizophrenia type: paranoid schizophrenia Qualified Code(s): F20.0 - Paranoid schizophrenia
[2018-04-27] MEDS: Pantoprazole Sodium 20 MG DR Tablet PO SCH ×2 (13:32→19:59)
--- NOTE | 2018-04-27 18:41 | P.CONIM ---
History of Present Illness Service: [facility] Consult date: 04/27/18 Reason for Consult: right ear boil Primary Care Provider: William Silverman DO Family Provider: William Silverman DO Chief Complaint: I need my inhailer History of Present Illness: Patient is a 57-year-old female with past medical history per records includes asthma, COPD, hypertension, hyperlipidemia, CVA, DM, GERD, seizures, ANTHONY, hypothyroidism and chronic pain. Patient was admitted in the psychiatric unit for evaluation and treatment under [place] act since February 20, 2018. Hospitalist services been consulted for medical management. Patient seen and examined, nurse in room, complains of boil on the right ear. Patient stated her right ear bothers her sometimes there is pain and itchiness. Denies any drainage. Patient denies any history of ear infection. Patient denies any fever or chills. Patient denies any headache or dizziness, denies any chest pain or shortness of breath, denies any nausea or vomiting, denies any diarrhea or constipation. Review of Systems All other systems reviewed negative except as stated in HPI PMFSH - History History Provided By: Patient - Medical History Medical History: Medical History (Last Reviewed 04/27/18 @ 18:39 by STUART Castro) Hx of hysterectomy (Acute) Asthma COPD (chronic obstructive pulmonary disease) GERD (gastroesophageal reflux disease) HLD (hyperlipidemia) HTN (hypertension) Hypothyroid Medical history unknown Obstructive sleep apnea Paranoid schizophrenia - Surgical History Surgical History: Surgical History (Last Reviewed 04/27/18 @ 18:39 by STUART Castro) Hx of tonsillectomy - Family History Family History: Family History (Last Reviewed 04/27/18 @ 18:39 by STUART Castro) Other Family history unobtainable due to patient's condition - Tobacco History Second Hand Smoke Exposure: No Tobacco Use In Past 30 Days: No Smoking Status: Refused to answer Tobacco Type: Cigarettes - Alcohol History How Often Do You Have a Drink Containing Alcohol: Unable to Obtain - Substance Use History Substance History: No History of Abuse - Travel History Recent Travel in the [place] Within the Last 8 Weeks: No Recent Travel Out of the Country Within the Last 8 Weeks: No - Immunization History Tetanus Immunization: Unable to Assess Hx Influenza Vaccine This Season: No Medications and Allergies Active Medications: Active Medications Al Hydrox/Mg Hydrox/Simethicone (Mag-Al Plus Susp Liq) 30 ml PO Q6H PRN PRN Reason: DYSPEPSIA Last Admin: 04/26/18 20:03 Dose: 30 ml Al Hydroxide/Mg Hydroxide (Milk Of Magnesia Liq) 30 ml PO Q12H PRN PRN Reason: Mild Constipation Last Admin: 04/26/18 20:03 Dose: 30 ml Albuterol (Ventolin Hfa Inh) 2 puff INH Q4H PRN PRN Reason: BRONCOSPASM Last Admin: 04/24/18 09:09 Dose: 2 puff Albuterol (Duoneb Neb (Prn)) 1 ampul NEB Q8HR NEB PRN PRN Reason: SHORTNESS OF BREATH/WHEEZING Last Admin: 03/29/18 10:57 Dose: 1 ampul Amlodipine Besylate (Norvasc) 5 mg PO DAILY [facility] Last Admin: 04/25/18 09:00 Dose: Not Given Bacitracin (Baciguent Oint) 1 applicatio TOPICAL BID [facility] Last Admin: 04/27/18 09:10 Dose: 1 applicatio Buspirone HCl (Buspar) 10 mg PO BID [facility] Last Admin: 04/27/18 09:12 Dose: 10 mg Clonidine HCl (Catapres) 0.1 mg PO Q6H PRN PRN Reason: SBP> OR = 180, DBP> OR = 100 Last Admin: 02/22/18 17:00 Dose: 0.1 mg Diphenhydramine HCl (Benadryl) 50 mg PO HS PRN PRN Reason: INSOMNIA Last Admin: 04/26/18 20:02 Dose: 50 mg Fluticasone/Vilanterol (Breo Ellipta 100/25 Mcg Inh) 1 puff INH DAILY [facility] Last Admin: 04/27/18 13:32 Dose: Not Given Glipizide (Glucotrol) 2.5 mg PO BIDAC [facility] Last Admin: 04/25/18 08:59 Dose: Not Given Hydroxyzine HCl (Atarax) 50 mg PO Q6H PRN PRN Reason: ANXIETY Last Admin: 04/26/18 20:06 Dose: 50 mg Ibuprofen (Motrin) 600 mg PO Q6H PRN PRN Reason: PAIN 1-10 Last Admin: 04/27/18 09:14 Dose: 600 mg Levothyroxine Sodium (Synthroid) 25 mcg PO DAILY@0600 [facility] Last Admin: 04/27/18 06:20 Dose: 25 mcg Levothyroxine Sodium (Synthroid) 112 mcg PO DAILY@0600 [facility] Last Admin: 04/27/18 06:20 Dose: 112 mcg Lisinopril (Prinivil) 40 mg PO DAILY [facility] Last Admin: 04/25/18 09:00 Dose: Not Given Metformin HCl (Glucophage) 500 mg PO BID [facility] Last Admin: 04/25/18 09:00 Dose: Not Given Mirtazapine (Remeron) 15 mg PO HS [facility] Last Admin: 04/26/18 20:08 Dose: Not Given Paliperidone Palmitate (Invega Sustenna Inj) 234 mg IM Q30D [facility] Last Admin: 04/12/18 08:36 Dose: 234 mg Paliperidone Palmitate (Invega Er) 9 mg PO DAILY [facility] Last Admin: 04/27/18 09:11 Dose: 9 mg Pantoprazole Sodium (Protonix) 20 mg PO BID [facility] Last Admin: 04/27/18 13:32 Dose: Not Given Pravastatin Sodium (Pravachol) 80 mg PO QPM [facility] Last Admin: 04/27/18 17:39 Dose: Not Given Allergies Allergy/AdvReac Type Severity Reaction Status Date / Time penicillin G Allergy Severe Anaphylaxis Verified 02/26/18 17:34 Sulfa (Sulfonamide Allergy Severe Anaphylaxis Verified 02/26/18 17:34 Antibiotics) fluphenazine Allergy Intermediate Anaphylaxis Verified 02/26/18 17:34 Home Medications Medication Instructions Recorded Confirmed Type buspirone 10 mg PO BID 02/20/18 02/20/18 History fluticasone-vilanterol [Breo 1 inh INHALATION DAILY 02/20/18 02/20/18 History Ellipta] glipizide 5 mg PO QDRHS 02/20/18 02/20/18 History levothyroxine 137 mcg PO DAILY 02/20/18 02/20/18 History lisinopril 10 mg PO DAILY 02/20/18 02/20/18 History loxapine succinate 5 mg PO QDRHS 02/20/18 02/20/18 History metformin 500 mg PO BID 02/20/18 02/20/18 History omeprazole 20 mg PO BID 02/20/18 02/20/18 History paliperidone palmitate [Invega 234 mg IM QMONTH 02/20/18 02/20/18 History Sustenna] sennosides-docusate sodium [Senna 1 tab PO BID 02/20/18 02/20/18 History Plus] sertraline 200 mg PO DAILY 02/20/18 02/20/18 History simvastatin 40 mg PO QPM 02/20/18 02/20/18 History Exam Vital signs: Vital Signs 04/27/18 06:00 Temperature 97.9 F Pulse Rate 51 L Respiratory Rate 17 Blood Pressure 120/58 L Pulse Oximetry 95 Intake & Output 04/26/18 04/27/18 04/27/18 18:59 06:59 18:59 Intake Total 600 / 600 Balance 600 / 600 Intake: Oral 600 / 600 Other: Date of Last Bowel Movement 04/21/18 Narrative: GENERAL: Well-developed, well-nourished, alert and oriented x3 in no apparent distress SKIN: Warm and dry. Scratch awad on left face area HEAD: Atraumatic. Normocephalic. EYES: Pupils equal and round. No scleral icterus. No injection or drainage. ENT: No nasal bleeding or discharge. Mucous membranes pink and moist. Bilateral ear cerumen impaction. Right ear with slight redness and edema NECK: Trachea midline. No JVD. CARDIOVASCULAR: Regular rate and rhythm. RESPIRATORY: No accessory muscle use. Clear to auscultation. Breath sounds equal bilaterally. GASTROINTESTINAL: Abdomen soft, non-tender, nondistended. Hepatic and splenic margins not palpable. MUSCULOSKELETAL: Extremities without clubbing, cyanosis, or edema. No obvious deformities. NEUROLOGICAL: Awake and alert. No obvious cranial nerve deficits. Motor grossly within normal limits. Five out of 5 muscle strength in the arms and legs. Normal speech. PSYCHIATRIC: Flat mood and affect; insight and judgment unreliable Results - Labs CBC & Chem 7: 04/24/18 06:45 04/24/18 06:45 Assessment and Plan - Plan Patient is a 57-year-old female with past medical history per records includes asthma, COPD, hypertension, hyperlipidemia, CVA, DM, GERD, seizures, ANTHONY, hypothyroidism and chronic pain. Patient was admitted in the psychiatric unit for evaluation and treatment under [place] act since February 20, 2018. Hospitalist services been reconsulted for medical management. Right outer ear infection -Start on -Monitor signs and symptoms -Remind patient not to put any objects event finger on her ears Asthma/COPD -continue Ventolin inhaler and nebs as needed. Hypertension -blood pressure in the low side -d/c norvasc -decrease lisinopril with hold parameters -monitor BP Diabetes mellitus -Blood glucose control -Continue glipizide and metformin. GERD -Continue omeprazole Hypothyroid -Continue levothyroxine Paranoid schizophrenia -Psychiatric team for management DVT prophylaxis: Patient is ambulatory Discussed with: Patient and nurse. Code Status: full code Discussed Condition With: patient and nurse
[2018-04-27] MEDS ORDERED: Lisinopril 20 MG Tablet PO SCH (18:50)
[2018-04-27] MEDS: Mirtazapine 15 MG Tablet PO SCH (20:00)
[2018-04-28] MEDS: Levothyroxine 112 MCG Tablet PO SCH (06:18)
[2018-04-28] MEDS: Pantoprazole Sodium 20 MG DR Tablet PO SCH ×2 (09:35→21:39)
[2018-04-28] MEDS: Neomycin/Polymyx/HC Otic Soln 200 DROP/10 ML Bottle RIGHT EAR SCH (09:35)
[2018-04-28] MEDS: Ibuprofen 600 MG Tablet PO PRN (13:30)
--- NOTE | 2018-04-28 18:51 | P.PNIM ---
Subjective Interval history: Follow-up right ear pain, asthma, COPD, hypertension, hyperlipidemia, CVA, DM, GERD, seizures, ANTHONY, hypothyroidism and chronic pain. Patient seen and evaluated laying in bed, stated pain is better. Patient complained of the "pimple-like blister "on her right, denies any fever or chills. Patient denies any chest pain or shortness of breath, denies any nausea or vomiting, denies any diarrhea or constipation. Nurse reported that patient felt better after the eardrops. Physical Exam Vital signs: Vital Signs 04/27/18 19:22 04/28/18 05:36 04/28/18 18:09 Temperature 97.9 F 98 F 98.2 F Pulse Rate 51 L 66 90 Respiratory Rate 17 18 16 Blood Pressure 120/58 L 113/57 L 128/66 Pulse Oximetry 95 96 89 L Intake & Output 04/27/18 04/28/18 04/28/18 18:59 06:59 18:59 Intake Total 600 / 600 Balance 600 / 600 Intake: Oral 600 / 600 Other: Date of Last Bowel Movement 04/21/18 Narrative: GENERAL: Well-developed, well-nourished, alert and oriented x3 in no apparent distress SKIN: Warm and dry. Scratch awad on left face area HEAD: Atraumatic. Normocephalic. EYES: Pupils equal and round. No scleral icterus. No injection or drainage. ENT: No nasal bleeding or discharge. Mucous membranes pink and moist. Bilateral ear cerumen impaction. Right ear with slight redness and slight edema NECK: Trachea midline. No JVD. CARDIOVASCULAR: Regular rate and rhythm. RESPIRATORY: No accessory muscle use. Clear to auscultation. Breath sounds equal bilaterally. GASTROINTESTINAL: Abdomen obese soft, non-tender, nondistended. Hepatic and splenic margins not palpable. MUSCULOSKELETAL: Extremities without clubbing, cyanosis, or edema. No obvious deformities. NEUROLOGICAL: Awake and alert. No obvious cranial nerve deficits. Motor grossly within normal limits. Moving all 4 extremities. Normal speech. PSYCHIATRIC: Flat mood and affect; insight and judgment unreliable Results - Labs CBC & Chem 7: 04/24/18 06:45 04/24/18 06:45 Assessment and Plan - Plan Patient is a 57-year-old female with past medical history per records includes asthma, COPD, hypertension, hyperlipidemia, CVA, DM, GERD, seizures, ANTHONY, hypothyroidism and chronic pain. Patient was admitted in the psychiatric unit for evaluation and treatment under [place] act since February 20, 2018. Hospitalist services been reconsulted for medical management. Right outer ear infection -Start on Cortisporin otic drop -Monitor signs and symptoms, no fever or chills -Remind patient not to put any objects event finger on her ears Asthma/COPD -No shortness of breath, no wheezes -continue Ventolin inhaler and nebs as needed. Hypertension -blood pressure improved today -d/c norvasc -decrease lisinopril dose with hold parameters -monitor BP Diabetes mellitus -Hemoglobin A1c 6.3 -Blood glucose control -Continue glipizide and metformin. -Change to diabetic diet GERD -Continue omeprazole Hypothyroid -Continue levothyroxine Paranoid schizophrenia -Psychiatric team for management DVT prophylaxis: Patient is ambulatory Discussed with: Patient and nurse. Code Status: full code Discussed Condition With: patient and nurse
--- NOTE | 2018-04-28 19:09 | P.PNPSY ---
Subjective Chief Complaint: Schizophrenia Remarks: Reviewed electronic medical records and discussed case with staff. Follow-up was conducted in patient's room with JESS Gao present. Her nurse reports that she has been compliant with her in [place]. Patient states that she is sleeping and eating well. She reports her mood as being "all right". She complains of lethargy stating "I had to tell Rigoberto to go home because I was too tired to visit". Mental Status Examination Appearance: Appropriate Consciousness: Alert Orientation: Person, Place (At least) Motor Activity: Normal gait Speech: Unremarkable Language: Adequate Fund of Knowledge: Adequate Attention and Concentration: Adequate (Fair) Memory: Unremarkable (Grossly intact on clinical examination) Mood: Appropriate Affect: Appropriate Thought Process & Associations: Intact Thought Content: Appropriate Hallucination Type: None Delusion Type: None Suicidal Ideation: No Suicidal Plan: No Suicidal Intention: No Homicidal Ideation: No Homicidal Plan: No Homicidal Intention: No Insight: Poor Judgment: Poor Assessment and Plan - Assessment (1) Schizophrenia Code(s): F20.9 - Schizophrenia, unspecified Status: Acute - Plan Plan: Patient will be reevaluated Monday by the attending psychiatrist. Continue with current treatment plan. Justification for Continued Inpatient Stay: Moving this patient to a less restrictive environment would likely result in decompensation. Request Healthcare Surrogate/Guardian Advocate?: Yes (1) Schizophrenia Qualifiers: Schizophrenia type: paranoid schizophrenia Qualified Code(s): F20.0 - Paranoid schizophrenia
[2018-04-28] MEDS: Mirtazapine 15 MG Tablet PO SCH (21:39)
[2018-04-29] MEDS: Levothyroxine 112 MCG Tablet PO SCH (06:22)
[2018-04-29] MEDS: Neomycin/Polymyx/HC Otic Soln 200 DROP/10 ML Bottle RIGHT EAR SCH (09:11)
[2018-04-29] MEDS: Pantoprazole Sodium 20 MG DR Tablet PO SCH ×2 (09:13→21:35)
[2018-04-29] MEDS: Ibuprofen 600 MG Tablet PO PRN (10:46)
--- NOTE | 2018-04-29 14:15 | P.PNPSY ---
Subjective Chief Complaint: Schizophrenia Remarks: Reviewed electronic medical records and discussed case with staff. Follow-up was conducted in patient's room. Patient continues to be very focused on Dr. Kilgore. She is medication compliant. States she is eating and sleeping well. Is is preoccupied with her status with insurance coverage . She states she has [employer] and the counseling continues to talk about Medicare. I shared with her that I was not the expert but would have someone talk with her. She is currently not hearing voices. Review of Systems All other systems reviewed negative except as stated in HPI Mental Status Examination Appearance: Appropriate Consciousness: Alert Orientation: Person, Place (At least) Motor Activity: Normal gait Speech: Unremarkable Language: Adequate Fund of Knowledge: Adequate Attention and Concentration: Adequate (Fair) Memory: Unremarkable (Grossly intact on clinical examination) Mood: Appropriate Affect: Appropriate Thought Process & Associations: Intact Thought Content: Appropriate Hallucination Type: None Delusion Type: None Suicidal Ideation: No Suicidal Plan: No Suicidal Intention: No Homicidal Ideation: No Homicidal Plan: No Homicidal Intention: No Insight: Poor Judgment: Poor Assessment and Plan - Assessment (1) Schizophrenia Code(s): F20.9 - Schizophrenia, unspecified Status: Acute - Plan Plan: Patient will be reevaluated Monday by the attending psychiatrist. Continue with current treatment plan. Justification for Continued Inpatient Stay: Moving patient to a less restrictive environment may result in her decompensation. Request Healthcare Surrogate/Guardian Advocate?: Yes
--- NOTE | 2018-04-29 17:39 | P.PNIM ---
Subjective Interval history: Follow-up right ear pain, asthma, COPD, hypertension, hyperlipidemia, CVA, DM, GERD, seizures, ANTHONY, hypothyroidism and chronic pain. Patient seen and examined , laying in bed, stated right ear pain better. Patient denies any ear pain, denies any fever or chills. Patient stated she is worried about her thyroid, was taken blood but it blew. Nurse reported that patient refused blood drawn today however was tried the second time and was able to get a blood sample. Patient denies any chest pain or shortness of breath, denies any nausea or vomiting, denies any headache or dizziness. Physical Exam Vital signs: Vital Signs 04/28/18 18:09 04/29/18 05:48 Temperature 98.2 F 97.5 F L Pulse Rate 90 62 Respiratory Rate 16 16 Blood Pressure 128/66 111/73 Pulse Oximetry 89 L 96 Narrative: GENERAL: Well-developed, well-nourished, alert and oriented x3 in no apparent distress SKIN: Warm and dry. Scratch awad on left face area HEAD: Atraumatic. Normocephalic. EYES: Pupils equal and round. No scleral icterus. No injection or drainage. ENT: No nasal bleeding or discharge. Mucous membranes pink and moist. Bilateral ear cerumen impaction. Right ear improved edema NECK: Trachea midline. No JVD. CARDIOVASCULAR: Regular rate and rhythm. RESPIRATORY: No accessory muscle use. Clear to auscultation. Breath sounds equal bilaterally. GASTROINTESTINAL: Abdomen obese soft, non-tender, nondistended. Hepatic and splenic margins not palpable. MUSCULOSKELETAL: Extremities without clubbing, cyanosis, or edema. No obvious deformities. NEUROLOGICAL: Awake and alert. No obvious cranial nerve deficits. Motor grossly within normal limits. Moving all 4 extremities. Normal speech. PSYCHIATRIC: Flat mood and affect; insight and judgment unreliable Results - Labs CBC & Chem 7: 04/24/18 06:45 04/24/18 06:45 Laboratory Results - last 24 hr 04/29/18 09:05 TSH 1.340 Assessment and Plan - Plan Patient is a 57-year-old female with past medical history per records includes asthma, COPD, hypertension, hyperlipidemia, CVA, DM, GERD, seizures, ANTHONY, hypothyroidism and chronic pain. Patient was admitted in the psychiatric unit for evaluation and treatment under [place] act since February 20, 2018. Hospitalist services been reconsulted for medical management. Right outer ear infection -Start on Cortisporin otic drop -improving signs and symptoms, no fever or chills -Remind patient not to put any objects event finger on her ears Asthma/COPD -No shortness of breath, no wheezes -continue Ventolin inhaler and nebs as needed. Hypertension -blood pressure improved today -d/c norvasc -decrease lisinopril dose with hold parameters -monitor BP Diabetes mellitus -Hemoglobin A1c 6.3 -Blood glucose control -Continue glipizide and metformin. -Change to diabetic diet GERD -Continue omeprazole Hypothyroid -Continue levothyroxine -TSH 1.34 Paranoid schizophrenia -Psychiatric team for management DVT prophylaxis: Patient is ambulatory Discussed with: Patient and nurse. Medicine team will sign off, will be available as needed. Thank you for the consultation Code Status: Full Code Discussed Condition With: patient and nurse
[2018-04-29] MEDS: Mirtazapine 15 MG Tablet PO SCH (21:35)
[2018-04-30] MEDS: Levothyroxine 112 MCG Tablet PO SCH (06:21)
[2018-04-30] MEDS: Neomycin/Polymyx/HC Otic Soln 200 DROP/10 ML Bottle RIGHT EAR SCH (08:53)
[2018-04-30] MEDS: Ibuprofen 600 MG Tablet PO PRN ×2 (08:53→19:19)
[2018-04-30] MEDS: Pantoprazole Sodium 20 MG DR Tablet PO SCH ×2 (08:53→22:06)
--- NOTE | 2018-04-30 14:43 | P.PNPSY ---
Subjective Chief Complaint: Schizophrenia Remarks: Patient seen in the nails with nurse Terri and medical student Alena, chart reviewed, patient is sitting calmly in a chair she is more appropriate, with appropriate eye contact, her affect is calm cooperative and pleasant, she actually smiled at me. The paranoia is markedly diminished. She has been compliant with her medications. Her medical issues are hypertension and diabetes continues stable without the medications. For now continue treatment. However I am most need to consider the possibility that she is recovered to the point where she may not need state referral. We will continue to assess that Review of Systems All other systems reviewed negative except as stated in HPI Mental Status Examination Appearance: Appropriate Consciousness: Alert Orientation: Person, Place (At least), Date/Time Motor Activity: Normal gait Speech: Unremarkable Language: Adequate Fund of Knowledge: Adequate Attention and Concentration: Adequate (Fair) Memory: Unremarkable (Grossly intact on clinical examination) Mood: Appropriate Affect: Appropriate Thought Process & Associations: Intact Thought Content: Appropriate Hallucination Type: None Delusion Type: None, Other (Mildly vigilant) Suicidal Ideation: No Suicidal Plan: No Suicidal Intention: No Homicidal Ideation: No Homicidal Plan: No Homicidal Intention: No Insight: Poor Judgment: Poor Assessment and Plan - Assessment (1) Schizophrenia Code(s): F20.9 - Schizophrenia, unspecified Status: Acute - Plan Plan: Today patient's psychosis is improving her affect is normalizing I see very little signs of psychosis today. For now consider possibility of alternative placing them the state hospital Justification for Continued Inpatient Stay: At this time the patient would decompensate a place to a lower level of care Discharge Planning: To be determined Request Healthcare Surrogate/Guardian Advocate?: Yes (1) Schizophrenia Qualifiers: Schizophrenia type: paranoid schizophrenia Qualified Code(s): F20.0 - Paranoid schizophrenia
--- NOTE | 2018-04-30 15:09 | P.TTN ---
- Patient Problems Problems: 1. Discharge planning 2. Medication compliance 3. Knowledge deficit 4. Lack of coping skills - Progress Toward Goals Provider Present: Dr. Pily Kilgore (April 30, 2018 Dr. Kilgore is titrating medications. Dr. Kilgore is hopeful that [facility] will accept patient for transfer - as the patient awaits state hospitalization at their facility.), Dr. Darion Reveles Provider Input: Calista 04/25 - contiues to present paranoia, delusional, slightly more cooperative, still meets criteria. State referral. needs further stabilization, still psychotic, FACT team hopes she can return home- if not state referral is suggested/ order is placed but packet not sent yet. March 27, 2018, no changes with patient, patient does not appear to be making progress toward treatment goals, patient requires further stabilization. Apr 06, 2018: Refusing medications: referred to the [facility] hospital. Paranoid and suspicious. Nurse Input: Karol-Non complaint with medication, will only take buspar and invega, has been seclusive, no behavioral issues, seemed incresingly depressed Psychiatric Counselors Present: Marky Taylor Jr., [facility] (Patient presents with disorganized thoughts, irritable mood, and remains on the [facility] wait list at this time. 02/2018 patient remains disorganized, no insight, unstable and either unable or unwilling to participate in treatment. Patient is awaiting transfer to [facility] where she will remain until a bed is open at the [facility].), Other Psychiatric Therapist Input: Raheel04/25 Seclusive, poor insight, placement issue, referral for [facility] started. Flat, psychotic, unstable, anticipated [facility]. Doesn't like Counselors, very suspicious, Group Spec/RT/OT/WRIGHT Present: Chelsey Hollingsworth, CRISTINE, ADRIANA Lora ( attends most groups and engages limited. April 30, 2018 patient attends most groups), ADRIANA Damon (Patient attends select groups.) Group Spec/RT/OT/WRIGHT Input: Gio Biggs Does attend groups, will follow rules and engage in projects, is anti -social and easily overwhelmed. chelsey: Patient attends the group activities on a regular basis. Pt is anti-social with peers but pleasant to select staff.. Pt is easily overwhelmed. - Documentation Teaching Recipient: Patient
[2018-04-30] MEDS: Mirtazapine 15 MG Tablet PO SCH (20:17)
[2018-05-01] MEDS: Levothyroxine 112 MCG Tablet PO SCH (06:07)
[2018-05-01] MEDS: Pantoprazole Sodium 20 MG DR Tablet PO SCH ×2 (08:29→22:47)
[2018-05-01] MEDS: Ibuprofen 600 MG Tablet PO PRN ×2 (08:29→11:19)
[2018-05-01] MEDS: Neomycin/Polymyx/HC Otic Soln 200 DROP/10 ML Bottle RIGHT EAR SCH (08:29)
--- NOTE | 2018-05-01 12:02 | P.PNPSY ---
Subjective Chief Complaint: Schizophrenia Remarks: Patient seen and nails with nurse Terri medical students Alena and Darnell. Chart reviewed. Patient is somewhat more paranoid today stating that her Remeron is caused her to regrow a goiter that she had removed by radiation years ago. Then she claimed that I have a goiter. That I was her student. Patient with increased affect paranoia and irritability with me today. We expect staff from [facility] to assess patient today possibility of transfer that facility while awaiting word from [facility] Review of Systems All other systems reviewed negative except as stated in HPI Mental Status Examination Appearance: Appropriate Consciousness: Alert Orientation: Person, Place (At least), Date/Time Motor Activity: Normal gait Speech: Unremarkable Language: Adequate Fund of Knowledge: Adequate Attention and Concentration: Adequate (Fair) Memory: Unremarkable (Grossly intact on clinical examination) Mood: Angry, Oppositional, Irritable Affect: Other (Increased range and intensity) Thought Process & Associations: Intact, Tangential Thought Content: Bizarre thinking Hallucination Type: None Delusion Type: Bizarre, Other (Mildly vigilant) Suicidal Ideation: No Suicidal Plan: No Suicidal Intention: No Homicidal Ideation: No Homicidal Plan: No Homicidal Intention: No Insight: Poor Judgment: Poor Assessment and Plan - Assessment (1) Schizophrenia Code(s): F20.9 - Schizophrenia, unspecified Status: Acute - Plan Plan: Patient showing increased signs of paranoia psychosis and delusions today was angry at me claiming that I was a goiter and then stormed into her room Justification for Continued Inpatient Stay: At this time patient would decompensate a place to a lower level of care Discharge Planning: To be determined Request Healthcare Surrogate/Guardian Advocate?: Yes (1) Schizophrenia Qualifiers: Schizophrenia type: paranoid schizophrenia Qualified Code(s): F20.0 - Paranoid schizophrenia
[2018-05-01] MEDS: Mirtazapine 15 MG Tablet PO SCH (20:22)
[2018-05-02] MEDS: Levothyroxine 112 MCG Tablet PO SCH (06:13)
[2018-05-02] MEDS: Pantoprazole Sodium 20 MG DR Tablet PO SCH ×2 (08:23→20:09)
[2018-05-02] MEDS: Neomycin/Polymyx/HC Otic Soln 200 DROP/10 ML Bottle RIGHT EAR SCH (08:25)
[2018-05-02] MEDS: Ibuprofen 600 MG Tablet PO PRN (08:32)
--- NOTE | 2018-05-02 13:07 | P.PNPSY ---
Subjective Chief Complaint: Schizophrenia Remarks: Patient seen in her room with nurse Agustin, chart reviewed, patient compliant medication. Patient gets some new somewhat paranoid delusional today stating that she said I called her cycle when talking to Placido. She remains quite vigilant and angry. She stated she did talk to Gokul earlier today. I need to verify this otherwise for now continue treatment Review of Systems All other systems reviewed negative except as stated in HPI Mental Status Examination Appearance: Appropriate Consciousness: Alert Orientation: Person, Place (At least), Date/Time Motor Activity: Normal gait Speech: Unremarkable Language: Adequate Fund of Knowledge: Adequate Attention and Concentration: Adequate (Fair) Memory: Unremarkable (Grossly intact on clinical examination) Mood: Angry, Oppositional, Irritable Affect: Other (Increased range and intensity) Thought Process & Associations: Intact, Tangential Thought Content: Bizarre thinking Hallucination Type: None Delusion Type: Bizarre, Other (Mildly vigilant) Suicidal Ideation: No Suicidal Plan: No Suicidal Intention: No Homicidal Ideation: No Homicidal Plan: No Homicidal Intention: No Insight: Poor Judgment: Poor Assessment and Plan - Assessment (1) Schizophrenia Code(s): F20.9 - Schizophrenia, unspecified Status: Acute - Plan Plan: Patient remained psychotic paranoid and delusional somewhat angry today. [facility] Justification for Continued Inpatient Stay: At this time patient would decompensate a place to a lower level of care Discharge Planning: To be determined Request Healthcare Surrogate/Guardian Advocate?: Yes (1) Schizophrenia Qualifiers: Schizophrenia type: paranoid schizophrenia Qualified Code(s): F20.0 - Paranoid schizophrenia
[2018-05-02] MEDS: Mirtazapine 15 MG Tablet PO SCH (21:00)
[2018-05-03] MEDS: Levothyroxine 112 MCG Tablet PO SCH (06:09)
[2018-05-03] MEDS: Ibuprofen 600 MG Tablet PO PRN ×2 (06:18→17:13)
[2018-05-03] MEDS: Pantoprazole Sodium 20 MG DR Tablet PO SCH ×2 (08:56→21:24)
[2018-05-03] MEDS: Neomycin/Polymyx/HC Otic Soln 200 DROP/10 ML Bottle RIGHT EAR SCH (08:56)
[2018-05-03] MEDS ORDERED: Bisacodyl 10 MG Supp RECTAL PRN (14:13)
--- NOTE | 2018-05-03 14:13 | P.PNPSY ---
Subjective Chief Complaint: Schizophrenia Remarks: Patient is seen in her room with medical student Darnell, and RN. Chart reviewed. Patient compliant medication. Patient today is calmer more focused and pleasant with me though today she told me that she had to "did the shit out of my asshole" we will continue to await word from [facility] about possible transfer to that facility Review of Systems All other systems reviewed negative except as stated in HPI Mental Status Examination Appearance: Appropriate Consciousness: Alert Orientation: Person, Place (At least), Date/Time Motor Activity: Normal gait Speech: Unremarkable Language: Adequate Fund of Knowledge: Adequate Attention and Concentration: Adequate (Fair) Memory: Unremarkable (Grossly intact on clinical examination) Mood: Angry, Oppositional, Irritable Affect: Other (Increased range and intensity) Thought Process & Associations: Intact, Tangential Thought Content: Bizarre thinking Hallucination Type: None Delusion Type: Bizarre, Other (Mildly vigilant) Suicidal Ideation: No Suicidal Plan: No Suicidal Intention: No Homicidal Ideation: No Homicidal Plan: No Homicidal Intention: No Insight: Poor Judgment: Poor Assessment and Plan - Assessment (1) Schizophrenia Code(s): F20.9 - Schizophrenia, unspecified Status: Acute - Plan Plan: Patient remained psychotic delusional today somewhat more pleasant with me Justification for Continued Inpatient Stay: At this time patient would decompensate a place to a lower level of care Discharge Planning: To be determined Request Healthcare Surrogate/Guardian Advocate?: Yes (1) Schizophrenia Qualifiers: Schizophrenia type: paranoid schizophrenia Qualified Code(s): F20.0 - Paranoid schizophrenia
--- NOTE | 2018-05-03 15:41 | P.TTN ---
- Patient Problems Problems: 1. Discharge planning 2. Medication compliance 3. Knowledge deficit 4. Lack of coping skills - Progress Toward Goals Provider Present: Dr. Pily Kilgore (April 30, 2018 Dr. Kilgore is titrating medications. Dr. Kilgore is hopeful that [facility] will accept patient for transfer - as the patient awaits state hospitalization at their facility.), Dr. Darion Reveles Provider Input: 05/02: Pt on State list with [facility]. Magui- 04/25 - contiues to present paranoia, delusional, slightly more cooperative, still meets criteria. State referral. needs further stabilization, still psychotic, FACT team hopes she can return home- if not state referral is suggested/ order is placed but packet not sent yet. March 27, 2018, no changes with patient, patient does not appear to be making progress toward treatment goals, patient requires further stabilization. Apr 06, 2018: Refusing medications: referred to the [facility] hospital. Paranoid and suspicious. Nurse Input: Karol-Non complaint with medication, will only take buspar and invega, has been seclusive, no behavioral issues, seemed incresingly depressed Psychiatric Counselors Present: Marky Taylor Jr., [facility] (Patient presents with disorganized thoughts, irritable mood, and remains on the [facility] wait list at this time. [facility] 02/2018 patient remains disorganized, no insight, unstable and either unable or unwilling to participate in treatment. Patient is awaiting transfer to [facility] where she will remain until a bed is open at the [facility].), Brandy Baker, [facility], Other Psychiatric Therapist Input: 05/02: State placement packet received, notification of admission pending. Priscilla-04/25 Seclusive, poor insight, placement issue, referral for [facility] started. Flat, psychotic, unstable , [facility]. Doesn't like Counselors, very suspicious, Group Spec/RT/OT/WRIGHT Present: Chelsey Hollingsworth, GPS, ADRIANA Lora ( attends most groups and engages limited. April 30, 2018 patient attends most groups), Partha Ang, OT, ADRIANA Damon (Patient attends select groups. ) Group Spec/RT/OT/WRIGHT Input: 05/02: Pt has been attending groups, she is not socializing, she does advocate for her needs. Chelsey- 04/25 Does attend groups, will follow rules and engage in projects, is anti -social and easily overwhelmed. chelsey: Patient attends the group activities on a regular basis. Pt is anti-social with peers but pleasant to select staff.. Pt is easily overwhelmed. Additional Input: 05/02: Pt has been attending groups, she is not socializing, she does advocate for her needs, pt is scheduled to discharge to [facility]. - Documentation Teaching Recipient: Patient
[2018-05-03] MEDS: Mirtazapine 15 MG Tablet PO SCH (21:22)
[2018-05-04] MEDS: Levothyroxine 112 MCG Tablet PO SCH (06:36)
[2018-05-04 08:40] LABS: Calcium 9.4 mg/dL (8.5-10.1); Carbon Dioxide 30.8 meq/L (21.0-32.0); Potassium 4.4 meq/L (3.5-5.1)
[2018-05-04 08:43] LABS: Chol/HDL Ratio 6.99 Ratio; HDL Cholesterol 32.3 mg/dL (40.0-60.0)
[2018-05-04 09:58] LABS: Hemoglobin A1c 6.4 % (4.3-6.0)
[2018-05-04] MEDS: Neomycin/Polymyx/HC Otic Soln 200 DROP/10 ML Bottle RIGHT EAR SCH (10:40)
[2018-05-04] MEDS: Pantoprazole Sodium 20 MG DR Tablet PO SCH ×2 (10:41→21:54)
--- NOTE | 2018-05-04 12:28 | P.PNPSY ---
Subjective Chief Complaint: Schizophrenia Remarks: Patient seen and nails with nurse Vickers and medical student went, chart reviewed, patient compliant medications. Patient's paranoia vigilance and irritability continues somewhat softer. Though today she appears to focus on her feelings that some of the nurses calling her "psycho "that they are stealing drugs. We continue to await word from [facility] about possibility of transferring her there to await for the [facility] Review of Systems All other systems reviewed negative except as stated in HPI Mental Status Examination Appearance: Appropriate Consciousness: Alert Orientation: Person, Place (At least), Date/Time Motor Activity: Normal gait Speech: Unremarkable Language: Adequate Fund of Knowledge: Adequate Attention and Concentration: Adequate (Fair) Memory: Unremarkable (Grossly intact on clinical examination) Mood: Angry, Oppositional, Irritable Affect: Other (Increased range and intensity) Thought Process & Associations: Intact, Tangential Thought Content: Bizarre thinking Hallucination Type: None Delusion Type: Bizarre, Other (Mildly vigilant) Suicidal Ideation: No Suicidal Plan: No Suicidal Intention: No Homicidal Ideation: No Homicidal Plan: No Homicidal Intention: No Insight: Poor Judgment: Poor Assessment and Plan - Assessment (1) Schizophrenia Code(s): F20.9 - Schizophrenia, unspecified Status: Acute - Plan Plan: Patient remains quite psychotic and paranoid of the affect is somewhat softer today Justification for Continued Inpatient Stay: At this time patient would decompensate if placed in a lower level of care Discharge Planning: To be determined Request Healthcare Surrogate/Guardian Advocate?: Yes (1) Schizophrenia Qualifiers: Schizophrenia type: paranoid schizophrenia Qualified Code(s): F20.0 - Paranoid schizophrenia
[2018-05-04] MEDS: Ibuprofen 600 MG Tablet PO PRN (21:54)
[2018-05-04] MEDS: Mirtazapine 15 MG Tablet PO SCH (21:54)
[2018-05-05] MEDS: Levothyroxine 112 MCG Tablet PO SCH ×2 (06:15→06:21)
[2018-05-05] MEDS: Ibuprofen 600 MG Tablet PO PRN (08:40)
[2018-05-05] MEDS: Pantoprazole Sodium 20 MG DR Tablet PO SCH ×2 (08:42→21:03)
--- NOTE | 2018-05-05 15:30 | P.PNPSY ---
Subjective Chief Complaint: Schizophrenia Remarks: Reviewed electronic medical records and discussed case with staff. Follow-up was conducted in patient's bedroom with JESS Cabezas present. Her nurse reports she has been spending quite a bit of time in bed. Patient reports that she feels "good" but has not been sleeping very well. When asked about her mood specifically she states "I have no mood, how can I have a mood when all I do is sleep all the time". Her nurse reports that she remains compliant but selective with her medications. Patient then becomes somewhat argumentative and perseverates on her blood pressure medicine insisting that she is still prescribed it, and in spite of her nurses claims to the contrary. Mental Status Examination Appearance: Appropriate Consciousness: Alert Orientation: Person, Place (At least), Date/Time Motor Activity: Normal gait Speech: Unremarkable Language: Adequate Fund of Knowledge: Adequate Attention and Concentration: Adequate (Fair) Memory: Unremarkable (Grossly intact on clinical examination) Mood: Angry, Oppositional, Irritable Affect: Other (Increased range and intensity) Thought Process & Associations: Intact, Tangential Thought Content: Bizarre thinking Hallucination Type: None Delusion Type: Bizarre, Other (Mildly vigilant) Suicidal Ideation: No Suicidal Plan: No Suicidal Intention: No Homicidal Ideation: No Homicidal Plan: No Homicidal Intention: No Insight: Poor Judgment: Poor Assessment and Plan - Assessment (1) Schizophrenia Code(s): F20.9 - Schizophrenia, unspecified Status: Acute - Plan Plan: Patient will be reevaluated Monday by the attending psychiatrist. Continue with current treatment plan. Justification for Continued Inpatient Stay: Moving this patient to a less restrictive environment would likely result in decompensation. She is awaiting state hospital placement. Request Healthcare Surrogate/Guardian Advocate?: Yes (1) Schizophrenia Qualifiers: Schizophrenia type: paranoid schizophrenia Qualified Code(s): F20.0 - Paranoid schizophrenia
[2018-05-05] MEDS: Mirtazapine 15 MG Tablet PO SCH (21:00)
[2018-05-06] MEDS: Levothyroxine 112 MCG Tablet PO SCH (05:16)
[2018-05-06] MEDS: Ibuprofen 600 MG Tablet PO PRN ×2 (08:32→20:00)
[2018-05-06] MEDS: Pantoprazole Sodium 20 MG DR Tablet PO SCH (10:28)
--- NOTE | 2018-05-06 11:41 | P.PNPSY ---
Subjective Chief Complaint: Schizophrenia Remarks: Reviewed electronic medical records and discussed case with staff. Follow-up was conducted in the patient's room with JESS Cabezas present. Patient is lying in her bed napping. She awakens easily. She states , " I want to file a section 11." When I asked her to define a "section 11" she said it is a way to be released to go to school or to be released to [facility]. She shared that she has been in conversation with Dr. Kilgore regarding her discharge plan and she just need to do the Section 11 paperwork. She is compliant with her medications. She is cooperative. Denies [facility]. Review of Systems All other systems reviewed negative except as stated in HPI Mental Status Examination Appearance: Appropriate Consciousness: Alert Orientation: Person, Place (At least), Date/Time Motor Activity: Normal gait Speech: Unremarkable Language: Adequate Fund of Knowledge: Adequate Attention and Concentration: Adequate (Fair) Memory: Unremarkable (Grossly intact on clinical examination) Mood: Appropriate Affect: Other (Increased range and intensity) Thought Process & Associations: Intact, Tangential Thought Content: Bizarre thinking Hallucination Type: None Delusion Type: Bizarre, Other (Mildly vigilant) Suicidal Ideation: No Suicidal Plan: No Suicidal Intention: No Homicidal Ideation: No Homicidal Plan: No Homicidal Intention: No Insight: Poor Judgment: Poor Assessment and Plan - Assessment (1) Schizophrenia Code(s): F20.9 - Schizophrenia, unspecified Status: Acute - Plan Plan: Patient will be reevaluated Monday by the attending psychiatrist. Continue with current treatment plan. Justification for Continued Inpatient Stay: Moving patient to a less restrictive environment may result in her decompensation. Request Healthcare Surrogate/Guardian Advocate?: Yes
[2018-05-06] MEDS: Mirtazapine 15 MG Tablet PO SCH (20:41)
[2018-05-07] MEDS: Pantoprazole Sodium 20 MG DR Tablet PO SCH ×3 (00:48→21:01)
[2018-05-07] MEDS: Levothyroxine 112 MCG Tablet PO SCH (05:35)
[2018-05-07] MEDS: Ibuprofen 600 MG Tablet PO PRN ×2 (08:45→10:29)
--- NOTE | 2018-05-07 13:03 | P.PNPSY ---
Subjective Chief Complaint: Schizophrenia Remarks: Patient seen in her room with nurse Ap and medical student Darnell, chart reviewed, patient compliant medication. Patient initially calm with me and became angry when I told her she would not be able to leave today. She then became quite confusing claiming that I had made her and that she had delivered some type of her child 3 months ago. Continue to await word from [employer] act about transfer to that facility. Continue to await word from state hospital referral Review of Systems All other systems reviewed negative except as stated in HPI Mental Status Examination Appearance: Appropriate Consciousness: Alert Orientation: Person, Place (At least), Date/Time Motor Activity: Normal gait Speech: Unremarkable Language: Adequate Fund of Knowledge: Adequate Attention and Concentration: Adequate (Fair) Memory: Unremarkable (Grossly intact on clinical examination) Mood: Appropriate Affect: Other (Increased range and intensity) Thought Process & Associations: Intact, Tangential Thought Content: Bizarre thinking Hallucination Type: None Delusion Type: Bizarre, Other (Mildly vigilant) Suicidal Ideation: No Suicidal Plan: No Suicidal Intention: No Homicidal Ideation: No Homicidal Plan: No Homicidal Intention: No Insight: Poor Judgment: Poor Assessment and Plan - Assessment (1) Schizophrenia Code(s): F20.9 - Schizophrenia, unspecified Status: Acute - Plan Plan: Patient remains quite psychotic delusional and paranoid Justification for Continued Inpatient Stay: At this time patient would decompensate a place to a lower level of care Discharge Planning: Continue to await word from state hospital referral and also from [employer] act Request Healthcare Surrogate/Guardian Advocate?: Yes (1) Schizophrenia Qualifiers: Schizophrenia type: paranoid schizophrenia Qualified Code(s): F20.0 - Paranoid schizophrenia
--- NOTE | 2018-05-07 15:40 | P.TTN ---
- Patient Problems Problems: 1. Discharge planning 2. Medication compliance 3. Knowledge deficit 4. Lack of coping skills - Progress Toward Goals Provider Present: Dr. Pily Kilgore (April 30, 2018 Dr. Kilgore is titrating medications. Dr. Kilgore is hopeful that [facility] will accept patient for transfer - as the patient awaits state hospitalization at their facility.), Dr. Darion Reveles Provider Input: 05/07/18: Still meets Criteria. [facility] wait. 05/02: Pt on State list with [facility]. Magui- 04/25 - contiues to present paranoia, delusional, slightly more cooperative, still meets criteria. State referral. needs further stabilization, still psychotic, FACT team hopes she can return home- if not state referral is suggested/ order is placed but packet not sent yet. March 27, 2018, no changes with patient, patient does not appear to be making progress toward treatment goals, patient requires further stabilization. Apr 06, 2018: Refusing medications: referred to the [facility]. Paranoid and suspicious. Nurse(s) Present: Rancho MERCADO Nurse Input: 05/07/18: Paranoid, [facility] refusing others. Karol-Non complaint with medication, will only take buspar and invega, has been seclusive , no behavioral issues, seemed incresingly depressed Psychiatric Counselors Present: Marky Taylor Jr., [facility] (Patient presents with disorganized thoughts, irritable mood, and remains on the [facility] wait list at this time. [facility] 02/2018 patient remains disorganized, no insight, unstable and either unable or unwilling to participate in treatment. Patient is awaiting transfer to [facility] where she will remain until a bed is open at the [facility].), Brandy Baker, [facility], Other Psychiatric Therapist Input: 05/07/18: Cooperative, No insight, needs more time. 05/02: State placement packet received, notification of admission pending. Raheel04/25 Seclusive, poor insight, placement issue, referral for [facility] started. Flat, psychotic, unstable, anticipated [facility]. Doesn't like Counselors, very suspicious, Group Spec/RT/OT/WRIGHT Present: Chelsey Hollingsworth, GPS, Partha Ang, OT Group Spec/RT/OT/WRIGHT Input: 05/07/18: Pt attends select group activities. Pt is quite and isolates to herself. Easily Overwhelmed. 05/02: Pt has been attending groups, she is not socializing, she does advocate for her needs. Chelsey- 04/25 Does attend groups, will follow rules and engage in projects, is anti -social and easily overwhelmed. chelsey: Patient attends the group activities on a regular basis. Pt is anti-social with peers but pleasant to select staff.. Pt is easily overwhelmed. Additional Input: 05/02: Pt has been attending groups, she is not socializing, she does advocate for her needs, pt is scheduled to discharge to [facility]. - Discharge Plan 05/07/18: [facility] referral, hoping to transfer to [facility]. - Documentation Scribe: Chelsey Hollingsworth Teaching Recipient: Patient
[2018-05-07] MEDS: Mirtazapine 15 MG Tablet PO SCH (21:00)
[2018-05-08] MEDS: Levothyroxine 112 MCG Tablet PO SCH (06:29)
[2018-05-08] MEDS: Pantoprazole Sodium 20 MG DR Tablet PO SCH ×2 (11:19→22:10)
--- NOTE | 2018-05-08 13:43 | P.PNPSY ---
Subjective Chief Complaint: Schizophrenia Remarks: Patient seen in her room with with nurse Rancho and medical student Darnell, today patient compliant with the medications, chart reviewed, patient continues somewhat irritable with me though today she was calm. No focusing on discharge Review of Systems All other systems reviewed negative except as stated in HPI Mental Status Examination Appearance: Appropriate Consciousness: Alert Orientation: Person, Place (At least), Date/Time Motor Activity: Normal gait Speech: Unremarkable Language: Adequate Fund of Knowledge: Adequate Attention and Concentration: Adequate (Fair) Memory: Unremarkable (Grossly intact on clinical examination) Mood: Appropriate Affect: Other (Increased range and intensity) Thought Process & Associations: Intact, Tangential Thought Content: Bizarre thinking Hallucination Type: None Delusion Type: Bizarre, Other (Mildly vigilant) Suicidal Ideation: No Suicidal Plan: No Suicidal Intention: No Homicidal Ideation: No Homicidal Plan: No Homicidal Intention: No Insight: Poor Judgment: Poor Assessment and Plan - Assessment (1) Schizophrenia Code(s): F20.9 - Schizophrenia, unspecified Status: Acute - Plan Plan: Patient continues psychotic paranoid and delusional, low compliant medication today Justification for Continued Inpatient Stay: At this time patient would decompensate a place to a lower level of care. We continue to await word from state hospital placement Discharge Planning: Continue to await word from state hospital placement Request Healthcare Surrogate/Guardian Advocate?: Yes (1) Schizophrenia Qualifiers: Schizophrenia type: paranoid schizophrenia Qualified Code(s): F20.0 - Paranoid schizophrenia
[2018-05-08] MEDS: Mirtazapine 15 MG Tablet PO SCH (22:08)
[2018-05-09] MEDS: Levothyroxine 112 MCG Tablet PO SCH (06:55)
[2018-05-09] MEDS: Pantoprazole Sodium 20 MG DR Tablet PO SCH ×2 (08:20→22:19)
[2018-05-09] MEDS: Ibuprofen 600 MG Tablet PO PRN (08:21)
--- NOTE | 2018-05-09 14:11 | P.PNPSY ---
Subjective Chief Complaint: Schizophrenia Remarks: Patient seen in her room with nurse Terri, chart reviewed, patient's blood sugar level on 05/04 was 169. Prior level was 130. Patient is on diabetic diet. Due to that elevated blood sugar level patient has been refused to transfer to [facility] at this time. Patient remains vigilant paranoid and delusional. Stating that in 17 days I have to show her all my records to prove that she still belongs in the hospital Review of Systems All other systems reviewed negative except as stated in HPI Mental Status Examination Appearance: Appropriate Consciousness: Alert Orientation: Person, Place (At least), Date/Time Motor Activity: Normal gait Speech: Unremarkable Language: Adequate Fund of Knowledge: Adequate Attention and Concentration: Adequate (Fair) Memory: Unremarkable (Grossly intact on clinical examination) Mood: Appropriate Affect: Other (Increased range and intensity) Thought Process & Associations: Intact, Tangential Thought Content: Bizarre thinking Hallucination Type: None Delusion Type: Bizarre, Other (Mildly vigilant) Suicidal Ideation: No Suicidal Plan: No Suicidal Intention: No Homicidal Ideation: No Homicidal Plan: No Homicidal Intention: No Insight: Poor Judgment: Poor Assessment and Plan - Assessment (1) Schizophrenia Code(s): F20.9 - Schizophrenia, unspecified Status: Acute - Plan Plan: Patient remains psychotic paranoi and delusional. Compliant medications. For now continue treatment Justification for Continued Inpatient Stay: At this point patient would decompensate a place to a lower level of care Discharge Planning: Continue to await word from state hospital placement Request Healthcare Surrogate/Guardian Advocate?: Yes (1) Schizophrenia Qualifiers: Schizophrenia type: paranoid schizophrenia Qualified Code(s): F20.0 - Paranoid schizophrenia
[2018-05-09] MEDS: Mirtazapine 15 MG Tablet PO SCH (22:19)
[2018-05-10] MEDS: Levothyroxine 112 MCG Tablet PO SCH (06:32)
[2018-05-10] MEDS: Ibuprofen 600 MG Tablet PO PRN ×2 (08:49→20:53)
[2018-05-10] MEDS: Pantoprazole Sodium 20 MG DR Tablet PO SCH ×2 (08:49→20:55)
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
[2018-05-10] MEDS: Mirtazapine 15 MG Tablet PO SCH (20:53)
[2018-05-11] MEDS: Levothyroxine 112 MCG Tablet PO SCH (06:09)
[2018-05-11] MEDS: Pantoprazole Sodium 20 MG DR Tablet PO SCH ×2 (09:47→20:25)
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
[2018-05-11] MEDS: Ibuprofen 600 MG Tablet PO PRN (11:26)
[2018-05-11] MEDS: Mirtazapine 15 MG Tablet PO SCH (20:26)
[2018-05-12] MEDS: Levothyroxine 112 MCG Tablet PO SCH (05:53)
[2018-05-12] MEDS: Pantoprazole Sodium 20 MG DR Tablet PO SCH ×2 (09:26→20:22)
[2018-05-12] MEDS: Paliperidone Inj 234 MG/1.5 ML Syringe IM SCH (10:14)
--- NOTE | 2018-05-12 14:13 | P.PNPSY ---
Subjective Chief Complaint: Schizophrenia Remarks: Pt seen and discussed with staff. Chart reviewed. Pt has been cooperative with care and medications today with encouragement for staff. She has not been agitated today. No SI/HI. Mental Status Examination Appearance: Appropriate Consciousness: Alert Orientation: Person, Place (At least), Date/Time Motor Activity: Normal gait Speech: Unremarkable Language: Adequate Fund of Knowledge: Adequate Attention and Concentration: Adequate (Fair) Memory: Unremarkable (Grossly intact on clinical examination) Mood: Appropriate Affect: Other (Increased range and intensity) Thought Process & Associations: Intact, Tangential Thought Content: Bizarre thinking Hallucination Type: None Delusion Type: Bizarre, Paranoid (towards nurses) Suicidal Ideation: No Suicidal Plan: No Suicidal Intention: No Homicidal Ideation: No Homicidal Plan: No Homicidal Intention: No Insight: Poor Judgment: Poor Assessment and Plan - Assessment (1) Schizophrenia Code(s): F20.9 - Schizophrenia, unspecified Status: Acute - Plan Plan: Continue current tx plan Justification for Continued Inpatient Stay: impairments in reality tesitng Request Healthcare Surrogate/Guardian Advocate?: Yes (1) Schizophrenia Qualifiers: Schizophrenia type: paranoid schizophrenia Qualified Code(s): F20.0 - Paranoid schizophrenia
[2018-05-12] MEDS: Ibuprofen 600 MG Tablet PO PRN (15:43)
[2018-05-12] MEDS: Mirtazapine 15 MG Tablet PO SCH (20:22)
[2018-05-13] MEDS: Levothyroxine 112 MCG Tablet PO SCH (05:44)
[2018-05-13] MEDS: Ibuprofen 600 MG Tablet PO PRN (09:03)
[2018-05-13] MEDS: Pantoprazole Sodium 20 MG DR Tablet PO SCH ×2 (09:04→20:40)
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
[2018-05-13] MEDS: Mirtazapine 15 MG Tablet PO SCH (20:40)
[2018-05-14] MEDS: Levothyroxine 112 MCG Tablet PO SCH (06:04)
[2018-05-14] MEDS: Pantoprazole Sodium 20 MG DR Tablet PO SCH ×2 (08:42→20:04)
[2018-05-14] MEDS: Ibuprofen 600 MG Tablet PO PRN (11:23)
--- NOTE | 2018-05-14 11:34 | P.PNPSY ---
Subjective Chief Complaint: Schizophrenia Remarks: Patient is seen with nurse Justyna. Patient in her room. She is angry this morning insisting that the nurse " is not giving me the medication I have asked for". The nurse confirms that she has not asked for any medication. Patient also refused her morning labs. I attempt to get her to understand the importance of these. She then goes on to state " I am here because Magui killed our son. I will not gagan him for doing that if he lets me go home". Patient is sleeping as per nurses report. No medication side effects observed or reported. Review of Systems All other systems reviewed negative except as stated in HPI Mental Status Examination Appearance: Appropriate Consciousness: Alert Orientation: Person, Place (At least), Date/Time Motor Activity: Normal gait Speech: Unremarkable, Hesitant Language: Adequate Fund of Knowledge: Adequate Attention and Concentration: Adequate (Fair) Memory: Unremarkable (Grossly intact on clinical examination) Mood: Appropriate, Angry Affect: Other (Increased range and intensity) Thought Process & Associations: Intact, Tangential Thought Content: Bizarre thinking, Delusional Hallucination Type: None Delusion Type: Bizarre, Paranoid (towards nurses), Other (believes that MD has killed their son.) Suicidal Ideation: No Suicidal Plan: No Suicidal Intention: No Homicidal Ideation: No Homicidal Plan: No Homicidal Intention: No Insight: Poor Judgment: Poor Assessment and Plan - Assessment (1) Schizophrenia Code(s): F20.9 - Schizophrenia, unspecified Status: Acute - Plan Plan: Continue with current tx plan Justification for Continued Inpatient Stay: Patient is at risk of decompensation at lower level of care. Request Healthcare Surrogate/Guardian Advocate?: Yes (1) Schizophrenia Qualifiers: Schizophrenia type: paranoid schizophrenia Qualified Code(s): F20.0 - Paranoid schizophrenia
[2018-05-14 14:31] LABS: Albumin 3.7 g/dL (3.4-5.0); Anion Gap 8 meq/L (5-15); Aspartate Aminotransferase 22 U/L (15-37); Blood Urea Nitrogen 10 mg/dL (7-18); Calcium 8.9 mg/dL (8.5-10.1); Carbon Dioxide 28.6 meq/L (21.0-32.0); Chloride 100 meq/L (98-107); Glomerular Filtration Rate 70 mL/min (>89); Glucose,Random 229 mg/dL (74-106); Potassium 4.1 meq/L (3.5-5.1); Sodium 137 meq/L (136-145)
[2018-05-14 14:32] LABS: Alanine Aminotransferase 40 U/L (10-53)
[2018-05-14 14:34] LABS: Alkaline Phosphatase 85 U/L (45-117); Total Protein 7.4 g/dL (6.4-8.2)
[2018-05-14] MEDS: Mirtazapine 15 MG Tablet PO SCH (20:04)
[2018-05-15] MEDS: Levothyroxine 112 MCG Tablet PO SCH (05:40)
[2018-05-15] MEDS: Pantoprazole Sodium 20 MG DR Tablet PO SCH ×2 (08:30→22:07)
--- NOTE | 2018-05-15 12:58 | P.TTN ---
- Patient Problems Problems: 1. Discharge planning 2. Medication compliance 3. Knowledge deficit 4. Lack of coping skills - Progress Toward Goals Provider Present: Dr. Pily Kilgore (April 30, 2018 Dr. Kilgore is titrating medications. Dr. Kilgore is hopeful that [facility] act will accept patient for transfer - as the patient awaits state hospitalization at their facility.), Dr. Winston Saab, Dr. Darion Reveles Provider Input: 05/07/18: Still meets Criteria. [facility] wait. 05/02: Pt on State list with [facility]. Magui- 04/25 - contiues to present paranoia, delusional, slightly more cooperative, still meets criteria. State referral. needs further stabilization, still psychotic, FACT team hopes she can return home- if not state referral is suggested/ order is placed but packet not sent yet. March 27, 2018, no changes with patient, patient does not appear to be making progress toward treatment goals, patient requires further stabilization. Apr 06, 2018: Refusing medications: referred to the [facility] hospital. Paranoid and suspicious. Nurse(s) Present: Rancho RN Nurse Input: 05/07/18: Paranoid, Select meds refusing others. Karol-Non complaint with medication, will only take buspar and invega, has been seclusive , no behavioral issues, seemed incresingly depressed Psychiatric Counselors Present: Marky Taylor Jr., [facility] [[email or web address] (state wait list), Brandy Baker, [facility], Other Psychiatric Therapist Input: 05/07/18: Cooperative, No insight, needs more time. 05/02: State placement packet received, notification of admission pending. Priscilla-04/25 Seclusive, poor insight, placement issue, referral for [facility] started. Flat, psychotic, unstable, [facility]. Doesn't like Counselors, very suspicious, Group Spec/RT/OT/WRIGHT Present: Chelsey Hollingsworth, GPS, Partha Ang, OT, ADRIANA Damon (Recently patient only attends very select groups.) Group Spec/RT/OT/WRIGHT Input: 05/07/18: Pt attends select group activities. Pt is quite and isolates to herself. Easily Overwhelmed. 05/02: Pt has been attending groups, she is not socializing, she does advocate for her needs. Chelsey- 04/25 Does attend groups, will follow rules and engage in projects, is anti -social and easily overwhelmed. chelsey: Patient attends the group activities on a regular basis. Pt is anti-social with peers but pleasant to select staff.. Pt is easily overwhelmed. Additional Input: 05/02: Pt has been attending groups, she is not socializing, she does advocate for her needs, pt is scheduled to discharge to [facility]. - Discharge Plan 05/07/18: [facility] referral, hoping to transfer to [facility]. - Documentation Scribe: Chelsey Hollingsworth Teaching Recipient: Patient
--- NOTE | 2018-05-15 14:43 | P.PNPSY ---
Subjective Chief Complaint: Schizophrenia Remarks: Patient seen and examined with nurse in coverage for Dr. Kilgore. Chart reviewed. Case discussed with nursing staff. Case discussed in treatment team. On my examination today, the patient denies SI, HI or AVH. She articulates a belief that she had a child by Dr. Kilgore's son, which child Dr. Kilgore subsequently killed. Patient seems quite delusional. Denies side effects from medications. No physical complaints. Vital Signs Temp Pulse Resp BP Pulse Ox 05/15/18 05:50 97.6 F 67 16 113/75 95 05/14/18 17:30 97.8 F 62 18 128/61 95 Intake and Output 05/15/18 05/15/18 05/15/18 06:59 14:59 22:59 Other: Date of Last Bowel Movement 05/07/18 Laboratory Tests 02/19/18 02/19/18 04/24/18 18:07 20:20 06:45 WBC 4.2 Hgb 12.0 Plt Count 136 L Sodium Potassium Chloride Carbon Dioxide BUN Creatinine Estimated GFR AST ALT Alkaline Phosphatase TSH Urine Opiates Screen Neg Ur Barbiturates Screen Neg Ur Amphetamines Screen Neg U Benzodiazepines Scrn Neg Urine Cocaine Screen Neg U Cannabinoids Screen Neg Serum Alcohol Less than 3 04/29/18 05/14/18 09:05 13:20 WBC Hgb Plt Count Sodium 137 Potassium 4.1 Chloride 100 Carbon Dioxide 28.6 BUN 10 Creatinine 0.84 Estimated GFR 70 L AST 22 ALT 40 Alkaline Phosphatase 85 TSH 1.340 Urine Opiates Screen Ur Barbiturates Screen Ur Amphetamines Screen U Benzodiazepines Scrn Urine Cocaine Screen U Cannabinoids Screen Serum Alcohol Labs reviewed. Review of Systems All other systems reviewed negative except as stated in HPI (Limitation: Psychosis) Mental Status Examination Appearance: Appropriate Consciousness: Alert Orientation: Person, Place (At least) Motor Activity: Other (No motor abnormalities noted) Speech: Unremarkable Language: Adequate Fund of Knowledge: Adequate Attention and Concentration: Adequate (Fair) Memory: Unremarkable (Grossly intact on clinical examination) Mood: Oppositional Affect: Flat Thought Process & Associations: Linear (Within delusions) Thought Content: Bizarre thinking, Delusional Hallucination Type: None Delusion Type: Bizarre, Paranoid, Other (believes that MD has killed their son. Ongoing.) Suicidal Ideation: No Suicidal Plan: No Suicidal Intention: No Homicidal Ideation: No Homicidal Plan: No Homicidal Intention: No Insight: Poor Judgment: Poor Assessment and Plan - Assessment (1) Schizophrenia Code(s): F20.9 - Schizophrenia, unspecified Status: Acute - Plan Plan: Continue current psychotropic medications as ordered. Continue to monitor on the inpatient unit. Continue other medications and care as ordered. Justification for Continued Inpatient Stay: Impairment in reality construction. High risk for decompensation in less restrictive environment. Discharge Planning: [facility] referral. Request Healthcare Surrogate/Guardian Advocate?: Yes (1) Schizophrenia Qualifiers: Schizophrenia type: paranoid schizophrenia Qualified Code(s): F20.0 - Paranoid schizophrenia
[2018-05-15] MEDS: Ibuprofen 600 MG Tablet PO PRN (16:08)
[2018-05-15] MEDS: Mirtazapine 15 MG Tablet PO SCH (22:07)
[2018-05-16] MEDS: Levothyroxine 112 MCG Tablet PO SCH (06:32)
[2018-05-16] MEDS: Pantoprazole Sodium 20 MG DR Tablet PO SCH ×2 (08:28→21:11)
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
[2018-05-16] MEDS: Ibuprofen 600 MG Tablet PO PRN ×2 (11:35→18:13)
[2018-05-16] MEDS: Mirtazapine 15 MG Tablet PO SCH (21:11)
[2018-05-17] MEDS: Levothyroxine 112 MCG Tablet PO SCH (06:18)
[2018-05-17] MEDS: Ibuprofen 600 MG Tablet PO PRN (07:26)
[2018-05-17] MEDS: Pantoprazole Sodium 20 MG DR Tablet PO SCH ×2 (08:03→21:12)
--- NOTE | 2018-05-17 12:03 | P.PNPSY ---
Subjective Chief Complaint: Schizophrenia Remarks: Patient seen and examined with nurse. Chart reviewed. I note that patient has been consistently refusing her antihyperglycemics. Case discussed with nursing staff. On my exam, patient remains delusional. She says that she was supposed to be released today. She reports that Dr. Kilgore was present in court today (he is, in fact, out of the office) and says that he testified that patient is to be released. She further reports that the court was presided over by a Dr. Reyes (also not the case). No side effects from medications. No physical complaints. I did review with patient her legal status and remedy of writ of habeas should she feel she is being retained improperly. Vital Signs Temp Pulse Resp BP Pulse Ox 05/17/18 05:35 97.9 F 52 L 16 123/58 L 96 05/16/18 18:46 97.8 F 61 18 109/62 Intake and Output 05/16/18 05/17/18 05/17/18 22:59 06:59 14:59 Other: Weight 111.2 kg Labs reviewed. Review of Systems All other systems reviewed negative except as stated in HPI (Limitation: Psychosis) Mental Status Examination Appearance: Appropriate Consciousness: Alert Orientation: Person, Place (At least) Motor Activity: Other (No motoric abnormalities noted) Speech: Unremarkable Language: Adequate Fund of Knowledge: Adequate Attention and Concentration: Adequate (Fair) Memory: Unremarkable (Grossly intact on clinical examination) Mood: Oppositional Affect: Irritable (Mild) Thought Process & Associations: Linear (Within delusions) Thought Content: Bizarre thinking, Delusional Hallucination Type: None Delusion Type: Bizarre, Paranoid Suicidal Ideation: No Homicidal Ideation: No Insight: Poor Judgment: Poor Assessment and Plan - Assessment (1) Schizophrenia Code(s): F20.9 - Schizophrenia, unspecified Status: Acute - Plan Plan: Titrate oral Invega to 12mg/day to target ongoing psychotic symptoms; this is supplementing Invega Sustenna. Patient has a diabetic diet. I will add Accu- cheks and sliding scale insulin. Continue to monitor on the inpatient unit. Continue other medications and care as ordered. Justification for Continued Inpatient Stay: Medication changes. Impairment in reality construction. High risk for decompensation in less restrictive environment. Discharge Planning: [facility] Request Healthcare Surrogate/Guardian Advocate?: Yes (1) Schizophrenia Qualifiers: Schizophrenia type: paranoid schizophrenia Qualified Code(s): F20.0 - Paranoid schizophrenia
[2018-05-17] MEDS ORDERED: Dextrose 50% in Water 50 ML Vial IV.PUSH PRN (14:04)
[2018-05-17] MEDS: Insulin NovoLOG Aspart Correctional Sugar Inj SQ SCH ×2 (16:07→21:13)
[2018-05-17] MEDS: Mirtazapine 15 MG Tablet PO SCH (21:12)
[2018-05-18] MEDS: Levothyroxine 112 MCG Tablet PO SCH (06:25)
[2018-05-18] MEDS: Insulin NovoLOG Aspart Correctional Sugar Inj SQ SCH ×4 (08:00→20:41)
[2018-05-18] MEDS: Ibuprofen 600 MG Tablet PO PRN (09:41)
[2018-05-18] MEDS: Pantoprazole Sodium 20 MG DR Tablet PO SCH ×2 (09:46→20:22)
--- NOTE | 2018-05-18 12:18 | P.PNPSY ---
Subjective Chief Complaint: Schizophrenia Remarks: Patient seen and examined with nurse and nursing students. Chart reviewed. Case discussed with nurse who reports that patient reluctantly allowed bedside glucoses to be measured until he evaluates obtained that required insulin coverage. She then refused the coverage and refused any further blood glucoses. Case discussed in treatment team. Patient noted to attend select groups but is also noted to be delusional and frequently tearful. On my examination today, the patient presents as irritable and oppositional. She says "I am a paranoid schizophrenic. I need hormone treatment. I do not have any hormones in my body except male hormones from my boyfriend." I cannot elicit any specific endocrine complaints. She denies side effects from medications. No physical complaints. I have strongly encouraged her to comply with glucose monitoring and treatment of hyperglycemia and endeavor to discuss potential complications from untreated hyperglycemia with the patient at a level appropriate to her degree of impairment. The patient also refused her EKG , and I endeavored to educate her regarding the potential cardiac risks of antipsychotic therapy. Vital Signs Temp Pulse Resp BP Pulse Ox 05/18/18 04:41 97.9 F 63 16 148/70 H 98 05/17/18 19:12 97.6 F 69 16 127/84 99 Laboratory Results - last 24 hr 05/17/18 05/18/18 20:52 06:21 POC Glucose 149 H 211 H Labs reviewed. Review of Systems All other systems reviewed negative except as stated in HPI (Limitation: Psychosis) Mental Status Examination Appearance: Appropriate Consciousness: Alert Orientation: Person, Place (At least) Motor Activity: Other (No abnormal motor movements noted) Speech: Unremarkable Language: Adequate Fund of Knowledge: Adequate Attention and Concentration: Adequate (Fair) Memory: Unremarkable (Grossly intact on clinical examination) Mood: Angry, Oppositional Affect: Irritable (Mild) Thought Process & Associations: Linear (Within delusions) Thought Content: Bizarre thinking, Preoccupations, Delusional Hallucination Type: None Delusion Type: Bizarre, Paranoid, Somatic Suicidal Ideation: No Homicidal Ideation: No Insight: Poor Judgment: Poor Assessment and Plan - Assessment (1) Schizophrenia Code(s): F20.9 - Schizophrenia, unspecified Status: Acute - Plan Plan: Continue increased dose of paliperidone as ordered. Continue other psychotropic medications as ordered. Patient reports that she will continue to refuse EKG and Accu-cheks but to consider reordering EKG if patient becomes more compliant. Continue to monitor on the inpatient unit. Continue other medications and care as ordered. Justification for Continued Inpatient Stay: Risk for decompensation in less restrictive environment. Discharge Planning: Counselor informs me patient is #[facility]. Request Healthcare Surrogate/Guardian Advocate?: Yes (1) Schizophrenia Qualifiers: Schizophrenia type: paranoid schizophrenia Qualified Code(s): F20.0 - Paranoid schizophrenia
--- NOTE | 2018-05-18 16:16 | P.TTN ---
- Patient Problems Problems: 1. Discharge planning 2. Medication compliance 3. Knowledge deficit 4. Lack of coping skills - Progress Toward Goals Provider Present: Dr. Winston Saab Provider Input: 05/18/18: Increased Oral Invega. 05/07/18: Still meets Criteria. [facility] wait. 05/02: Pt on State list with [facility] transition. Magui- 04/25 - contiues to present paranoia, delusional, slightly more cooperative, still meets criteria. State referral. needs further stabilization , still psychotic, FACT team hopes she can return home- if not state referral is suggested/ order is placed but packet not sent yet. March 27, 2018, no changes with patient, patient does not appear to be making progress toward treatment goals, patient requires further stabilization. Apr 06, 2018: Refusing medications: referred to the [facility] hospital. Paranoid and suspicious. Nurse(s) Present: Jaukb Nurse Input: 05/18/18: Agitated, Med Compliant only with Psych Meds. 05/07/18: Paranoid, Select meds refusing others. Karol-Non complaint with medication, will only take buspar and invega, has been seclusive, no behavioral issues, seemed incresingly depressed Psychiatric Counselors Present: Marky Taylor Jr., [facility] (state wait list), Brandy Baker [facility], Other Psychiatric Therapist Input: 05/18/18: Meets Criteria, State Wait. 05/07/18: Cooperative, No insight, needs more time. 05/02: State placement packet received, notification of admission pending. Priscilla-04/25 Seclusive, poor insight, placement issue, referral for [facility] started. Flat, psychotic , unstable, anticipated [facility] Hospital. Doesn't like Counselors, very suspicious , Group Spec/RT/OT/WRIGHT Present: CRISTINE Moon Group Spec/RT/OT/WRIGHT Input: 05/18/18: Patient attends select group activities, depressed mood. Tearful at times. Isolates to self. 05/07/18: Pt attends select group activities. Pt is quite and isolates to herself. Easily Overwhelmed. 05/02: Pt has been attending groups, she is not socializing, she does advocate for her needs. Gio 04/25 Does attend groups, will follow rules and engage in projects, is anti -social and easily overwhelmed. chelsey: Patient attends the group activities on a regular basis. Pt is anti-social with peers but pleasant to select staff.. Pt is easily overwhelmed. Additional Input: 05/02: Pt has been attending groups, she is not socializing, she does advocate for her needs, pt is scheduled to discharge to [facility]. 05/18/18: Patient is on the [facility] Wait List. - Discharge Plan 05/07/18: [facility] Hospital referral, hoping to transfer to [facility]. 05/18/18: [facility] Waiting list. - Documentation Scribe: Chelsey Hollingsworth Teaching Recipient: Patient
[2018-05-18] MEDS: Mirtazapine 15 MG Tablet PO SCH (20:22)
[2018-05-19] MEDS: Levothyroxine 112 MCG Tablet PO SCH (05:53)
[2018-05-19] MEDS: Pantoprazole Sodium 20 MG DR Tablet PO SCH ×2 (09:33→20:27)
[2018-05-19] MEDS: Insulin NovoLOG Aspart Correctional Sugar Inj SQ SCH ×4 (09:35→20:29)
[2018-05-19] MEDS: Ibuprofen 600 MG Tablet PO PRN (09:54)
--- NOTE | 2018-05-19 15:26 | P.PNPSY ---
Subjective Chief Complaint: Schizophrenia Remarks: Patient seen and examined with nurse. Chart reviewed. Case discussed with nursing staff who reports patient continues to refuse some Accu-Cheks. On my examination today, patient presents as irritable and dysphoric. She is fixated on discharge. She is perseverative on needing replacement hormones. I note that a gynecology consultation was requested earlier in the hospitalization with the following recommendation: "Will not start hormone replacement at this time for long-term and menopausal symptoms. Will need follow-up after starting any type of hormone replacement therapy, which would be most safely done outpatient." No side effects from medications. No acute physical complaints. Vital Signs Temp Pulse Resp BP Pulse Ox 05/19/18 11:01 16 05/19/18 08:00 18 05/19/18 05:43 98.2 F 58 L 18 132/62 97 05/18/18 16:59 99.0 F 79 18 137/63 94 L Intake and Output 05/19/18 05/19/18 05/19/18 06:59 14:59 22:59 Other: Date of Last Bowel Movement 05/17/18 Laboratory Results - last 24 hr 05/18/18 05/19/18 20:30 06:03 POC Glucose 155 H 194 H Labs reviewed. Review of Systems All other systems reviewed negative except as stated in HPI (Limitation: Poor historian) Mental Status Examination Appearance: Appropriate Consciousness: Alert Orientation: Person, Place (At least) Motor Activity: Other (No motor abnormalities noted) Speech: Unremarkable Language: Adequate Fund of Knowledge: Adequate Attention and Concentration: Adequate (Fair) Memory: Unremarkable (Grossly intact on clinical examination) Mood: Oppositional, Irritable Affect: Irritable Thought Process & Associations: Linear (Within delusions) Thought Content: Bizarre thinking, Preoccupations, Delusional Hallucination Type: None Delusion Type: Bizarre, Paranoid, Somatic Suicidal Ideation: No Homicidal Ideation: No Insight: Poor Judgment: Poor Assessment and Plan - Assessment (1) Schizophrenia Code(s): F20.9 - Schizophrenia, unspecified Status: Acute - Plan Plan: Continue current psychiatric medications as ordered. Continue other care as ordered. Continue to monitor on the inpatient unit. Justification for Continued Inpatient Stay: Impairment in reality construction. Risk for decompensation in less restrictive environment. Discharge Planning: [facility] referral. Request Healthcare Surrogate/Guardian Advocate?: Yes (1) Schizophrenia Qualifiers: Schizophrenia type: paranoid schizophrenia Qualified Code(s): F20.0 - Paranoid schizophrenia
[2018-05-19] MEDS: Mirtazapine 15 MG Tablet PO SCH (20:27)
[2018-05-20] MEDS: Levothyroxine 112 MCG Tablet PO SCH (05:45)
[2018-05-20] MEDS: Insulin NovoLOG Aspart Correctional Sugar Inj SQ SCH ×4 (08:41→21:41)
[2018-05-20] MEDS: Pantoprazole Sodium 20 MG DR Tablet PO SCH ×2 (08:43→21:40)
[2018-05-20] MEDS: Ibuprofen 600 MG Tablet PO PRN ×2 (09:14→21:39)
--- NOTE | 2018-05-20 14:01 | P.PNPSY ---
Subjective Chief Complaint: Schizophrenia Remarks: Chart reviewed and discussed with nursing staff. Patient is sitting in as straight back chair complaining of back pain. She describes the pain on her right flank. Will request a urine to rule out a UTI. She denies any AVH. Preoccupied with leaving. States that her boyfriend was here yesterday and wants her to come home. She is sleeping and eating well. Medication compliant. Review of Systems All other systems reviewed negative except as stated in HPI Mental Status Examination Appearance: Appropriate Consciousness: Alert Orientation: Person, Place (At least) Motor Activity: Other (No motor abnormalities noted) Speech: Unremarkable Language: Adequate Fund of Knowledge: Adequate Attention and Concentration: Adequate (Fair) Memory: Unremarkable (Grossly intact on clinical examination) Mood: Oppositional, Irritable Affect: Irritable Thought Process & Associations: Linear (Within delusions) Thought Content: Bizarre thinking, Preoccupations, Delusional Hallucination Type: None Delusion Type: Bizarre, Paranoid, Somatic Suicidal Ideation: No Suicidal Plan: No Suicidal Intention: No Homicidal Ideation: No Homicidal Plan: No Homicidal Intention: No Insight: Poor Judgment: Poor Assessment and Plan - Assessment (1) Schizophrenia Code(s): F20.9 - Schizophrenia, unspecified Status: Acute - Plan Plan: Continue current treatment plan. Justification for Continued Inpatient Stay: Moving patient to a less restrictive environment may result in her decompensation. Request Healthcare Surrogate/Guardian Advocate?: Yes
[2018-05-20] MEDS: Mirtazapine 15 MG Tablet PO SCH (21:40)
[2018-05-21] MEDS: Levothyroxine 112 MCG Tablet PO SCH (05:35)
[2018-05-21] MEDS: Insulin NovoLOG Aspart Correctional Sugar Inj SQ SCH ×4 (07:46→21:42)
[2018-05-21] MEDS: Pantoprazole Sodium 20 MG DR Tablet PO SCH ×2 (08:45→21:41)
--- NOTE | 2018-05-21 11:10 | P.PNPSY ---
Subjective Chief Complaint: Schizophrenia Remarks: Patient seen and examined with nurse. Chart reviewed. Case discussed with nursing staff. On my examination today, the patient presents as irritable. She complains of polyuria, dysuria and right flank pain and I note that the nurse practitioner yesterday has ordered a urine culture. I will start empiric Macrobid while awaiting results of urine culture and request hospitalist consultation. Denies side effects from medications. No other physical complaints. Vital Signs Temp Pulse Resp BP Pulse Ox 05/21/18 05:07 98.1 F 59 L 16 110/70 97 05/20/18 17:18 97.5 F L 80 18 142/67 H 97 Intake and Output 05/20/18 05/21/18 05/21/18 22:59 06:59 14:59 Other: Date of Last Bowel Movement 05/20/18 Weight 110.8 kg Microbiology 05/20/18 16:15 Urine Culture - Preliminary Clean Catch Urine Immature growth - reincubate Review of Systems All other systems reviewed negative except as stated in HPI (Limitation: Poor historian) Mental Status Examination Appearance: Appropriate Consciousness: Alert Orientation: Person, Place (At least) Motor Activity: Other (No abnormal motor movements noted) Speech: Unremarkable Language: Adequate Fund of Knowledge: Adequate Attention and Concentration: Adequate (Fair) Memory: Unremarkable (Grossly intact on clinical examination) Mood: Oppositional, Irritable Affect: Irritable Thought Process & Associations: Linear (Within delusions) Thought Content: Bizarre thinking, Preoccupations, Delusional Hallucination Type: None Delusion Type: Paranoid Suicidal Ideation: No Homicidal Ideation: No Insight: Poor Judgment: Poor Assessment and Plan - Assessment (1) Schizophrenia Code(s): F20.9 - Schizophrenia, unspecified Status: Acute - Plan Plan: Management of urinary complaints as noted above. Continue current psychotropics as ordered. Continue to monitor on the inpatient unit. Continue other medications and care as ordered. Justification for Continued Inpatient Stay: Risk for decompensation in less restrictive environment. Discharge Planning: [facility] referral. Request Healthcare Surrogate/Guardian Advocate?: Yes (1) Schizophrenia Qualifiers: Schizophrenia type: paranoid schizophrenia Qualified Code(s): F20.0 - Paranoid schizophrenia
[2018-05-21] MEDS: Ibuprofen 600 MG Tablet PO PRN ×2 (12:18→20:02)
--- NOTE | 2018-05-21 16:32 | P.CON ---
History of Present Illness Service: Psychiatry Reason for Consult: Medical management for urinary tract infection Primary Care Provider: William Silverman DO Chief Complaint: Urinary frequency History of Present Illness: 57-year-old female admitted under [place] act February 20, with history of mental disorder including paranoia schizophrenia was previously seen by [facility] secondary to shortness of breath, and now is being seen secondary to increased urinary frequency, dysuria. Patient had abnormal UA for which she was started on Macrobid. She is currently afebrile. Review of Systems All other systems reviewed negative except as stated in HPI PMFSH - History History Provided By: Patient - Medical History Medical History: Medical History (Last Reviewed 04/27/18 @ 18:39 by STUART Castro) Hx of hysterectomy (Acute) Asthma COPD (chronic obstructive pulmonary disease) GERD (gastroesophageal reflux disease) HLD (hyperlipidemia) HTN (hypertension) Hypothyroid Medical history unknown Obstructive sleep apnea Paranoid schizophrenia - Surgical History Surgical History: Surgical History (Last Reviewed 04/27/18 @ 18:39 by STUART Castro) Hx of tonsillectomy - Family History Family History: Family History (Last Reviewed 04/27/18 @ 18:39 by STUART Castro) Other Family history unobtainable due to patient's condition - Tobacco History Second Hand Smoke Exposure: No Tobacco Use In Past 30 Days: No Smoking Status: Refused to answer Tobacco Type: Cigarettes - Alcohol History How Often Do You Have a Drink Containing Alcohol: Unable to Obtain - Substance Use History Substance History: No History of Abuse - Travel History Recent Travel in the [place] Within the Last 8 Weeks: No Recent Travel Out of the Country Within the Last 8 Weeks: No - Immunization History Tetanus Immunization: Unable to Assess Hx Influenza Vaccine This Season: No Medications and Allergies Active Medications: Active Medications Al Hydrox/Mg Hydrox/Simethicone (Mag-Al Plus Susp Liq) 30 ml PO Q6H PRN PRN Reason: DYSPEPSIA Last Admin: 04/26/18 20:03 Dose: 30 ml Al Hydroxide/Mg Hydroxide (Milk Of Magnesia Liq) 30 ml PO Q12H PRN PRN Reason: Mild Constipation Last Admin: 05/19/18 11:47 Dose: 30 ml Al Hydroxide/Mg Hydroxide (Milk Of Magnesia Liq) 30 ml PO Q12H PRN PRN Reason: Mild Constipation Albuterol (Ventolin Hfa Inh) 2 puff INH Q4H PRN PRN Reason: BRONCOSPASM Last Admin: 05/10/18 13:47 Dose: 2 puff Albuterol (Duoneb Neb (Prn)) 1 ampul NEB Q8HR NEB PRN PRN Reason: SHORTNESS OF BREATH/WHEEZING Last Admin: 03/29/18 10:57 Dose: 1 ampul Bacitracin (Baciguent Oint) 1 applicatio TOPICAL BID [facility] Last Admin: 05/21/18 08:45 Dose: Not Given Bisacodyl (Dulcolax Supp) 10 mg RECTAL DAILY PRN PRN Reason: SEVERE CONSITIPATION Buspirone HCl (Buspar) 10 mg PO BID [facility] Last Admin: 05/21/18 08:44 Dose: 10 mg Clonidine HCl (Catapres) 0.1 mg PO Q6H PRN PRN Reason: SBP> OR = 180, DBP> OR = 100 Last Admin: 02/22/18 17:00 Dose: 0.1 mg Dextrose (D50w Vial) 50 ml IV.PUSH UNSCH PRN PRN Reason: PER HYPOGLYCEMIA PROTOCOL Diphenhydramine HCl (Benadryl) 50 mg PO HS PRN PRN Reason: INSOMNIA Last Admin: 05/20/18 21:39 Dose: 50 mg Fluticasone/Vilanterol (Breo Ellipta 100/25 Mcg Inh) 1 puff INH DAILY [facility] Last Admin: 05/21/18 08:45 Dose: Not Given Glipizide (Glucotrol) 2.5 mg PO BIDAC [facility] Last Admin: 04/25/18 08:59 Dose: Not Given Glucagon (Glucagon Inj) 1 mg OTHER PRN PRN PRN Reason: for Hypoglycemia Protocol Hydroxyzine HCl (Atarax) 50 mg PO Q6H PRN PRN Reason: ANXIETY Last Admin: 05/20/18 12:50 Dose: 50 mg Ibuprofen (Motrin) 600 mg PO Q6H PRN PRN Reason: PAIN 1-10 Last Admin: 05/21/18 12:18 Dose: 600 mg Insulin Aspart (Novolog Insulin Correctional Sugar Inj) 0 unit SQ ACHS [facility]; Protocol Last Admin: 05/21/18 12:18 Dose: Not Given Lactulose (Lactulose Liq) 30 ml PO DAILY PRN PRN Reason: SEVERE CONSITIPATION Last Admin: 05/05/18 22:19 Dose: 30 ml Levothyroxine Sodium (Synthroid) 25 mcg PO DAILY@0600 [facility] Last Admin: 05/21/18 05:35 Dose: 25 mcg Levothyroxine Sodium (Synthroid) 112 mcg PO DAILY@0600 [facility] Last Admin: 05/21/18 05:35 Dose: 112 mcg Lisinopril (Prinivil) 20 mg PO DAILY [facility] Metformin HCl (Glucophage) 500 mg PO BID [facility] Last Admin: 04/25/18 09:00 Dose: Not Given Mirtazapine (Remeron) 15 mg PO HS [facility] Last Admin: 05/20/18 21:40 Dose: 15 mg [facility]itrofurantoin [facility] ([facility]) [facility] Stop: 05/26/18 17:59 Paliperidone Palmitate (Invega Sustenna Inj) 234 mg IM Q30D [facility] Last Admin: 05/12/18 10:14 Dose: 234 mg Paliperidone Palmitate (Invega Er) 12 mg PO DAILY [facility] Last Admin: 05/21/18 08:44 Dose: 12 mg Pantoprazole Sodium (Protonix) 20 mg PO BID [facility] Last Admin: 05/21/18 08:45 Dose: Not Given Pravastatin Sodium (Pravachol) 80 mg PO QPM [facility] Last Admin: 05/20/18 18:04 Dose: Not Given Sennosides (Senokot) 17.2 mg PO Q12H PRN PRN Reason: Moderate Constipation Allergies Allergy/AdvReac Type Severity Reaction Status Date / Time penicillin G Allergy Severe Anaphylaxis Verified 02/26/18 17:34 Sulfa (Sulfonamide Allergy Severe Anaphylaxis Verified 02/26/18 17:34 Antibiotics) fluphenazine Allergy Intermediate Anaphylaxis Verified 02/26/18 17:34 Home Medications Medication Instructions Recorded Confirmed Type buspirone 10 mg PO BID 02/20/18 02/20/18 History fluticasone-vilanterol [Breo 1 inh INHALATION DAILY 02/20/18 02/20/18 History Ellipta] glipizide 5 mg PO QDRHS 02/20/18 02/20/18 History levothyroxine 137 mcg PO DAILY 02/20/18 02/20/18 History lisinopril 10 mg PO DAILY 02/20/18 02/20/18 History loxapine succinate 5 mg PO QDRHS 02/20/18 02/20/18 History metformin 500 mg PO BID 02/20/18 02/20/18 History omeprazole 20 mg PO BID 02/20/18 02/20/18 History paliperidone palmitate [Invega 234 mg IM QMONTH 02/20/18 02/20/18 History Sustenna] sennosides-docusate sodium [Senna 1 tab PO BID 02/20/18 02/20/18 History Plus] sertraline 200 mg PO DAILY 02/20/18 02/20/18 History simvastatin 40 mg PO QPM 02/20/18 02/20/18 History Physical Exam Vital signs: Vital Signs 05/20/18 17:18 05/21/18 05:07 Temperature 97.5 F L 98.1 F Pulse Rate 80 59 L Respiratory Rate 18 16 Blood Pressure 142/67 H 110/70 Pulse Oximetry 97 97 Intake & Output 05/20/18 05/21/18 05/21/18 18:59 06:59 18:59 Weight 110.8 kg Other: Date of Last Bowel Movement 05/20/18 Narrative: GENERAL: Well-developed, well-nourished, alert and oriented x3 in no apparent distress SKIN: Warm and dry. Scratch awad on left face area HEAD: Atraumatic. Normocephalic. EYES: Pupils equal and round. No scleral icterus. No injection or drainage. ENT: No nasal bleeding or discharge. Mucous membranes pink and moist. Bilateral ear cerumen impaction. Right ear improved edema NECK: Trachea midline. No JVD. CARDIOVASCULAR: Regular rate and rhythm. RESPIRATORY: No accessory muscle use. Clear to auscultation. Breath sounds equal bilaterally. GASTROINTESTINAL: Abdomen obese soft, non-tender, nondistended. Hepatic and splenic margins not palpable. MUSCULOSKELETAL: Extremities without clubbing, cyanosis, or edema. No obvious deformities. NEUROLOGICAL: Awake and alert. No obvious cranial nerve deficits. Motor grossly within normal limits. Moving all 4 extremities. Normal speech. PSYCHIATRIC: Flat mood and affect; insight and judgment unreliable Assessment and Plan - Plan 57-year-old female with Abnormal UA Currently on Macrobid 100 mg p.o. twice daily pending urine culture Paranoid schizophrenia Management per psychiatry Asthma/COPD continue Ventolin inhaler and nebs as needed. Hypertension Continue lisinopril dose with hold parameters Diabetes mellitus Continue glipizide and metformin. GERD Continue omeprazole Hypothyroid Continue levothyroxine DVT prophylaxis: Patient is ambulatory Thank you for this consultation
[2018-05-21] MEDS: Nitrofurantoin Monohydrate-Macrocrystal 100 MG Capsule PO SCH (17:01)
[2018-05-21] MEDS: Mirtazapine 15 MG Tablet PO SCH (21:41)
[2018-05-22] MEDS: Levothyroxine 112 MCG Tablet PO SCH (06:15)
[2018-05-22] MEDS: Insulin NovoLOG Aspart Correctional Sugar Inj SQ SCH ×4 (08:37→20:25)
[2018-05-22] MEDS: Pantoprazole Sodium 20 MG DR Tablet PO SCH ×2 (08:38→20:16)
[2018-05-22] MEDS: Nitrofurantoin Monohydrate-Macrocrystal 100 MG Capsule PO SCH ×2 (08:38→17:09)
[2018-05-22] MEDS: Ibuprofen 600 MG Tablet PO PRN ×2 (08:47→17:41)
--- NOTE | 2018-05-22 15:11 | P.PNPSY ---
Subjective Chief Complaint: Schizophrenia Remarks: Patient seen and examined with nurse. Chart reviewed. Case discussed with nursing staff who reports patient remains somewhat irritable and continues to refuse Accu-Cheks. Case discussed in treatment team. On my examination today, the patient remains irritable, oppositional and negativistic. She remains somewhat delusional and believes, for example, that the nursing staff are substituting other medications for her prescribed medications. No side effects from medications. No acute physical complaints. No complaints of flank pain or urinary symptoms today. Vital Signs Temp Pulse Resp BP Pulse Ox 05/22/18 06:07 97.3 F L 59 L 16 111/51 L 95 05/21/18 21:19 2 L Intake and Output 05/22/18 05/22/18 05/22/18 06:59 14:59 22:59 Intake Total 480 / 480 Balance 480 / 480 Intake: Oral 480 / 480 Microbiology 05/20/18 16:15 Urine Culture - Final Clean Catch Urine 10-50,000 cfu/mL mixed gram positive mercy (probable contaminants) Labs reviewed. Urine culture reveals mixed mercy. Review of Systems All other systems reviewed negative except as stated in HPI (Limitation: Poor historian) Mental Status Examination Appearance: Appropriate Consciousness: Alert Orientation: Person, Place (At least) Motor Activity: Other (No motor abnormalities noted) Speech: Unremarkable Language: Adequate Fund of Knowledge: Adequate Attention and Concentration: Adequate (Fair) Memory: Unremarkable (Grossly intact on clinical examination) Mood: Oppositional, Irritable Affect: Irritable Thought Process & Associations: Linear (Within delusions) Thought Content: Bizarre thinking, Preoccupations, Delusional Hallucination Type: None Delusion Type: Paranoid Suicidal Ideation: No Homicidal Ideation: No Insight: Poor Judgment: Poor Assessment and Plan - Assessment (1) Schizophrenia Code(s): F20.9 - Schizophrenia, unspecified Status: Acute - Plan Plan: Continue current psychiatric medications as ordered. Hospitalist input noted and appreciated. Urine culture reveals mixed mercy and so Macrobid can likely be discontinued but will defer to hospitalist. Continue to monitor on the inpatient unit. Continue other medications and care as ordered. Justification for Continued Inpatient Stay: Risk for decompensation in less restrictive environment. Discharge Planning: [facility] referral. Request Healthcare Surrogate/Guardian Advocate?: Yes (1) Schizophrenia Qualifiers: Schizophrenia type: paranoid schizophrenia Qualified Code(s): F20.0 - Paranoid schizophrenia
[2018-05-22] MEDS: Mirtazapine 15 MG Tablet PO SCH (20:16)
[2018-05-23] MEDS: Levothyroxine 112 MCG Tablet PO SCH (05:35)
[2018-05-23] MEDS: Nitrofurantoin Monohydrate-Macrocrystal 100 MG Capsule PO SCH ×2 (08:38→18:30)
[2018-05-23] MEDS: Pantoprazole Sodium 20 MG DR Tablet PO SCH ×2 (08:38→20:18)
[2018-05-23] MEDS: Insulin NovoLOG Aspart Correctional Sugar Inj SQ SCH ×4 (08:39→20:19)
--- NOTE | 2018-05-23 12:09 | P.PNPSY ---
Subjective Chief Complaint: Schizophrenia Remarks: Patient seen and examined with nurse. Chart reviewed. Case discussed with nursing staff. Nurse reports that the patient is allowing Accu-Cheks but refusing insulin coverage. On my examination today, the patient presents as irritable and somewhat dysphoric. She is seclusive to her room and when we encourage participation in unit activities such as groups the patient says bitterly "they kicked me out." Apparently, the patient was asked to leave a group several weeks ago and so has not tried to join any group activity since that time. We have encouraged her to give the groups another try. Patient remains delusional. No side effects from medications. No physical complaints. Vital Signs Temp Pulse Resp BP Pulse Ox 05/23/18 05:48 98.1 F 52 L 15 114/68 97 05/22/18 17:39 97.8 F 72 18 125/60 94 L Intake and Output 05/22/18 05/23/18 05/23/18 22:59 06:59 14:59 Intake Total 360 / 360 Balance 360 / 360 Intake: Oral 360 / 360 Other: Date of Last Bowel Movement 05/22/18 05/22/18 Laboratory Results - last 24 hr 05/23/18 09:16 POC Glucose 193 H Labs reviewed. Review of Systems All other systems reviewed negative except as stated in HPI (Limitation: Psychosis) Mental Status Examination Appearance: Appropriate Consciousness: Alert Orientation: Person, Place (At least) Motor Activity: Other (No abnormal motor movements noted) Speech: Unremarkable Language: Adequate Fund of Knowledge: Adequate Attention and Concentration: Adequate (Fair) Memory: Unremarkable (Grossly intact on clinical examination) Mood: Oppositional, Irritable Affect: Irritable (Remains somewhat irritable) Thought Process & Associations: Other (Linear in setting of delusional material) Thought Content: Bizarre thinking, Preoccupations, Delusional Hallucination Type: None Delusion Type: Paranoid Suicidal Ideation: No Homicidal Ideation: No Insight: Poor Judgment: Poor Assessment and Plan - Assessment (1) Schizophrenia Code(s): F20.9 - Schizophrenia, unspecified Status: Acute - Plan Plan: Continue current psychiatric medications as ordered. Although patient may yet derive additional benefit from titration of her oral Invega, to consider replacement of this agent to a different antipsychotic to target residual psychiatric symptoms. Continue to monitor on the inpatient unit. Continue other medications and care as ordered. Justification for Continued Inpatient Stay: Risk for decompensation in less restrictive environment. Impairment in reality construction. Discharge Planning: [facility] referral. Request Healthcare Surrogate/Guardian Advocate?: Yes (1) Schizophrenia Qualifiers: Schizophrenia type: paranoid schizophrenia Qualified Code(s): F20.0 - Paranoid schizophrenia
[2018-05-23] MEDS: Ibuprofen 600 MG Tablet PO PRN ×2 (15:33→21:29)
--- NOTE | 2018-05-23 17:33 | P.PNIM ---
Subjective Interval history: Follow up increased urinary frequency, dysuria with abnormal UA, HTN, DM, shortness of breath, mental disorder/paranoia, and schizophrenia. patient seen and examined sitting in the bed in the room. Stated just ate dinner. Nurse in room. Nurse reported patient has been taking her medications except the insulin. Patient denies nay pain or chest pain. C/o of some shortness of breath. however patient does not show any kind of respiratory distress. Patient denies any abdominal pain, nausea, vomiting, diarrhea or constipation. Denies any problem with urination. Denies any fever or chills. Physical Exam Vital signs: Vital Signs 05/22/18 17:39 05/23/18 05:48 Temperature 97.8 F 98.1 F Pulse Rate 72 52 L Respiratory Rate 18 15 Blood Pressure 125/60 114/68 Pulse Oximetry 94 L 97 Intake & Output 05/22/18 05/23/18 05/23/18 18:59 06:59 18:59 Intake Total 840 / 840 Balance 840 / 840 Intake: Oral 840 / 840 Other: Date of Last Bowel Movement 05/20/18 05/22/18 05/22/18 Narrative: GENERAL: Well-developed, well-nourished, alert and oriented x3 in no apparent distress SKIN: Warm and dry. Scratch awad on left face area HEAD: Atraumatic. Normocephalic. EYES: Pupils equal and round. No scleral icterus. No injection or drainage. ENT: No nasal bleeding or discharge. Mucous membranes pink and moist. Bilateral ear cerumen impaction. Right ear improved edema NECK: Trachea midline. No JVD. CARDIOVASCULAR: Regular rate and rhythm. RESPIRATORY: No accessory muscle use. Clear to auscultation. Breath sounds equal bilaterally. GASTROINTESTINAL: Abdomen obese soft, non-tender, nondistended. Hepatic and splenic margins not palpable. MUSCULOSKELETAL: Extremities without clubbing, cyanosis, or edema. No obvious deformities. NEUROLOGICAL: Awake and alert. No obvious cranial nerve deficits. Motor grossly within normal limits. Moving all 4 extremities. Normal speech. PSYCHIATRIC: Flat mood and affect; insight and judgment unreliable Results - Labs CBC & Chem 7: 04/24/18 06:45 05/14/18 13:20 Laboratory Results - last 24 hr 05/23/18 09:16 POC Glucose 193 H Assessment and Plan - Assessment (1) Hypertension Code(s): I10 - Essential (primary) hypertension Status: Acute (2) DM type 2 (diabetes mellitus, type 2) Code(s): E11.9 - Type 2 diabetes mellitus without complications Status: Acute (3) Dysuria Code(s): R30.0 - Dysuria Status: Acute (4) Abnormal finding on urinalysis Code(s): R82.90 - Unspecified abnormal findings in urine Status: Acute (5) Schizophrenia Code(s): F20.9 - Schizophrenia, unspecified Status: Acute (6) Bipolar affective disorder Code(s): F31.9 - Bipolar disorder, unspecified Status: Acute - Plan Patient is a 57-year-old female with past medical history per records includes asthma, COPD, hypertension, hyperlipidemia, CVA, DM, GERD, seizures, ANTHONY, hypothyroidism and chronic pain. Patient was admitted in the psychiatric unit for evaluation and treatment under [place] act since February 20, 2018. Hospitalist services been reconsulted for medical management. Hypertension -blood pressure improving -continue low dose lisinopril with hold parameters -monitor BP Diabetes mellitus -Hemoglobin A1c 6.3 -Blood glucose control -Continue glipizide and metformin. -Change to diabetic diet Asthma/COPD -some shortness of breath, no wheezes -continue Ventolin inhaler and nebs as needed. Abnormal UA/ Dysuria -symptoms improving -continue Nitrofurantoin for symptom treatment -monitor signs and symptoms GERD -Continue omeprazole Hypothyroid -Continue levothyroxine -TSH 1.34 Hyperlipidemia -continue pravastatin -low fat diet -monitor lipids and lft Paranoid schizophrenia -Psychiatric team for management DVT prophylaxis: Patient is ambulatory Patient medically stable. Medicine team will sign off, will be available as needed. Thank you for the consultation Code Status: full code Discussed Condition With: patient and nurse (5) Schizophrenia Qualifiers: Schizophrenia type: paranoid schizophrenia Qualified Code(s): F20.0 - Paranoid schizophrenia (6) Bipolar affective disorder Qualifiers: Active/Remission status: currently active Current bipolar episode type: depressed Current episode severity: mild Qualified Code(s): F31.31 - Bipolar disorder, current episode depressed, mild
[2018-05-23] MEDS: Mirtazapine 15 MG Tablet PO SCH (20:18)
[2018-05-24] MEDS: Levothyroxine 112 MCG Tablet PO SCH (05:38)
[2018-05-24] MEDS: Ibuprofen 600 MG Tablet PO PRN ×3 (06:24→21:03)
[2018-05-24] MEDS: Insulin NovoLOG Aspart Correctional Sugar Inj SQ SCH ×4 (07:54→22:28)
[2018-05-24] MEDS: Nitrofurantoin Monohydrate-Macrocrystal 100 MG Capsule PO SCH ×2 (08:27→17:34)
[2018-05-24] MEDS: Pantoprazole Sodium 20 MG DR Tablet PO SCH ×2 (08:30→21:02)
--- NOTE | 2018-05-24 14:44 | P.PNPSY ---
Subjective Chief Complaint: Schizophrenia Remarks: Reviewed electronic medical records and discussed case with staff. Follow-up was conducted in the patient's room. She was found lying on the bed. She stated that she feels "all right". She then goes on a tangent in reference to not seeing Dr. Kilgore for several weeks. She states "Magui is neglecting his duties". When I explained that he cannot return from vacation simply to see her she states, "I have been told he has to come back to discharge me he needs to come back". When I tell her that discharge is not going to happen at this time she begins yelling "get out"! Mental Status Examination Appearance: Appropriate Consciousness: Alert Orientation: Person, Place (At least) Motor Activity: Other (No abnormal motor movements noted) Speech: Unremarkable Language: Adequate Fund of Knowledge: Adequate Attention and Concentration: Adequate (Fair) Memory: Unremarkable (Grossly intact on clinical examination) Mood: Oppositional, Irritable Affect: Irritable (Remains somewhat irritable) Thought Process & Associations: Other (Linear in setting of delusional material) Thought Content: Bizarre thinking, Preoccupations, Delusional Hallucination Type: None Delusion Type: Paranoid Suicidal Ideation: No Suicidal Plan: No Suicidal Intention: No Homicidal Ideation: No Homicidal Plan: No Homicidal Intention: No Insight: Poor Judgment: Poor Assessment and Plan - Assessment (1) Schizophrenia Code(s): F20.9 - Schizophrenia, unspecified Status: Acute - Plan Plan: Patient will be reevaluated by the attending psychiatrist. Continue with current treatment plan. Justification for Continued Inpatient Stay: Moving this patient to a less restrictive environment would likely result in decompensation. Request Healthcare Surrogate/Guardian Advocate?: Yes (1) Schizophrenia Qualifiers: Schizophrenia type: paranoid schizophrenia Qualified Code(s): F20.0 - Paranoid schizophrenia
[2018-05-24] MEDS: Mirtazapine 15 MG Tablet PO SCH (21:03)
[2018-05-25] MEDS: Levothyroxine 112 MCG Tablet PO SCH (05:39)
[2018-05-25] MEDS: Ibuprofen 600 MG Tablet PO PRN ×2 (05:50→16:43)
[2018-05-25] MEDS: Insulin NovoLOG Aspart Correctional Sugar Inj SQ SCH ×4 (08:00→20:50)
--- NOTE | 2018-05-25 09:25 | P.PNPSY ---
Subjective Chief Complaint: Schizophrenia Remarks: Patient seen and examined with nurse. Chart reviewed. Case discussed with nursing staff. Case discussed in treatment team. On my examination today, the patient presents with mildly labile affect. She is somewhat tearful and dysphoric. She does not feel that her psychotropic medications are working. There does seem to be some degree of delusion related to her beliefs about her psychiatric medications, however. For example, the patient is convinced that her Remeron is combining with her oral Invega to make a "poison gas" as when ammonia and bleach are combined. We discuss medication options at this point. Patient would like to replace Invega with Navane. I did obtain consent for this medication from DAVID EVERETT today, but I will hold off on ordering at this time as patient has a listed allergy of anaphylaxis to fluphenazine. In speaking with the pharmacist, there is the possibility of cross-reactivity between fluphenazine and Navane. Consequently, I think it is best to await Dr. Kilgore's return to see if he feels that the risk/benefit ratio favors initiation of the Navane. No physical complaints. Vital Signs Temp Pulse Resp BP Pulse Ox 05/25/18 07:00 in error 05/25/18 05:09 97.5 F L 52 L 18 96 05/24/18 18:13 75 16 157/82 H Labs reviewed. Review of Systems All other systems reviewed negative except as stated in HPI Mental Status Examination Appearance: Appropriate Consciousness: Alert Orientation: Person, Place (At least) Motor Activity: Other (No motoric abnormalities noted) Speech: Unremarkable Language: Adequate Fund of Knowledge: Adequate Attention and Concentration: Adequate (Fair) Memory: Unremarkable (Grossly intact on clinical examination) Mood: Oppositional, Irritable Affect: Labile Thought Process & Associations: Other (Linear in setting of delusional material) Thought Content: Bizarre thinking, Preoccupations, Delusional Hallucination Type: None Delusion Type: Bizarre, Paranoid Suicidal Ideation: No Homicidal Ideation: No Insight: Poor Judgment: Poor Assessment and Plan - Assessment (1) Schizophrenia Code(s): F20.9 - Schizophrenia, unspecified Status: Acute - Plan Plan: Continue current psychotropic medications as ordered. Could consider switching to a different antipsychotic, such as Navane as noted above. Continue to monitor on the inpatient unit. Continue other medications and care as ordered. Justification for Continued Inpatient Stay: Impairment in reality construction. High risk for decompensation in less restrictive environment. Discharge Planning: [facility] referral. Request Healthcare Surrogate/Guardian Advocate?: Yes (1) Schizophrenia Qualifiers: Schizophrenia type: paranoid schizophrenia Qualified Code(s): F20.0 - Paranoid schizophrenia
[2018-05-25] MEDS: Nitrofurantoin Monohydrate-Macrocrystal 100 MG Capsule PO SCH ×2 (09:30→18:07)
[2018-05-25] MEDS: Pantoprazole Sodium 20 MG DR Tablet PO SCH ×2 (09:33→20:51)
--- NOTE | 2018-05-25 20:07 | ECG ---
Date Performed: 05/25/2018 Time Performed: 11:01:37 PTAGE: 57 years EKG: SINUS BRADYCARDIA NONSPECIFIC T-WAVE ABNORMALITY ABNORMAL ECG PREVIOUS TRACING : 11/09/2016 08.13 Compared to previous tracing, T-wave inversion has resolved DOCTOR: Luis Manuel Bruce Interpretating Date/Time 05/25/2018 20:05:37
[2018-05-25] MEDS: Mirtazapine 15 MG Tablet PO SCH (20:51)
[2018-05-26] MEDS: Levothyroxine 112 MCG Tablet PO SCH (06:24)
[2018-05-26] MEDS: Insulin NovoLOG Aspart Correctional Sugar Inj SQ SCH ×4 (08:01→20:47)
[2018-05-26] MEDS: Nitrofurantoin Monohydrate-Macrocrystal 100 MG Capsule PO SCH (08:53)
[2018-05-26] MEDS: Pantoprazole Sodium 20 MG DR Tablet PO SCH ×2 (08:55→20:47)
--- NOTE | 2018-05-26 18:54 | P.PNPSY ---
Subjective Chief Complaint: Schizophrenia Remarks: Reviewed electronic medical records and discussed case with staff. Follow-up was conducted in patient's room with JESS Gao present. Patient states that she feels "all right". She states "I am not taking my medication". She continues to go request having her medication changed and states that she will continue to not take her medications. Dr. Saab had investigated and reported that she was allergic to fluphenazine, the patient denies this. I have explained to her that the ultimate decision of whether to change the medicine resides with Dr. Kilgore who will be back on Monday. Mental Status Examination Appearance: Appropriate Consciousness: Alert Orientation: Person, Place (At least) Motor Activity: Other (No motoric abnormalities noted) Speech: Unremarkable Language: Adequate Fund of Knowledge: Adequate Attention and Concentration: Adequate (Fair) Memory: Unremarkable (Grossly intact on clinical examination) Mood: Oppositional, Irritable Affect: Labile Thought Process & Associations: Other (Linear in setting of delusional material) Thought Content: Bizarre thinking, Preoccupations, Delusional Hallucination Type: None Delusion Type: Bizarre, Paranoid Suicidal Ideation: No Suicidal Plan: No Suicidal Intention: No Homicidal Ideation: No Homicidal Plan: No Homicidal Intention: No Insight: Poor Judgment: Poor Assessment and Plan - Assessment (1) Schizophrenia Code(s): F20.9 - Schizophrenia, unspecified Status: Acute - Plan Plan: Patient will be reevaluated by the attending psychiatrist. Continue with current treatment plan. Justification for Continued Inpatient Stay: Moving this patient to a less restrictive environment would likely result in decompensation. Request Healthcare Surrogate/Guardian Advocate?: Yes (1) Schizophrenia Qualifiers: Schizophrenia type: paranoid schizophrenia Qualified Code(s): F20.0 - Paranoid schizophrenia
[2018-05-26] MEDS: Mirtazapine 15 MG Tablet PO SCH (20:47)
[2018-05-27] MEDS: Levothyroxine 112 MCG Tablet PO SCH (05:21)
[2018-05-27] MEDS: Insulin NovoLOG Aspart Correctional Sugar Inj SQ SCH ×4 (09:10→21:08)
[2018-05-27] MEDS: Pantoprazole Sodium 20 MG DR Tablet PO SCH ×2 (09:15→20:52)
[2018-05-27] MEDS: Ibuprofen 600 MG Tablet PO PRN (10:02)
--- NOTE | 2018-05-27 12:56 | P.PNPSY ---
Subjective Chief Complaint: Schizophrenia Remarks: Reviewed electronic medical records and discussed case with staff. Follow-up was conducted in the [facility] area with JESS Velásquez present. Patient is feeling sad. Her significant other of many years, Rigoberto, came to see her yesterday during visiting hours and she misses him. She is upset about discussions regarding medication changes and refusing to take her current medications. She is covered with a FRAGOSO , Invega Sustenna but will not take her po dose. She is cooperative and calm. She is talking about going to court on . Review of Systems All other systems reviewed negative except as stated in HPI Mental Status Examination Appearance: Appropriate Consciousness: Alert Orientation: Person, Place (At least) Motor Activity: Other (No motoric abnormalities noted) Speech: Unremarkable Language: Adequate Fund of Knowledge: Adequate Attention and Concentration: Adequate (Fair) Memory: Unremarkable (Grossly intact on clinical examination) Mood: Appropriate Affect: Sad, Labile Thought Process & Associations: Other (Linear in setting of delusional material) Thought Content: Bizarre thinking, Preoccupations, Delusional Hallucination Type: None Delusion Type: Bizarre, Paranoid Suicidal Ideation: No Suicidal Plan: No Suicidal Intention: No Homicidal Ideation: No Homicidal Plan: No Homicidal Intention: No Insight: Poor Judgment: Poor Assessment and Plan - Assessment (1) Schizophrenia Code(s): F20.9 - Schizophrenia, unspecified Status: Acute - Plan Plan: Patient will be reevaluated by the attending psychiatrist. Continue with current treatment plan. Justification for Continued Inpatient Stay: Moving patient to a less restrictive environment may result in her decompensation. Request Healthcare Surrogate/Guardian Advocate?: Yes
[2018-05-27] MEDS: Mirtazapine 15 MG Tablet PO SCH (20:52)
[2018-05-28] MEDS: Levothyroxine 112 MCG Tablet PO SCH ×2 (05:56→06:19)
[2018-05-28] MEDS: Insulin NovoLOG Aspart Correctional Sugar Inj SQ SCH ×4 (07:11→20:58)
[2018-05-28] MEDS: Ibuprofen 600 MG Tablet PO PRN ×2 (09:20→17:20)
[2018-05-28] MEDS: Pantoprazole Sodium 20 MG DR Tablet PO SCH ×2 (09:23→21:00)
--- NOTE | 2018-05-28 11:00 | P.PNPSY ---
Subjective Chief Complaint: Schizophrenia Remarks: Patient seen and examined with nurse. Chart reviewed. Case discussed with nursing staff. Patient refused her oral Invega today but accepted her other medications. On my examination today, the patient is perseverative on switching from Invega to Navane. I have explained the concerns regarding possible cross reactivity between the Navane and the fluphenazine to which she is reportedly allergic. Patient insists that she has taken Navane before without incident when she was hospitalized at [facility] in the in [place], [place] under a Dr. Bernard. There may be delusional component to this however, as the patient does note that Dr. Bernard was to [facility]. We will endeavor to get the records regarding to previous trial of Navane. I have encouraged patient to accept the Invega; patient says she will take 9mg Invega but not 12mg. No medication side effects. No physical complaints. Vital Signs Temp Pulse Resp BP Pulse Ox 05/28/18 05:37 97.5 F L 68 16 117/61 96 05/27/18 17:34 97.6 F 67 18 137/63 99 Labs reviewed. No new labs. Review of Systems All other systems reviewed negative except as stated in HPI (Limitation: Psychosis) Mental Status Examination Appearance: Appropriate Consciousness: Alert Orientation: Person, Place (At least) Motor Activity: Other (No abnormal motor movements noted.) Speech: Unremarkable Language: Adequate Fund of Knowledge: Adequate Attention and Concentration: Adequate (Fair) Memory: Unremarkable (Grossly intact on clinical examination) Mood: Irritable (Mild) Affect: Irritable, Other (somewhat dysphoric) Thought Process & Associations: Other (Linear in setting of delusional material) Thought Content: Bizarre thinking, Delusional Hallucination Type: None Delusion Type: Paranoid Suicidal Ideation: No Homicidal Ideation: No Insight: Poor Judgment: Poor Assessment and Plan - Assessment (1) Schizophrenia Code(s): F20.9 - Schizophrenia, unspecified Status: Acute - Plan Plan: Taper Invega back to 9mg daily to improve adherence; I do not feel that the 12mg dose was providing additional benefit anyway. Try to obtain records regarding Navane administration in the past. Continue to monitor on inpatient unit. Continue other meds and care as ordered. Justification for Continued Inpatient Stay: Medication changes. Impairment in reality construction. High risk for decompensation in less restrictive environment. Discharge Planning: [facility] psychiatric hospitalization. Counselor informs me that patient is #7 on the [facility] wait list. Request Healthcare Surrogate/Guardian Advocate?: Yes (1) Schizophrenia Qualifiers: Schizophrenia type: paranoid schizophrenia Qualified Code(s): F20.0 - Paranoid schizophrenia
[2018-05-28] MEDS: Mirtazapine 15 MG Tablet PO SCH (21:00)
[2018-05-29] MEDS: Levothyroxine 112 MCG Tablet PO SCH (07:09)
[2018-05-29] MEDS: Insulin NovoLOG Aspart Correctional Sugar Inj SQ SCH ×4 (07:11→21:46)
[2018-05-29] MEDS: Pantoprazole Sodium 20 MG DR Tablet PO SCH ×2 (09:05→21:47)
--- NOTE | 2018-05-29 16:48 | P.PNPSY ---
Subjective Chief Complaint: Schizophrenia Remarks: Reviewed electronic medical records and discussed case with staff. Follow-up was conducted in patient's room where she was again found lying in bed. Her nurse reports she continues to have mixed compliance with medications. She does seem somewhat more irritable today. She states "I have not taken a shit in 3 days". Her nurse reports that she has given her some milk of magnesia. Patient goes on to complain of being claustrophobic and states "I cannot cope with being inside all of the time". She seems tearful and is perseverative on the topic of cancer. She claims, "I want cancer treatment. I want cancer drugs. I have cancer." According to her nurse she did become somewhat fixated on the idea that she has cancer. When the patient was asked what type of cancer she has she was unable to elaborate. Mental Status Examination Appearance: Appropriate Consciousness: Alert Orientation: Person, Place (At least) Motor Activity: Other (No abnormal motor movements noted.) Speech: Unremarkable Language: Adequate Fund of Knowledge: Adequate Attention and Concentration: Adequate (Fair) Memory: Unremarkable (Grossly intact on clinical examination) Mood: Irritable (Mild) Affect: Irritable, Other (somewhat dysphoric) Thought Process & Associations: Other (Linear in setting of delusional material) Thought Content: Bizarre thinking, Delusional Hallucination Type: None Delusion Type: Paranoid Suicidal Ideation: No Suicidal Plan: No Suicidal Intention: No Homicidal Ideation: No Homicidal Plan: No Homicidal Intention: No Insight: Poor Judgment: Poor Assessment and Plan - Assessment (1) Schizophrenia Code(s): F20.9 - Schizophrenia, unspecified Status: Acute - Plan Plan: Patient will be reevaluated by the attending psychiatrist. Continue with current treatment plan. Justification for Continued Inpatient Stay: Moving this patient to a less restrictive environment would likely result in decompensation. Request Healthcare Surrogate/Guardian Advocate?: Yes (1) Schizophrenia Qualifiers: Schizophrenia type: paranoid schizophrenia Qualified Code(s): F20.0 - Paranoid schizophrenia
[2018-05-29] MEDS: Ibuprofen 600 MG Tablet PO PRN (17:27)
[2018-05-29] MEDS: Mirtazapine 15 MG Tablet PO SCH (21:47)
[2018-05-30] MEDS: Levothyroxine 112 MCG Tablet PO SCH (05:22)
[2018-05-30] MEDS: Pantoprazole Sodium 20 MG DR Tablet PO SCH ×2 (09:14→21:19)
[2018-05-30] MEDS: Insulin NovoLOG Aspart Correctional Sugar Inj SQ SCH ×4 (09:14→21:19)
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
--- NOTE | 2018-05-30 15:21 | P.TTN ---
- Patient Problems Problems: 1. Discharge planning 2. Medication compliance 3. Knowledge deficit 4. Lack of coping skills - Progress Toward Goals Provider Present: Dr. Winston Saab, Dr. Darion Reveles Provider Input: 05/30/18: #6 on the [facility] waiting list. 05/22/18 Patient waiting for [facility]. 05/18/18: Increased Oral Invega. 05/07/18 : [facility] 05/02: Pt on State list with [facility] transition. Magui- 04/25 - contiues to present paranoia, delusional, slightly more cooperative, still meets criteria. State referral. needs further stabilization, still psychotic, FACT team hopes she can return home- if not state referral is suggested/ order is placed but packet not sent yet. March 27, 2018, no changes with patient, patient does not appear to be making progress toward treatment goals, patient requires further stabilization. Apr 06, 2018: Refusing medications: referred to the [facility]. Paranoid and suspicious. Nurse(s) Present: Jeri Nurse Input: 05/30/18: Appropriate with staff. takes select medications. Pt is taking meds. mood improved somewhat. 05/18/18: Agitated, Med Compliant only with Psych Meds. 05/07/18: Paranoid, Select meds refusing others. Karol-Non complaint with medication, will only take buspar and invega, has been seclusive, no behavioral issues, seemed incresingly depressed Psychiatric Counselors Present: Marky Taylor Jr., [facility] (state wait list), Brandy Baker [facility], Other Psychiatric Therapist Input: 05/30/18: [place] [address] on 05/31/18. 05.22.18 Meets criteria discharge to [facility]. 05/18/18: Meets Criteria, State Wait. 05/07/18: Cooperative, No insight, needs more time. 05/02: State placement packet received, notification of admission pending. Priscilla-04/25 Seclusive, poor insight, placement issue, [facility] started. Flat, psychotic, unstable, [facility]. Doesn't like Counselors, very suspicious, Group Spec/RT/OT/WRIGHT Present: Chelsey Hollingsworth, GPS, Partha Ang, OT Group Spec/RT/OT/WRIGHT Input: 05/30/18: Patient attends select group activities. Pt remains guarded and paranoid. Always tearful. 05/22/18 Patient attended group, and has an improved mood. 05/18/18: Patient attends select group activities, depressed mood. Tearful at times. Isolates to self. 05/07/18: Pt attends select group activities. Pt is quite and isolates to herself. Easily Overwhelmed. 05/02: Pt has been attending groups, she is not socializing, she does advocate for her needs. Chelsey- 04/25 Does attend groups, will follow rules and engage in projects, is anti -social and easily overwhelmed. chelsey: Patient attends the group activities on a regular basis. Pt is anti-social with peers but pleasant to select staff.. Pt is easily overwhelmed. Additional Input: 05/02: Pt has been attending groups, she is not socializing, she does advocate for her needs, pt is scheduled to discharge to [facility]. 05/18/18: Patient is on the State Wait List. - Discharge Plan [facility] 05/07/18: [facility] referral, hoping to transfer to [facility]. 05/18/18: [facility] Waiting list. - Documentation Scribe: Chelsey Hollingsworth Teaching Recipient: Patient
[2018-05-30] MEDS: Mirtazapine 15 MG Tablet PO SCH (21:19)
[2018-05-31 05:10] VITALS: BP 106/55; PULSE 55; RESP 16; TEMP 98; O2SAT 93
[2018-05-31] MEDS: Levothyroxine 112 MCG Tablet PO SCH (06:11)
[2018-05-31] MEDS: Pantoprazole Sodium 20 MG DR Tablet PO SCH (08:03)
--- NOTE | 2018-05-31 11:56 | P.DSPSY ---
Psychiatry Discharge Summary Inpatient Psychiatric care?: Yes Advance Directives: No Mental Health Advance Directive: No Health Care Proxy: No - Admission Admission Date: February 20, 2018 16:24 - Admission Diagnosis (1) Schizophrenia Code(s): F20.9 - Schizophrenia, unspecified Brief History: Patient is a 57-year-old white female comes here under an ex parte signed by a telephonic nurse case manager through [facility] fact team. He gives a history of patient showing increased noncompliance with medications the past 1-2 months. That the fact team psychiatrist and has attempted various other medications all of which have been refused by the patient. This includes a follow-up with her in [place] a injection. Patient is shown increasingly poor hygiene and decreased with her ADLs. She become increasingly delusional with a paranoid nature and somewhat sexual overtones nature. Patient seen screen in the ED urine toxicology negative blood alcohol level negative. Patient seen in her room with Counselor Deja. Patient is alert fairly well oriented stockily built white female disheveled in appearance sitting calmly on her bed. She is in no acute distress. She acknowledges increased auditory hallucinations of a command demanding threatening nature. She denies suicidality. She denies any alcohol or drug use with this. She lives with a male roommate she admits to sexual overtones towards his behavior. She is quite vague minimizes any past psychiatric history. Though there is a long history of mental illness with this lady. I also talked with patient's telephonic nurse case manager Cecilia Price at [phone]. She confirms the noncompliance medication with increased delusions paranoia and auditory hallucinations with the sexual overtones. In that the fact psychiatrist is tried various alternatives for treatment and she has refused all of them. Less at the stomach feel patient does meet criteria for involuntary inpatient psychiatric treatment under the [place] act I also feel she does not have capacity to make decisions concerning her care thus I will ask for second opinion healthcare surrogate and guardian advocate. It appears there is no family member person that can assume the responsibility of healthcare surrogate. Thus we will offer medication on a ETO basis only at this time. She is on various medical medications that we will the hospitalist for assessment treat it appears to may need to delay mental health treatment until we can get a healthcare surrogate and guardian advocate appointed by the court Tobacco Use In Past 30 Days: No How Often Do You Have a Drink Containing Alcohol: Unable to Obtain Hospital Course: Patient's hospital course was long and somewhat chaotic there was recommendation by the treatment team for long-term referral to the [facility]. However there were continuous adjustments with her medication. She did show some softening of the paranoia and vigilance. Patient was retained in [employer] court. However patient has also subsequently filed a abuse corpus. That he abuse corpus was accepted patient seen today for her rehearing in [place] under Moe Soto. Patient presented well she was clean and neat calm cooperative with only brief outbursts of mild irritability and vigilance. However Moe Soto felt the patient no longer met criteria for involuntary psychiatric hospitalization that she was compliant with the medication she did have the services of the fact team in the community and she did have a stable relationship with a boyfriend. Thus Judge Soto is ordered me to discharge patient to herself with follow-up for act team thus patient will be discharged today with Rx times 1 month follow-up [facility] act FACT team - Discharge Discharge Date: 05/31/18 - Discharge Diagnosis (1) Schizophrenia Diagnosis: Principal Code(s): F20.9 - Schizophrenia, unspecified Status: Acute Discharge Disposition: Home - Discharge Instructions Discharge Diet: Regular Diet Activities You Can Perform: Regular- No Restrictions - Discharge Time > 30 minutes Mental Status Examination Appearance: Appropriate Consciousness: Alert Orientation: Person, Place (At least) Motor Activity: Other (No abnormal motor movements noted.) Speech: Unremarkable Language: Adequate Fund of Knowledge: Adequate Attention and Concentration: Adequate (Fair) Memory: Unremarkable (Grossly intact on clinical examination) Mood: Irritable (Mild), Other (Mildly dysphoric) Affect: Other (Slight increased range and intensity) Thought Process & Associations: Other (Linear in setting of delusional material) Thought Content: Bizarre thinking, Delusional Hallucination Type: None Delusion Type: Paranoid Suicidal Ideation: No Suicidal Plan: No Suicidal Intention: No Homicidal Ideation: No Homicidal Plan: No Homicidal Intention: No Insight: Poor Judgment: Poor Discharge/Advance Care Plan - Results Vital Signs: Last Vital Signs Temp 98 F 05/31/18 05:09 Pulse 55 L 05/31/18 05:09 Resp 16 05/31/18 05:09 BP 106/55 L 05/31/18 05:09 Pulse Ox 93 L 05/31/18 05:09 Lab Results: Abnormal Lab Results 05/31/18 06:09 POC Glucose 137 H Laboratory Results Hemoglobin A1c 6.4 % (4.3-6.0) H 05/04/18 07:11 Triglycerides 268 mg/dL (42-150) H 05/04/18 07:11 Cholesterol 226 mg/dL (120-200) H 05/04/18 07:11 LDL Cholesterol, Calc 140 mg/dL (0-99) H 05/04/18 07:11 HDL Cholesterol 32.3 mg/dL (40.0-60.0) L 05/04/18 07:11 TSH 1.340 uIU/mL (0.358-3.740) 04/29/18 09:05 Urine Culture Comments Culture not ind 02/19/18 20:20 Summary of Procedures: None done Pending Results: None - Medications Number of antipsychotic medications at discharge: 1 - Discharge Care Plan Goals to Promote Your Health: * To prevent worsening of your condition and complications * To maintain your health at the optimal level Directions to Meet Your Goals: Take your medications as prescribed Follow your dietary instruction Follow activity as directed Keep your appointments as scheduled Take your immunizations and boosters as scheduled If your symptoms worsen call your PCP, if no PCP go to Urgent Care Center or Emergency Room For 13/02 questions related to your inpatient stay or results of tests pending at discharge, please contact Dr. Rubin Kilgore MD at Smoking is Dangerous to Your Health. Avoid second hand smoking (1) Schizophrenia Qualifiers: Schizophrenia type: paranoid schizophrenia Qualified Code(s): F20.0 - Paranoid schizophrenia (1) Schizophrenia Qualifiers: Schizophrenia type: paranoid schizophrenia Qualified Code(s): F20.0 - Paranoid schizophrenia
== END 2018-05-31 12:35 | disposition home or self-care (01) ==
LOC: NEPJ 17:11 → NEDA 02-20 16:24 → H260 02-20 17:50 → H270 03-23 11:32 → H260 04-07 08:02
PROVIDERS: ADMIT Psychiatry & Neurology Psychiatry; ATTEND Psychiatry & Neurology Psychiatry

== ENCOUNTER 2018-07-26 13:29 | Inpatient (IN) ==
[2018-07-26 14:46] LABS: Baso % (Auto) 0.3 % (0.0-2.0); Eos # (Auto) 0.1 th/mm3 (0.0-0.4); Eos % (Auto) 1.2 % (0.0-4.0); Hematocrit 43.3 % (35.0-46.0); Lymph # (Auto) 2.4 th/mm3 (1.0-4.8); Lymph % (Auto) 23.6 % (9.0-44.0); Mean Corpuscular HGB Conc 34.6 % (32.0-36.0); Mean Corpuscular Hemoglobin 28.7 pg (27.0-34.0); Mean Corpuscular Volume 82.8 fL (80.0-100.0); Mean Platelet Volume 8.1 fL (7.0-11.0); Mono # (Auto) 0.5 th/mm3 (0.0-0.9); Mono % (Auto) 4.8 % (0.0-8.0); Neut # (Auto) 7.2 th/mm3 (1.8-7.7); Neut % (Auto) 70.1 % (16.0-70.0); Platelet Count 219 th/mm3 (150-450); Red Blood Count 5.23 mil/mm3 (4.00-5.30); Red Cell Distribution Width 15.5 % (11.6-17.2); White Blood Count 10.3 th/mm3 (4.0-11.0)
[2018-07-26 15:10] LABS: Alkaline Phosphatase 79 U/L (45-117); Total Protein 7.9 g/dL (6.4-8.2)
[2018-07-26 15:25] LABS: Alanine Aminotransferase 36 U/L (10-53); Albumin 3.9 g/dL (3.4-5.0); Anion Gap 8 meq/L (5-15); Blood Urea Nitrogen 8 mg/dL (7-18); Chloride 100 meq/L (98-107); Glomerular Filtration Rate 65 mL/min (>89); Glucose,Random 180 mg/dL (74-106); Sodium 134 meq/L (136-145)
[2018-07-26 15:26] LABS: Aspartate Aminotransferase 41 U/L (15-37); Potassium 4.4 meq/L (3.5-5.1)
[2018-07-26 17:13] LABS: Bacteria,Urine Occasional /hpf; Bilirubin,Urine Negative (Negative); Color,Urine Yellow (Yellw/Straw); Glucose,Urine (UA) Negative (Negative); Hyaline Casts,Urine 33 /lpf (0-3); Leukocyte Esterase,Urine Large (Negative); Mucus,Urine Few /lpf (Occasional); Nitrite,Urine Negative (Negative); Specific Gravity,Urine 1.009 (1.002-1.035); Squamous Epithelial Cell,Urine 12 /hpf (0-5)
[2018-07-26 17:14] LABS: Clarity,Urine Hazy (Clear)
[2018-07-26 17:21] LABS: Amphetamine Screen,Urine Neg (Neg); Barbiturate Screen,Urine Neg (Neg); Cannabinoid Screen,Urine Neg (Neg); Cocaine Screen,Urine Neg (Neg)
--- NOTE | 2018-07-26 17:25 | ED ---
HPI General Chief Complaint: Psychiatric Symptoms Stated Complaint: Psych Screen Court ordered Time Seen by Provider: 07/26/18 14:25 Source: patient Mode of arrival: ambulatory Limitations: no limitations History of Present Illness HPI Narrative: 58-year-old female presents to the emergency department under EXPARTE. According to the EXPARTE report the patient was seen in the fact office showing delusional, paranoid, aggressive behaviors and refusing antipsychotic medications. According to staff the patient is well-known here. She apparently was here from January to May inpatient psych. On my examination the patient states that she does not know why she is here. She said she was laying in bed when police showed up and brought her here. She denies history of psychiatric background. Although she says that she sees Arabella Rivera for psychiatry. She denies suicidal or homicidal ideations. Denies history of suicidal attempts. Denies auditory visual hallucinations. Denies illicit drug use, alcohol use. Reports tobacco use. Denies psychiatric history and says that she has not supposed be taking any psychiatric medications. She does report feeling anxious and is asking for something for her anxiety. Denies any emergent medical complaints. Denies chest pain, shortness breath, abdominal pain, change in urine or stool. No known aggravating or relieving factors. Symptoms are moderate to severe in severity. Onset unknown. Duration most likely chronic. Primary care provider is Isaias. Allergies to penicillin, sulfa, fluphenazine. History of hypertension and does not take medications. States history of diabetes mellitus and says she takes metformin and glipizide; says she does not check her blood sugars. No other modifying factors or associated signs and symptoms. Related Data Home Medications Medication Instructions Recorded Confirmed glipizide 5 mg PO QDRHS 02/20/18 07/26/18 lisinopril 10 mg PO DAILY 02/20/18 07/26/18 loxapine succinate 5 mg PO QDRHS 02/20/18 07/26/18 metformin 500 mg PO BID 02/20/18 07/26/18 omeprazole 20 mg PO BID 02/20/18 07/26/18 paliperidone palmitate [Invega 234 mg IM QMONTH 02/20/18 07/26/18 Sustenna] sennosides-docusate sodium [Senna 1 tab PO BID 02/20/18 07/26/18 Plus] sertraline 200 mg PO DAILY 02/20/18 07/26/18 simvastatin 40 mg PO QPM 02/20/18 07/26/18 Previous Rx's Medication Instructions Recorded albuterol sulfate [Ventolin HFA] 2 puff INH Q4H PRN #1 g 05/31/18 buspirone 10 mg PO BID #60 tab 05/31/18 diphenhydramine HCl 50 mg PO HS PRN #30 cap 05/31/18 fluticasone-vilanterol [Breo 1 inh INHALATION DAILY #1 inh 05/31/18 Ellipta] hydroxyzine HCl 50 mg PO Q6H PRN #30 tab 05/31/18 levothyroxine 137 mcg PO DAILY #30 tab 05/31/18 mirtazapine 15 mg PO HS #30 tab 05/31/18 paliperidone [Invega] 9 mg PO DAILY #30 tab 05/31/18 paliperidone palmitate [Invega 234 mg IM Q30D #1 ml 05/31/18 Sustenna] pantoprazole [Protonix] 20 mg PO BID #60 tab 05/31/18 pravastatin 80 mg PO QPM #30 tab 05/31/18 Allergies Allergy/AdvReac Type Severity Reaction Status Date / Time penicillin G Allergy Severe Anaphylaxis Verified 02/26/18 17:34 Sulfa (Sulfonamide Allergy Severe Anaphylaxis Verified 02/26/18 17:34 Antibiotics) fluphenazine Allergy Intermediate Anaphylaxis Verified 02/26/18 17:34 Review of Systems ROS: all other systems reviewed are negative [facility] Medical History Medical History Hx of hysterectomy (Acute) Chronic back pain (Acute) Asthma (Acute) COPD (chronic obstructive pulmonary disease) (Acute) GERD (gastroesophageal reflux disease) (Acute) HLD (hyperlipidemia) (Acute) HTN (hypertension) (Acute) Hypothyroid (Acute) Medical history unknown (Acute) Obstructive sleep apnea (Acute) Paranoid schizophrenia (Acute) Family History Family History Other Family history unknown Social History Social History Substance History: No History of Abuse Second Hand Smoke Exposure: Yes Smoking Status: Current every day smoker Tobacco Type: Cigarettes Packs Per Day: 1 Cigarettes Per Day: 20.0 How Often Do You Have a Drink Containing Alcohol: Never Recent Travel in [facility] within the Last 8 Weeks: No Recent Out of Country Travel within the Last 8 Weeks: No Immunization History Tetanus Immunization: Unsure Exam Narrative Exam Narrative: GENERAL: Well-nourished, well-developed female patient , in no acute distress SKIN: Warm and dry. HEAD: Atraumatic. Normocephalic. EYES: Pupils equal and round. ENT: Mucosa pink and moist. NECK: Supple. Trachea midline. CARDIOVASCULAR: Regular rate and rhythm. No murmur appreciated. RESPIRATORY: No accessory muscle use. Clear to auscultation. Breath sounds equal bilaterally. GASTROINTESTINAL: Abdomen soft, non-tender, nondistended. Hepatic and splenic margins not palpable. Bowel sounds are active 4 quadrants. MUSCULOSKELETAL: No obvious deformities. No clubbing. No cyanosis. No edema. NEUROLOGICAL: Awake and alert. Oriented 3. No obvious cranial nerve deficits. Motor grossly within normal limits. Normal speech. Moves all extremities. 5/5 strength to all extremities. PSYCHIATRIC: No delusional thought processes. No hallucinations. Course Initial Documented Vital Signs Temperature 98.8 F 07/26/18 13:35 Pulse Rate 97 H 07/26/18 13:35 Respiratory Rate 22 07/26/18 13:35 Blood Pressure 142/70 H 07/26/18 13:35 Pulse Oximetry 97 07/26/18 13:35 Last Documented Vital Signs Temperature 98.1 F 07/31/18 05:37 Pulse Rate 74 07/31/18 05:37 Respiratory Rate 16 07/31/18 05:37 Blood Pressure 130/70 07/31/18 05:37 Pulse Oximetry 97 07/31/18 05:37 Medical Decision Making [facility] Narrative Medical decision making narrative: Patient presents under a EXPARTE. Physical examination and vital signs are essentially unremarkable. Patient has no medical complaints to report. Psych screen has been ordered. If the laboratory results are unremarkable, the patient will be medically cleared for psychiatric evaluation and disposition. Medical Screen Exam Complete: Yes Emergency Medical Condition: Yes Differential Diagnosis Differential Diagnosis: Schizophrenia, bipolar disorder, medical clearance for psychiatric evaluation Lab Data Result diagrams: 07/26/18 13:42 07/27/18 07:34 Lab Results 07/26/18 07/26/18 07/26/18 Range/Units 13:42 13:42 13:42 WBC 10.3 (4.0-11.0) th/mm3 RBC 5.23 (4.00-5.30) mil/mm3 Hgb 15.0 (11.6-15.3) gm/dL Hct 43.3 (35.0-46.0) % MCV 82.8 (80.0-100.0) fL MCH 28.7 (27.0-34.0) pg MCHC 34.6 (32.0-36.0) % RDW 15.5 (11.6-17.2) % Plt Count 219 (150-450) th/mm3 MPV 8.1 (7.0-11.0) fL Neut % (Auto) 70.1 H (16.0-70.0) % Lymph % (Auto) 23.6 (9.0-44.0) % [place] % (Auto) 4.8 (0.0-8.0) % Eos % (Auto) 1.2 (0.0-4.0) % Baso % (Auto) 0.3 (0.0-2.0) % Neut # (Auto) 7.2 (1.8-7.7) th/mm3 Lymph # (Auto) 2.4 (1.0-4.8) th/mm3 [place] # (Auto) 0.5 (0.0-0.9) th/mm3 Eos # (Auto) 0.1 (0.0-0.4) th/mm3 Baso # (Auto) 0.0 (0.0-0.2) th/mm3 WBC Differential . Differential Comment Auto diff final Sodium 134 L (136-145) meq/L Potassium 4.4 (3.5-5.1) meq/L Chloride 100 (98-107) meq/L Carbon Dioxide 26.0 (21.0-32.0) meq/L Anion Gap 8 (5-15) meq/L BUN 8 (7-18) mg/dL Creatinine 0.89 (0.50-1.00) mg/dL Estimated GFR 65 L (>89) mL/min Random Glucose 180 H (74-106) mg/dL Hemoglobin A1c (4.3-6.0) % Calcium 9.0 (8.5-10.1) mg/dL Magnesium 2.0 (1.5-2.5) mg/dL Total Bilirubin 0.3 (0.2-1.0) mg/dL AST 41 H (15-37) U/L ALT 36 (10-53) U/L Alkaline Phosphatase 79 (45-117) U/L Total Protein 7.9 (6.4-8.2) g/dL Albumin 3.9 (3.4-5.0) g/dL Triglycerides (42-150) mg/dL Cholesterol (120-200) mg/dL LDL Cholesterol, Calc (0-99) mg/dL HDL Cholesterol (40.0-60.0) mg/dL Cholesterol/HDL Ratio Ratio TSH 1.770 (0.358-3.740) uIU/mL Urine Color (Yellw/Straw) Urine Clarity (Clear) Urine pH (5.0-8.5) Ur Specific [place] (1.002-1.035) Urine Protein (Neg-Trace) mg/dL Urine Glucose (UA) (Negative) mg/dL Urine Ketones (Negative) mg/dL Urine Occult Blood (Negative) Urine Nitrate (Negative) Urine Bilirubin (Negative) Urine Urobilinogen (Less than 2) mg/dL Ur Leukocyte Esterase (Negative) Urine RBC (0-3) /hpf Urine WBC (0-5) /hpf Ur Squamous Epith Cells (0-5) /hpf Urine Bacteria (None) /hpf Hyaline Casts (0-3) /lpf Urine Mucus (Occasional) /lpf Micro UA Comment Ur Microscopic Review Urine Culture Comments Salicylates 12.9 (2.8-20.0) mg/dL Urine Opiates Screen (Neg) Acetaminophen Less than 2.0 L (10.0-30.0) mcg/mL Ur Barbiturates Screen (Neg) Ur Amphetamines Screen (Neg) U Benzodiazepines Scrn (Neg) Urine Cocaine Screen (Neg) U Cannabinoids Screen (Neg) Serum Alcohol Less than 3 (0-5) mg/dL 07/26/18 07/26/18 07/27/18 Range/Units 15:54 15:54 07:34 WBC (4.0-11.0) th/mm3 RBC (4.00-5.30) mil/mm3 Hgb (11.6-15.3) gm/dL Hct (35.0-46.0) % MCV (80.0-100.0) fL MCH (27.0-34.0) pg MCHC (32.0-36.0) % RDW (11.6-17.2) % Plt Count (150-450) th/mm3 MPV (7.0-11.0) fL Neut % (Auto) (16.0-70.0) % Lymph % (Auto) (9.0-44.0) % [place]agon[place] % (Auto) (0.0-8.0) % Eos % (Auto) (0.0-4.0) % Baso % (Auto) (0.0-2.0) % Neut # (Auto) (1.8-7.7) th/mm3 Lymph # (Auto) (1.0-4.8) th/mm3 [place] # (Auto) (0.0-0.9) th/mm3 Eos # (Auto) (0.0-0.4) th/mm3 Baso # (Auto) (0.0-0.2) th/mm3 WBC Differential Differential Comment Sodium 136 (136-145) meq/L Potassium 4.6 (3.5-5.1) meq/L Chloride 101 (98-107) meq/L Carbon Dioxide 30.0 (21.0-32.0) meq/L Anion Gap 5 (5-15) meq/L BUN 12 (7-18) mg/dL Creatinine 0.70 (0.50-1.00) mg/dL Estimated GFR 86 L (>89) mL/min Random Glucose 109 H (74-106) mg/dL Hemoglobin A1c (4.3-6.0) % Calcium 9.1 (8.5-10.1) mg/dL Magnesium (1.5-2.5) mg/dL Total Bilirubin (0.2-1.0) mg/dL AST (15-37) U/L ALT (10-53) U/L Alkaline Phosphatase (45-117) U/L Total Protein (6.4-8.2) g/dL Albumin (3.4-5.0) g/dL Triglycerides 181 H (42-150) mg/dL Cholesterol 154 (120-200) mg/dL LDL Cholesterol, Calc 83 (0-99) mg/dL HDL Cholesterol 35.0 L (40.0-60.0) mg/dL Cholesterol/HDL Ratio 4.40 Ratio TSH (0.358-3.740) uIU/mL Urine Color Yellow (Yellw/Straw) Urine Clarity Hazy H (Clear) Urine pH 5.0 (5.0-8.5) Ur Specific [place] 1.009 (1.002-1.035) Urine Protein Negative (Neg-Trace) mg/dL Urine Glucose (UA) Negative (Negative) mg/dL Urine Ketones Negative (Negative) mg/dL Urine Occult Blood Negative (Negative) Urine Nitrate Negative (Negative) Urine Bilirubin Negative (Negative) Urine Urobilinogen Less than 2 (Less than 2) mg/dL Ur Leukocyte Esterase Large H (Negative) Urine RBC 2 (0-3) /hpf Urine WBC 4 (0-5) /hpf Ur Squamous Epith Cells 12 (0-5) /hpf Urine Bacteria Occasional H (None) /hpf Hyaline Casts 33 (0-3) /lpf Urine Mucus Few H (Occasional) /lpf Micro UA Comment Culture not ind Ur Microscopic Review Not Reportable Urine Culture Comments Culture not ind Salicylates (2.8-20.0) mg/dL Urine Opiates Screen Neg (Neg) Acetaminophen (10.0-30.0) mcg/mL Ur Barbiturates Screen Neg (Neg) Ur Amphetamines Screen Neg (Neg) U Benzodiazepines Scrn Neg (Neg) Urine Cocaine Screen Neg (Neg) U Cannabinoids Screen Neg (Neg) Serum Alcohol (0-5) mg/dL 07/27/18 Range/Units 07:34 WBC (4.0-11.0) th/mm3 RBC (4.00-5.30) mil/mm3 Hgb (11.6-15.3) gm/dL Hct (35.0-46.0) % MCV (80.0-100.0) fL MCH (27.0-34.0) pg MCHC (32.0-36.0) % RDW (11.6-17.2) % Plt Count (150-450) th/mm3 MPV (7.0-11.0) fL Neut % (Auto) (16.0-70.0) % Lymph % (Auto) (9.0-44.0) % [place]agon[place] % (Auto) (0.0-8.0) % Eos % (Auto) (0.0-4.0) % Baso % (Auto) (0.0-2.0) % Neut # (Auto) (1.8-7.7) th/mm3 Lymph # (Auto) (1.0-4.8) th/mm3 [place] # (Auto) (0.0-0.9) th/mm3 Eos # (Auto) (0.0-0.4) th/mm3 Baso # (Auto) (0.0-0.2) th/mm3 WBC Differential Differential Comment Sodium (136-145) meq/L Potassium (3.5-5.1) meq/L Chloride (98-107) meq/L Carbon Dioxide (21.0-32.0) meq/L Anion Gap (5-15) meq/L BUN (7-18) mg/dL Creatinine (0.50-1.00) mg/dL Estimated GFR (>89) mL/min Random Glucose (74-106) mg/dL Hemoglobin A1c 7.1 H (4.3-6.0) % Calcium (8.5-10.1) mg/dL Magnesium (1.5-2.5) mg/dL Total Bilirubin (0.2-1.0) mg/dL AST (15-37) U/L ALT (10-53) U/L Alkaline Phosphatase (45-117) U/L Total Protein (6.4-8.2) g/dL Albumin (3.4-5.0) g/dL Triglycerides (42-150) mg/dL Cholesterol (120-200) mg/dL LDL Cholesterol, Calc (0-99) mg/dL HDL Cholesterol (40.0-60.0) mg/dL Cholesterol/HDL Ratio Ratio TSH (0.358-3.740) uIU/mL Urine Color (Yellw/Straw) Urine Clarity (Clear) Urine pH (5.0-8.5) Ur Specific [place] (1.002-1.035) Urine Protein (Neg-Trace) mg/dL Urine Glucose (UA) (Negative) mg/dL Urine Ketones (Negative) mg/dL Urine Occult Blood (Negative) Urine Nitrate (Negative) Urine Bilirubin (Negative) Urine Urobilinogen (Less than 2) mg/dL Ur Leukocyte Esterase (Negative) Urine RBC (0-3) /hpf Urine WBC (0-5) /hpf Ur Squamous Epith Cells (0-5) /hpf Urine Bacteria (None) /hpf Hyaline Casts (0-3) /lpf Urine Mucus (Occasional) /lpf Micro UA Comment Ur Microscopic Review Urine Culture Comments Salicylates (2.8-20.0) mg/dL Urine Opiates Screen (Neg) Acetaminophen (10.0-30.0) mcg/mL Ur Barbiturates Screen (Neg) Ur Amphetamines Screen (Neg) U Benzodiazepines Scrn (Neg) Urine Cocaine Screen (Neg) U Cannabinoids Screen (Neg) Serum Alcohol (0-5) mg/dL Imaging Data Radiologist's impression: Lumbar Spine X-Ray 07/27/18 00:00 CONCLUSION: 1. Mild grade 1 anterior spondylolisthesis of L4 over L5. 2. Primary degenerative changes throughout the lumbar spine. 3. 8 mm calcification in the right midabdomen. This could indicate either a gallstone or possibly a kidney stone. The location suggests most likely a gallstone. Discharge Plan Discharge Disposition Patient Disposition: Sign Out(ED Internal Use Only) Discharge Condition Condition: Stable Discharge Order Discharge Orders: ED Use Only Admit Order (Routine); Ordered 07/26/18 Ordered By: Shelbi Mcdonald Discharge Details Diagnosis: Encounter for psychiatric assessment Physicians Team ED Provider: Radha Dubon ED Midlevel Provider: Monse Gonzalez Primary Care Provider: William Silverman Attending Provider: Rubin Kilgore Status ED Status: Left Department Discharge Information Discharge Date/Time: 07/26/18 20:58
[2018-07-26 17:55] LABS: Opiate Screen,Urine Neg (Neg)
[2018-07-26] MEDS ORDERED: Aluminum/Magnesium/Simethacone Susp 30 ML UDC PO PRN (18:49)
[2018-07-26] MEDS ORDERED: Non-Formulary Drug (Albuterol Sulfate 2 PUFF) INH PRN (18:50)
[2018-07-26] MEDS ORDERED: GLIPIZIDE 5 MG PO SCH (19:00)
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
[2018-07-26] MEDS ORDERED: Haloperidol Inj 5 MG/ML Ampul IM ONE (22:00)
[2018-07-26] MEDS: Pantoprazole Sodium 20 MG DR Tablet PO SCH (22:08)
[2018-07-27] MEDS: Levothyroxine 112 MCG Tablet PO SCH (05:54)
[2018-07-27 08:59] LABS: Calcium 9.1 mg/dL (8.5-10.1); Potassium 4.6 meq/L (3.5-5.1)
[2018-07-27] MEDS ORDERED: Non-Formulary Drug (Levothyroxine [Levothyroxine] 137 MCG) PO SCH (09:00)
[2018-07-27 09:03] LABS: Chol/HDL Ratio 4.4 Ratio
[2018-07-27] MEDS: Lisinopril 10 MG Tablet PO SCH (09:20)
[2018-07-27] MEDS: glipiZIDE 5 MG Tablet PO SCH ×2 (09:21→17:07)
[2018-07-27] MEDS: Pantoprazole Sodium 20 MG DR Tablet PO SCH ×2 (09:22→20:56)
[2018-07-27] MEDS ORDERED: Paliperidone Inj 234 MG/1.5 ML Syringe IM SCH (10:45)
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
--- NOTE | 2018-07-27 13:06 | P.PNPSY ---
Subjective Chief Complaint: My doctors are trying to poison me Remarks: The patient was seen for the purpose of providing a second opinion to the Dubon act order. Chart reviewed to include ex-parte documents, emergency department paperwork and the attending's history and physical. Patient discussed with nursing staff; we reviewed the patient's mood, thoughts, and behaviors since arrival to the unit. The patient was seen at bedside. She reports that she is refusing to take her Invega Sustenna because the nurses at her outpatient clinic are not mixing it correctly. She argues that the weather makes it because it to become cloudy and makes it a poisonous substance. Patient also reports that she is close personal friends with Prescristian Gonzalez and he agreed with her about not taking her medication. Mental Status Examination Appearance: Disheveled Consciousness: Alert Orientation: Person, Place Motor Activity: Normal gait Speech: Pressured, Rapid, Other (Loud) Language: Adequate, Perseveration Fund of Knowledge: Inadequate Attention and Concentration: Easily distracted Memory: Impaired Mood: Angry, Oppositional, Irritable Affect: Other (Increased range and intensity) Thought Process & Associations: Loose associations, Disorganized, Tangential Thought Content: Bizarre thinking, Obsessions Hallucination Type: Auditory (Appears to be responding to internal stimuli) Delusion Type: Bizarre, Paranoid Suicidal Ideation: No Suicidal Plan: No Suicidal Intention: No Homicidal Ideation: No Homicidal Plan: No Homicidal Intention: No Insight: Poor Judgment: Poor Assessment and Plan - Assessment (1) Schizophrenia Code(s): F20.9 - Schizophrenia, unspecified Status: Acute - Plan Plan: I agree with the first opinion that the patient has active symptoms of psychosis to include paranoid delusions that place her at risk of harm to self through self neglect and reckless behaviors. Second opinion was completed and placed on the chart. Justification for Continued Inpatient Stay: Patient remains an elevated risk for self-harm by self neglect and will require further inpatient stabilization and preparation of a safe discharge plan. Moving patient to a less restrictive environment at this time may result in decompensation. Request Healthcare Surrogate/Guardian Advocate?: Yes (1) Schizophrenia Qualifiers: Schizophrenia type: paranoid schizophrenia Qualified Code(s): F20.0 - Paranoid schizophrenia
[2018-07-27 13:15] LABS: Hemoglobin A1c 7.1 % (4.3-6.0)
[2018-07-27] MEDS: Acetaminophen 325 MG Tablet PO PRN ×2 (14:51→21:14)
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
--- NOTE | 2018-07-27 17:05 | XR ---
EXAM DATE: 07/27/2018 5:01 PM EST AGE/SEX: 58 years / Female INDICATIONS: Lower back pain. CLINICAL DATA: This is the patient's initial encounter. Patient reports that signs and symptoms have been present for > 1 year and indicates a pain score of 7/10. MEDICAL/SURGICAL HISTORY: Chronic obstructive pulmonary disease. None. COMPARISON: No prior exams available for comparison. FINDINGS: There are degenerative changes involving the lumbar spine. No compression fracture injuries are demon strated. There is grade 1 anterior spondylolisthesis of L4 over L5. Vascular calcifications are noted in the aorta. There is a device noted posterior to the lumbar spine at the level of L4-L5. There is an 8 mm calcification overlying the right midabdomen. There is good alignment of the SI joints. CONCLUSION: 1. Mild grade 1 anterior spondylolisthesis of L4 over L5. 2. Primary degenerative changes throughout the lumbar spine. 3. 8 mm calcification in the right midabdomen. This could indicate either a gallstone or possibly a kidney stone. The location suggests most likely a gallstone. Electronically signed by: Manuel Vick MD Board Certified Radiologist 07/27/2018 5:04 PM EST
[2018-07-27] MEDS: Ibuprofen 600 MG Tablet PO PRN (17:43)
[2018-07-27] MEDS: Senna/Docusate Sodium 8.6/50 MG Tablet PO SCH (20:56)
[2018-07-27] MEDS ORDERED: Mirtazapine 15 MG Tablet PO SCH (21:00)
[2018-07-28] MEDS: Levothyroxine 112 MCG Tablet PO SCH (06:14)
[2018-07-28] MEDS: Lisinopril 10 MG Tablet PO SCH (08:13)
[2018-07-28] MEDS: glipiZIDE 5 MG Tablet PO SCH ×2 (08:13→17:13)
[2018-07-28] MEDS: Senna/Docusate Sodium 8.6/50 MG Tablet PO SCH ×2 (08:13→20:57)
[2018-07-28] MEDS: Pantoprazole Sodium 20 MG DR Tablet PO SCH ×2 (08:14→20:57)
[2018-07-28] MEDS: Ibuprofen 600 MG Tablet PO PRN ×2 (11:14→17:12)
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
--- NOTE | 2018-07-28 13:40 | P.PNPSY ---
Subjective Chief Complaint: My doctors are trying to poison me Remarks: Patient remains floridly psychotic. She has bizarre grandiose delusions that she is a doctor and goes over bizarre treatments for various conditions. Her treatment for leprosy is "titanium suicide pills." Behaving well on the unit. Medication is on hold pending guardian advocate. Review of Systems All other systems reviewed negative except as stated in HPI Mental Status Examination Appearance: Disheveled Consciousness: Alert Orientation: Person, Place Motor Activity: Normal gait Speech: Pressured, Rapid, Other (Loud) Language: Adequate, Perseveration Fund of Knowledge: Inadequate Attention and Concentration: Easily distracted Memory: Impaired Mood: Oppositional, Irritable Affect: Other (Increased range and intensity) Thought Process & Associations: Loose associations, Disorganized, Tangential Thought Content: Bizarre thinking, Obsessions Hallucination Type: Auditory (Appears to be responding to internal stimuli) Delusion Type: Bizarre, Paranoid Suicidal Ideation: No Suicidal Plan: No Suicidal Intention: No Homicidal Ideation: No Homicidal Plan: No Homicidal Intention: No Insight: Poor Judgment: Poor Assessment and Plan - Assessment (1) Schizophrenia Code(s): F20.9 - Schizophrenia, unspecified Status: Acute - Plan Plan: Continue current treatment plan Justification for Continued Inpatient Stay: Patient would decompensate in a less restrictive setting Request Healthcare Surrogate/Guardian Advocate?: Yes (1) Schizophrenia Qualifiers: Schizophrenia type: paranoid schizophrenia Qualified Code(s): F20.0 - Paranoid schizophrenia
[2018-07-29] MEDS: Levothyroxine 112 MCG Tablet PO SCH (05:58)
[2018-07-29] MEDS: Lisinopril 10 MG Tablet PO SCH (08:57)
[2018-07-29] MEDS: Senna/Docusate Sodium 8.6/50 MG Tablet PO SCH ×2 (08:57→20:55)
[2018-07-29] MEDS: Ibuprofen 600 MG Tablet PO PRN ×2 (08:57→15:03)
[2018-07-29] MEDS: Pantoprazole Sodium 20 MG DR Tablet PO SCH ×2 (08:57→20:55)
[2018-07-29] MEDS: glipiZIDE 5 MG Tablet PO SCH ×2 (08:58→17:00)
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
--- NOTE | 2018-07-29 18:08 | P.PNPSY ---
Subjective Chief Complaint: My doctors are trying to poison me Remarks: Reviewed electronic medical records and discussed case with staff. Follow-up was conducted in the hallway with JESS Zimmerman present. Her nurse reports the patient's been rather up and down today in her moods. She reports that she only has her medical Rx ordered. Patient states that all of her bones are hurting when asked about obtaining consent for some medications she gives permission to contact her boyfriend and provides his number is [phone]. She comes rather oppositional and argumentative about the psychotropic medications while leave that to her attending to sort out. She reports not sleeping very well but states that her appetite's been okay. I did obtain consent from her boyfriend Rigoberto for Atarax and Benadryl both 50 mg as needed. Form was filled out and these medications were taken off of hold. Mental Status Examination Appearance: Disheveled Consciousness: Alert Orientation: Person, Place Motor Activity: Normal gait Speech: Pressured, Rapid, Other (Loud) Language: Adequate, Perseveration Fund of Knowledge: Inadequate Attention and Concentration: Easily distracted Memory: Impaired Mood: Oppositional, Irritable Affect: Other (Increased range and intensity) Thought Process & Associations: Loose associations, Disorganized, Tangential Thought Content: Bizarre thinking, Obsessions Hallucination Type: Auditory (Appears to be responding to internal stimuli) Delusion Type: Bizarre, Paranoid Suicidal Ideation: No Suicidal Plan: No Suicidal Intention: No Homicidal Ideation: No Homicidal Plan: No Homicidal Intention: No Insight: Poor Judgment: Poor Assessment and Plan - Assessment (1) Schizophrenia Code(s): F20.9 - Schizophrenia, unspecified Status: Acute - Plan Plan: Patient will be reevaluated by the attending psychiatrist. Continue with current treatment plan. Justification for Continued Inpatient Stay: Moving this patient to a less restrictive environment would likely result in decompensation. Request Healthcare Surrogate/Guardian Advocate?: Yes (1) Schizophrenia Qualifiers: Schizophrenia type: paranoid schizophrenia Qualified Code(s): F20.0 - Paranoid schizophrenia
[2018-07-30] MEDS: Levothyroxine 112 MCG Tablet PO SCH (05:49)
[2018-07-30] MEDS: Pantoprazole Sodium 20 MG DR Tablet PO SCH ×2 (08:20→20:07)
[2018-07-30] MEDS: Lisinopril 10 MG Tablet PO SCH ×2 (08:20→09:16)
[2018-07-30] MEDS: glipiZIDE 5 MG Tablet PO SCH ×2 (08:20→16:14)
[2018-07-30] MEDS: Senna/Docusate Sodium 8.6/50 MG Tablet PO SCH ×2 (08:20→20:07)
[2018-07-30] MEDS: Ibuprofen 600 MG Tablet PO PRN ×2 (10:39→16:13)
--- NOTE | 2018-07-30 12:23 | P.PNPSY ---
Subjective Chief Complaint: My doctors are trying to poison me Remarks: Patient seen in her room with floor staff, chart reviewed, patient continues somewhat resistant to medications but the intensity of her paranoia is decreased her affect shows decreased range and intensity, she is not as angry with me. Somewhat more appropriate with her responses. She still does not want the in [place] she states she is willing to take the Atarax and Haldol. Patient did receive a as needed Haldol recently with no problems. We will offer patient Haldol 5 mg p.o. twice daily if she tolerates that without difficulty of her 100 mg IM monthly. I attempted to call patient's boyfriend Rigoberto to get permission for this there is no answer at the phone number we have Review of Systems All other systems reviewed negative except as stated in HPI Mental Status Examination Appearance: Disheveled (Improved) Consciousness: Alert Orientation: Person, Place, Situation Motor Activity: Normal gait Speech: Pressured (Improved), Rapid (Improved), Other (Loud) Language: Adequate, Perseveration Fund of Knowledge: Inadequate Attention and Concentration: Easily distracted Memory: Impaired Mood: Oppositional, Irritable, Other (Somewhat restricted today) Affect: Other (Increased intensity and range) Thought Process & Associations: Loose associations, Disorganized, Tangential Thought Content: Bizarre thinking, Obsessions Hallucination Type: Auditory (Appears to be responding to internal stimuli) Delusion Type: Bizarre, Paranoid Suicidal Ideation: No Suicidal Plan: No Suicidal Intention: No Homicidal Ideation: No Homicidal Plan: No Homicidal Intention: No Insight: Poor Judgment: Poor Assessment and Plan - Assessment (1) Schizophrenia Code(s): F20.9 - Schizophrenia, unspecified Status: Acute - Plan Plan: Patient remains quite psychotic paranoid and delusional. That appears it is softening somewhat and she is showing some willingness to discuss medications. Perhaps Haldol. We will offer her 5 mg twice daily Haldol in anticipation of perhaps a monthly decanoate. Need to contact patient's significant other Rigoberto to get permission Justification for Continued Inpatient Stay: At this time patient with decompensated placed in a lower level of care Discharge Planning: Hopefully to return to her home with Rigoberto Request Healthcare Surrogate/Guardian Advocate?: Yes (1) Schizophrenia Qualifiers: Schizophrenia type: paranoid schizophrenia Qualified Code(s): F20.0 - Paranoid schizophrenia
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
[2018-07-30] MEDS: Haloperidol 5 MG Tablet PO SCH (20:07)
[2018-07-31] MEDS: Pantoprazole Sodium 20 MG DR Tablet PO SCH ×3 (06:00→20:01)
[2018-07-31] MEDS: Levothyroxine 112 MCG Tablet PO SCH (06:07)
[2018-07-31] MEDS: Ibuprofen 600 MG Tablet PO PRN ×2 (08:21→17:39)
[2018-07-31] MEDS: glipiZIDE 5 MG Tablet PO SCH ×2 (08:22→17:34)
[2018-07-31] MEDS: Senna/Docusate Sodium 8.6/50 MG Tablet PO SCH ×2 (08:22→20:00)
[2018-07-31] MEDS: Haloperidol 5 MG Tablet PO SCH ×2 (08:23→20:00)
[2018-07-31] MEDS: Lisinopril 10 MG Tablet PO SCH (08:23)
--- NOTE | 2018-07-31 10:41 | P.PNPSY ---
Subjective Chief Complaint: My doctors are trying to poison me Remarks: Patient seen and nails with nurse Elsie, chart reviewed, patient compliant medication. Patient showing no ill effects of the Haldol at this time. Patient calm more cooperative and pleasant with me with improved eye contact she is more reactive with an improved affect. She denies voices at this time denies suicidality at this time. There is still some vigilance and mild paranoia noted but overall she is improved. We will consider addition of Haldol decanoate tomorrow and possible discharge or Monday Review of Systems All other systems reviewed negative except as stated in HPI Mental Status Examination Appearance: Appropriate Consciousness: Alert Orientation: Person, Place, Date/Time, Situation Motor Activity: Normal gait Speech: Unremarkable Language: Adequate, Perseveration Fund of Knowledge: Inadequate Attention and Concentration: Easily distracted (Improved) Memory: Impaired Mood: Oppositional (Calmer), Irritable (Calmer), Other (Somewhat restricted today) Affect: Other (Increased intensity and range) Thought Process & Associations: Loose associations (Improved), Disorganized ( Improved), Tangential (Improved) Thought Content: Bizarre thinking (Improved), Obsessions (Improved) Hallucination Type: Auditory (Denies today) Delusion Type: Bizarre (Improved), Paranoid (Improved) Suicidal Ideation: No Suicidal Plan: No Suicidal Intention: No Homicidal Ideation: No Homicidal Plan: No Homicidal Intention: No Insight: Poor Judgment: Poor Assessment and Plan - Assessment (1) Schizophrenia Code(s): F20.9 - Schizophrenia, unspecified Status: Acute - Plan Plan: Patient compliant medications, resolving, for now continue treatment consider Haldol Decanoate tomorrow Justification for Continued Inpatient Stay: At this time patient with decompensated placed on a lower level of care Discharge Planning: Return home with boyfriend Request Healthcare Surrogate/Guardian Advocate?: Yes (1) Schizophrenia Qualifiers: Schizophrenia type: paranoid schizophrenia Qualified Code(s): F20.0 - Paranoid schizophrenia
[2018-08-01] MEDS: Levothyroxine 112 MCG Tablet PO SCH (06:23)
[2018-08-01] MEDS: Senna/Docusate Sodium 8.6/50 MG Tablet PO SCH ×2 (09:07→20:58)
[2018-08-01] MEDS: Pantoprazole Sodium 20 MG DR Tablet PO SCH ×2 (09:07→20:58)
[2018-08-01] MEDS: Haloperidol 5 MG Tablet PO SCH (09:08)
[2018-08-01] MEDS: glipiZIDE 5 MG Tablet PO SCH ×2 (09:08→16:22)
[2018-08-01] MEDS: Ibuprofen 600 MG Tablet PO PRN (09:08)
[2018-08-01] MEDS: Lisinopril 10 MG Tablet PO SCH (09:10)
--- NOTE | 2018-08-01 10:18 | P.TTN ---
- Patient Problems Problems: 1. Discharge planning 2. Medication compliance 3. Knowledge deficit 4. Lack of coping skills - Progress Toward Goals Provider Present: Dr. Pily Kilgore (Dr. Kilgore is titrating medications, patient needs to remain for further stabilization.) Provider Input: 07/30/18 Patient has been resistant to medication. Patient is on buspar and atarax. She was non-compliant outpatient. Nurse Input: 07/30/18 No report as nurse was in rounds. Psychiatric Counselors Present: aMrky Taylor Jr., [facility] (Patient will return home to her boyfriend's residence upon discharge.), Other Psychiatric Therapist Input: 07/30/18 Yesterday in group the patient stated she her sister was related to [place]. Patient has difficulty comprehending group activities. Group Spec/RT/OT/WRIGHT Present: ADRIANA Lora (Patient attends select groups and is difficult to redirect at this time.), Other Group Spec/RT/OT/WRIGHT Input: 07/30/18 Patient does participate. - Documentation Teaching Recipient: Patient
--- NOTE | 2018-08-01 15:54 | P.PNPSY ---
Subjective Chief Complaint: My doctors are trying to poison me Remarks: Patient seen for follow-up, chart reviewed, patient discussed with nursing staff ; we reviewed the patient's mood, thoughts, and behaviors from overnight and this morning. Nurse reports the patient slept 8 hours overnight and has been calm cooperative and pleasant today. Patient was seen at bedside after breakfast where she was sitting awake quietly in her room. She denies any auditory or visual hallucinations. She denies any paranoia. She was very pleasant with provider and as we discussed the risks benefits side effects and alternative treatments of Haldol decanoate injections she was sincerely motivated to give it a try. Patient also expressed an agreement to the plan of continued inpatient observation and treatment until the end of the week with a plan of discharge by Monday if she remains stable. Mental Status Examination Appearance: Appropriate Consciousness: Alert Orientation: Person, Place, Date/Time, Situation Motor Activity: Normal gait Speech: Unremarkable Language: Adequate, Perseveration Fund of Knowledge: Inadequate Attention and Concentration: Easily distracted (Improved) Memory: Impaired Mood: Appropriate, Good Affect: Flat Thought Process & Associations: Intact, Logical, Goal directed Thought Content: Appropriate, Obsessions (Improved) Hallucination Type: None Delusion Type: None Suicidal Ideation: No Suicidal Plan: No Suicidal Intention: No Homicidal Ideation: No Homicidal Plan: No Homicidal Intention: No Insight: Fair Judgment: Impulsive Assessment and Plan - Assessment (1) Schizophrenia Code(s): F20.9 - Schizophrenia, unspecified Status: Acute - Plan Plan: 08/01/2018: Good response to treatment; the patient's delusions and disorganized thought processes have improved significantly with treatment with Haldol. She is sincerely motivated for transition to Haldol Decanoate and is appropriate for voluntarily signing herself in. Continue inpatient treatment and observation but convert to voluntary status. Change Haldol 5 mg twice a day to a Haldol decanoate shot 100 mg IM x1 now with next dose in 28 days. Anticipate discharge by the end of the week if she remains stable and the medications are well tolerated. Justification for Continued Inpatient Stay: Patient remains an elevated risk for self-harm by self neglect and risk of harm to others if acting out on her paranoid therefore she will require further inpatient stabilization and preparation of a safe discharge plan. Moving patient to a less restrictive environment at this time may result in decompensation. Request Healthcare Surrogate/Guardian Advocate?: Yes (1) Schizophrenia Qualifiers: Schizophrenia type: paranoid schizophrenia Qualified Code(s): F20.0 - Paranoid schizophrenia
[2018-08-01] MEDS ORDERED: Haloperidol Decanoate Inj 50 MG/ML Ampul IM ONE (17:00)
[2018-08-02] MEDS: Ibuprofen 600 MG Tablet PO PRN ×3 (02:15→14:40)
[2018-08-02] MEDS: Levothyroxine 112 MCG Tablet PO SCH (06:29)
[2018-08-02] MEDS: Pantoprazole Sodium 20 MG DR Tablet PO SCH ×2 (08:32→20:13)
[2018-08-02] MEDS: Senna/Docusate Sodium 8.6/50 MG Tablet PO SCH ×2 (08:32→20:13)
[2018-08-02] MEDS: glipiZIDE 5 MG Tablet PO SCH ×2 (08:32→17:17)
[2018-08-02] MEDS: Lisinopril 10 MG Tablet PO SCH (08:32)
--- NOTE | 2018-08-02 14:12 | P.PNPSY ---
Subjective Chief Complaint: Follow-up treatment of psychosis Remarks: Patient seen for follow-up, chart reviewed, patient discussed with nursing staff ; we reviewed the patient's mood, thoughts, and behaviors from overnight and this morning. Nursing describes patient is calm cooperative but delusional at times. She denies suicidal or homicidal ideations. She denies any auditory or visual hallucinations. Patient was observed participating appropriately in group therapies. She was pleasant with provider during interview. She reports satisfactory response to her medications and no noted side effects from the recent Haldol Decanoate shot. She expressed sincere motivation to continue her out patient plan and adhere to follow-ups. Mental Status Examination Appearance: Appropriate Consciousness: Alert Orientation: Person, Place, Date/Time, Situation Motor Activity: Normal gait Speech: Unremarkable Language: Adequate Fund of Knowledge: Inadequate Attention and Concentration: Adequate Memory: Unremarkable Mood: Appropriate, Good Affect: Flat Thought Process & Associations: Intact, Logical, Goal directed Thought Content: Appropriate Hallucination Type: None Delusion Type: None Suicidal Ideation: No Suicidal Plan: No Suicidal Intention: No Homicidal Ideation: No Homicidal Plan: No Homicidal Intention: No Insight: Fair Judgment: Impulsive Assessment and Plan - Assessment (1) Schizophrenia Code(s): F20.9 - Schizophrenia, unspecified Status: Acute - Plan Plan: 08/01/2018: Good response to treatment; the patient's delusions and disorganized thought processes have improved significantly with treatment with Haldol. She is sincerely motivated for transition to Haldol Decanoate and is appropriate for voluntarily signing herself in. Continue inpatient treatment and observation but convert to voluntary status. Change Haldol 5 mg twice a day to a Haldol decanoate shot 100 mg IM x1 now with next dose in 28 days. Anticipate discharge by the end of the week if she remains stable and the medications are well tolerated. 08/02/2018: Continued good response to treatment; the patient's thought processes are no longer disorganized and her delusions have decreased in intensity. She has tolerated the transition to Haldol Decanoate and she is expressing sincere motivation to adhere to treatment. Continue inpatient treatment and observation with anticipation of discharge home tomorrow if she remains stable. Justification for Continued Inpatient Stay: Patient remains an elevated risk for self-harm by self neglect and will require further inpatient stabilization and preparation of a safe discharge plan. Moving patient to a less restrictive environment at this time may result in decompensation. Request Healthcare Surrogate/Guardian Advocate?: Yes (1) Schizophrenia Qualifiers: Schizophrenia type: paranoid schizophrenia Qualified Code(s): F20.0 - Paranoid schizophrenia
[2018-08-02 16:35] VITALS: TEMP 98.1
[2018-08-03 05:10] VITALS: BP 110/74; PULSE 70; RESP 16; O2SAT 98
[2018-08-03] MEDS: Levothyroxine 112 MCG Tablet PO SCH (05:45)
[2018-08-03] MEDS: Ibuprofen 600 MG Tablet PO PRN (08:08)
[2018-08-03] MEDS: Lisinopril 10 MG Tablet PO SCH (08:10)
[2018-08-03] MEDS: Senna/Docusate Sodium 8.6/50 MG Tablet PO SCH (08:10)
[2018-08-03] MEDS: glipiZIDE 5 MG Tablet PO SCH (08:11)
[2018-08-03] MEDS: Pantoprazole Sodium 20 MG DR Tablet PO SCH (08:12)
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
== END 2018-08-03 12:30 | disposition home or self-care (01) | DRG 885 ==
LOC: NEPJ 13:29 → NEDA 19:02 → H260 21:06
PROVIDERS: ADMIT Psychiatry & Neurology Psychiatry; ATTEND Psychiatry & Neurology Psychiatry
CPT/HCPCS: 72100; 80048; 80053; 80061; 80307; 81001; 83036; 83735; 84443; 85025; 94640; 94665; 99285; J1630; J1631; J2060; Q0163